=== PATIENT | male | born 1940 | race Caucasian/White ===

== ENCOUNTER → 2017-02-05 | Outpatient (CLI) | payer MEDICARE, BC ==
--- NOTE | 2017-02-05 08:29 | US ---
EXAMINATION TYPE: US duplex aorta DATE OF EXAM: 02/05/2017 7:54 AM COMPARISON: NONE CLINICAL HISTORY: Z13.9 Screening for unspecified condition. EXAM MEASUREMENTS: Abdominal Aorta: Proximal: 1.9cm not viewed in its entirety, portions visualized wnl Mid: 2.3cm Distal: 2.1 Bifurcation: not visualized due to overlying bowel/depth Patient of large body habitus with very large abdomen IMPRESSION: NO EVIDENCE OF AN AORTIC ANEURYSM AT THIS TIME.
== END ==
LOC: RADUSWWP 07:35
PROVIDERS: ATTEND Family Medicine
DX: Z13.9 Encounter for screening, unspecified (principal)
CPT/HCPCS: 93979

== ENCOUNTER 2017-02-13 18:34 | Observation (INO) | payer MEDICARE, BC ==
[2017-02-13] MEDS ORDERED: SODIUM CHLORIDE 0.9% 500 ML IV ONE (18:54)
[2017-02-13] MEDS ORDERED: ACETAMINOPHEN TAB 325 MG TAB PO STA (18:54)
--- NOTE | 2017-02-13 19:42 | ED ---
General Adult HPI - General Source: patient, RN notes reviewed Mode of arrival: EMS Limitations: no limitations <Jerrod Werner - Last Filed: 02/13/17 22:14> <Helio Anderson - Last Filed: 02/13/17 22:32> - General Chief complaint: Fever Stated complaint: flu like symptoms Time Seen by Provider: 02/13/17 18:41 - History of Present Illness Initial comments: 77-year-old male patient presents to emergency department today complaints of leg weakness and multiple episodes of diarrhea. Patient states that symptoms started this morning. Patient states he does generally have some leg weakness, uses a walker to ambulate, but states it's a little bit worse today. Patient states he has had more than 8-10 episodes of diarrhea today. He describes the stool as liquidy. Denies any dark, bloody, or black stools. Denies any nausea , vomiting, or abdominal pain. Patient denies any unilateral weakness, headache , dizziness, blurred, or double vision. Patient was febrile during triage, patient was unaware he had a fever. (Jerrod Werner) - Related Data Home Medications Medication Instructions Recorded Confirmed Pravastatin Sodium [Pravachol] 40 mg PO DAILY 04/08/15 02/13/17 Tamsulosin [Flomax] 0.4 mg PO BID 04/08/15 02/13/17 Cholecalciferol [Vitamin D3] 2,000 unit PO DAILY 04/21/15 02/13/17 Cyanocobalamin [Vitamin B-12] 500 mcg PO DAILY 04/21/15 02/13/17 Aspirin EC [Ecotrin] 325 mg PO DAILY 02/13/17 02/13/17 Finasteride [Proscar] 5 mg PO DAILY 02/13/17 02/13/17 Losartan/Hydrochlorothiazide 1 tab PO DAILY 02/13/17 02/13/17 [Losartan-Hctz 100-25 mg Tab] Oxybutynin Chloride [Oxybutynin 10 mg PO HS 02/13/17 02/13/17 Chloride ER] Zolpidem [Ambien] 10 mg PO HS PRN 02/13/17 02/13/17 Previous Rx's Medication Instructions Recorded Clopidogrel [Plavix] 75 mg PO DAILY #30 tab 04/27/15 Meclizine [Antivert] 25 mg PO TID #20 tab 07/28/16 Allergies Allergy/AdvReac Type Severity Reaction Status Date / Time Penicillins Allergy Rash/Hives Verified 02/13/17 19:07 Review of Systems ROS Other: All systems not noted in ROS Statement are negative. <SeanladiJerrod Hakan - Last Filed: 02/13/17 22:14> ROS Other: All systems not noted in ROS Statement are negative. <Helio Anderson - Last Filed: 02/13/17 22:32> ROS Statement: Those systems with pertinent positive or pertinent negative responses have been documented in the HPI. Past Medical History Past Medical History: Hyperlipidemia, Hypertension, Prostate Disorder, Sleep Apnea/CPAP/BIPAP Additional Past Medical History / Comment(s): PAD, History of Any Multi-Drug Resistant Organisms: None Reported Past Surgical History: Appendectomy, Back Surgery, Joint Replacement Additional Past Surgical History / Comment(s): JOSE KNEE REPLACEMENT, KIDNEY SX AT AGE 3 Past Anesthesia/Blood Transfusion Reactions: No Reported Reaction Past Psychological History: No Psychological Hx Reported Smoking Status: Current every day smoker Past Alcohol Use History: None Reported Past Drug Use History: None Reported - Past Family History Mother Family Medical History: No Reported History <DebbiJerrod Mcclendon - Last Filed: 02/13/17 22:14> General Exam Limitations: no limitations General appearance: alert, in no apparent distress Head exam: Present: atraumatic, normocephalic, normal inspection Eye exam: Present: normal appearance, PERRL, EOMI. Absent: scleral icterus, conjunctival injection, periorbital swelling ENT exam: Present: normal exam, normal oropharynx, mucous membranes moist Neck exam: Present: normal inspection. Absent: tenderness, meningismus, lymphadenopathy Respiratory exam: Present: normal lung sounds bilaterally, wheezes (Posterior right Lower lobe). Absent: respiratory distress, rales, rhonchi, stridor Cardiovascular Exam: Present: regular rate, normal rhythm, normal heart sounds. Absent: systolic murmur, diastolic murmur, rubs, gallop, clicks GI/Abdominal exam: Present: soft, normal bowel sounds. Absent: distended, tenderness, guarding, rebound, rigid Extremities exam: Present: normal inspection, full ROM, normal capillary refill. Absent: tenderness, pedal edema, joint swelling, calf tenderness Back exam: Present: normal inspection. Absent: CVA tenderness (R), CVA tenderness (L) Neurological exam: Present: alert, oriented X3, CN II-XII intact Psychiatric exam: Present: normal affect, normal mood Skin exam: Present: warm, dry, intact, normal color. Absent: rash <Jerrod Werner - Last Filed: 02/13/17 22:14> EKG Findings - EKG Comments: EKG Findings:: EKG obtained at 2004 reveals sinus rhythm with a first-degree AV block, left axis deviation, ventricular rate 85, ND interval 222, QRS duration 96, QT 372, QTC 442. No evidence of ST elevation or depression. <Jerrod Werner - Last Filed: 02/13/17 22:14> Medical Decision Making - Lab Data Result diagrams: 02/13/17 19:17 02/13/17 19:17 <Jerrod Werner - Last Filed: 02/13/17 22:14> - Lab Data Result diagrams: 02/13/17 19:17 02/13/17 19:17 <Helio Anderson - Last Filed: 02/13/17 22:32> - Medical Decision Making I saw this patient in conjunction with the physician payroll administrative assistant. I performed independent history and physical exam. Agree with case management. (Helio Anderson) - Lab Data Lab Results 02/13/17 02/13/17 02/13/17 Range/Units 19:17 19:17 19:17 WBC 8.8 (3.8-10.6) k/uL RBC 4.43 (4.30-5.90) m/uL Hgb 12.7 L (13.0-17.5) gm/dL Hct 37.8 L (39.0-53.0) % MCV 85.5 (80.0-100.0) fL MCH 28.6 (25.0-35.0) pg MCHC 33.4 (31.0-37.0) g/dL RDW 15.2 (11.5-15.5) % Plt Count 274 (150-450) k/uL Neutrophils % 89 % Lymphocytes % 5 % Monocytes % 3 % Eosinophils % 2 % Basophils % 1 % Neutrophils # 7.9 H (1.3-7.7) k/uL Lymphocytes # 0.4 L (1.0-4.8) k/uL Monocytes # 0.2 (0-1.0) k/uL Eosinophils # 0.2 (0-0.7) k/uL Basophils # 0.1 (0-0.2) k/uL Sodium 139 (137-145) mmol/L Potassium 3.5 (3.5-5.1) mmol/L Chloride 106 (98-107) mmol/L Carbon Dioxide 23 (22-30) mmol/L Anion Gap 10 mmol/L BUN 22 H (9-20) mg/dL Creatinine 1.18 (0.66-1.25) mg/dL Est GFR (MDRD) Af Amer >60 (>60 ml/min/1.73 sqM) Est GFR (MDRD) Non-Af 60 (>60 ml/min/1.73 sqM) Glucose 105 H (74-99) mg/dL Calcium 8.6 (8.4-10.2) mg/dL Total Bilirubin 0.7 (0.2-1.3) mg/dL AST 12 L (17-59) U/L ALT 22 (21-72) U/L Alkaline Phosphatase 87 (38-126) U/L Troponin I (0.000-0.034) ng/mL Total Protein 6.4 (6.3-8.2) g/dL Albumin 3.6 (3.5-5.0) g/dL Amylase 36 (30-110) U/L Lipase 28 (23-300) U/L Urine Color Urine Appearance (Clear) Urine pH (5.0-8.0) Ur Specific [place] (1.001-1.035) Urine Protein (Negative) Urine Glucose (UA) (Negative) Urine Ketones (Negative) Urine Blood (Negative) Urine Nitrite (Negative) Urine Bilirubin (Negative) Urine Urobilinogen (<2.0) mg/dL Ur Leukocyte Esterase (Negative) Influenza Type A RNA Not Detected (Not Detectd) Influenza Type B (PCR) Not Detected (Not Detectd) 02/13/17 02/13/17 Range/Units 19:17 19:45 WBC (3.8-10.6) k/uL RBC (4.30-5.90) m/uL Hgb (13.0-17.5) gm/dL Hct (39.0-53.0) % MCV (80.0-100.0) fL MCH (25.0-35.0) pg MCHC (31.0-37.0) g/dL RDW (11.5-15.5) % Plt Count (150-450) k/uL Neutrophils % % Lymphocytes % % Monocytes % % Eosinophils % % Basophils % % Neutrophils # (1.3-7.7) k/uL Lymphocytes # (1.0-4.8) k/uL Monocytes # (0-1.0) k/uL Eosinophils # (0-0.7) k/uL Basophils # (0-0.2) k/uL Sodium (137-145) mmol/L Potassium (3.5-5.1) mmol/L Chloride (98-107) mmol/L Carbon Dioxide (22-30) mmol/L Anion Gap mmol/L BUN (9-20) mg/dL Creatinine (0.66-1.25) mg/dL Est GFR (MDRD) Af Amer (>60 ml/min/1.73 sqM) Est GFR (MDRD) Non-Af (>60 ml/min/1.73 sqM) Glucose (74-99) mg/dL Calcium (8.4-10.2) mg/dL Total Bilirubin (0.2-1.3) mg/dL AST (17-59) U/L ALT (21-72) U/L Alkaline Phosphatase (38-126) U/L Troponin I <0.012 (0.000-0.034) ng/mL Total Protein (6.3-8.2) g/dL Albumin (3.5-5.0) g/dL Amylase (30-110) U/L Lipase (23-300) U/L Urine Color Yellow Urine Appearance Clear (Clear) Urine pH 6.0 (5.0-8.0) Ur Specific [place] 1.020 (1.001-1.035) Urine Protein Trace H (Negative) Urine Glucose (UA) Negative (Negative) Urine Ketones Negative (Negative) Urine Blood Negative (Negative) Urine Nitrite Negative (Negative) Urine Bilirubin Negative (Negative) Urine Urobilinogen 2.0 (<2.0) mg/dL Ur Leukocyte Esterase Negative (Negative) Influenza Type A RNA (Not Detectd) Influenza Type B (PCR) (Not Detectd) Disposition <Jerrod Werner - Last Filed: 02/13/17 22:14> <Helio Anderson - Last Filed: 02/13/17 22:32> Clinical Impression: Fever, Frequent falls, Weakness, Increased weakness when ambulating, Difficulty walking, Dehydration Disposition: ADMITTED IP TO THIS [facility] Condition: Good Referrals: Trevor Kennedy MD [Primary Care Provider] - 1-2 days
[2017-02-13 19:47] LABS: Basophils # (A) 0.1 k/uL (0-0.2); Basophils % (A) 1 %; CHCM 32.9; Eosinophils # (A) 0.2 k/uL (0-0.7); Eosinophils % (A) 2 %; HCT 37.8 % (39.0-53.0); HDW 3.09; HGB 12.7 gm/dL (13.0-17.5); Luc # (Auto) 0.08; Luc % (Auto) 1; Lymphocytes # (A) 0.4 k/uL (1.0-4.8); Lymphocytes % (A) 5 %; MCH 28.6 pg (25.0-35.0); MCHC 33.4 g/dL (31.0-37.0); MCV 85.5 fL (80.0-100.0); Mean Platelet Volume 6.8; Monocytes # (A) 0.2 k/uL (0-1.0); Monocytes % (A) 3 %; Neutrophils # (A) 7.9 k/uL (1.3-7.7); Neutrophils % (A) 89 %; RBC 4.43 m/uL (4.30-5.90); RDW 15.2 % (11.5-15.5); WBC 8.8 k/uL (3.8-10.6); WBC (Perox) 8.99
[2017-02-13] MEDS ORDERED: SODIUM CHLORIDE 0.9% 1,000 ML IV ONE (20:05)
--- NOTE | 2017-02-13 20:09 | XR ---
EXAMINATION TYPE: XR chest 2V DATE OF EXAM: 02/13/2017 8:01 PM COMPARISON: April 06, 2015 HISTORY: Weakness and pain TECHNIQUE: Frontal and lateral views of the chest are obtained. FINDINGS: There is no focal air space opacity, pleural effusion, or pneumothorax seen. The cardiac silhouette size is within normal limits. The osseous structures are intact. IMPRESSION: No acute cardiopulmonary process.
[2017-02-13 20:13] LABS: Appearance,Urine Clear (Clear); Bilirubin,Urine Negative (Negative); Glucose,Urine (UA) Negative (Negative); Ketones,Urine Negative (Negative); Leukocyte Esterase,Urine Negative (Negative); Nitrite,Urine Negative (Negative); Protein,Urine Trace (Negative); UA Billing (MACRO vs. MICRO) CHEM
[2017-02-13 20:44] LABS: ALT 22 U/L (21-72); AST 12 U/L (17-59); Alkaline Phosphatase 87 U/L (38-126); Amylase 36 U/L (30-110); Anion Gap 10 mmol/L; Blood Urea Nitrogen 22 mg/dL (9-20); Calcium 8.6 mg/dL (8.4-10.2); Carbon Dioxide 23 mmol/L (22-30); Chloride 106 mmol/L (98-107); Glucose 105 mg/dL (74-99); Non-African American GFR(MDRD) 60 (>60 ml/min/1.73 sqM); Potassium 3.5 mmol/L (3.5-5.1); Sodium 139 mmol/L (137-145); Total Bilirubin 0.7 mg/dL (0.2-1.3); Total Protein 6.4 g/dL (6.3-8.2)
[2017-02-13] MEDS ORDERED: IBUPROFEN 600 MG TAB PO STA (21:06)
[2017-02-13] MEDS ORDERED: KETOROLAC 30 MG/ML 1 ML VIAL IVP STA (21:13)
[2017-02-13] MEDS ORDERED: NALOXONE 0.4 MG/ML 1 ML VIAL IV PRN (22:16)
[2017-02-13] MEDS ORDERED: IBUPROFEN 400 MG TAB PO PRN (22:16)
[2017-02-13] MEDS ORDERED: ACETAMINOPHEN TAB 325 MG TAB PO PRN (22:16)
[2017-02-14 00:43] VITALS: BMI 35.6
[2017-02-14] MEDS ORDERED: ZOLPIDEM 5 MG TAB PO SCH ×2 (01:21→21:00)
[2017-02-14 07:34] VITALS: RESP 16; TEMP 98.7
[2017-02-14] MEDS ORDERED: ZOLPIDEM 10 MG TAB PO PRN (09:12)
--- NOTE | 2017-02-14 12:34 | P.HPIM ---
History of Present Illness 77-year-old male was brought to the emergency room by EMS. Patient had been having periods of diarrhea with little fluid intake. Patient had fallen was unable to stand. ER physician stated that family a questions about extended care facility placement. Today patient ambulating freely without distress. Family at bedside discussed taking her back home. Possible physical therapy for home. Awaiting recommendations of physical therapy Review of Systems Constitutional: Reports fatigue Gastrointestinal: Reports diarrhea, Reports nausea Past Medical History Past Medical History: Hyperlipidemia, Hypertension, Prostate Disorder, Sleep Apnea/CPAP/BIPAP Additional Past Medical History / Comment(s): PAD, History of Any Multi-Drug Resistant Organisms: None Reported Past Surgical History: Appendectomy, Back Surgery, Joint Replacement Additional Past Surgical History / Comment(s): JOSE KNEE REPLACEMENT, KIDNEY SX AT AGE 3 Past Anesthesia/Blood Transfusion Reactions: No Reported Reaction Past Psychological History: No Psychological Hx Reported Smoking Status: Current every day smoker Past Alcohol Use History: None Reported Past Drug Use History: None Reported - Past Family History Mother Family Medical History: No Reported History Medications and Allergies Home Medications Medication Instructions Recorded Confirmed Type RX: Pravastatin Sodium [Pravachol] 40 mg PO DAILY 04/08/15 02/13/17 History RX: Tamsulosin [Flomax] 0.4 mg PO BID 04/08/15 02/13/17 History RX: Cholecalciferol [Vitamin D3] 2,000 unit PO DAILY 04/21/15 02/13/17 History RX: Cyanocobalamin [Vitamin B-12] 500 mcg PO DAILY 04/21/15 02/13/17 History Aspirin EC [Ecotrin] 325 mg PO DAILY 02/13/17 02/13/17 History Finasteride [Proscar] 5 mg PO DAILY 02/13/17 02/13/17 History Losartan/Hydrochlorothiazide 1 tab PO DAILY 02/13/17 02/13/17 History [Losartan-Hctz 100-25 mg Tab] Oxybutynin Chloride [Oxybutynin 10 mg PO HS 02/13/17 02/13/17 History Chloride ER] Zolpidem [Ambien] 10 mg PO HS PRN 02/13/17 02/13/17 History Allergies Allergy/AdvReac Type Severity Reaction Status Date / Time Penicillins Allergy Rash/Hives Verified 02/13/17 19:07 Physical Exam Vitals: Vital Signs Temp Pulse Pulse Resp BP BP Pulse Ox 02/14/17 07:00 98.7 F 62 16 119/55 98 02/14/17 04:00 12 02/14/17 00:19 97.4 F L 12 95 02/13/17 23:49 70 16 122/58 96 Intake and Output 02/13/17 02/14/17 02/14/17 22:59 06:59 14:59 Intake Total 180 320 Balance 180 320 Intake: Oral 180 320 Other: Weight 126.099 kg - Constitutional General appearance: morbidly obese - EENT Eyes: PERRLA Ears: bilateral: normal - Neck Neck: normal ROM - Respiratory Respiratory: bilateral: CTA - Cardiovascular Rhythm: regular - Gastrointestinal General gastrointestinal: normal bowel sounds, soft - Integumentary Integumentary: normal - Neurologic Neurologic: CNII-XII intact - Musculoskeletal Musculoskeletal: gait normal - Psychiatric Psychiatric: A&O x's 3, appropriate affect, intact judgment & insight Results CBC & Chem 7: 02/13/17 19:17 02/13/17 19:17 Chest x-ray: report reviewed Thrombosis Risk Factor Assmnt - Choose All That Apply Each Factor Represents 1 point: Obesity (BMI >25) Each Risk Factor Represents 3 Points: Age 75 years or older Other congenital or acquired thrombophilia - If yes, enter type in comment: No Thrombosis Risk Factor Assessment Total Risk Factor Score: 4 Thrombosis Risk Factor Assessment Level: Moderate Risk Assessment and Plan Plan: Assessment Fever falls weakness Dehydration secondary to diarrhea possible viral History of hypertension Hyperlipidemia Prostate problems Chronic back pain Morbid obesity BMI 35.7 Sleep apnea Plan Physical therapy evaluation possible home physical therapy for weakness Family willing to take patient back home
[2017-02-14 14:52] VITALS: BP 125/61; PULSE 55
[2017-02-14] MEDS ORDERED: MECLIZINE 25 MG TAB PO SCH (16:00)
[2017-02-14] MEDS ORDERED: OXYBUTYNIN 10 MG TAB.ER.24 PO SCH (21:00)
[2017-02-14] MEDS ORDERED: TAMSULOSIN 0.4 MG CAP.ER.24H PO SCH (21:00)
[2017-02-15] MEDS ORDERED: CLOPIDOGREL 75 MG TAB PO SCH (09:00)
[2017-02-15] MEDS ORDERED: PRAVASTATIN SODIUM 40 MG TAB PO SCH (09:00)
[2017-02-15] MEDS ORDERED: ASPIRIN 325 MG TAB PO SCH (09:00)
[2017-02-15] MEDS ORDERED: LOSARTAN-HCTZ 50-12.5 MG 1 EACH TAB PO SCH (09:00)
[2017-02-15] MEDS ORDERED: FINASTERIDE 5 MG TAB PO SCH (09:00)
--- NOTE | 2017-02-15 11:09 | P.DS ---
Providers Date of admission: 02/13/17 23:18 Expected date of discharge: 02/14/17 Attending physician: Trevor Kennedy Primary care physician: Trevor Kennedy Hospital Course: 77-year-old male was admitted through the emergency room with complaints of weakness. Patient had a fall family was unable to assist him to his feet EMS was called. He was given fluids for rehydration. Patient has recovered greatly was able to ambulate the [place]ton without any difficulty. Family requesting discharge home Assessment Dehydration gastroenteritis Weakness History of hypertension History of chronic back pain Morbid obesity Hyperlipidemia Sleep apnea Plan Possible physical therapy in the home Follow-up with family physician Dr. Trevor Kennedy Patient Condition at Discharge: Good Plan - Discharge Summary Discharge Medication List Pravastatin Sodium [Pravachol] 40 mg PO DAILY 04/08/15 [History] Tamsulosin [Flomax] 0.4 mg PO BID 04/08/15 [History] Cholecalciferol [Vitamin D3] 2,000 unit PO DAILY 04/21/15 [History] Cyanocobalamin [Vitamin B-12] 500 mcg PO DAILY 04/21/15 [History] Clopidogrel [Plavix] 75 mg PO DAILY #30 tab 04/27/15 [Rx] Meclizine [Antivert] 25 mg PO TID #20 tab 07/28/16 [Rx] Aspirin EC [Ecotrin] 325 mg PO DAILY 02/13/17 [History] Finasteride [Proscar] 5 mg PO DAILY 02/13/17 [History] Losartan/Hydrochlorothiazide [Losartan-Hctz 100-25 mg Tab] 1 tab PO DAILY [History] Oxybutynin Chloride [Oxybutynin Chloride ER] 10 mg PO HS 02/13/17 [History] Zolpidem [Ambien] 10 mg PO HS PRN 02/13/17 [History] Follow up Appointment(s)/Referral(s): Trevor Kennedy MD [Primary Care Provider] - 02/20/17 12:00 pm Patient Instructions/Handouts: Dehydration (DC), Gastroenteritis (DC) Activity/Diet/Wound Care/Special Instructions: Continue on all previous home medications. Discharge Disposition: HOME SELF-CARE
[2017-02-15] MEDS ORDERED: CHOLECALCIFEROL 1,000 UNIT TAB PO SCH (12:00)
[2017-02-15] MEDS ORDERED: CYANOCOBALAMIN 500 MCG TAB PO SCH (12:00)
== END 2017-02-14 17:28 | disposition home or self-care (01) ==
LOC: EC 18:34 → 3SUR 23:18
PROVIDERS: ADMIT Family Medicine; ATTEND Family Medicine
DX: F50.9 Eating disorder, unspecified (principal)
CPT/HCPCS: 36415; 93005; 97162; 80053; 82150; 83690; 84484; 85025; 81003; 87040; 87502; 71020; 96374; 96361 ×3; 99285; G0378 ×2; J1885

== ENCOUNTER 2017-08-10 22:07 | Emergency (ER) | payer MEDICARE, BC ==
[2017-08-10 22:11] VITALS: TEMP 97.7
[2017-08-10 22:57] LABS: Appearance,Urine Clear (Clear); Bacteria,Urine Rare /hpf; Bilirubin,Urine Negative (Negative); Glucose,Urine (UA) Negative (Negative); Ketones,Urine Negative (Negative); Leukocyte Esterase,Urine Large (Negative); Mucus,Urine Rare /hpf; Nitrite,Urine Negative (Negative); PH, Urine 6.5 (5.0-8.0); Particle Count 8634; Protein,Urine 1+ (Negative); RBC,Urine 115 /hpf (0-5); Specific Gravity,Urine 1.008 (1.001-1.035); UA Billing (MACRO vs. MICRO) MICRO; Urobilinogen,Urine <2.0 mg/dL (<2.0); WBC,Urine 58 /hpf (0-5)
[2017-08-10] MEDS ORDERED: LEVOFLOXACIN 750 MG TAB PO STA (23:02)
--- NOTE | 2017-08-10 23:02 | ED ---
Male Urogenital HPI - General Chief complaint: Urogenital Stated complaint: cannot urinate Time Seen by Provider: 08/10/17 22:18 Source: patient, family Mode of arrival: wheelchair Limitations: no limitations - History of Present Illness Initial comments: This patient is a 77-year-old man who presents with complaint that it feels like he needs to urinate and he is having suprapubic pressure type pain. The patient relates that he had a Flores catheter in related to urinary retention and UTI, and that it was discontinued when he saw Dr. Atkins in the clinic yesterday. He states that he was able urinate this morning until just after noon when he stopped passing urine. Over the past few hours he has noticed the pain coming on and has not been able to urinate the patient denies fever or chills, dyspnea, palpitations or chest pain. No edema. No flank pain, nausea or vomiting. No change in bowel movements. MD Complaint: other (Urinary retention and abdominal pain) Onset/Timin -: hour(s) Location: abdomen Radiation: none Severity: severe Quality: other Consistency: constant (Pressure) Improves with: none Worsens with: palpation Reports: denies other symptoms - Related Data Home Medications Medication Instructions Recorded Confirmed Pravastatin Sodium [Pravachol] 40 mg PO DAILY 04/08/15 08/10/17 Tamsulosin [Flomax] 0.4 mg PO BID 04/08/15 08/10/17 Cholecalciferol [Vitamin D3] 2,000 unit PO DAILY 04/21/15 08/10/17 Cyanocobalamin [Vitamin B-12] 500 mcg PO DAILY 04/21/15 08/10/17 Finasteride [Proscar] 5 mg PO HS 02/13/17 08/10/17 Oxybutynin Chloride [Oxybutynin 10 mg PO DAILY 02/13/17 08/10/17 Chloride ER] Aspirin 325 mg PO DAILY 08/02/17 08/10/17 HYDROcodone/APAP 5-325MG [[place] 1 tab PO Q4HR PRN 08/02/17 08/10/17 5-325] Previous Rx's Medication Instructions Recorded Clopidogrel [Plavix] 75 mg PO DAILY #30 tab 04/27/15 Losartan [Cozaar] 25 mg PO DAILY #30 tab 08/04/17 Levofloxacin [Levaquin] 500 mg PO DAILY #7 tab 08/10/17 Allergies Allergy/AdvReac Type Severity Reaction Status Date / Time Penicillins Allergy Rash/Hives Verified 08/10/17 22:39 Review of Systems ROS Statement: Those systems with pertinent positive or pertinent negative responses have been documented in the HPI. ROS Other: All systems not noted in ROS Statement are negative. Constitutional: Denies: fever, chills Respiratory: Denies: dyspnea Cardiovascular: Denies: chest pain, palpitations, edema Gastrointestinal: Reports: as per HPI, abdominal pain. Denies: nausea, vomiting , constipation Genitourinary: Reports: as per HPI. Denies: dysuria, hematuria, testicular pain Musculoskeletal: Denies: back pain Skin: Denies: rash Past Medical History Past Medical History: Hyperlipidemia, Hypertension, Prostate Disorder, Sleep Apnea/CPAP/BIPAP Additional Past Medical History / Comment(s): PAD, Right rotator cuff tear History of Any Multi-Drug Resistant Organisms: None Reported Past Surgical History: Appendectomy, Back Surgery, Joint Replacement Additional Past Surgical History / Comment(s): JOSE KNEE REPLACEMENT, KIDNEY SX AT AGE 6 Past Anesthesia/Blood Transfusion Reactions: No Reported Reaction Past Psychological History: No Psychological Hx Reported Smoking Status: Current every day smoker Past Alcohol Use History: None Reported Past Drug Use History: None Reported - Past Family History Mother Family Medical History: No Reported History, Diabetes Mellitus General Exam Limitations: no limitations General appearance: alert, in distress Respiratory exam: Present: normal lung sounds bilaterally. Absent: respiratory distress, wheezes, rales, rhonchi, stridor Cardiovascular Exam: Present: regular rate, normal rhythm, normal heart sounds. Absent: systolic murmur, diastolic murmur, rubs, gallop GI/Abdominal exam: Present: soft, tenderness, guarding, other (The patient has some mild tenderness, fullness, and guarding in the suprapubic area consistent with bladder.). Absent: distended, rebound, rigid exam: Present: normal inspection Extremities exam: Present: normal inspection, normal capillary refill. Absent: pedal edema, calf tenderness Back exam: Absent: CVA tenderness (R), CVA tenderness (L) Skin exam: Present: warm, dry, intact, normal color. Absent: rash Course Vital Signs 08/10/17 22:10 Temperature 97.7 F Pulse Rate 69 Respiratory 16 Rate Blood Pressure 187/76 O2 Sat by Pulse 98 Oximetry Medical Decision Making - Lab Data Lab Results 08/10/17 Range/Units 22:45 Urine Color Yellow Urine Appearance Clear (Clear) Urine pH 6.5 (5.0-8.0) Ur Specific [place] 1.008 (1.001-1.035) Urine Protein 1+ H (Negative) Urine Glucose (UA) Negative (Negative) Urine Ketones Negative (Negative) Urine Blood Large H (Negative) Urine Nitrite Negative (Negative) Urine Bilirubin Negative (Negative) Urine Urobilinogen <2.0 (<2.0) mg/dL Ur Leukocyte Esterase Large H (Negative) Urine RBC 115 H (0-5) /hpf Urine WBC 58 H (0-5) /hpf Urine WBC Clumps Few H (None) /hpf Urine Bacteria Rare H (None) /hpf Urine Mucus Rare H (None) /hpf Disposition Clinical Impression: Urinary retention, Urinary tract infection Disposition: HOME SELF-CARE Condition: Fair Instructions: Urinary Retention in Men (ED), Urinary Tract Infection in Men (ED ) Prescriptions: Levofloxacin [Levaquin] 500 mg PO DAILY #7 tab Referrals: Trevor Kennedy MD [Primary Care Provider] - 1-2 days Alireza Atkins MD [STAFF PHYSICIAN] - 1-2 days
[2017-08-10 23:25] VITALS: BP 167/89; PULSE 84; RESP 18
== END 2017-08-10 23:24 | disposition home or self-care (01) ==
LOC: EC 22:07
DX: N39.0 Urinary tract infection, site not specified (principal); R33.9 Retention of urine, unspecified; E78.5 Hyperlipidemia, unspecified; I10 Essential (primary) hypertension; N42.9 Disorder of prostate, unspecified; F17.200 Nicotine dependence, unspecified, uncomplicated; Z79.82 Long term (current) use of aspirin; Z79.899 Other long term (current) drug therapy; Z88.0 Allergy status to penicillin; Z98.890 Other specified postprocedural states
CPT/HCPCS: 81001; 87086; 99283

== ENCOUNTER → 2017-11-22 | Outpatient (CLI) | payer MEDICARE, BC ==
--- NOTE | 2017-11-22 17:38 | CONS ---
CONSULTATION DATE OF SERVICE: 11/22/2017 77-year-old gentleman has [facility] for obstructive sleep apnea- hypopnea syndrome. HISTORY OF PRESENT ILLNESS SLEEP WAKE EVALUATION: The patient has a long history of obstructive sleep apnea-hypopnea syndrome. His last CPAP titration according to our notes was done in 2013. The patient continued to use his CPAP equipment every night for the whole night. I checked his CPAP unit. CPAP pressure is 13 cm of water. REM is 45 minutes starting pressure is 6 cm of water. The patient is using equipment 28/30 nights for more than 4 hours. Average usage is 8 hours. SLEEP SCHEDULE: His sleep schedule usually from around 8 to 9:30 p.m. to 5:30 a.m. FALLING ASLEEP: Sometimes he has problem with falling asleep, has TV set in bedroom. DURING SLEEP: He basically does not snore with the CPAP according to his . Sometimes he wakes up with dry mouth and nocturia about once a night. DURING THE DAY/SLEEP WAKE EVALUATION: No significant excessive daytime sleepiness. [place] Sleepiness Scale is. PAST MEDICAL HISTORY: Positive for hypertension, hyperlipidemia, mini-stroke about 5 years ago. Sick sinus syndrome, hypertension. Benign prostatic hypertrophy. MEDICATIONS: Aspirin, Cozaar, Dulcolax, oxybutynin, Plavix, pravastatin, Proscar, vitamin B12, zolpidem. PAST SURGICAL HISTORY: Status post prostate surgery was just recently in 2017 for BPH. SOCIAL HISTORY: Smoking for about 40 years starting from 2 packs a day, now is about one pack a day. Continues smoking. Alcohol none. REVIEW OF SYSTEMS: Sometimes awakenings from sleep. FAMILY HISTORY: Hypertension, hyperlipidemia, arthritis, lung problems, eczema, pneumoniae, diabetes. PHYSICAL EXAM: 77-year-old gentleman without distress. BP 199/86, HR 60, RR 16, height 5 feet 9 inches, weight 262, BMI 38.6, temperature 97.5, oxygen saturation on room air 98%. HEENT: PERRLA, EOMI. Evaluation of oropharynx showed tongue protrudes midline; extremely low position of soft palate, wide neck. Abdomen obese. Neck Supple, no JVD. Thyroid is not palpable. LUNGS Clear to percussion and to auscultation. Good air exchange. No wheezing or rhonchi. HEART S1, S2 regular. No murmurs, gallops, or rubs. ABDOMEN: Obese. Soft and nontender. Bowel sounds are present. No organomegaly appreciated. EXTREMITIES No clubbing or cyanosis. [employer] OPERATOR Awake, alert, and oriented X3. Cranial nerves 2 to 7 intact. There is no fasciculation or atrophy. noted. No focal deficits observed. IMPRESSION: 1. Obstructive sleep apnea-hypopnea syndrome. Patient continued to use his CPAP equipment every night for the whole night. No snoring or CPAP. No significant sleepiness during the day. 2. Obesity. 3. Hypertension. 4. Hyperlipidemia. 5. Smoker for about 50 pack years. 6. History of stroke about 5 years ago without residual deficit. 7. History of benign prostatic hypertrophy, status post surgery in 2017. 8. History of sick sinus syndrome. PLAN: 1. Prescription for all necessary CPAP supplies including mask, tube, filters. 2. The patient was fitted with a new CPAP mask air feet F 20 large size and he likes this mask. 3. Losing weight. 4. Sleep hygiene with regular time in bed for at least 8 hours. 5. No driving if feeling sleepiness. 6. This machine is 4 years old. Thank you very much for allowing me to participate in management of your patient. Sincerely, Ruddy Kimble MD, PhD, FAASM Diplomat of [place] [employer] [place] [employer] Forming Process Worker of [facility] [place] MMODL / GINA: [id number] /
== END | disposition home or self-care (01) ==
LOC: SLEEP 15:16
PROVIDERS: ATTEND Internal Medicine
DX: G47.33 Obstructive sleep apnea (adult) (pediatric) (principal); E66.9 Obesity, unspecified; I10 Essential (primary) hypertension; E78.5 Hyperlipidemia, unspecified; F17.200 Nicotine dependence, unspecified, uncomplicated; Z68.38 Body mass index [BMI] 38.0-38.9, adult; Z86.73 Personal history of transient ischemic attack (TIA), and cerebral infarction without residual deficits; Z87.438 Personal history of other diseases of male genital organs; Z86.79 Personal history of other diseases of the circulatory system; Z79.82 Long term (current) use of aspirin; Z79.02 Long term (current) use of antithrombotics/antiplatelets; Z79.899 Other long term (current) drug therapy; Z98.890 Other specified postprocedural states
CPT/HCPCS: 99211

== ENCOUNTER 2017-11-25 03:04 | Inpatient (IN) | payer MEDICARE, BC ==
--- NOTE | 2017-11-25 03:24 | ED ---
General Adult HPI - General Chief complaint: Weakness Stated complaint: Weakness Time Seen by Provider: 11/25/17 03:05 Source: patient, RN notes reviewed Mode of arrival: EMS Limitations: physical limitation - History of Present Illness Initial comments: This is a 77-year-old male who comes emergency Department complaining of generalized weakness. Patient states he slid out of the bed onto his buttocks was unable to get off the floor. Patient states normally he is able to get up off the floor and his own. Patient states a few days ago he had significant diarrhea for about half the day but he hasn't had any since. Patient states tonight he denies any headache he denies any lightheadedness or dizziness. Patient denies any numbness or weakness that is focal in nature. Patient denies any palpitations. Patient denies chest pain difficulty breathing or shortness of breath. Patient denies abdominal pain patient denies any nausea or vomiting. Patient denies any injury from sliding out of the bed. Patient denies any lower back pain - Related Data Home Medications Medication Instructions Recorded Confirmed Pravastatin Sodium [Pravachol] 40 mg PO DAILY 04/08/15 08/10/17 Tamsulosin [Flomax] 0.4 mg PO BID 04/08/15 08/10/17 Cholecalciferol [Vitamin D3] 2,000 unit PO DAILY 04/21/15 08/10/17 Cyanocobalamin [Vitamin B-12] 500 mcg PO DAILY 04/21/15 08/10/17 Finasteride [Proscar] 5 mg PO HS 02/13/17 08/10/17 Oxybutynin Chloride [Oxybutynin 10 mg PO DAILY 02/13/17 08/10/17 Chloride ER] Aspirin 325 mg PO DAILY 08/02/17 08/10/17 HYDROcodone/APAP 5-325MG [Landis 1 tab PO Q4HR PRN 08/02/17 08/10/17 5-325] Previous Rx's Medication Instructions Recorded Clopidogrel [Plavix] 75 mg PO DAILY #30 tab 04/27/15 Losartan [Cozaar] 25 mg PO DAILY #30 tab 08/04/17 Levofloxacin [Levaquin] 500 mg PO DAILY #7 tab 08/10/17 Allergies Allergy/AdvReac Type Severity Reaction Status Date / Time Penicillins Allergy Rash/Hives Verified 11/25/17 03:17 Review of Systems ROS Statement: Those systems with pertinent positive or pertinent negative responses have been documented in the HPI. ROS Other: All systems not noted in ROS Statement are negative. Past Medical History Past Medical History: Hyperlipidemia, Hypertension, Prostate Disorder, Sleep Apnea/CPAP/BIPAP Additional Past Medical History / Comment(s): PAD, Right rotator cuff tear History of Any Multi-Drug Resistant Organisms: None Reported Past Surgical History: Appendectomy, Back Surgery, Joint Replacement Additional Past Surgical History / Comment(s): JOSE KNEE REPLACEMENT, KIDNEY SX AT AGE 6 Past Anesthesia/Blood Transfusion Reactions: No Reported Reaction Past Psychological History: No Psychological Hx Reported Smoking Status: Current some day smoker Past Alcohol Use History: None Reported Past Drug Use History: None Reported - Past Family History Mother Family Medical History: No Reported History, Diabetes Mellitus General Exam - General Exam Comments Initial Comments: GENERAL: Patient is well-developed and well-nourished. Patient is nontoxic and well- hydrated and is in mild distress. ENT: Neck is soft and supple. No significant lymphadenopathy is noted. Oropharynx is clear. Moist mucous membranes. Neck has full range of motion without eliciting any pain. EYES: The sclera were anicteric and conjunctiva were pink and moist. Extraocular movements were intact and pupils were equal round and reactive to light. Eyelids were unremarkable. PULMONARY: Unlabored respirations. Good breath sounds bilaterally. No audible rales rhonchi or wheezing was noted. CARDIOVASCULAR: There is a regular rate and rhythm without any murmurs gallops or rubs. ABDOMEN: Soft and nontender with normal bowel sounds. SKIN: Skin is clear with no lesions or rashes and otherwise unremarkable. NEUROLOGIC: Patient is alert and oriented x3. Cranial nerves II through XII are grossly intact. Patient has bilateral lower leg weakness. Normal speech, volume and content. Symmetrical smile. MUSCULOSKELETAL: Patient has weakness in both of his lower extremities he is unable to lift his legs off the bed or bend at the knee.. No lower extremity swelling or edema. No calf tenderness. LYMPHATICS: No significant lymphadenopathy is noted PSYCHIATRIC: Normal psychiatric evaluation. Limitations: physical limitation Course Vital Signs 11/25/17 11/25/17 03:11 04:58 Temperature 99.2 F Pulse Rate 72 79 Respiratory 20 16 Rate Blood Pressure 184/82 156/71 O2 Sat by Pulse 96 96 Oximetry Medical Decision Making - Lab Data Result diagrams: 11/25/17 03:57 11/25/17 03:57 Lab Results 11/25/17 11/25/17 11/25/17 Range/Units 03:33 03:57 03:57 WBC 8.0 (3.8-10.6) k/uL RBC 4.72 (4.30-5.90) m/uL Hgb 12.4 L (13.0-17.5) gm/dL Hct 39.8 (39.0-53.0) % MCV 84.3 (80.0-100.0) fL MCH 26.3 (25.0-35.0) pg MCHC 31.3 (31.0-37.0) g/dL RDW 16.3 H (11.5-15.5) % Plt Count 246 (150-450) k/uL Neutrophils % 84 % Lymphocytes % 7 % Monocytes % 4 % Eosinophils % 4 % Basophils % 1 % Neutrophils # 6.7 (1.3-7.7) k/uL Lymphocytes # 0.6 L (1.0-4.8) k/uL Monocytes # 0.3 (0-1.0) k/uL Eosinophils # 0.3 (0-0.7) k/uL Basophils # 0.1 (0-0.2) k/uL Hypochromasia Moderate Anisocytosis Slight PT (9.0-12.0) sec INR (<1.2) APTT (22.0-30.0) sec Sodium (137-145) mmol/L Potassium (3.5-5.1) mmol/L Chloride (98-107) mmol/L Carbon Dioxide (22-30) mmol/L Anion Gap mmol/L BUN (9-20) mg/dL Creatinine (0.66-1.25) mg/dL Est GFR (MDRD) Af Amer (>60 ml/min/1.73 sqM) Est GFR (MDRD) Non-Af (>60 ml/min/1.73 sqM) Glucose (74-99) mg/dL Plasma Lactic Acid Abdiel (0.7-2.0) mmol/L Calcium (8.4-10.2) mg/dL Magnesium (1.6-2.3) mg/dL Total Bilirubin (0.2-1.3) mg/dL AST (17-59) U/L ALT (21-72) U/L Alkaline Phosphatase (38-126) U/L Total Creatine Kinase 68 (55-170) U/L CK-MB (CK-2) 0.4 (0.0-2.4) ng/mL CK-MB (CK-2) Rel Index 0.6 Troponin I <0.012 (0.000-0.034) ng/mL Total Protein (6.3-8.2) g/dL Albumin (3.5-5.0) g/dL Urine Color Yellow Urine Appearance Cloudy (Clear) Urine pH 6.0 (5.0-8.0) Ur Specific [place] 1.014 (1.001-1.035) Urine Protein Trace H (Negative) Urine Glucose (UA) Negative (Negative) Urine Ketones Negative (Negative) Urine Blood Negative (Negative) Urine Nitrite Negative (Negative) Urine Bilirubin Negative (Negative) Urine Urobilinogen <2.0 (<2.0) mg/dL Ur Leukocyte Esterase Large H (Negative) Urine RBC 6 H (0-5) /hpf Urine WBC 119 H (0-5) /hpf Ur Squamous Epith Cells 1 (0-4) /hpf Urine Bacteria Moderate H (None) /hpf Urine Mucus Rare H (None) /hpf 11/25/17 11/25/17 11/25/17 Range/Units 03:57 03:57 03:57 WBC (3.8-10.6) k/uL RBC (4.30-5.90) m/uL Hgb (13.0-17.5) gm/dL Hct (39.0-53.0) % MCV (80.0-100.0) fL MCH (25.0-35.0) pg MCHC (31.0-37.0) g/dL RDW (11.5-15.5) % Plt Count (150-450) k/uL Neutrophils % % Lymphocytes % % Monocytes % % Eosinophils % % Basophils % % Neutrophils # (1.3-7.7) k/uL Lymphocytes # (1.0-4.8) k/uL Monocytes # (0-1.0) k/uL Eosinophils # (0-0.7) k/uL Basophils # (0-0.2) k/uL Hypochromasia Anisocytosis PT 10.6 (9.0-12.0) sec INR 1.1 (<1.2) APTT 24.0 (22.0-30.0) sec Sodium 140 (137-145) mmol/L Potassium 3.9 (3.5-5.1) mmol/L Chloride 107 (98-107) mmol/L Carbon Dioxide 24 (22-30) mmol/L Anion Gap 9 mmol/L BUN 13 (9-20) mg/dL Creatinine 1.00 (0.66-1.25) mg/dL Est GFR (MDRD) Af Amer >60 (>60 ml/min/1.73 sqM) Est GFR (MDRD) Non-Af >60 (>60 ml/min/1.73 sqM) Glucose 91 (74-99) mg/dL Plasma Lactic Acid Abdiel 1.4 (0.7-2.0) mmol/L Calcium 9.1 (8.4-10.2) mg/dL Magnesium 1.7 (1.6-2.3) mg/dL Total Bilirubin 0.5 (0.2-1.3) mg/dL AST 17 (17-59) U/L ALT 27 (21-72) U/L Alkaline Phosphatase 101 (38-126) U/L Total Creatine Kinase (55-170) U/L CK-MB (CK-2) (0.0-2.4) ng/mL CK-MB (CK-2) Rel Index Troponin I (0.000-0.034) ng/mL Total Protein 6.4 (6.3-8.2) g/dL Albumin 3.4 L (3.5-5.0) g/dL Urine Color Urine Appearance (Clear) Urine pH (5.0-8.0) Ur Specific [place] (1.001-1.035) Urine Protein (Negative) Urine Glucose (UA) (Negative) Urine Ketones (Negative) Urine Blood (Negative) Urine Nitrite (Negative) Urine Bilirubin (Negative) Urine Urobilinogen (<2.0) mg/dL Ur Leukocyte Esterase (Negative) Urine RBC (0-5) /hpf Urine WBC (0-5) /hpf Ur Squamous Epith Cells (0-4) /hpf Urine Bacteria (None) /hpf Urine Mucus (None) /hpf Disposition Clinical Impression: Generalized weakness, Urinary tract infection Disposition: ADMITTED IP TO THIS HOSP Referrals: Trevor Kennedy MD [Primary Care Provider] - 1-2 days Time of Disposition: 05:28
[2017-11-25 04:02] LABS: Appearance,Urine Cloudy (Clear); Bacteria,Urine Moderate /hpf; Bilirubin,Urine Negative (Negative); Blood,Urine Negative (Negative); Color,Urine Yellow; Glucose,Urine (UA) Negative (Negative); Ketones,Urine Negative (Negative); Leukocyte Esterase,Urine Large (Negative); Mucus,Urine Rare /hpf; Nitrite,Urine Negative (Negative); Protein,Urine Trace (Negative); RBC,Urine 6 /hpf (0-5); Specific Gravity,Urine 1.014 (1.001-1.035); Squamous Epithelial Cell,Urine 1 /hpf (0-4); Urobilinogen,Urine <2.0 mg/dL (<2.0); WBC,Urine 119 /hpf (0-5)
[2017-11-25 04:12] LABS: Anisocytosis Slight; Basophils # (A) 0.1 k/uL (0-0.2); Basophils % (A) 1 %; Eosinophils # (A) 0.3 k/uL (0-0.7); Eosinophils % (A) 4 %; HCT 39.8 % (39.0-53.0); HGB 12.4 gm/dL (13.0-17.5); Hypochromasia Moderate; Lymphocytes # (A) 0.6 k/uL (1.0-4.8); Lymphocytes % (A) 7 %; MCH 26.3 pg (25.0-35.0); MCHC 31.3 g/dL (31.0-37.0); MCV 84.3 fL (80.0-100.0); Mean Platelet Volume 7.6; Monocytes # (A) 0.3 k/uL (0-1.0); Monocytes % (A) 4 %; Neutrophils # (A) 6.7 k/uL (1.3-7.7); Neutrophils % (A) 84 %; Platelet Count 246 k/uL (150-450); RBC 4.72 m/uL (4.30-5.90); RDW 16.3 % (11.5-15.5)
[2017-11-25 04:17] LABS: INR 1.1 (<1.2); Prothrombin Time 10.6 sec (9.0-12.0)
[2017-11-25 04:18] LABS: ALT 27 U/L (21-72); AST 17 U/L (17-59); Albumin 3.4 g/dL (3.5-5.0); Alkaline Phosphatase 101 U/L (38-126); Anion Gap 9 mmol/L; Blood Urea Nitrogen 13 mg/dL (9-20); Calcium 9.1 mg/dL (8.4-10.2); Carbon Dioxide 24 mmol/L (22-30); Chloride 107 mmol/L (98-107); Glucose 91 mg/dL (74-99); Magnesium 1.7 mg/dL (1.6-2.3); Potassium 3.9 mmol/L (3.5-5.1); Sodium 140 mmol/L (137-145); Total Bilirubin 0.5 mg/dL (0.2-1.3); Total Protein 6.4 g/dL (6.3-8.2)
[2017-11-25] MEDS ORDERED: cefTRIAXone IN SWFI 1,000 MG/10 ML SYRINGE IVP STA (04:27)
[2017-11-25 04:29] LABS: Creatine Kinase 68 U/L (55-170)
[2017-11-25 04:42] LABS: Creatine Kinase MB 0.4 ng/mL (0.0-2.4); Troponin I <0.012 ng/mL (0.000-0.034)
--- NOTE | 2017-11-25 04:50 | XR ---
EXAM: XR Chest, 2 Views CLINICAL HISTORY: Reason: Weakness TECHNIQUE: Frontal and lateral views of the chest. COMPARISON: 08/02/2017 FINDINGS: Lungs: Unremarkable. No consolidation. Pleural space: Unremarkable. No pneumothorax. Heart: Unremarkable. No cardiomegaly. Mediastinum: Unremarkable. Bones/joints: Stable degenerative changes of the thoracic spine and right shoulder. IMPRESSION: No acute cardiopulmonary process or segmental airspace disease noted.
[2017-11-25] MEDS ORDERED: SODIUM CHLORIDE 0.9% 1,000 ML IV ONE (05:29)
--- NOTE | 2017-11-25 06:12 | CT ---
EXAM: CT Head Without Intravenous Contrast CLINICAL HISTORY: Reason: Pain TECHNIQUE: Axial computed tomography images of the head/brain without intravenous contrast. CTDI is 57.40 mGy and DLP is 1133.30 mGy-cm. This CT exam was performed using one or more of the following dose reduction techniques: automated exposure control, adjustment of the mA and/or kV according to patient size, and/or use of iterative reconstruction technique. COMPARISON: 07/22/2016 FINDINGS: Brain: Stable area of encephalomalacia involving the left inferior occipital lobe. No hemorrhage. No significant white matter disease. Ventricles: Unremarkable. No ventriculomegaly. Bones/joints: Unremarkable. No acute fracture. Soft tissues: Unremarkable. Sinuses: Unremarkable as visualized. No acute sinusitis. Mastoid air cells: Unremarkable as visualized. No mastoid effusion. IMPRESSION: No acute intracranial process or significant alteration from July 22, 2016.
[2017-11-25 07:44] VITALS: RESP 16
[2017-11-25] MEDS ORDERED: ALPRAZolam 0.25 MG TAB PO STA (08:40)
[2017-11-25] MEDS ORDERED: cefTRIAXone IN SWFI 1,000 MG/10 ML SYRINGE IVP SCH (09:00)
[2017-11-25] MEDS: ACETAMINOPHEN TAB 500 MG TAB PO PRN ×3 (09:21→21:28)
[2017-11-25] MEDS ORDERED: ALPRAZolam 0.25 MG TAB PO PRN (14:01)
[2017-11-25] MEDS: ZOLPIDEM 10 MG TAB PO PRN (21:28)
[2017-11-25] MEDS: NICOTINE 14MG/24HR PATCH TRANSDERM SCH (21:28)
[2017-11-25] MEDS: FINASTERIDE 5 MG TAB PO SCH (21:28)
[2017-11-26] MEDS: SODIUM CHLORIDE 0.9% 1,000 ML IV SCH ×2 (02:40→20:01)
[2017-11-26] MEDS: CLOPIDOGREL 75 MG TAB PO SCH (08:31)
[2017-11-26] MEDS: CHOLECALCIFEROL 1,000 UNIT TAB PO SCH (08:31)
[2017-11-26] MEDS: CYANOCOBALAMIN 500 MCG TAB PO SCH (08:31)
[2017-11-26] MEDS: LOSARTAN 50 MG TAB PO SCH (08:31)
[2017-11-26] MEDS: ASPIRIN 325 MG TAB PO SCH (08:31)
[2017-11-26] MEDS: NICOTINE 14MG/24HR PATCH TRANSDERM SCH (08:31)
[2017-11-26] MEDS: cefTRIAXone IN SWFI 1,000 MG/10 ML SYRINGE IVP SCH (08:32)
[2017-11-26] MEDS ORDERED: NICOTINE 14MG/24HR PATCH TRANSDERM SCH (09:00)
[2017-11-26] MEDS ORDERED: PRAVASTATIN SODIUM 40 MG TAB PO SCH (09:00)
--- NOTE | 2017-11-26 15:48 | HP ---
HISTORY AND PHYSICAL DATE OF SERVICE: 11/25/2017 CHIEF COMPLAINT: Generalized weakness. HISTORY OF PRESENT ILLNESS: This 77-year-old gentleman with a past medical history of multiple medications, hypertension, hyperlipidemia, sleep apnea, being followed by Dr. Trevor Kennedy in the outpatient setting was admitted with generalized tiredness and weakness. The patient is evaluated in the ER and was admitted for further evaluation. UTI was suspected. There is no history of fever, rigors. Occasional cough is reported. PAST MEDICAL HISTORY: Hypertension, hyperlipidemia, possible obstructive sleep apnea, peripheral vascular disease. MEDICATIONS: Medications prior to admission include home medications are: 1. Ambien 10 mg q.h.s. p.r.n. 2. Benefiber 1 packet daily. 3. Proscar 40 mg daily. 4. Losartan 100 mg p.o. daily. 5. Proscar 5 mg q.h.s. 6. Vitamin B12 500 mcg p.o. daily. 7. Plavix 75 mg p.o. daily. 8. Vitamin D3 2000 daily. 9. Aspirin 325 mg daily. ALLERGIES: PENICILLIN. FAMILY HISTORY: History of diabetes in the family. SOCIAL HISTORY: History of smoking on a regular basis. No alcohol. REVIEW OF SYSTEMS: ENT: Diminished hearing and vision. CARDIOVASCULAR: As mentioned earlier. RESPIRATORY: As mentioned. GI: No nausea. : No dysuria. NERVOUS SYSTEM: As mentioned. ALLERGIES/IMMUNOLOGY: No asthma or hayfever. MUSCULOSKELETAL: As mentioned earlier. HEMATOLOGY/ONCOLOGY: No history of anemia. ENDOCRINE: As mentioned earlier. CONSTITUTIONAL: As mentioned earlier. DERMATOLOGY: Negative. RHEUMATOLOGY: Negative. PSYCHIATRY: As mentioned earlier. PHYSICAL EXAMINATION: Pulse 57, blood pressure 150/69, respiration 18, temperature 98.1, pulse ox 94% on room air. HEENT: Conjunctivae normal. Oral mucosa moist. NECK: No jugular venous distention. No carotid bruit. No lymph node enlargement. CARDIOVASCULAR: S1, S2 muffled. No S3, no S4. RESPIRATORY: Breath sounds diminished in the bases. No rhonchi. No crackles. ABDOMEN: Soft, nontender. LEGS: No edema no swelling. NERVOUS SYSTEM: Higher functions as mentioned earlier, otherwise diffuse weakness mostly in the lower limbs. The patient unable to stand up and ambulate. SKIN: No ulcers, rash, bleeding. LYMPHATICS: No lymphadenopathy in the neck, axillae, groin. LAB STUDIES: WBC 8, hemoglobin 12.4. UA noted. ASSESSMENT: 1. Generalized weakness and tiredness for evaluation. 2. Rule out acute stroke. 3. Possible acute urinary tract infection with sepsis. 4. Hypertension. 5. Hyperlipidemia. 6. Prostate disorder. 7. Sleep apnea. 8. Peripheral vascular disease. 9. History of right rotator cuff tear. RECOMMENDATIONS AND DISCUSSION: This 77-year-old gentleman admitted with multiple complex medical issues, monitor the patient closely. Continue the current management and symptomatic treatment. Broad- spectrum IV antibiotics. Obtain cultures. Otherwise continue to monitor. Guarded prognosis because of multiple complex medical issues. Further recommendations to follow. See orders for details. I would also recommend a CT scan of the brain and as well as a neurology consultation to rule out the possibility of any significant neurologic issues and will await cultures. Influenza screen also noted. Continue close follow up with Dr. Trevor Kennedy after discharge. MMODL / IJN: [id number] /
--- NOTE | 2017-11-26 16:02 | PN ---
PROGRESS NOTE DATE OF SERVICE: 11/26/17 This 77-year-old gentleman admitted with generalized tiredness and weakness also had features of UTI with sepsis also. Patient apparently also had urinary retention also. No chest pain. No palpitations. No fever. PHYSICAL EXAM: Alert and oriented times three. Pulse 57, blood pressure 150/60, respiration 18, temperature 98.7, pulse ox 94% on room air. HEENT: Conjunctivae normal. Oral mucosa moist. Neck is no jugular venous distention. No carotid bruit. No lymph nodes palpable. Cardiovascular S1, S2 muffled. Respirations: Breath sounds diminished in the bases. A few scattered rhonchi and crackles. ABDOMEN: Soft nontender. LEGS: No edema. No swelling. Central nervous system: Diffusely weak. Mostly in the lower limbs. LAB: Investigations at this time shows WBC 9, hemoglobin 12.4. Other labs are noted. CT scan noted. ASSESSMENT: 1. Generalized weakness for evaluation, rule out acute stroke or transient ischemic attack. 2. Possible urinary tract infection with sepsis. 3. Possible urinary outlet obstruction. 4. History of hypertension. 5. Hyperlipidemia. 6. History of gait dysfunction. 7. History of prostate disorder. 8. History of sleep apnea. 9. History of peripheral vascular disease. 10.Appendectomy. 11.Back surgery. RECOMMENDATIONS: In this 77-year-old gentleman who presented with multiple complex medical issues, we will monitor the patient closely, continue the current medication. I would recommend continue the empiric antibiotics which started yesterday. Otherwise I would also recommend DVT prophylaxis. Resume the current medications. I would also recommend neurology consultation. Neurovascular workup also. Prognosis guarded because of multiple complex medical issues. Further recommendations to follow. See orders for details. MMODL / IJN: [id number] /
[2017-11-26] MEDS: TAMSULOSIN 0.4 MG CAP.ER.24H PO SCH (16:43)
[2017-11-26] MEDS: FINASTERIDE 5 MG TAB PO SCH (20:01)
[2017-11-26] MEDS: ACETAMINOPHEN TAB 500 MG TAB PO PRN (20:01)
[2017-11-26] MEDS: ZOLPIDEM 10 MG TAB PO PRN (21:57)
[2017-11-27] MEDS: SODIUM CHLORIDE 0.9% 1,000 ML IV SCH ×3 (01:16→13:27)
--- NOTE | 2017-11-27 08:05 | P.GSCN ---
History of Present Illness Consult date: 11/27/17 Reason for Consult: UTI, Retention History of present illness: He is a 77 year old male with a history of BPH causing incomplete bladder emptying. He underwent a bipolar TURP using the plasma button electrode by Dr. Atkins on 07/30/2017. He went into retention on his first voiding attempt. He subsequently voided well but with significant urgency. He was placed on Vesicare 5 mg with good results, and subsequently generic oxybutinin chloride ER 10 mg was prescribed. He is now admitted with lower extremity weakness. A Flores catheter was placed for urinary retention. Review of Systems - Constitutional Reports weakness, Denies fever - Genitourinary Denies hematuria Past Medical History Past Medical History: Hyperlipidemia, Hypertension, Prostate Disorder, Sleep Apnea/CPAP/BIPAP Additional Past Medical History / Comment(s): PAD, Right rotator cuff tear, mini stroke. History of Any Multi-Drug Resistant Organisms: None Reported Past Surgical History: Appendectomy, Back Surgery, Joint Replacement Additional Past Surgical History / Comment(s): JOSE KNEE REPLACEMENT, KIDNEY SX AT AGE 6 Past Anesthesia/Blood Transfusion Reactions: No Reported Reaction Past Psychological History: No Psychological Hx Reported Smoking Status: Current some day smoker Past Alcohol Use History: None Reported Past Drug Use History: None Reported - Past Family History Mother Family Medical History: No Reported History, Diabetes Mellitus Medications and Allergies Home Medications Medication Instructions Recorded Confirmed Type Pravastatin Sodium [Pravachol] 40 mg PO DAILY 04/08/15 11/25/17 History Cholecalciferol [Vitamin D3] 2,000 unit PO DAILY 04/21/15 11/25/17 History Cyanocobalamin [Vitamin B-12] 500 mcg PO DAILY 04/21/15 11/25/17 History Clopidogrel [Plavix] 75 mg PO DAILY #30 tab 04/27/15 11/25/17 Rx Finasteride [Proscar] 5 mg PO HS 02/13/17 11/25/17 History Aspirin 325 mg PO DAILY 08/02/17 11/25/17 History Losartan Potassium 100 mg PO DAILY 11/25/17 11/25/17 History Wheat Dextrin [Benefiber] 1 pack PO DAILY 11/25/17 11/25/17 History Zolpidem [Ambien] 10 mg PO HS PRN 11/25/17 11/25/17 History Allergies Allergy/AdvReac Type Severity Reaction Status Date / Time Penicillins Allergy Rash/Hives Verified 11/25/17 07:44 Surgical - Exam Vital Signs Temp Pulse Resp BP Pulse Ox 99.2 F 72 20 184/82 96 11/25/17 03:11 11/25/17 03:11 11/25/17 03:11 11/25/17 03:11 11/25/17 03:11 - General well developed, well nourished, no distress - Respiratory normal respiratory effort - Genitourinary normal penis with no external lesions, testicles non-tender Results - Labs 11/25/17 03:57 11/25/17 03:57 Assessment and Plan (1) Retention of urine Current Visit: Yes Status: Acute Code(s): R33.9 - RETENTION OF URINE, UNSPECIFIED SNOMED Code(s): 184208725 Plan: The patient has developed urinary retention and currently has a Flores catheter in place. Urinalysis shows evidence of pyuria, but this is common following a TURP and it is thus unclear whether or not he has a UTI. Unfortunately, a urine culture was not done. He is feeling much better, and it would be my recommendation that he be discharged home with a Flores catheter. It would be reasonable to treat him with a course of oral antibiotics, and he will follow- up with Dr. Atkins as an outpatient. It would be my recommendation that all antimuscarinic agents be held. Time with Patient: Less than 30
--- NOTE | 2017-11-27 08:19 | US ---
EXAMINATION TYPE: US carotid duplex BILAT DATE OF EXAM: 11/27/2017 COMPARISON: NONE CLINICAL HISTORY: stroke. EXAM MEASUREMENTS: RIGHT: Peak Systolic Velocity (PSV) cm/sec ----- Right CCA: 37.4 ----- Right ICA: 84.9 ----- Right ECA: 157.1 ICA/CCA ratio: 2.3 RIGHT: End Diastole cm/sec ----- Right CCA: 42.4 ----- Right ICA: 71.6 ----- Right ECA: 76.1 LEFT: Peak Systolic Velocity (PSV) cm/sec ----- Left CCA: 9.0 ----- Left ICA: 16.4 ----- Left ECA: 0.0 ICA/CCA ratio: 1.7 LEFT: End Diastole cm/sec ----- Left CCA: 9.0 ----- Left ICA: 16.4 ----- Left ECA: 0.0 VERTEBRALS (direction of flow): Right Vertebral: Antegrade Left Vertebral: Antegrade Rhythm: Normal Moderate plaque, no significant stenosis seen. IMPRESSION: No evidence for hemodynamically significant stenosis. Criteria for Assigning % of Stenosis / Diameter reduction (Estimation based on the indirect measurements of the internal carotid artery velocities (ICA PSV). 1. Normal (no stenosis)=ICA PSV < 125 cm/s: ratio < 2.0: ICA EDV<40 cm/s. 2. Less than 50% stenosis=ICA PSV < 125 cm/s: ratio < 2.0: ICA EDV<40 cm/s. 3. 50 to 69% stenosis=ICA PSV of 125 to 230 cm/s: ration 2.0 ? 4.0: ICA EDV 40-100 cm/s. 4. Greater than 70% stenosis to near occlusion= ICA PSV > 230 cm/s: ratio > 4.0: ICA EDV > 100 cm/s. 5. Near occlusion= ICA PSV velocities may be low or undetectable: variable ratio and ICA EDV. 6. Total occlusion=unable to detect flow.
[2017-11-27] MEDS: cefTRIAXone IN SWFI 1,000 MG/10 ML SYRINGE IVP SCH (09:20)
[2017-11-27] MEDS: NICOTINE 14MG/24HR PATCH TRANSDERM SCH (09:20)
[2017-11-27] MEDS: CYANOCOBALAMIN 500 MCG TAB PO SCH (09:21)
[2017-11-27] MEDS: CHOLECALCIFEROL 1,000 UNIT TAB PO SCH (09:21)
[2017-11-27] MEDS: CLOPIDOGREL 75 MG TAB PO SCH (09:21)
[2017-11-27] MEDS: LOSARTAN 50 MG TAB PO SCH (09:21)
[2017-11-27] MEDS: ASPIRIN 325 MG TAB PO SCH (09:21)
--- NOTE | 2017-11-27 11:37 | CONS ---
CONSULTATION DATE OF CONSULTATION: 11/26/2017. CHIEF COMPLAINT: Weakness. HISTORY OF PRESENT ILLNESS: The patient is a pleasant 77-year-old male, who was being evaluated today on 11/26/2017 by the Neurology Service per the request of Dr. Suarez for weakness. The patient was brought into [facility] Room with complaints of generalized weakness. He was having difficulty ambulating without any assistance. He did suffer a fall out of his bed trying to get up. He has been having diarrhea and was complaining of lightheadedness and dizziness as well. A CT scan of the brain was done, which showed encephalomalacia involving the left occipital lobe consistent with an old stroke. This was felt to be unchanged when compared to his 07/22/2016 study. His CBC, comprehensive metabolic profile and INR were normal. His urinalysis showed 119 WBCs with large leukocyte esterase. He was diagnosed with an acute urinary tract infection and dehydration and admitted for further workup and management. He has been started on IV fluid hydration and antibiotic therapy. Regarding his weakness, he denies any changes since his admission. Physical therapy has been consulted. He does report numbness and tingling in his distal lower extremities which has been present for years. He denies any history of diabetes. PAST MEDICAL HISTORY: Stroke, dyslipidemia, hypertension, prostate disorder, obstructive sleep apnea, peripheral artery disease, history of shoulder surgery, appendectomy, and back surgery. He also has a history of bilateral knee replacement surgeries. SOCIAL HISTORY: The patient is a current every day smoker. He denies any alcohol or drug use. FAMILY HISTORY: Positive for diabetes. HOME MEDICATIONS: Reviewed in the chart. ALLERGIES: PENICILLIN. REVIEW OF SYSTEMS: CONSTITUTIONAL: Positive for fatigue. EYES: Negative. ENT: Positive for chronic hearing loss. CARDIOVASCULAR: Negative. ENT: Negative. RESPIRATORY: Negative. NEUROLOGICAL: As mentioned above. GASTROINTESTINAL: As mentioned above. GENITOURINARY: As mentioned above. PSYCHIATRIC: Negative. DERMATOLOGICAL: Negative. ENDOCRINE: Negative. PHYSICAL EXAM: Vital signs show a temperature of 98.7, pulse 57, respirations 16, blood pressure 150/67. GENERAL APPEARANCE: The patient is a mildly obese, elderly male who appears to be in no acute distress. HEENT: Normocephalic, atraumatic. No facial asymmetry is seen. NECK: Supple with no masses felt. CARDIOVASCULAR: Bradycardic rate with normal rhythm. ABDOMEN: Nontender nondistended. Extremities showed edema with no clubbing seen. Neurological exam: The patient is awake, alert, and oriented x3. Speech and language are normal. Strength is 4- out of 5 in bilateral proximal lower extremities and 5- out of 5 elsewhere. Sensory exam showed diminished light touch sensation in bilateral distal lower extremities. No facial asymmetry seen on cranial nerve testing. IMPRESSION: 1. Lower extremity proximal muscle weakness. 2. Myopathy. 3. Dyslipidemia. 4. Acute urinary tract infection. 5. Lower extremity sensory deficits. RECOMMENDATION: The patient's weakness appears to be more affecting the proximal muscles of the lower extremities. This weakness is more consistent with a myopathy. In reviewing his home medication, he is on statin therapy with Pravachol. I will discontinue this medication and we will monitor for any improvements. Continue physical therapy. He will likely need inpatient physical rehab once cleared for discharge. Continue antibiotic therapy and IV hydration. As for his history of ischemic stroke, the patient is already on Plavix 75 mg daily. The patient was found to have sensory deficit in bilateral lower extremities which will need further outpatient neurophysiological workup. Continue the rest of your current workup and management. I will continue to follow with you. Further recommendations to follow. Thank you for allowing me to participate in the care of your patient. If you have any questions, please feel free to contact me. CHANDLER / GINA: [phone] /
--- NOTE | 2017-11-27 12:07 | P.PN ---
Subjective Patient resting in bed no at bedside. States significant improvement from admission. Patient had consultation with Dr. Bedoya regarding urinary retention Objective - Vital Signs Vital signs: Vital Signs Temp 97.8 F 11/27/17 07:00 Pulse 66 11/27/17 07:00 Resp 16 11/27/17 07:00 BP 182/69 11/27/17 07:00 Pulse Ox 95 11/27/17 07:00 Intake & Output 11/26/17 11/27/17 11/27/17 18:59 06:59 18:59 Intake Total 600 825 Output Total 2300 Balance 600 -1475 Intake: IV 600 Sodium Chloride 0.9% 1, 600 000 ml @ 75 mls/hr IV . [id number] [facility] Rx#:[id number] Intake, IV Titration 825 Amount Sodium Chloride 0.9% 1, 825 000 ml @ 75 mls/hr IV . [id number] [facility] Rx#:[id number] Output: Urine 2300 Other: Voiding Method Indwelling Catheter Indwelling Catheter Indwelling Catheter - Constitutional General appearance: Present: obese - EENT Eyes: Present: PERRLA Ears: bilateral: normal - Neck Neck: Present: normal ROM - Respiratory Respiratory: bilateral: CTA - Cardiovascular Rhythm: regular - Integumentary Integumentary: Present: normal - Neurologic Neurologic: Present: CNII-XII intact - Musculoskeletal Musculoskeletal: Present: generalized weakness - Psychiatric Psychiatric: Present: A&O x's 3, appropriate affect, intact judgment & insight - Labs CBC & Chem 7: 11/25/17 03:57 11/25/17 03:57 - Imaging and Cardiology Chest x-ray: report reviewed CT Scan - head: report reviewed Assessment and Plan Assessment: Assessment generalized weakness Urinary tract infection with sepsis Urinary retention with Flores History of hypertension History of hyperlipidemia Gait dysfunction Prostate disorder History of sleep apnea History of peripheral vascular disease Plan Continue consultation with urology and neurology Plan is for rehab and [facility]
--- NOTE | 2017-11-27 13:12 | ECHOF ---
Referral Reason:Stroke MEASUREMENTS -------- HEIGHT: 182.9 cm WEIGHT: 117.0 kg BP: 169/73 RVIDd: 3.0 cm (< 3.3) IVSd: 1.1 cm (0.6 - 1.1) LVIDd: 5.9 cm (3.9 - 5.3) LVPWd: 1.5 cm (0.6 - 1.1) IVSs: 1.6 cm LVIDs: 3.9 cm LVPWs: 1.2 cm LA Diam: 3.7 cm (2.7 - 3.8) Ao Diam: 4.4 cm (2.0 - 3.7) AV Cusp: 1.6 cm (1.5 - 2.6) LA Diam: 3.7 cm (2.7 - 3.8) MV EXCURSION: 27.202 mm (> 18.000) MV EF SLOPE: 143 mm/s (70 - 150) EPSS: 2.1 cm MV E Eric: 0.41 m/s MV DecT: 277 ms MV A Eric: 0.75 m/s MV E/A Ratio: 0.55 RAP: 5.00 mmHg RVSP: 27.53 mmHg FINDINGS -------- Sinus rhythm. This was a technically adequate study. Morbid Obesity The left ventricular size is normal. There is mild concentric left ventricular hypertrophy. Overa ll left ventricular systolic function is low-normal with, an EF between 50 - 55 %. The right ventricle is normal in size. The right atrial size is normal. There is mild aortic valve sclerosis. There is no evidence of aortic regurgitation. Mild mitral annular calcification present. Mild mitral regurgitation is present. Mild tricuspid regurgitation present. There is no evidence of pulmonary hypertension. The right v entricular systolic pressure, as measured by Doppler, is 27.53mmHg. Trace/mild (physiologic) pulmonic regurgitation. The aortic root size is normal. Echo free space represents a pericardial fat pad. CONCLUSIONS -------- 1. Morbid Obesity 2. The left ventricular size is normal. 3. There is mild concentric left ventricular hypertrophy. 4. There is mild aortic valve sclerosis. 5. Mild mitral annular calcification present. 6. Mild mitral regurgitation is present. 7. Mild tricuspid regurgitation present. 8. There is no evidence of pulmonary hypertension. 9. The right ventricular systolic pressure, as measured by Doppler, is 27.53mmHg. 10. Trace/mild (physiologic) pulmonic regurgitation. 11. The aortic root size is normal. 12. Echo free space represents a pericardial fat pad. LOG OPERATIONS COORDINATOR: Lizz Cordova RDCS
[2017-11-27] MEDS: guaiFENesin SYRUP 100MG/5ML 200 MG/10 ML CUP PO PRN ×2 (13:27→19:43)
[2017-11-27] MEDS: TAMSULOSIN 0.4 MG CAP.ER.24H PO SCH (18:19)
[2017-11-27 19:43] VITALS: PULSE 60
[2017-11-27] MEDS: FINASTERIDE 5 MG TAB PO SCH (19:44)
[2017-11-27] MEDS: ZOLPIDEM 10 MG TAB PO PRN (21:27)
--- NOTE | 2017-11-28 06:36 | P.PN ---
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 Patient presented to emergency department with complaints of generalized weakness, difficulty ambulating, and a fall from bed. Patient further complained of diarrhea, lightheadedness, dizziness. CT of the brain showed encephalomalacia of the left occipital l consistent with old stroke. Laboratory blood work and urinalysis returned with elevated white blood cells and leuk esterase. Patient was given diagnosis of acute urinary tract infection and dehydration. Supervising physician consulted on the patient yesterday and noted patient was using Pravachol. Medication is known to produce symptoms consistent with presentation regardless of length of use, dose per previous success. Patient's medication was withdrawn, antibiotics started for the noted UTI and fluid replacement for dehydration. Patient is alert and oriented 4, family at the bedside. Patient was in no acute distress. Per nursing staff, patient has significantly improved in the last 24 hours and is up with a one-person assist. Objective - Vital Signs Vital signs: Vital Signs Temp 97.4 F L 11/28/17 01:20 Pulse 60 11/28/17 01:20 Resp 16 11/28/17 01:20 BP 150/78 11/28/17 01:20 Pulse Ox 95 11/28/17 01:20 Intake & Output 11/27/17 11/27/17 11/28/17 06:59 18:59 06:59 Intake Total 869 423 1698 Output Total 2300 500 Balance -1475 600 525 Intake: Intake, IV Titration 825 600 825 Amount Sodium Chloride 0.9% 1, 825 600 825 000 ml @ 75 mls/hr IV . [id number] [facility] Rx#:[id number] Oral 200 Output: Urine 2300 500 Other: Voiding Method Indwelling Catheter Indwelling Catheter Indwelling Catheter - Exam Constitutional: AOx4, cooperative HEENT: NC/AT, no facial asymmetry is seen. Throat: Supple, no masses Respiratory: No increased work of breathing Cardiac: Regular rate and Rhythm GI: non tender, non distended Musculoskeletal: Creative Assistant strengths are equal bilaterally 5/5, Lower extremity strengths are equal bilaterally at 4-/5. Neurological: CN II-XII in tact, patient was AOx4, speech and language are normal, weakness in lower extremities, no seizure activity note on physical exam. Sensation was normal. Integementary: no rash, no erythema Psychiatric: mood and affect appropriate - Labs CBC & Chem 7: 11/25/17 03:57 11/25/17 03:57 Assessment and Plan (1) Medication side effects Current Visit: Yes Status: Acute Code(s): T88.7XXA - UNSP ADVERSE EFFECT OF DRUG OR MEDICAMENT, INIT ENCNTR SNOMED Code(s): 33305889 (2) Urinary tract infection Current Visit: Yes Status: Acute Code(s): N39.0 - URINARY TRACT INFECTION, SITE NOT SPECIFIED SNOMED Code(s): 10868729 (3) Weakness Current Visit: Yes Status: Acute Code(s): R53.1 - WEAKNESS SNOMED Code(s) : 65196987 (4) Dehydration Current Visit: No Status: Acute Code(s): E86.0 - DEHYDRATION SNOMED Code(s ): 36011385 (5) Difficulty walking Current Visit: No Status: Acute Code(s): R26.2 - DIFFICULTY IN WALKING, NOT ELSEWHERE CLASSIFIED SNOMED Code(s): 418371168 Plan: 1. Urinary tract infection 2. Dehydration 3. Generalized lower extremity weakness 4. Medication side effect- myopathy Since being admitted, given antibiotics, rehydration and discontinuing of Prevachol, the patient has significantly improved. Based on the fast recovery, the underlying significant etiology appears to be the pravachol with secondary infectious process and dehydration. Patient will need selection of new pharmacological lipid regimen. Based on testing results, imaging and improvement , patient can be cleared from a neurological standpoint for discharge and placement at a rehabilitation facility. Continue plavix for hisotry of ischemic stroke. We will conduct the lower extremity sensory workup out patient. Advise the patient to contact our office for a follow up appointment post discharge in 10 days. If you have nay further questions, please feel free to contact our office [facility] Neurology For Dr Carly Narayanan I discussed the patient's pertinent medical information with Dr. Narayanan. He agrees with the plan of care as implemented.
[2017-11-28 08:13] VITALS: BP 172/71; TEMP 97.5
[2017-11-28] MEDS: CHOLECALCIFEROL 1,000 UNIT TAB PO SCH (09:14)
[2017-11-28] MEDS: NICOTINE 14MG/24HR PATCH TRANSDERM SCH (09:14)
[2017-11-28] MEDS: cefTRIAXone IN SWFI 1,000 MG/10 ML SYRINGE IVP SCH (09:14)
[2017-11-28] MEDS: CYANOCOBALAMIN 500 MCG TAB PO SCH (09:14)
[2017-11-28] MEDS: LOSARTAN 50 MG TAB PO SCH (09:15)
[2017-11-28] MEDS: CLOPIDOGREL 75 MG TAB PO SCH (09:15)
[2017-11-28] MEDS: ASPIRIN 325 MG TAB PO SCH (09:15)
--- NOTE | 2017-11-28 11:51 | P.PN ---
Subjective Principal diagnosis: Patient in chair at bedside with family at bedside. Patient awaiting bed at [facility] May consider home healthcare patient's strong enough to go home Objective - Vital Signs Vital signs: Vital Signs Temp 97.5 F L 11/28/17 07:00 Pulse 60 11/28/17 07:00 Resp 16 11/28/17 07:00 BP 172/71 11/28/17 07:00 Pulse Ox 96 11/28/17 07:00 Intake & Output 11/27/17 11/28/17 11/28/17 18:59 06:59 18:59 Intake Total 600 1025 Output Total 500 Balance 600 525 Intake: Intake, IV Titration 600 825 Amount Sodium Chloride 0.9% 1, 600 825 000 ml @ 75 mls/hr IV . [id number] [facility] Rx#:[id number] Oral 200 Output: Urine 500 Other: Voiding Method Indwelling Catheter Indwelling Catheter Indwelling Catheter - Constitutional General appearance: Present: obese - EENT Eyes: Present: PERRLA Ears: bilateral: normal - Neck Neck: Present: normal ROM - Respiratory Respiratory: bilateral: CTA - Cardiovascular Rhythm: regular - Gastrointestinal General gastrointestinal: Present: soft - Integumentary Integumentary: Present: normal - Musculoskeletal Musculoskeletal Comment(s): Left foot deformity Musculoskeletal: Present: generalized weakness - Psychiatric Psychiatric: Present: A&O x's 3, appropriate affect, intact judgment & insight - Labs CBC & Chem 7: 11/25/17 03:57 11/25/17 03:57 Assessment and Plan Plan: Assessment Generalized weakness Urinary tract infection with sepsis Urinary retention with Flores History of hypertension History of hyperlipidemia Gait dysfunction Prostate disorder History of sleep apnea History of peripheral vascular disease Plan We'll be discharged on oral antibiotics hopeful transferred to [facility] for rehab
[2017-11-28] MEDS: SODIUM CHLORIDE 0.9% 1,000 ML IV SCH (12:15)
--- NOTE | 2017-11-28 14:06 | P.DS ---
Providers Date of admission: 11/25/17 11:11 Expected date of discharge: 11/28/17 Attending physician: Trevor Kennedy Consults: 11/26/17 11:09 Consult Physician Routine Consulting Provider: Carly Narayanan Consult Reason/Comments: numbness to bilateral legs Do you want consulting provider notified?: Yes 11/26/17 12:13 Consult Physician Routine Consulting Provider: Alireza Atkins Consult Reason/Comments: urinary retention Do you want consulting provider notified?: Yes Primary care physician: Trevor Kennedy Pertinent Studies: 77-year-old male presented to the emergency room with complaints of weakness and fatigue found to be urinary tract infection. Patient was evaluated by Dr. Robles for urinary retention and urinary tract infection patient was also evaluated by neurology the cleared patient is greatly improved plan is for him rehabilitation for generalized weakness at [facility] Assessment Generalized weakness Urinary tract infection with sepsis Urinary retention with Flores Hypertension Hyperlipidemia Gait dysfunction Prostate disorder History of sleep apnea History of peripheral vascular disease Plan Follow-up with Dr. Atkins Follow-up with family physician Transferred to [facility] for rehabilitation regarding weakness Plan - Discharge Summary Discharge Rx Participant: No New Discharge Prescriptions: New Acetaminophen Tab [Tylenol] 500 mg PO Q6HR PRN tab PRN Reason: Fever and/ or mild Pain ALPRAZolam [Xanax] 0.25 mg PO TID PRN 30 Days #90 tab PRN Reason: Anxiety Cephalexin [Keflex] 500 mg PO QID cap Nicotine 14Mg/24Hr Patch [Habitrol] 1 patch TRANSDERM DAILY patch Tamsulosin [Flomax] 0.4 mg PO PC-SUPPER cap.er.24h Continue Cyanocobalamin [Vitamin B-12] 500 mcg PO DAILY Cholecalciferol [Vitamin D3] 2,000 unit PO DAILY Clopidogrel [Plavix] 75 mg PO DAILY #30 tab Aspirin 325 mg PO DAILY Wheat Dextrin [Benefiber] 1 pack PO DAILY Losartan Potassium 100 mg PO DAILY Zolpidem [Ambien] 10 mg PO HS PRN 30 Days #30 tab PRN Reason: Insomnia Discontinued Pravastatin Sodium [Pravachol] 40 mg PO DAILY Finasteride [Proscar] 5 mg PO HS Discharge Medication List Cholecalciferol [Vitamin D3] 2,000 unit PO DAILY 04/21/15 [History] Cyanocobalamin [Vitamin B-12] 500 mcg PO DAILY 04/21/15 [History] Clopidogrel [Plavix] 75 mg PO DAILY #30 tab 04/27/15 [Rx] Aspirin 325 mg PO DAILY 08/02/17 [History] Losartan Potassium 100 mg PO DAILY 11/25/17 [History] Wheat Dextrin [Benefiber] 1 pack PO DAILY 11/25/17 [History] ALPRAZolam [Xanax] 0.25 mg PO TID PRN 30 Days #90 tab 11/28/17 [Rx] Acetaminophen Tab [Tylenol] 500 mg PO Q6HR PRN tab 11/28/17 [Rx] Cephalexin [Keflex] 500 mg PO QID cap 11/28/17 [Rx] Nicotine 14Mg/24Hr Patch [Habitrol] 1 patch TRANSDERM DAILY patch 11/28/17 [Rx] Tamsulosin [Flomax] 0.4 mg PO PC-SUPPER cap.er.24h 11/28/17 [Rx] Zolpidem [Ambien] 10 mg PO HS PRN 30 Days #30 tab 11/28/17 [Rx] Follow up Appointment(s)/Referral(s): Trevor Kennedy MD [Primary Care Provider] - 1-2 days Kel Capone [NON-STAFF] - As Needed Carly Narayanan MD [STAFF PHYSICIAN] - 2 Weeks
[2017-11-28] MEDS ORDERED: CEPHALEXIN 500 MG CAP PO SCH (18:00)
== END 2017-11-28 15:03 | DRG 91 ==
LOC: EC 03:04 → 3SUR 05:29 → INTOOBSV 05:29 → 3SUR 07:08 → OBSVTOIN 11:11
PROVIDERS: ADMIT Family Medicine; ATTEND Family Medicine
DX: G72.0 Drug-induced myopathy (principal); A41.9 Sepsis, unspecified organism; G93.89 Other specified disorders of brain; E86.0 Dehydration; N39.0 Urinary tract infection, site not specified; E78.5 Hyperlipidemia, unspecified; F17.200 Nicotine dependence, unspecified, uncomplicated; G47.33 Obstructive sleep apnea (adult) (pediatric); I10 Essential (primary) hypertension; I73.9 Peripheral vascular disease, unspecified; N40.1 Benign prostatic hyperplasia with lower urinary tract symptoms; R33.8 Other retention of urine; W06.XXXA Fall from bed, initial encounter; Z96.653 Presence of artificial knee joint, bilateral; T46.6X5A Adverse effect of antihyperlipidemic and antiarteriosclerotic drugs, initial encounter; Y92.003 Bedroom of unspecified non-institutional (private) residence as the place of occurrence of the external cause; Z79.02 Long term (current) use of antithrombotics/antiplatelets; Z79.82 Long term (current) use of aspirin; Z79.899 Other long term (current) drug therapy; Z83.3 Family history of diabetes mellitus; Z86.73 Personal history of transient ischemic attack (TIA), and cerebral infarction without residual deficits; Z88.0 Allergy status to penicillin
CPT/HCPCS: 36415; 70450; 71046; 80053; 81001; 82550; 82553; 83605; 83735; 84484; 85025; 85610; 85730; 87502; 93306; 93880; 96361; 96374; 99211; 99285

== ENCOUNTER → 2018-12-19 | Outpatient (CLI) | payer MEDICARE, BC ==
--- NOTE | 2018-12-19 16:53 | PN ---
PROGRESS NOTE DATE OF SERVICE: 12/19/2018 78-year-old gentleman who has been [facility] for treatment of obstructive sleep apnea-hypopnea syndrome. The patient continued to use his CPAP equipment every night for the whole night but recently his CPAP unit developed some problems related to humidification and spitting water out of the machine. I checked his machine. He is using it every night for the whole night. Average usage is 9.9 hours. CPAP pressure is 13 cm to water. Ramp is about 45 minutes. No snoring with the machine according to his . [place] Sleepiness Scale is 5. MEDICATIONS: Losartan, Pravastatin, Clopidogrel, vitamin D, Zolpidem. PHYSICAL EXAM: Patient in no distress. BP 153/73, HR 71, RR 18, height 6 feet 2 inches, weight 278 pounds. Body mass index 35.5, temperature 97.8, O2 saturation at room air 97%. Oropharynx showed tongue protrudes midline. Extremely low position of soft palate. Neck Supple, no JVD. Thyroid is not palpable. LUNGS Clear to percussion and to auscultation. Good air exchange. No wheezing or rhonchi. HEART S1, S2 regular. No murmurs, gallops, or rubs. ABDOMEN: Obese. Soft and nontender. Bowel sounds are present. No organomegaly appreciated. EXTREMITIES No clubbing or cyanosis. JACK STRIP ASSEMBLER Awake, alert, and oriented X3. Cranial nerves 2 to 7 intact. There is no fasciculation or atrophy. noted. No focal deficits observed. IMPRESSION: 1. Obstructive sleep apnea-hypopnea syndrome. Patient continued to use his CPAP equipment every night for the whole night, benefitting from treatment. His CPAP unit has some problems. 2. Obesity. 3. Hypertension. 4. Hyperlipidemia. 5. Fifty pack years smoker. 6. History of stroke about 5 years ago without residual deficit. 7. History of benign prostatic hypertrophy, status post surgical treatment. 8. History of sick sinus syndrome. PLAN: 1. Prescription for new CPAP unit, CPAP pressure 13 cm of water. 2. Patient will continue to use CPAP equipment every night for the whole night. 3. Watching and losing weight. 4. Sleep hygiene with regular time in bed for at least 8 hours. 5. No driving if feeling sleepiness. Thank you very much for allowing me to participate in management of your patient. Sincerely, Ruddy Kimble MD, PhD, FAASM Diplomat of [place] [employer] [place] [employer] Nurse Assistant of [facility] [place] MMEMILEL / RUPALIN: [id number] /
== END ==
LOC: SLEEP 14:26
PROVIDERS: ATTEND Internal Medicine
DX: G47.33 Obstructive sleep apnea (adult) (pediatric) (principal); E66.9 Obesity, unspecified; I10 Essential (primary) hypertension; E78.5 Hyperlipidemia, unspecified; Z87.891 Personal history of nicotine dependence; Z86.73 Personal history of transient ischemic attack (TIA), and cerebral infarction without residual deficits; Z87.448 Personal history of other diseases of urinary system; Z87.09 Personal history of other diseases of the respiratory system; Z99.89 Dependence on other enabling machines and devices; Z79.899 Other long term (current) drug therapy

== ENCOUNTER 2018-12-30 18:34 | Inpatient (IN) | payer MEDICARE, BC ==
--- NOTE | 2018-12-30 18:57 | ED ---
General Adult HPI - General Stated complaint: Fall Time Seen by Provider: 12/30/18 18:38 Source: patient, EMS, RN notes reviewed, old records reviewed - History of Present Illness Initial comments: Chief complaint and history of present illness this is an 78-year-old male brought emergency room by ambulance. The patient reports that he was in his easy chair and tried to get up. As he was trying to get up he didn't have the strength a slip to the floor. EMS was called within 20 minutes she was off the floor. Complains discomfort to his left ankle distal left leg. Denies any injury to this area. He does present with chronically deformed ankle bones. Patient reports she started the day at 7 AM got up to use his walker to get to the bathroom several times. At 3 PM he was at the eye doctor but needed assistance in the wheelchair to get into the car. From the car he managed to get himself using his cane and he was home. After getting into his easy chair he states he had difficulty giving out at approximate 6 PM. Complains of discomfort to the right shoulder from chronic right shoulder problems but no new injuries. He slipped to the floor needing assistance from EMS and fire department. Brought in for a checkup. Patient has no other complaints Patient and reports the patient had a cystoscopy approximate 5 days ago. He also reports that on previous occasions after having a cystoscopy developed urinary tract infection. This will be checked - Related Data Home Medications Medication Instructions Recorded Confirmed Aspirin [Prentiss Aspirin EC] 81 mg PO DAILY 12/30/18 12/30/18 Losartan/Hydrochlorothiazide 1 tab PO DAILY 12/30/18 12/30/18 [Hyzaar 100-25 Tablet] Previous Rx's Medication Instructions Recorded Clopidogrel [Plavix] 75 mg PO DAILY #30 tab 04/27/15 Acetaminophen Tab [Tylenol] 500 mg PO Q6HR PRN tab 11/28/17 Tamsulosin [Flomax] 0.4 mg PO PC-SUPPER cap.er.24h 11/28/17 Zolpidem [Ambien] 10 mg PO HS PRN 30 Days #30 tab 11/28/17 Allergies Allergy/AdvReac Type Severity Reaction Status Date / Time Penicillins Allergy Rash/Hives Verified 12/30/18 19:33 Review of Systems ROS Statement: Those systems with pertinent positive or pertinent negative responses have been documented in the HPI. Review of systems. Patient denies any headache no chest pain shortness of breath GI/ problems. He just states that he had difficulty getting out of his chair today and slipped to the floor without injuring himself. Needed assistance. His wanted him checked out. His only complaint is discomfort to the left ankle which is chronically deformed. Denies any injury to the ankle. Past medical problems significant for hyperlipidemia, hypertension, prostate disorder sleep apnea, peripheral arterial disease and right rotator cuff pain. Surgeries appendectomy, back surgery, bilateral total knee knee replacements. Family history noncontributory. He has ALLERGIES to penicillin. Smokes occasionally strongly encouraged to stop denies alcohol use. ROS Other: All systems not noted in ROS Statement are negative. Past Medical History Past Medical History: Hyperlipidemia, Hypertension, Prostate Disorder, Sleep Apnea/CPAP/BIPAP Additional Past Medical History / Comment(s): PAD, Right rotator cuff tear, mini stroke. History of Any Multi-Drug Resistant Organisms: None Reported Past Surgical History: Appendectomy, Back Surgery, Joint Replacement Additional Past Surgical History / Comment(s): JOSE KNEE REPLACEMENT, KIDNEY SX AT AGE 6 Past Anesthesia/Blood Transfusion Reactions: No Reported Reaction Past Psychological History: No Psychological Hx Reported Smoking Status: Current some day smoker Past Alcohol Use History: None Reported Past Drug Use History: None Reported - Past Family History Mother Family Medical History: No Reported History, Diabetes Mellitus General Exam - General Exam Comments Initial Comments: General: The patient is awake and alert, in no distress, and does not appear acutely ill. Here because he had difficulty getting out of his chair slipped to the ground and complains discomfort to his left ankle distal left tib-fib again without injury. Eye: Pupils are equal, round and reactive to light, extra-ocular movements are intact ; there is normal conjunctiva bilaterally. No signs of icterus. Patient states he had some laser surgery on the right eye today. He was unable to verify why he needed. But does not complain of any discomfort to his eye. No change in visual acuity. States he just needs his glasses recalibrated. Ears, nose, mouth and throat: There are moist mucous membranes and no oral lesions. Neck: The neck is supple, there is no tenderness. Cardiovascular: There is a regular rate and rhythm. No murmur, rub or gallop is appreciated. Respiratory: Lungs are clear to auscultation, respirations are non-labored, breath sounds are equal. No wheezes, stridor, rales, or rhonchi. Denies shortness of breath. Gastrointestinal: Soft, non-distended, non-tender abdomen without masses or organomegaly noted. There is no rebound or guarding present. No CVA tenderness. Bowel sounds are unremarkable. Back: There is no tenderness to palpation in the midline. There is no obvious deformity. No rashes noted. Musculoskeletal: Patient has had bilateral total knee replacements. Also complains of chronic right rotator cuff discomfort. But no new injuries. Chronically deformed left ankle. Mild discomfort the neurovascular status of the foot is otherwise intact. Neurological: CN II-XII intact, There are no obvious motor or sensory deficits. Coordination appears grossly intact. Speech is normal. No focal or lateralizing findings Skin: Skin is warm and dry and no rashes or lesions are noted. Psychiatric: Cooperative, Course Vital Signs 12/30/18 12/30/18 18:45 20:12 Temperature 98.3 F Pulse Rate 76 80 Respiratory 18 18 Rate Blood Pressure 126/82 141/64 O2 Sat by Pulse 94 L 97 Oximetry Medical Decision Making - Medical Decision Making Medical decision making; this is an 78-year-old male brought emergency room because he slid out of his chair. Denies any injuries or does complain of discomfort to his left ankle. Denies hitting his head or any other problems. X-rays of the left tib-fib was reviewed by radiologist his impression is no acute abnormality of the tib fib. As read by Dr. Wolf. Radiologist reviewed x-rays of the left ankle, his impression is no fracture, mild pes planus. 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 As read by Dr. Wolf Urine test was done showing small amount of blood, positive nitrate, large leuk esterase. 21 RBCs, greater than 180 wbc's with WBCs in clumps. The patient was unable to stand on his own. The case was discussed with Dr. Kennedy, the patient's attending. Patient be admitted to the hospital for further evaluation , he's still unable to stand. Unable to stand at bedside to provide a urine sample. Urinalysis shows evidence for UTI. The patient will be admitted and started on IV Levaquin. - Lab Data Lab Results 12/30/18 Range/Units Unknown Urine Color Yellow Urine Appearance Turbid (Clear) Urine pH 5.5 (5.0-8.0) Ur Specific Bryant 1.017 (1.001-1.035) Urine Protein 1+ H (Negative) Urine Glucose (UA) Negative (Negative) Urine Ketones Negative (Negative) Urine Blood Small H (Negative) Urine Nitrite Positive (Negative) Urine Bilirubin Negative (Negative) Urine Urobilinogen <2.0 (<2.0) mg/dL Ur Leukocyte Esterase Large H (Negative) Urine RBC 21 H (0-5) /hpf Urine WBC >182 H (0-5) /hpf Urine WBC Clumps Many H (None) /hpf Urine Mucus Rare H (None) /hpf Disposition Clinical Impression: Urinary tract infection Disposition: ADMITTED IP TO THIS HOSP Condition: Fair Is patient prescribed a controlled substance at d/c from ED?: No Referrals: Trevor Kennedy MD [Primary Care Provider] - 1-2 days
--- NOTE | 2018-12-30 19:39 | XR ---
Left tibia and fibula 4 views. History pain. Fall. Comparison none. FINDINGS: There is a left knee prosthesis. Components appear in anatomic position. There is vascular calcificat ion. I see no fracture nor dislocation. There is previous planus of the foot. IMPRESSION: No acute abnormality of the left tibia and fibula.
--- NOTE | 2018-12-30 19:40 | XR ---
Left ankle 3 views. History pain. Comparison none. FINDINGS: There is mild pes planus. There is spurring at the talonavicular joint. Ankle mortise is anatomic. Th ere is some spurring at the ankle joint. IMPRESSION: No fracture seen. Mild pes planus. 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
[2018-12-30 20:21] LABS: Appearance,Urine Turbid (Clear); Bilirubin,Urine Negative (Negative); Blood,Urine Small (Negative); Color,Urine Yellow; Glucose,Urine (UA) Negative (Negative); Ketones,Urine Negative (Negative); Leukocyte Esterase,Urine Large (Negative); Mucus,Urine Rare /hpf; Nitrite,Urine Positive (Negative); PH, Urine 5.5 (5.0-8.0); Protein,Urine 1+ (Negative); RBC,Urine 21 /hpf (0-5); Specific Gravity,Urine 1.017 (1.001-1.035); Urobilinogen,Urine <2.0 mg/dL (<2.0); WBC,Urine >182 /hpf (0-5)
[2018-12-30] MEDS ORDERED: CIPROFLOXACIN HCL 500 MG TAB PO STA (22:05)
[2018-12-30] MEDS ORDERED: LEVOFLOXACIN 500MG-D5W PMX 500 MG in DEXTROSE/WATER 1 100ML.BAG IVPB STA (22:12)
[2018-12-30] MEDS ORDERED: NALOXONE 0.4 MG/ML 1 ML VIAL IV PRN (22:18)
[2018-12-30] MEDS ORDERED: ACETAMINOPHEN TAB 325 MG TAB PO PRN (22:18)
[2018-12-30 22:50] LABS: Basophils # (A) 0.1 k/uL (0-0.2); Basophils % (A) 1 %; Eosinophils # (A) 0.2 k/uL (0-0.7); Eosinophils % (A) 2 %; HCT 37.4 % (39.0-53.0); HGB 12.4 gm/dL (13.0-17.5); Lymphocytes % (A) 8 %; MCH 28.2 pg (25.0-35.0); MCHC 33.1 g/dL (31.0-37.0); MCV 85.3 fL (80.0-100.0); Mean Platelet Volume 6.8; Monocytes # (A) 0.6 k/uL (0-1.0); Monocytes % (A) 5 %; Neutrophils # (A) 10.9 k/uL (1.3-7.7); Neutrophils % (A) 84 %; Platelet Count 281 k/uL (150-450); RBC 4.38 m/uL (4.30-5.90); RDW 15.3 % (11.5-15.5); WBC 12.9 k/uL (3.8-10.6)
[2018-12-30 22:55] LABS: Albumin 3.6 g/dL (3.5-5.0); Calcium 9.5 mg/dL (8.4-10.2); Potassium 4.1 mmol/L (3.5-5.1); Total Bilirubin 0.8 mg/dL (0.2-1.3); Total Protein 6.4 g/dL (6.3-8.2)
[2018-12-30] MEDS: SODIUM CHLORIDE 0.9% 1,000 ML IV SCH (23:07)
[2018-12-31] MEDS: ZOLPIDEM 10 MG TAB PO PRN ×2 (00:07→20:51)
[2018-12-31] MEDS: LORazepam 1 MG TAB PO PRN ×3 (00:56→20:52)
[2018-12-31] MEDS: LOSARTAN-HCTZ 50-12.5 MG 1 EACH TAB PO SCH (08:47)
[2018-12-31] MEDS: ASPIRIN 81 MG PO SCH (08:48)
[2018-12-31] MEDS: FAMOTIDINE 20 MG TAB PO SCH ×2 (08:48→20:52)
[2018-12-31] MEDS: CLOPIDOGREL 75 MG TAB PO SCH (08:48)
--- NOTE | 2018-12-31 11:08 | P.HPIM ---
History of Present Illness 78-year-old male was brought to the emergency room after fall and confusion. Patient had a cystoscopy one week ago. Has history of UTI following the cystoscopy. Also had eye procedure done yesterday for cataract developed weakness after that procedure Review of Systems Constitutional: Reports weakness Past Medical History Past Medical History: Hyperlipidemia, Hypertension, Prostate Disorder, Sleep Apnea/CPAP/BIPAP Additional Past Medical History / Comment(s): PAD, Right rotator cuff tear, mini stroke. History of Any Multi-Drug Resistant Organisms: None Reported Past Surgical History: Appendectomy, Back Surgery, Joint Replacement Additional Past Surgical History / Comment(s): JOSE KNEE REPLACEMENT, KIDNEY SX AT AGE 6 Past Anesthesia/Blood Transfusion Reactions: No Reported Reaction Past Psychological History: No Psychological Hx Reported Smoking Status: Current some day smoker Past Alcohol Use History: None Reported Past Drug Use History: None Reported - Past Family History Mother Family Medical History: No Reported History, Diabetes Mellitus Medications and Allergies Home Medications Medication Instructions Recorded Confirmed Type Clopidogrel [Plavix] 75 mg PO DAILY #30 tab 04/27/15 12/30/18 Rx Acetaminophen Tab [Tylenol] 500 mg PO Q6HR PRN tab 11/28/17 12/30/18 Rx Tamsulosin [Flomax] 0.4 mg PO PC-SUPPER cap.er.24h 11/28/17 12/30/18 Rx Zolpidem [Ambien] 10 mg PO HS PRN 30 Days #30 tab 11/28/17 12/30/18 Rx Aspirin [Ver[place]ris Aspirin EC] 81 mg PO DAILY 12/30/18 12/30/18 History Losartan/Hydrochlorothiazide 1 tab PO DAILY 12/30/18 12/30/18 History [Hyzaar 100-25 Tablet] Allergies Allergy/AdvReac Type Severity Reaction Status Date / Time Penicillins Allergy Rash/Hives Verified 12/30/18 19:33 Physical Exam Vitals: Vital Signs Temp Pulse Pulse Resp BP BP Pulse Ox 12/31/18 08:15 18 12/31/18 06:52 99.7 F H 74 18 136/72 95 12/31/18 00:26 98.9 F 81 21 152/77 96 12/30/18 23:00 98.3 F 61 20 113/56 98 12/30/18 21:00 73 20 122/56 99 12/30/18 20:12 80 18 141/64 97 12/30/18 18:45 98.3 F 76 18 126/82 94 L Intake and Output 12/30/18 12/31/18 12/31/18 22:59 06:59 14:59 Output Total 594 Balance -594 Output: Urine 400 Uretheral (Flores) 400 Post Void Residual 194 Other: Voiding Method Diaper Diaper Incontinent Incontinent Weight 122.016 kg - Constitutional General appearance: obese - EENT Eyes: PERRLA Ears: bilateral: normal - Neck Neck: normal ROM - Respiratory Respiratory: bilateral: CTA - Cardiovascular Rhythm: regular - Gastrointestinal General gastrointestinal: soft - Integumentary Integumentary: normal - Neurologic Neurologic: CNII-XII intact - Musculoskeletal Musculoskeletal: generalized weakness - Psychiatric Psychiatric: A&O x's 3, appropriate affect, intact judgment & insight Results CBC & Chem 7: 12/30/18 22:35 12/30/18 22:35 Labs: Abnormal Lab Results - Last 24 Hours (Table) 12/30/18 12/30/18 12/30/18 Range/Units 22:35 22:35 Unknown WBC 12.9 H (3.8-10.6) k/uL Hgb 12.4 L (13.0-17.5) gm/dL Hct 37.4 L (39.0-53.0) % Neutrophils # 10.9 H (1.3-7.7) k/uL Glucose 107 H (74-99) mg/dL AST 15 L (17-59) U/L Urine Protein 1+ H (Negative) Urine Blood Small H (Negative) Ur Leukocyte Esterase Large H (Negative) Urine RBC 21 H (0-5) /hpf Urine WBC >182 H (0-5) /hpf Urine WBC Clumps Many H (None) /hpf Urine Mucus Rare H (None) /hpf Thrombosis Risk Factor Assmnt - Choose All That Apply Any of the Below Risk Factors Present?: Yes Each Factor Represents 1 point: Obesity (BMI >25) Other Risk Factors: Yes Each Risk Factor Represents 3 Points: Age 75 years or older Other congenital or acquired thrombophilia - If yes, enter type in comment: No Thrombosis Risk Factor Assessment Total Risk Factor Score: 4 Thrombosis Risk Factor Assessment Level: Moderate Risk Assessment and Plan Plan: Assessment Urinary tract infection post cystoscopy Generalized weakness with fall History of hyperlipidemia Hypertension Sleep apnea with CPAP use Plan Patient on Levaquin PT OT evaluation
[2018-12-31] MEDS: TAMSULOSIN 0.4 MG CAP.ER.24H PO SCH (17:39)
[2018-12-31] MEDS: SODIUM CHLORIDE 0.9% 1,000 ML IV SCH (17:41)
[2018-12-31] MEDS: LEVOFLOXACIN 500 MG TAB PO SCH (20:51)
[2018-12-31] MEDS ORDERED: LEVOFLOXACIN 500MG-D5W PMX 500 MG in DEXTROSE/WATER 1 100ML.BAG IVPB SCH (22:00)
[2018-12-31] MEDS ORDERED: LORazepam 1 MG TAB PO STA (23:40)
[2019-01-01] MEDS ORDERED: HALOPERIDOL LACTATE 5 MG/ML 1 ML VIAL IM STA (02:35)
[2019-01-01] MEDS: FAMOTIDINE 20 MG TAB PO SCH ×2 (09:23→22:27)
[2019-01-01] MEDS: ASPIRIN 81 MG PO SCH (09:23)
[2019-01-01] MEDS: CLOPIDOGREL 75 MG TAB PO SCH (09:23)
[2019-01-01] MEDS: LOSARTAN-HCTZ 50-12.5 MG 1 EACH TAB PO SCH (09:23)
--- NOTE | 2019-01-01 11:50 | P.PN ---
Subjective Episode of confusion and fall through the night. Patient had evaluation by physical therapy recommended extended care facility for rehab. Discussed at length with family. They're considering [facility] or [facility] patient continues on Levaquin. Patient awake and alert and orientated at this time Objective - Vital Signs Vital signs: Vital Signs Temp 98.3 F 01/01/19 06:44 Pulse 85 01/01/19 06:44 Resp 20 01/01/19 06:44 BP 160/76 01/01/19 06:44 Pulse Ox 95 01/01/19 06:44 Intake & Output 12/31/18 01/01/19 01/01/19 18:59 06:59 18:59 Intake Total 600 Output Total 1200 1300 Balance 600 -1200 -1300 Intake: Oral 600 Output: Urine 1200 1300 Uretheral (Flores) 600 Other: Voiding Method Diaper Diaper Incontinent Incontinent # Voids 2 - Constitutional General appearance: Present: mild distress, morbidly obese - EENT Eyes: Present: PERRLA Ears: bilateral: normal - Neck Neck: Present: normal ROM - Respiratory Respiratory: bilateral: CTA - Cardiovascular Rhythm: regular - Gastrointestinal General gastrointestinal: Present: soft - Genitourinary Genitourinary Comment(s): Flores catheter for urinary retention - Integumentary Integumentary: Present: normal - Musculoskeletal Musculoskeletal: Present: generalized weakness - Psychiatric Psychiatric: Present: A&O x's 3, appropriate affect, intact judgment & insight - Labs CBC & Chem 7: 12/30/18 22:35 12/30/18 22:35 Labs: Microbiology - Last 24 Hours (Table) 12/30/18 19:00 Urine Culture - Preliminary Urine,Catheterized 12/30/18 22:35 Blood Culture - Preliminary Blood No Growth after 24 hours Assessment and Plan Plan: Assessment Urinary tract infection post procedure of cystoscopy Urinary retention Weakness with gait dysfunction Hyperlipidemia Hypertension Weight apnea CPAP machine Plan Continue Levaquin Extended care facility for a weakness
[2019-01-01] MEDS: SODIUM CHLORIDE 0.9% 1,000 ML IV SCH (16:55)
[2019-01-01] MEDS: TAMSULOSIN 0.4 MG CAP.ER.24H PO SCH (17:18)
[2019-01-01] MEDS: LEVOFLOXACIN 500 MG TAB PO SCH (22:27)
[2019-01-02] MEDS: SODIUM CHLORIDE 0.9% 1,000 ML IV SCH (08:21)
[2019-01-02] MEDS: LOSARTAN-HCTZ 50-12.5 MG 1 EACH TAB PO SCH (08:21)
[2019-01-02] MEDS: FAMOTIDINE 20 MG TAB PO SCH ×2 (08:21→19:54)
[2019-01-02] MEDS: ASPIRIN 81 MG PO SCH (08:21)
[2019-01-02] MEDS: CLOPIDOGREL 75 MG TAB PO SCH (08:21)
[2019-01-02 10:05] LABS: Basophils # (A) 0.1 k/uL (0-0.2); Basophils % (A) 1 %; Eosinophils # (A) 0.3 k/uL (0-0.7); Eosinophils % (A) 5 %; HCT 33.4 % (39.0-53.0); HGB 10.8 gm/dL (13.0-17.5); Lymphocytes % (A) 15 %; MCH 27.5 pg (25.0-35.0); MCHC 32.2 g/dL (31.0-37.0); MCV 85.6 fL (80.0-100.0); Mean Platelet Volume 7.5; Monocytes # (A) 0.4 k/uL (0-1.0); Monocytes % (A) 7 %; Neutrophils # (A) 4.4 k/uL (1.3-7.7); Neutrophils % (A) 69 %; Platelet Count 216 k/uL (150-450); RBC 3.91 m/uL (4.30-5.90); RDW 15.2 % (11.5-15.5); WBC 6.4 k/uL (3.8-10.6)
--- NOTE | 2019-01-02 12:15 | P.PN ---
Subjective Patient sitting up in bed family at bedside. Continues with plan to be transferred to extended care facility for rehab [facility] Objective - Vital Signs Vital signs: Vital Signs Temp 98.3 F 01/02/19 06:54 Pulse 62 01/02/19 06:54 Resp 20 01/02/19 06:54 BP 160/72 01/02/19 06:54 Pulse Ox 99 01/02/19 06:54 Intake & Output 01/01/19 01/02/19 01/02/19 18:59 06:59 18:59 Intake Total 400 Output Total 1300 1300 Balance -1300 -900 Intake: Oral 400 Output: Urine 1300 1300 Other: Voiding Method Indwelling Catheter Indwelling Catheter Indwelling Catheter # Bowel Movements 0 - Constitutional General appearance: Present: obese - EENT Eyes: Present: PERRLA Ears: bilateral: normal - Neck Neck: Present: normal ROM - Respiratory Respiratory: bilateral: CTA - Cardiovascular Rhythm: regular - Gastrointestinal General gastrointestinal: Present: soft - Genitourinary Genitourinary Comment(s): Flores for urinary retention - Integumentary Integumentary: Present: normal - Neurologic Neurologic: Present: CNII-XII intact - Musculoskeletal Musculoskeletal: Present: generalized weakness - Psychiatric Psychiatric: Present: A&O x's 3, appropriate affect, intact judgment & insight - Labs CBC & Chem 7: 01/02/19 09:45 12/30/18 22:35 Labs: Abnormal Lab Results - Last 24 Hours (Table) 01/02/19 Range/Units 09:45 RBC 3.91 L (4.30-5.90) m/uL Hgb 10.8 L (13.0-17.5) gm/dL Hct 33.4 L (39.0-53.0) % Microbiology - Last 24 Hours (Table) 12/30/18 19:00 Urine Culture - Preliminary Urine,Catheterized Gram Neg Bacilli 12/30/18 22:35 Blood Culture - Preliminary Blood No Growth after 48 hours Assessment and Plan Plan: Assessment Urinary tract infection with urinary retention post cystoscopy Metabolic encephalopathy Weakness with gait dysfunction Hyperlipidemia Hypertension Sleep apnea was CPAP Plan Stable for transfer to extended care facility for rehab. Levaquin is to continue 500 mg daily 7 days
--- NOTE | 2019-01-02 12:17 | P.DS ---
Providers Date of admission: 12/31/18 15:54 Expected date of discharge: 01/03/19 Attending physician: Trevor Kennedy Primary care physician: Trevor Kennedy [facility] Course: 78-year-old male was brought to the emergency room with report of weakness and confusion. Patient had a cystoscopy the week before and's developed urinary tract infections in the past from the same patient is now awake and alert. Patient is weak and has fallen in the hospital is recommended that he follow-up with extended care facility for physical therapy Assessment Acute urinary tract infection secondary to cystoscopy with urinary retention Weakness with gait dysfunction Metabolic encephalopathy secondary to urinary tract infection history of hyperlipidemia Hypertension Sleep apnea with uses CPAP machine Plan Continue Levaquin for 7 days 500 mg Transfer 01/03/2019 2 extended care facility choice [facility] Patient Condition at Discharge: Fair Plan - Discharge Summary Discharge Rx Participant: No New Discharge Prescriptions: New Acetaminophen Tab [Tylenol] 650 mg PO Q6HR PRN tab PRN Reason: Mild Pain Or Fever > 100.5 Famotidine [Pepcid] 20 mg PO BID tab Levofloxacin [Levaquin] 500 mg PO DAILY@2200 tab Continue Clopidogrel [Plavix] 75 mg PO DAILY #30 tab Tamsulosin [Flomax] 0.4 mg PO PC-SUPPER cap.er.24h Aspirin [[place] Aspirin EC] 81 mg PO DAILY Losartan/Hydrochlorothiazide [Hyzaar 100-25 Tablet] 1 tab PO DAILY Discontinued Zolpidem [Ambien] 10 mg PO HS PRN 30 Days #30 tab PRN Reason: Insomnia No Action Acetaminophen Tab [Tylenol] 500 mg PO Q6HR PRN tab PRN Reason: Fever and/ or mild Pain Discharge Medication List Clopidogrel [Plavix] 75 mg PO DAILY #30 tab 04/27/15 [Rx] Acetaminophen Tab [Tylenol] 500 mg PO Q6HR PRN tab 11/28/17 [Rx] Tamsulosin [Flomax] 0.4 mg PO PC-SUPPER cap.er.24h 11/28/17 [Rx] Aspirin [[place] Aspirin EC] 81 mg PO DAILY 12/30/18 [History] Losartan/Hydrochlorothiazide [Hyzaar 100-25 Tablet] 1 tab PO DAILY 12/30/18 [ History] Acetaminophen Tab [Tylenol] 650 mg PO Q6HR PRN tab 01/02/19 [Rx] Famotidine [Pepcid] 20 mg PO BID tab 01/02/19 [Rx] Levofloxacin [Levaquin] 500 mg PO DAILY@2200 tab 01/02/19 [Rx] Follow up Appointment(s)/Referral(s): Trevor Kennedy MD [Primary Care Provider] - 1-2 days [facility],Nurse [NON-STAFF] -
[2019-01-02] MEDS ORDERED: BISACODYL 5 MG TABLET.DR PO STA (15:28)
[2019-01-02] MEDS: TAMSULOSIN 0.4 MG CAP.ER.24H PO SCH (16:19)
[2019-01-02] MEDS: LEVOFLOXACIN 500 MG TAB PO SCH (19:54)
[2019-01-03] MEDS: ONDANSETRON 4 MG/2 ML VIAL IVP PRN ×2 (01:36→06:40)
[2019-01-03 01:39] VITALS: TEMP 98.5
[2019-01-03] MEDS: SODIUM CHLORIDE 0.9% 1,000 ML IV SCH (05:27)
[2019-01-03 06:27] VITALS: BP 167/74; PULSE 69; RESP 18
[2019-01-03] MEDS: CLOPIDOGREL 75 MG TAB PO SCH (08:45)
[2019-01-03] MEDS: ASPIRIN 81 MG PO SCH (08:45)
[2019-01-03] MEDS: LOSARTAN-HCTZ 50-12.5 MG 1 EACH TAB PO SCH (08:45)
[2019-01-03] MEDS: FAMOTIDINE 20 MG TAB PO SCH (08:45)
== END 2019-01-03 13:30 | DRG 698 ==
LOC: EC 18:34 → 4MS4W 22:18 → OBSVTOIN 12-31 15:54
PROVIDERS: ADMIT Family Medicine; ATTEND Family Medicine
DX: N99.89 Other postprocedural complications and disorders of genitourinary system (principal); G93.41 Metabolic encephalopathy; N39.0 Urinary tract infection, site not specified; E66.01 Morbid (severe) obesity due to excess calories; N42.9 Disorder of prostate, unspecified; E78.5 Hyperlipidemia, unspecified; F17.200 Nicotine dependence, unspecified, uncomplicated; G47.30 Sleep apnea, unspecified; H26.9 Unspecified cataract; I10 Essential (primary) hypertension; M19.079 Primary osteoarthritis, unspecified ankle and foot; R26.9 Unspecified abnormalities of gait and mobility; R33.9 Retention of urine, unspecified; Z68.34 Body mass index [BMI] 34.0-34.9, adult; Z79.02 Long term (current) use of antithrombotics/antiplatelets; Z79.82 Long term (current) use of aspirin; Z79.899 Other long term (current) drug therapy; Z96.653 Presence of artificial knee joint, bilateral; Z87.440 Personal history of urinary (tract) infections; Z88.0 Allergy status to penicillin; Z90.49 Acquired absence of other specified parts of digestive tract; Z86.73 Personal history of transient ischemic attack (TIA), and cerebral infarction without residual deficits; Y83.8 Other surgical procedures as the cause of abnormal reaction of the patient, or of later complication, without mention of misadventure at the time of the procedure
CPT/HCPCS: 36415; 80053; 81001; 85025; 87040; 87077; 87086; 87186; 94660; 96365; 99285

== ENCOUNTER → 2019-02-14 | Outpatient (CLI) | payer MEDICARE, BC ==
[2019-02-14 18:30] LABS: Anion Gap 7.1 mmol/L (4.00-12.00); Calcium 9.5 mg/dL (8.7-10.3); Carbon Dioxide 28.9 mmol/L (21.6-31.8); Magnesium 1.9 mg/dL (1.5-2.4); Potassium 3.3 mmol/L (3.5-5.5)
== END | disposition home or self-care (01) ==
LOC: LABWHC1 12:13
PROVIDERS: ATTEND Nurse Practitioner
DX: I10 Essential (primary) hypertension (principal)
CPT/HCPCS: 36415; 80048; 83735

== ENCOUNTER → 2019-04-03 | Outpatient (CLI) | payer MEDICARE, BC ==
--- NOTE | 2019-04-03 11:48 | SFUN ---
SLEEP CENTER FOLLOW UP NOTE DATE OF SERVICE: 04/03/2019 An 79-year-old gentleman has been followed in the Sleep Center for treatment of obstructive sleep apnea-hypopnea syndrome. Recently patient received new CPAP equipment and this is his first visit with the new CPAP unit. Patient is able to use CPAP equipment every night for the whole night without significant problems, except he feels that the air is too hot. Tolstoy Sleepiness Scale today is 3, which is absolutely normal. I checked his CPAP unit. CPAP pressure is 13 cm of water. Usage is 30/30 nights for more than 4 hours. Average usage is 9.2 hours. Leak is 22 L/minute, which is borderline. Apnea-hypopnea index is only 2.8, which is absolutely normal. I checked level of heat. It is at 4. MEDICATIONS: Losartan, clopidogrel, pravastatin, vitamin D, zolpidem. PHYSICAL EXAM: Patient in no distress. BP 136/53, HR 78, RR 16, weight 274, temp 97.6. OROPHARYNX: Extremely low position of soft palate, Mallampati 4. ABDOMEN: Obese. Neck Supple, no JVD. Thyroid is not palpable. LUNGS Clear to percussion and to auscultation. Good air exchange. No wheezing or rhonchi. HEART S1, S2 regular. No murmurs, gallops, or rubs. EXTREMITIES No clubbing or cyanosis. AS400 CONSULTANT Awake, alert, and oriented X3. Cranial nerves 2 to 7 intact. There is no fasciculation or atrophy. noted. No focal deficits observed. IMPRESSION: 1. Obstructive sleep apnea-hypopnea syndrome. Patient demonstrated 100% compliance with treatment, benefitting from treatment. 2. Hypertension. 3. Obesity. 4. Hyperlipidemia. 5. Fifty pack year smoker. 6. History of stroke about 5 years ago without residual deficit. 7. History of sinus sick sinus syndrome. 8. History of benign prostatic hypertrophy, status post surgical treatment. PLAN: 1. Patient will continue to use CPAP equipment every night for the whole night. 2. I will maintain all necessary prescriptions for CPAP supplies. 3. Losing weight. 4. Sleep hygiene with regular time in bed for at least 8 hours. 5. Precautions related to driving. No driving if feeling any sleepiness. Thank you very much for allowing me to participate in the management of your patient. Sincerely, Ruddy Kimble MD, PhD, FAASM Diplomat of [place] [employer] [place] [employer] [facility] [place] [email or web address] / GINA: [id number] /
== END | disposition home or self-care (01) ==
LOC: SLEEP 10:37
PROVIDERS: ATTEND Internal Medicine
DX: G47.33 Obstructive sleep apnea (adult) (pediatric) (principal); I10 Essential (primary) hypertension; E66.9 Obesity, unspecified; E78.5 Hyperlipidemia, unspecified; F17.210 Nicotine dependence, cigarettes, uncomplicated; I49.5 Sick sinus syndrome; N40.0 Benign prostatic hyperplasia without lower urinary tract symptoms; Z98.890 Other specified postprocedural states; Z86.73 Personal history of transient ischemic attack (TIA), and cerebral infarction without residual deficits; Z99.89 Dependence on other enabling machines and devices; Z79.02 Long term (current) use of antithrombotics/antiplatelets; Z79.899 Other long term (current) drug therapy

== ENCOUNTER 2019-04-14 14:38 | Observation (INO) | payer MEDICARE, BC ==
[2019-04-14] MEDS ORDERED: SODIUM CHLORIDE 0.9% 1,000 ML IV STA (15:15)
--- NOTE | 2019-04-14 15:18 | ED ---
General Adult HPI - General Chief complaint: Recheck/Abnormal Lab/Rx Stated complaint: Leg weakness Time Seen by Provider: 04/14/19 15:05 Source: patient, family, EMS, RN notes reviewed Mode of arrival: EMS Limitations: no limitations - History of Present Illness Initial comments: Patient is a pleasant 79-year-old male presenting to the emergency Department with complaints of leg weakness. Patient may have had some minimal symptoms a past day or 2 however mostly today. Legs feel weak. Patient did have a fall, no injury. Patient was unable to get up on his own. No isolated area of weakness. No confusion. No fevers however states he felt a little bit warm earlier. Patient does have history of similar symptoms several times previously associated with urinary tract infection. 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 Patient was called after his fall today and notified that there was concern for urinary tract infection. - Related Data Home Medications Medication Instructions Recorded Confirmed Aspirin [[place] Aspirin EC] 81 mg PO DAILY 12/30/18 04/14/19 Losartan/Hydrochlorothiazide 1 tab PO DAILY 12/30/18 04/14/19 [Hyzaar 100-25 Tablet] Furosemide [Lasix] 20 mg PO DAILY 04/14/19 04/14/19 Oxybutynin Chloride [Oxybutynin 10 mg PO DAILY 04/14/19 04/14/19 Chloride ER] Pravastatin Sodium [Pravachol] 40 mg PO DAILY 04/14/19 04/14/19 Previous Rx's Medication Instructions Recorded Clopidogrel [Plavix] 75 mg PO DAILY #30 tab 04/27/15 Tamsulosin [Flomax] 0.4 mg PO PC-SUPPER cap.er.24h 11/28/17 Allergies Allergy/AdvReac Type Severity Reaction Status Date / Time Penicillins Allergy Rash/Hives Verified 04/14/19 15:32 Review of Systems ROS Statement: Those systems with pertinent positive or pertinent negative responses have been documented in the HPI. ROS Other: All systems not noted in ROS Statement are negative. Constitutional: Reports: as per HPI Eyes: Denies: eye pain ENT: Denies: ear pain Respiratory: Denies: cough Cardiovascular: Denies: chest pain Endocrine: Reports: fatigue Gastrointestinal: Denies: abdominal pain Genitourinary: Denies: dysuria Musculoskeletal: Denies: back pain Skin: Denies: rash Neurological: Reports: as per HPI. Denies: confusion Past Medical History Past Medical History: Hyperlipidemia, Hypertension, Prostate Disorder, Sleep Apnea/CPAP/BIPAP Additional Past Medical History / Comment(s): PAD, Right rotator cuff tear, mini stroke. History of Any Multi-Drug Resistant Organisms: None Reported Past Surgical History: Appendectomy, Back Surgery, Joint Replacement Additional Past Surgical History / Comment(s): JOSE KNEE REPLACEMENT, KIDNEY SX AT AGE 6 Past Anesthesia/Blood Transfusion Reactions: No Reported Reaction Past Psychological History: No Psychological Hx Reported Smoking Status: Current some day smoker Past Alcohol Use History: None Reported Past Drug Use History: None Reported - Past Family History Mother Family Medical History: No Reported History, Diabetes Mellitus General Exam Limitations: no limitations General appearance: alert, in no apparent distress Head exam: Present: atraumatic, normocephalic Eye exam: Present: normal appearance, PERRL Neck exam: Present: normal inspection. Absent: tenderness Respiratory exam: Present: normal lung sounds bilaterally Cardiovascular Exam: Present: regular rate, normal rhythm GI/Abdominal exam: Present: soft. Absent: tenderness Extremities exam: Present: normal inspection Neurological exam: Present: alert, CN II-XII intact Expanded Neurological exam: Present: protecting the airway Speech: Present: fluid speech Motor strength exam: RUE: 5, LUE: 5, RLE: 4, LLE: 4 Eye Response: (4) open spontaneously Motor Response: (6) obeys commands Verbal Response: (5) oriented Psychiatric exam: Present: normal affect, normal mood Skin exam: Present: normal color Course Vital Signs 04/14/19 14:55 Temperature 98.3 F Pulse Rate 56 L Respiratory 18 Rate Blood Pressure 131/68 O2 Sat by Pulse 96 Oximetry EKG Findings - EKG Comments: EKG Findings:: Sinus bradycardia 52. QRS 96. QT 450. QTC 418. Left axis. Normal QRS. No acute ST change. Medical Decision Making - Medical Decision Making Patient reevaluated. Patient and family updated. Case was discussed with Dr. soriano, covering for Dr. Kennedy, who will admit. - Lab Data Result diagrams: 04/14/19 15:30 04/14/19 15:30 Lab Results 04/14/19 04/14/19 04/14/19 Range/Units 15:30 15:30 15:30 WBC 8.4 (3.8-10.6) k/uL RBC 4.22 L (4.30-5.90) m/uL Hgb 11.6 L (13.0-17.5) gm/dL Hct 35.2 L (39.0-53.0) % MCV 83.6 (80.0-100.0) fL MCH 27.5 (25.0-35.0) pg MCHC 32.9 (31.0-37.0) g/dL RDW 16.1 H (11.5-15.5) % Plt Count 311 (150-450) k/uL Neutrophils % 64 % Lymphocytes % 21 % Monocytes % 6 % Eosinophils % 5 % Basophils % 2 % Neutrophils # 5.4 (1.3-7.7) k/uL Lymphocytes # 1.8 (1.0-4.8) k/uL Monocytes # 0.5 (0-1.0) k/uL Eosinophils # 0.4 (0-0.7) k/uL Basophils # 0.1 (0-0.2) k/uL Hypochromasia Slight Anisocytosis Slight PT (9.0-12.0) sec INR (<1.2) APTT (22.0-30.0) sec Sodium 141 (137-145) mmol/L Potassium 4.4 (3.5-5.1) mmol/L Chloride 108 H (98-107) mmol/L Carbon Dioxide 26 (22-30) mmol/L Anion Gap 7 mmol/L BUN 18 (9-20) mg/dL Creatinine 1.16 (0.66-1.25) mg/dL Est GFR (CKD-EPI)AfAm 68 (>60 ml/min/1.73 sqM) Est GFR (CKD-EPI)NonAf 59 (>60 ml/min/1.73 sqM) Glucose 98 (74-99) mg/dL Plasma Lactic Acid Abdiel 1.2 (0.7-2.0) mmol/L Calcium 9.1 (8.4-10.2) mg/dL Magnesium 2.0 (1.6-2.3) mg/dL Total Bilirubin 0.3 (0.2-1.3) mg/dL AST 12 L (17-59) U/L ALT 14 L (21-72) U/L Alkaline Phosphatase 88 (38-126) U/L Troponin I (0.000-0.034) ng/mL Total Protein 6.0 L (6.3-8.2) g/dL Albumin 3.3 L (3.5-5.0) g/dL 04/14/19 04/14/19 Range/Units 15:30 15:30 WBC (3.8-10.6) k/uL RBC (4.30-5.90) m/uL Hgb (13.0-17.5) gm/dL Hct (39.0-53.0) % MCV (80.0-100.0) fL MCH (25.0-35.0) pg MCHC (31.0-37.0) g/dL RDW (11.5-15.5) % Plt Count (150-450) k/uL Neutrophils % % Lymphocytes % % Monocytes % % Eosinophils % % Basophils % % Neutrophils # (1.3-7.7) k/uL Lymphocytes # (1.0-4.8) k/uL Monocytes # (0-1.0) k/uL Eosinophils # (0-0.7) k/uL Basophils # (0-0.2) k/uL Hypochromasia Anisocytosis PT 10.6 (9.0-12.0) sec INR 1.0 (<1.2) APTT 26.0 (22.0-30.0) sec Sodium (137-145) mmol/L Potassium (3.5-5.1) mmol/L Chloride (98-107) mmol/L Carbon Dioxide (22-30) mmol/L Anion Gap mmol/L BUN (9-20) mg/dL Creatinine (0.66-1.25) mg/dL Est GFR (CKD-EPI)AfAm (>60 ml/min/1.73 sqM) Est GFR (CKD-EPI)NonAf (>60 ml/min/1.73 sqM) Glucose (74-99) mg/dL Plasma Lactic Acid Abdiel (0.7-2.0) mmol/L Calcium (8.4-10.2) mg/dL Magnesium (1.6-2.3) mg/dL Total Bilirubin (0.2-1.3) mg/dL AST (17-59) U/L ALT (21-72) U/L Alkaline Phosphatase (38-126) U/L Troponin I <0.012 (0.000-0.034) ng/mL Total Protein (6.3-8.2) g/dL Albumin (3.5-5.0) g/dL - Radiology Data Radiology results: report reviewed (Computed tomography scan of the brain shows stable atrophy and chronic small vessel ischemic changes. Stable encephalomalacia left temporal parietal. No acute intercranial abnormality.), image reviewed (Chest x-ray does show some increase in opacity right. Had a region which could represent mild bronchopneumonia.) Disposition Clinical Impression: Weakness, Urinary tract infection, Bronchopneumonia Disposition: ADMITTED IP TO THIS HOSP Is patient prescribed a controlled substance at d/c from ED?: No Referrals: Trevor Kennedy MD [Primary Care Provider] - 1-2 days Decision Time: 16:57
[2019-04-14 15:58] LABS: Anisocytosis Slight; Basophils # (A) 0.1 k/uL (0-0.2); Basophils % (A) 2 %; Eosinophils # (A) 0.4 k/uL (0-0.7); Eosinophils % (A) 5 %; HCT 35.2 % (39.0-53.0); HGB 11.6 gm/dL (13.0-17.5); Hypochromasia Slight; Lymphocytes # (A) 1.8 k/uL (1.0-4.8); Lymphocytes % (A) 21 %; MCH 27.5 pg (25.0-35.0); MCHC 32.9 g/dL (31.0-37.0); MCV 83.6 fL (80.0-100.0); Mean Platelet Volume 7.1; Monocytes # (A) 0.5 k/uL (0-1.0); Monocytes % (A) 6 %; Neutrophils # (A) 5.4 k/uL (1.3-7.7); Neutrophils % (A) 64 %; Platelet Count 311 k/uL (150-450); RBC 4.22 m/uL (4.30-5.90); RDW 16.1 % (11.5-15.5); WBC 8.4 k/uL (3.8-10.6)
[2019-04-14 16:04] LABS: Albumin 3.3 g/dL (3.5-5.0); Calcium 9.1 mg/dL (8.4-10.2); Potassium 4.4 mmol/L (3.5-5.1); Total Bilirubin 0.3 mg/dL (0.2-1.3)
[2019-04-14 16:07] LABS: Prothrombin Time 10.6 sec (9.0-12.0)
--- NOTE | 2019-04-14 16:14 | CT ---
EXAMINATION TYPE: CT brain wo con DATE OF EXAM: 04/14/2019 COMPARISON: 11/25/2017 HISTORY: 79-year-old male leg weakness TECHNIQUE: Examination was done in axial plane without intravenous contrast. Coronal and sagittal r econstructions performed. CT DLP: 1099.4 mGycm Automated exposure control for dose reduction was used. FINDINGS: There is no evidence of acute intracranial hemorrhage, acute ischemic changes, mass, mass-effect, or extra-axial fluid collection. There is no effacement of cerebral sulci or basal subarachnoid cister ns. There is no hydrocephalus. There is no midline shift. Aden-white matter distinction is preserv ed. Mild generalized atrophy with stable encephalomalacia left temporoparietal junction. Mild patchy whit e matter hypodensities in both cerebral hemispheres Scattered trace mucosal thickening ethmoid air cells. Rightward nasal septal deviation. Mastoid air c ells are well pneumatized. Orbits and globes are intact. IMPRESSION: Stable mild generalized atrophy and changes of chronic small vessel ischemic disease. Stable encephal omalacia left temporoparietal junction suggesting site of prior infarct. No acute intracranial abnorm ality seen.
--- NOTE | 2019-04-14 16:45 | XR ---
EXAMINATION: XR chest 2V DATE AND TIME: 04/14/2019 4:38 PM CLINICAL INDICATION: PHH; Weakness TECHNIQUE: Departmental protocol COMPARISON: 11/25/2017 FINDINGS: There is an ill-defined right mid lung zone added opacity measuring approximately 3 cm in greatest di mension. This is a subtle finding but could correlate with a clinical diagnosis of developing early b ronchopneumonia. Six-week follow-up PA and lateral chest radiographs advised, to prove resolution of the findings. The lungs are otherwise clear and well-expanded bilaterally. The pleural spaces are negative. The cardiac silhouette is not enlarged. The remainder of the mediastinal silhouette is unremarkable. The skeletal structures and soft tissues are negative for acute findings. IMPRESSION: Suspect developing right mid lung bronchopneumonia.
[2019-04-14] MEDS ORDERED: PNEUMONIA PROTOCOL UTILIZED 1 EACH MISC PO PRN (16:58)
[2019-04-14] MEDS ORDERED: AZITHROMYCIN 500 MG in SODIUM CHLORIDE 0.9% 250 ML IVPB STA (16:58)
[2019-04-14] MEDS: SODIUM CHLORIDE 0.9% 1,000 ML IV SCH (17:21)
[2019-04-14 17:27] LABS: Appearance,Urine Clear (Clear); Bilirubin,Urine Negative (Negative); Blood,Urine Negative (Negative); Color,Urine Yellow; Glucose,Urine (UA) Negative (Negative); Ketones,Urine Negative (Negative); Leukocyte Esterase,Urine Small (Negative); Mucus,Urine Rare /hpf; Nitrite,Urine Negative (Negative); Protein,Urine Negative (Negative); RBC,Urine <1 /hpf (0-5); Specific Gravity,Urine 1.014 (1.001-1.035); Squamous Epithelial Cell,Urine 1 /hpf (0-4); Urobilinogen,Urine <2.0 mg/dL (<2.0); WBC,Urine 4 /hpf (0-5)
--- NOTE | 2019-04-14 19:35 | P.HPIM ---
History of Present Illness this is a pleasant 79 yo M with past medical history of UTI, uretheral stricture , he follows up with the urologist and he was planed to have urethral dilatation next week , prostate disorder, hyperlipidemia , obesity and sleep apnea on CPAP/BiPAP. at baseline pt uses a walker , over the past few days he was feeling generally weak similar to last time he got UTI, this affected his ability of walking . pt has hesitancy but denies dysurea, no fever or chills , pt denies back pain , no chest pain , no dysuria, no dyspnea on admission , his vitals are stable, urinalysis is not indicative of infection , wbc 8.4k, Hb 11.6 and platelet 311, creatinine WNL, liver enz not elevated Past Medical History Past Medical History: Hyperlipidemia, Hypertension, Prostate Disorder, Sleep Apnea/CPAP/BIPAP Additional Past Medical History / Comment(s): PAD, Right rotator cuff tear, mini stroke. History of Any Multi-Drug Resistant Organisms: None Reported Past Surgical History: Appendectomy, Back Surgery, Joint Replacement Additional Past Surgical History / Comment(s): JOSE KNEE REPLACEMENT, KIDNEY SX AT AGE 6 Past Anesthesia/Blood Transfusion Reactions: No Reported Reaction Past Psychological History: No Psychological Hx Reported Smoking Status: Current some day smoker Past Alcohol Use History: None Reported Past Drug Use History: None Reported - Past Family History Mother Family Medical History: No Reported History, Diabetes Mellitus Medications and Allergies Home Medications Medication Instructions Recorded Confirmed Type Clopidogrel [Plavix] 75 mg PO DAILY #30 tab 04/27/15 04/14/19 Rx Tamsulosin [Flomax] 0.4 mg PO PC-SUPPER cap.er.24h 11/28/17 04/14/19 Rx Aspirin [[place] Aspirin EC] 81 mg PO DAILY 12/30/18 04/14/19 History Losartan/Hydrochlorothiazide 1 tab PO DAILY 12/30/18 04/14/19 History [Hyzaar 100-25 Tablet] Furosemide [Lasix] 20 mg PO DAILY 04/14/19 04/14/19 History Oxybutynin Chloride [Oxybutynin 10 mg PO DAILY 04/14/19 04/14/19 History Chloride ER] Pravastatin Sodium [Pravachol] 40 mg PO DAILY 04/14/19 04/14/19 History Allergies Allergy/AdvReac Type Severity Reaction Status Date / Time Penicillins Allergy Rash/Hives Verified 04/14/19 15:32 Physical Exam Vitals: Vital Signs Temp Pulse Resp BP Pulse Ox 04/14/19 16:58 60 15 145/56 99 04/14/19 14:55 98.3 F 56 L 18 131/68 96 Intake and Output 04/14/19 04/14/19 04/14/19 06:59 14:59 22:59 Other: Voiding Method Toilet Weight 124.284 kg GENERAL: The patient is alert and oriented x3, not in any acute distress. Well developed, well nourished. HEENT: Pupils are round and equally reacting to light. EOMI. No scleral icterus. No conjunctival pallor. Normocephalic, atraumatic. No pharyngeal erythema. No thyromegaly. CARDIOVASCULAR: S1 and S2 present. No murmurs, rubs, or gallops. PULMONARY: Chest is clear to auscultation, no wheezing or crackles. ABDOMEN: Soft, nontender, nondistended, normoactive bowel sounds. No palpable organomegaly. MUSCULOSKELETAL: No joint swelling or deformity. EXTREMITIES: No cyanosis, clubbing, or pedal edema. -NEUROLOGICAL: Gross neurological examination did not reveal any focal deficits. strength is 5/5 on both limbs including both lower ext. sensation is intact, no meningeal signs SKIN: No rashes. -gait: pt could walk by himself using a walker for few steps ( states better than when he came in) Results CBC & Chem 7: 04/14/19 15:30 04/14/19 15:30 Labs: Abnormal Lab Results - Last 24 Hours (Table) 04/14/19 04/14/19 04/14/19 Range/Units 15:30 15:30 17:00 RBC 4.22 L (4.30-5.90) m/uL Hgb 11.6 L (13.0-17.5) gm/dL Hct 35.2 L (39.0-53.0) % RDW 16.1 H (11.5-15.5) % Chloride 108 H (98-107) mmol/L AST 12 L (17-59) U/L ALT 14 L (21-72) U/L Total Protein 6.0 L (6.3-8.2) g/dL Albumin 3.3 L (3.5-5.0) g/dL Ur Leukocyte Esterase Small H (Negative) Urine Mucus Rare H (None) /hpf Assessment and Plan Assessment: urinary hesitancy history of urinary tract infection history of uretheral stricture , he follows up with the urologist and he was planed to have urethral dilatation next week generalized weakness history of prostate disorder hyperlipidemia obesity and sleep apnea on CPAP/BiPAP Plan: this is a pleasant 79 yo M who presents with urinary difficulty and hesitancy, UA is not very indicative for infection , we will order bladder scan and urology evaluation. Continue with the same treatment , continue with symptomatic treatment , resume home medication , monitor lytes and vitals, . GI and DVT prophylaxis , further recommendation based upon pt clinical course and progress DVT prophylaxis heparin GI prophylaxis Pepcid Prognosis is guarded
[2019-04-14] MEDS: FAMOTIDINE 20 MG/2 ML VIAL IV SCH (21:22)
[2019-04-14] MEDS: HEPARIN SODIUM,PORCINE 5,000 UNIT/ML 1 ML VIAL SQ SCH (21:22)
[2019-04-15] MEDS: SODIUM CHLORIDE 0.9% 1,000 ML IV SCH ×2 (01:52→15:06)
[2019-04-15] MEDS: MELATONIN 5 MG TABLET PO SCH ×2 (01:52→20:03)
--- NOTE | 2019-04-15 07:15 | P.GSCN ---
History of Present Illness Consult date: 04/15/19 History of present illness: 79 yo male well known to me for bladder issues. He has chronic incomplete emptying as well as urethral stricture disease. He recently was in the office and diagnosed with a uti I called in antibiotic yesterday for him but he wanted to go to the er and be treated at the hospital He is feeling better He is urinating more since he has had the IVF His VSS and he is afebrile Review of Systems All systems: negative - Constitutional Denies fever, Denies weight loss - EENT Eyes: denies blurred vision Ears, nose, mouth and throat: Denies dysphagia - Cardiovascular Denies chest pain, Denies shortness of breath - Respiratory Denies cough, Denies 7 - Gastrointestinal Reports as per HPI - Genitourinary Denies dysuria, Denies hematuria - Integumentary Denies rash, Denies unusual bruising - Neurological Denies headaches, Denies syncope - Hematologic/Lymphatic Denies easy bleeding, Denies easy bruising Past Medical History Past Medical History: Hyperlipidemia, Hypertension, Prostate Disorder, Sleep Apnea/CPAP/BIPAP Additional Past Medical History / Comment(s): PAD, Right rotator cuff tear, mini stroke, urinary retention History of Any Multi-Drug Resistant Organisms: None Reported Past Surgical History: Appendectomy, Back Surgery, Joint Replacement Additional Past Surgical History / Comment(s): JOSE KNEE REPLACEMENT, KIDNEY SX AT AGE 6 Past Anesthesia/Blood Transfusion Reactions: No Reported Reaction Past Psychological History: No Psychological Hx Reported Smoking Status: Current some day smoker Past Alcohol Use History: None Reported Past Drug Use History: None Reported - Past Family History Mother Family Medical History: No Reported History, Diabetes Mellitus Medications and Allergies Home Medications Medication Instructions Recorded Confirmed Type Clopidogrel [Plavix] 75 mg PO DAILY #30 tab 04/27/15 04/14/19 Rx Tamsulosin [Flomax] 0.4 mg PO PC-SUPPER cap.er.24h 11/28/17 04/14/19 Rx Aspirin [[place] Aspirin EC] 81 mg PO DAILY 12/30/18 04/14/19 History Losartan/Hydrochlorothiazide 1 tab PO DAILY 12/30/18 04/14/19 History [Hyzaar 100-25 Tablet] Furosemide [Lasix] 20 mg PO DAILY 04/14/19 04/14/19 History Oxybutynin Chloride [Oxybutynin 10 mg PO DAILY 04/14/19 04/14/19 History Chloride ER] Pravastatin Sodium [Pravachol] 40 mg PO DAILY 04/14/19 04/14/19 History Allergies Allergy/AdvReac Type Severity Reaction Status Date / Time Penicillins Allergy Rash/Hives Verified 04/14/19 15:32 Surgical - Exam Vital Signs Temp Pulse Resp BP Pulse Ox 98.3 F 56 L 18 131/68 96 04/14/19 14:55 04/14/19 14:55 04/14/19 14:55 04/14/19 14:55 04/14/19 14:55 - General well developed, well nourished, no distress - ENT no hearing loss - Neck trachea midline - Respiratory normal expansion, normal respiratory effort - Cardiovascular Rhythm: regular - Abdomen Abdomen: soft, non tender - Genitourinary normal penis with no external lesions, testicles present - Neurologic normal coordination, normal sensation - Musculoskeletal normal posture - Psychiatric oriented to time, oriented to person, oriented to place, speech is normal, memory intact Results - Labs 04/14/19 15:30 04/14/19 15:30 Abnormal Lab Results - Last 24 Hours (Table) 04/14/19 04/14/19 04/14/19 Range/Units 15:30 15:30 17:00 RBC 4.22 L (4.30-5.90) m/uL Hgb 11.6 L (13.0-17.5) gm/dL Hct 35.2 L (39.0-53.0) % RDW 16.1 H (11.5-15.5) % Chloride 108 H (98-107) mmol/L AST 12 L (17-59) U/L ALT 14 L (21-72) U/L Total Protein 6.0 L (6.3-8.2) g/dL Albumin 3.3 L (3.5-5.0) g/dL Ur Leukocyte Esterase Small H (Negative) Urine Mucus Rare H (None) /hpf Microbiology - Last 24 Hours (Table) 04/14/19 17:00 Urine Culture - Preliminary Urine,Voided Diabetes panel 04/14/19 Range/Units 15:30 Sodium 141 (137-145) mmol/L Potassium 4.4 (3.5-5.1) mmol/L Chloride 108 H (98-107) mmol/L Carbon Dioxide 26 (22-30) mmol/L BUN 18 (9-20) mg/dL Creatinine 1.16 (0.66-1.25) mg/dL Glucose 98 (74-99) mg/dL Calcium 9.1 (8.4-10.2) mg/dL AST 12 L (17-59) U/L ALT 14 L (21-72) U/L Alkaline Phosphatase 88 (38-126) U/L Total Protein 6.0 L (6.3-8.2) g/dL Albumin 3.3 L (3.5-5.0) g/dL Calcium panel 04/14/19 Range/Units 15:30 Calcium 9.1 (8.4-10.2) mg/dL Albumin 3.3 L (3.5-5.0) g/dL Pituitary panel 04/14/19 Range/Units 15:30 Sodium 141 (137-145) mmol/L Potassium 4.4 (3.5-5.1) mmol/L Chloride 108 H (98-107) mmol/L Carbon Dioxide 26 (22-30) mmol/L BUN 18 (9-20) mg/dL Creatinine 1.16 (0.66-1.25) mg/dL Glucose 98 (74-99) mg/dL Calcium 9.1 (8.4-10.2) mg/dL Adrenal panel 04/14/19 Range/Units 15:30 Sodium 141 (137-145) mmol/L Potassium 4.4 (3.5-5.1) mmol/L Chloride 108 H (98-107) mmol/L Carbon Dioxide 26 (22-30) mmol/L BUN 18 (9-20) mg/dL Creatinine 1.16 (0.66-1.25) mg/dL Glucose 98 (74-99) mg/dL Calcium 9.1 (8.4-10.2) mg/dL Total Bilirubin 0.3 (0.2-1.3) mg/dL AST 12 L (17-59) U/L ALT 14 L (21-72) U/L Alkaline Phosphatase 88 (38-126) U/L Total Protein 6.0 L (6.3-8.2) g/dL Albumin 3.3 L (3.5-5.0) g/dL Assessment and Plan Assessment: Impression: Uti. URthethral stricture disease Incomplete bladder emptying Recommend THe patient should continue with antibiotics until his urethrotomy schedule for next sunday Nothing further urologic needs to be done at present
[2019-04-15] MEDS: HEPARIN SODIUM,PORCINE 5,000 UNIT/ML 1 ML VIAL SQ SCH ×2 (07:49→20:04)
[2019-04-15] MEDS: FAMOTIDINE 20 MG/2 ML VIAL IV SCH (07:49)
--- NOTE | 2019-04-15 08:08 | XR ---
EXAMINATION TYPE: XR chest 2V DATE OF EXAM: 04/15/2019 COMPARISON: Chest x-ray from yesterday and older studies. HISTORY: Pneumonia, prior abnormal x-ray. TECHNIQUE: Frontal and lateral views of the chest are obtained. FINDINGS: There is persistent right hilar masslike consolidation on background chronic emphysematous change. There is suspected tiny left pleural effusion with blunting of posterior costophrenic angle on lateral view. The cardiac silhouette size is upper limits of normal with atherosclerotic aorta. D egenerative change right shoulder is redemonstrated. Metallic anchor left humeral head is again seen. IMPRESSION: Chronic emphysematous change with persistent right hilar nodular opacity. Follow-up to r esolution advised as underlying nodule is not excluded.
[2019-04-15] MEDS: FUROSEMIDE 20 MG TAB PO SCH (08:51)
[2019-04-15] MEDS: LOSARTAN-HCTZ 50-12.5 MG 1 EACH TAB PO SCH (08:51)
[2019-04-15] MEDS: PRAVASTATIN SODIUM 40 MG TAB PO SCH (08:51)
[2019-04-15] MEDS: OXYBUTYNIN 10 MG TAB.ER.24 PO SCH (08:54)
[2019-04-15 11:30] LABS: Basophils # (A) 0.1 k/uL (0-0.2); Basophils % (A) 1 %; Eosinophils # (A) 0.4 k/uL (0-0.7); Eosinophils % (A) 6 %; HCT 33.7 % (39.0-53.0); HGB 10.7 gm/dL (13.0-17.5); Hypochromasia Moderate; Lymphocytes # (A) 1.2 k/uL (1.0-4.8); Lymphocytes % (A) 17 %; MCH 26.9 pg (25.0-35.0); MCHC 31.6 g/dL (31.0-37.0); MCV 85.2 fL (80.0-100.0); Mean Platelet Volume 7.4; Monocytes # (A) 0.3 k/uL (0-1.0); Monocytes % (A) 4 %; Neutrophils # (A) 5.1 k/uL (1.3-7.7); Neutrophils % (A) 72 %; Platelet Count 267 k/uL (150-450); RBC 3.96 m/uL (4.30-5.90); RDW 15.7 % (11.5-15.5)
--- NOTE | 2019-04-15 11:31 | P.PN ---
Subjective this is a pleasant 79 yo M with past medical history of UTI, uretheral stricture , he follows up with the urologist and he was planed to have urethral dilatation next week , prostate disorder, hyperlipidemia , obesity and sleep apnea on CPAP/BiPAP. at baseline pt uses a walker , over the past few days he was feeling generally weak similar to last time he got UTI, this affected his ability of walking . pt has hesitancy but denies dysurea, no fever or chills , pt denies back pain , no chest pain , no dysuria, no dyspnea on admission , his vitals are stable, urinalysis is not indicative of infection , wbc 8.4k, Hb 11.6 and platelet 311, creatinine WNL, liver enz not elevated 04/15/2019 Patient is awake and oriented today. He feels his strength is back to his baseline and he is excited about it. Patient couldn't move easily with the walker and this morning similar to his baseline. His chest x-ray was showing pneumonia and he improved on antibiotics. However patient denies respiratory symptoms. No chest pain or dyspnea. No coughing. His urine hesitancy is improved and his dehydration status is been replaced with her enteral fluids. Urology input is appreciated and they recommended to continue with antibiotics till his urethrectomy is scheduled for next Sunday. Objective - Vital Signs Vital signs: Vital Signs Temp 97.7 F 04/15/19 04:55 Pulse 55 L 04/15/19 04:55 Resp 20 04/15/19 04:55 BP 162/78 04/15/19 04:55 Pulse Ox 95 04/15/19 04:55 Intake & Output 04/14/19 04/15/19 04/15/19 18:59 06:59 18:59 Output Total 350 240 Balance -350 -240 Weight 124.284 kg Output: Urine 350 240 Other: Voiding Method Toilet - Exam GENERAL: The patient is alert and oriented x3, not in any acute distress. Well developed, well nourished. HEENT: Pupils are round and equally reacting to light. EOMI. No scleral icterus. No conjunctival pallor. Normocephalic, atraumatic. No pharyngeal erythema. No thyromegaly. CARDIOVASCULAR: S1 and S2 present. No murmurs, rubs, or gallops. PULMONARY: Chest is clear to auscultation, no wheezing or crackles. ABDOMEN: Soft, nontender, nondistended, normoactive bowel sounds. No palpable organomegaly. MUSCULOSKELETAL: No joint swelling or deformity. EXTREMITIES: No cyanosis, clubbing, or pedal edema. NEUROLOGICAL: Gross neurological examination did not reveal any focal deficits. SKIN: No rashes. - Labs CBC & Chem 7: 04/14/19 15:30 04/14/19 15:30 Labs: Abnormal Lab Results - Last 24 Hours (Table) 04/14/19 04/14/19 04/14/19 Range/Units 15:30 15:30 17:00 RBC 4.22 L (4.30-5.90) m/uL Hgb 11.6 L (13.0-17.5) gm/dL Hct 35.2 L (39.0-53.0) % RDW 16.1 H (11.5-15.5) % Chloride 108 H (98-107) mmol/L AST 12 L (17-59) U/L ALT 14 L (21-72) U/L Total Protein 6.0 L (6.3-8.2) g/dL Albumin 3.3 L (3.5-5.0) g/dL Ur Leukocyte Esterase Small H (Negative) Urine Mucus Rare H (None) /hpf Microbiology - Last 24 Hours (Table) 04/14/19 17:00 Urine Culture - Preliminary Urine,Voided Assessment and Plan Assessment: urinary hesitancy , mostly secondary to his urethral stricture. Patient is going for urethrectomy on next Sunday Coming T acquired pneumonia, improving history of urinary tract infection history of uretheral stricture , he follows up with the urologist and he was planed to have urethral dilatation next week generalized weakness, improving history of prostate disorder hyperlipidemia obesity and sleep apnea on CPAP/BiPAP Plan: this is a pleasant 79 yo M who presents with urinary difficulty and hesitancy, and pneumonia. UA is not very indicative for infection , urology evaluation is appreciated and we'll follow their recommendation. Continue with antibiotics. Continue with the same treatment , continue with symptomatic treatment , resume home medication , monitor lytes and vitals, . GI and DVT prophylaxis , further recommendation based upon pt clinical course and progress DVT prophylaxis heparin GI prophylaxis Pepcid Prognosis is guarded
[2019-04-15 11:52] LABS: Calcium 8.7 mg/dL (8.4-10.2); Potassium 3.9 mmol/L (3.5-5.1)
[2019-04-15] MEDS ORDERED: AZITHROMYCIN 500 MG TAB PO SCH (16:00)
[2019-04-15] MEDS ORDERED: TAMSULOSIN 0.4 MG CAP.ER.24H PO SCH (18:30)
[2019-04-15] MEDS: FAMOTIDINE 20 MG TAB PO SCH (20:03)
[2019-04-16] MEDS: LOSARTAN-HCTZ 50-12.5 MG 1 EACH TAB PO SCH (07:37)
[2019-04-16] MEDS: FAMOTIDINE 20 MG TAB PO SCH (07:37)
[2019-04-16] MEDS: FUROSEMIDE 20 MG TAB PO SCH (07:37)
[2019-04-16] MEDS: PRAVASTATIN SODIUM 40 MG TAB PO SCH (07:37)
[2019-04-16] MEDS: OXYBUTYNIN 10 MG TAB.ER.24 PO SCH (07:38)
[2019-04-16] MEDS: HEPARIN SODIUM,PORCINE 5,000 UNIT/ML 1 ML VIAL SQ SCH (07:38)
[2019-04-16] MEDS: SODIUM CHLORIDE 0.9% 1,000 ML IV SCH (07:43)
[2019-04-16 14:26] VITALS: BP 152/74; PULSE 64; RESP 18; TEMP 97.4
--- NOTE | 2019-04-16 21:44 | P.DS ---
Providers Date of admission: 04/14/19 16:58 Attending physician: Trevor Kennedy Consults: 04/14/19 19:35 Consult Physician Urgent Consulting Provider: Alireza Atkins Consult Reason/Comments: urinray symptoms and hesitency Do you want consulting provider notified?: Yes Primary care physician: Trevor Kennedy [facility] Course: Diagnoses: urinary hesitancy , mostly secondary to his urethral stricture. Patient is going for urethrectomy on next Sunday Community acquired pneumonia, improving Possible right lung nodule/mass history of urinary tract infection history of uretheral stricture , he follows up with the urologist and he was planed to have urethral dilatation next week generalized weakness, improving history of prostate disorder hyperlipidemia obesity and sleep apnea on CPAP/BiPAP Hospital course: this is a pleasant 79 yo M with past medical history of UTI, uretheral stricture , he follows up with the urologist and he was planed to have urethral dilatation next week , prostate disorder, hyperlipidemia , obesity and sleep apnea on CPAP/BiPAP. at baseline pt uses a walker , over the past few days he was feeling generally weak similar to last time he got UTI, this affected his ability of walking . pt has hesitancy but denies dysurea, no fever or chills , pt denies back pain , no chest pain , no dysuria, no dyspnea . on admission , his chest x-ray was suspicious for right mid lung pneumonia. 04/15/2019 Patient is awake and oriented today. He feels his strength is back to his baseline and he is excited about it. Patient couldn't move easily with the walker and this morning similar to his baseline. His chest x-ray was showing pneumonia and he improved on antibiotics. However patient denies respiratory symptoms. No chest pain or dyspnea. No coughing. His urine hesitancy is improved and his dehydration status is been replaced with her enteral fluids. Urology input is appreciated and they recommended to continue with antibiotics till his urethrectomy is scheduled for next Sunday. Patient was treated with antibiotics ceftriaxone and patient showed interval improvement, his gated came back to normal state as he was told me yesterday and today. Patient denies respiratory symptoms and his urination is at baseline. Patient feels ready to be discharged home. Patient is supposed to get a urethrectomy this coming Sunday with his urologist, patient was instructed to postpone the procedure as it's not emergent and a elective for his ongoing chronic urethral stricture until he is been evaluated by Dr. Ruano from pulmonary team. Patient and family including 2 daughters at bedside upon his request were present and both verbalized understanding and acceptance Problems and management plan were discussed with the patient and he verbalized understanding and acceptance Patient was found stable and can be discharged home however he needs follow-up as an outpatient. pt agrees with appointments and timing made for him with pulmonary and PCP offices and said he will follow up Gen: patient is a AAOx3, no distress CVS: S1-S2, RRR, no murmur Lungs: B/L CTA, no wheezing Abdomen: soft, no distention, no tenderness, positive bowel sounds Extremity: no leg edema or induration Time spent more than 35 minutes Patient Condition at Discharge: Good Plan - Discharge Summary Discharge Rx Participant: No New Discharge Prescriptions: New Cefuroxime Axetil [Ceftin] 500 mg PO BID 7 Days #14 tab Famotidine [Pepcid] 20 mg PO Q12HR #14 tab Continue Clopidogrel [Plavix] 75 mg PO DAILY #30 tab Tamsulosin [Flomax] 0.4 mg PO PC-SUPPER cap.er.24h Aspirin [Jerauld Aspirin EC] 81 mg PO DAILY Losartan/Hydrochlorothiazide [Hyzaar 100-25 Tablet] 1 tab PO DAILY Pravastatin Sodium [Pravachol] 40 mg PO DAILY Furosemide [Lasix] 20 mg PO DAILY Oxybutynin Chloride [Oxybutynin Chloride ER] 10 mg PO DAILY Discharge Medication List Clopidogrel [Plavix] 75 mg PO DAILY #30 tab 04/27/15 [Rx] Tamsulosin [Flomax] 0.4 mg PO PC-SUPPER cap.er.24h 11/28/17 [Rx] Aspirin [Jerauld Aspirin EC] 81 mg PO DAILY 12/30/18 [History] Losartan/Hydrochlorothiazide [Hyzaar 100-25 Tablet] 1 tab PO DAILY 12/30/18 [History] Furosemide [Lasix] 20 mg PO DAILY 04/14/19 [History] Oxybutynin Chloride [Oxybutynin Chloride ER] 10 mg PO DAILY 04/14/19 [History] Pravastatin Sodium [Pravachol] 40 mg PO DAILY 04/14/19 [History] Cefuroxime Axetil [Ceftin] 500 mg PO BID 7 Days #14 tab 04/16/19 [Rx] Famotidine [Pepcid] 20 mg PO Q12HR #14 tab 04/16/19 [Rx] Follow up Appointment(s)/Referral(s): Trevor Kennedy MD [Primary Care Provider] - 04/22/19 11:00 am Marcel Ruano DO [Doctor of Osteopathic Medicine] - 04/22/19 1:00 pm Alireza Atkins MD [STAFF PHYSICIAN] - 04/21/19 (Urethral dilation, hold off on procedure till you see Dr Ruano. ) Patient Instructions/Handouts: Community Acquired Pneumonia (DC) Activity/Diet/Wound Care/Special Instructions: Cardiac diet. Activity as tolerated, fall precautions, up with walker. Discharge Disposition: HOME WITH HOME HEALTH SERVICES
== END 2019-04-16 14:44 | disposition home health service (06) ==
LOC: EC 14:38 → 3NMEDONC 16:58 → 4MS4W 17:43
PROVIDERS: ADMIT Family Medicine; ATTEND Family Medicine
DX: J18.9 Pneumonia, unspecified organism (principal); N39.0 Urinary tract infection, site not specified; N35.919 Unspecified urethral stricture, male, unspecified site; E86.0 Dehydration; R53.1 Weakness; E66.9 Obesity, unspecified; Z87.440 Personal history of urinary (tract) infections; E78.5 Hyperlipidemia, unspecified; I73.9 Peripheral vascular disease, unspecified; F17.200 Nicotine dependence, unspecified, uncomplicated; G47.30 Sleep apnea, unspecified; I10 Essential (primary) hypertension; Z79.82 Long term (current) use of aspirin; Z79.899 Other long term (current) drug therapy; Z79.02 Long term (current) use of antithrombotics/antiplatelets; Z88.0 Allergy status to penicillin; Z68.35 Body mass index [BMI] 35.0-35.9, adult; Z96.653 Presence of artificial knee joint, bilateral; Z86.73 Personal history of transient ischemic attack (TIA), and cerebral infarction without residual deficits
CPT/HCPCS: 96366 ×2; 96372 ×3; 96361; 96365; 96367; 99285; 36415; 93005; 97162; 97535; 97166; 80053; 80048; 83605; 83735; 84484; 85025 ×2; 85610; 85730; 81001; 87040; 87070; 87086; 87205; 71046 ×2; 70450; G0378 ×3; J1644 ×3; J0456; J0696 ×3

== ENCOUNTER → 2019-05-15 | Outpatient (CLI) | payer MEDICARE, BC ==
--- NOTE | 2019-05-15 19:11 | CT ---
EXAMINATION TYPE: CT chest w con DATE OF EXAM: 05/15/2019 COMPARISON: Chest x-ray 05/03/2019 HISTORY: Abnormal exam CT DLP: 758.8 mGycm, Automated exposure control for dose reduction was used. CONTRAST: Performed injected with 80 mL of Isovue 370. TECHNIQUE: Axial images were obtained at 5 mm thick sections. Reconstructed images are reviewed on [employer] computer in the coronal plane. FINDINGS: Portion of the thyroid visualized is normal. Very subtle density may be in the anterior right upper lung field measuring 0.4 cm. Series 4 image 17 . A tiny peripheral nodule measuring 0.3 cm may be in the periphery of the left midlung. Series 4 anamaria ge 24. There is fullness in the right infrahilar region estimated to measure 2.5 x 1.9 cm x 2.0 suspi cious for a solid mass. Additional workup for neoplasm is recommended. Some punctate nodularities or just inferior to this mass measuring approximately 3 mm each. Pneumatoceles within the right middle lobe. No enlarged mediastinal or hilar adenopathy is evident. The ascending aorta diameter at the level o f the main pulmonary artery is 3.7 cm. The main pulmonary artery diameter at the bifurcation is 2.7 cm. Coronary artery calcification is noted. Limited CT sections are obtained through the upper abdomen. There is a prominent right adrenal gland measuring 3.0 cm. This measures 31 Hounsfield units. Adenoma and metastatic lesion should be consider ed. IMPRESSIONS: 1. Right perihilar mass measuring approximately 2 cm suspicious for neoplasm. Recommend PET CT for ad ditional evaluation.
== END | disposition home or self-care (01) ==
LOC: RADCTMAIN 10:04
PROVIDERS: ATTEND Internal Medicine Critical Care Medicine
DX: R91.8 Other nonspecific abnormal finding of lung field (principal); Z88.0 Allergy status to penicillin
CPT/HCPCS: 82565; 84520; 71260; 36415; Q9967

== ENCOUNTER → 2019-05-31 | Outpatient (CLI) | payer MEDICARE, BC ==
--- NOTE | 2019-06-04 10:42 | PE ---
Nuclear medicine PET/CT HISTORY: Lung mass, initial Patient received 8.6 mCi F-18 FDG intravenously in delayed scanning was performed in the skull base t o the mid thighs. Localization and attenuation correction CT scan was. Correlation to CT chest 05/15/2019 Neck and chest: There is no evident cervical or supraclavicular adenopathy. Left lobe of the thyroid is enlarged and shows some nodularity. No suspicious hypermetabolic uptake. There are dense coronary artery calcifications. Small hiatal hernia present. Small pericardial effusion noted. No pleural effu safia. The perihilar nodule seen on prior CT measures approximately 2.7 cm. There is associated hyperm etabolic uptake present. SUV is 19.9. ABDOMEN: Right adrenal mass is low attenuation and shows no associated hypermetabolic uptake. Left ad renal gland unremarkable. There is a focus within the inferior aspect of the right lobe of the liver of low attenuation which is ill-defined, there is associated hypermetabolic uptake, SUV is 6.4. Quest ionable focus at the periphery of the right lobe of the liver towards the dome, there is elevated SUV , 4.6. The inferior posterior margin of the liver focal hypermetabolic uptake measures 6.8. There is no retroperitoneal adenopathy. Aorta shows dense atherosclerotic calcifications. No pelvic a denopathy. Prostate is enlarged and shows associated calcifications. Urinary bladder within normal li mits. Osseous structures unremarkable, muscular uptake in the upper extremities left greater than right fel t likely to be physiologic about the shoulders. IMPRESSION: Findings suspicious for bronchogenic carcinoma, there may be liver metastasis.
== END | disposition home or self-care (01) ==
LOC: RADPETMAIN 09:23
PROVIDERS: ATTEND Internal Medicine Critical Care Medicine
DX: R91.1 Solitary pulmonary nodule (principal); N40.0 Benign prostatic hyperplasia without lower urinary tract symptoms; E27.9 Disorder of adrenal gland, unspecified; K44.9 Diaphragmatic hernia without obstruction or gangrene; I31.3 Pericardial effusion (noninflammatory); I25.10 Atherosclerotic heart disease of native coronary artery without angina pectoris; E04.9 Nontoxic goiter, unspecified
CPT/HCPCS: 78815; A9552

== ENCOUNTER 2019-07-04 01:05 | Observation (INO) | payer MEDICARE, BC ==
--- NOTE | 2019-07-04 01:54 | XR ---
EXAM: XR Left Knee, 1 or 2 views XR Right Knee, 1 or 2 views CLINICAL HISTORY: ITS.REASON XR Reason: fall, pain TECHNIQUE: Frontal and/or lateral views of the bilateral knees. COMPARISON: No relevant prior studies available. FINDINGS: Bones/joints: A right hemiarthroplasty is identified involving the medial compartment. The distal medial femoral condylar and proximal medial tibial prosthetic components appear well-seated. A left total knee arthroplasty is identified. The distal femoral, proximal tibial and patellar components appear to be well-seated. No acute fracture. No dislocation. Soft tissues: No significant soft tissue swelling is suggested radiographically. Incidental regional arterial calcification noted. IMPRESSION: No acute osseous traumatic injury or abnormal alignment. Left total knee arthroplasty and right knee hemiarthroplasty incidentally noted without acute hardware abnormality identified.
--- NOTE | 2019-07-04 02:31 | ED ---
Fall HPI - General Chief Complaint: Fall Stated Complaint: fall Time Seen by Provider: 07/04/19 01:12 Source: patient, EMS Mode of arrival: EMS - History of Present Illness Initial Comments: Rogers is a pleasant 79-year-old woman and presents the emergency department today via EMS for evaluation of generalized weakness and fall. Patient reports that he got up to use the restroom and his legs just gave out from underneath him, she reports he fell forward onto his bilateral knees and was too weak to get up so EMS was contacted. Patient reports mild pain in his bilateral knees and ankles, pain in the ankles is chronic secondary to fall and arches and is not changed today. The patient and report that he has had episodes of weakness similar to this in the past when he has had a urinary tract infection. She denies any associated fevers, chills, chest pain, shortness breath, nausea, vomiting or change in bowel habits. Patient does report difficulty in urination but this is not new and is unchanged. - Related Data Home Medications Medication Instructions Recorded Confirmed Aspirin [[place] Aspirin EC] 81 mg PO DAILY 12/30/18 04/14/19 Losartan/Hydrochlorothiazide 1 tab PO DAILY 12/30/18 04/14/19 [Hyzaar 100-25 Tablet] Furosemide [Lasix] 20 mg PO DAILY 04/14/19 04/14/19 Oxybutynin Chloride [Oxybutynin 10 mg PO DAILY 04/14/19 04/14/19 Chloride ER] Pravastatin Sodium [Pravachol] 40 mg PO DAILY 04/14/19 04/14/19 Previous Rx's Medication Instructions Recorded Clopidogrel [Plavix] 75 mg PO DAILY #30 tab 04/27/15 Tamsulosin [Flomax] 0.4 mg PO PC-SUPPER cap.er.24h 11/28/17 Cefuroxime Axetil [Ceftin] 500 mg PO BID 7 Days #14 tab 04/16/19 Famotidine [Pepcid] 20 mg PO Q12HR #14 tab 04/16/19 Allergies Allergy/AdvReac Type Severity Reaction Status Date / Time Penicillins Allergy Rash/Hives Verified 04/14/19 15:32 Review of Systems ROS Statement: Those systems with pertinent positive or pertinent negative responses have been documented in the HPI. ROS Other: All systems not noted in ROS Statement are negative. Past Medical History Past Medical History: Hyperlipidemia, Hypertension, Prostate Disorder, Sleep Apnea/CPAP/BIPAP Additional Past Medical History / Comment(s): PAD, Right rotator cuff tear, mini stroke, urinary retention History of Any Multi-Drug Resistant Organisms: None Reported Past Surgical History: Appendectomy, Back Surgery, Joint Replacement Additional Past Surgical History / Comment(s): JOSE KNEE REPLACEMENT, KIDNEY SX AT AGE 6 Past Anesthesia/Blood Transfusion Reactions: No Reported Reaction Past Psychological History: No Psychological Hx Reported Smoking Status: Current some day smoker Past Alcohol Use History: None Reported Past Drug Use History: None Reported - Past Family History Mother Family Medical History: No Reported History, Diabetes Mellitus General Exam - General Exam Comments Initial Comments: Physical Exam GENERAL: Patient is well-developed and well-nourished. Patient is nontoxic and well- hydrated and is in no distress. HENT: Normocephalic, Atraumatic. EYES: PERRL, EOMI PULMONARY: Unlabored respirations. No audible rales rhonchi or wheezing was noted. CARDIOVASCULAR: There is a regular rate and rhythm without any murmurs gallops or rubs. ABDOMEN: Soft and nontender with normal bowel sounds. Obese SKIN: Abrasions on bilateral knees : Deferred NEUROLOGIC: Patient is alert and oriented x3. Moving all extremities spontaneously MUSCULOSKELETAL: Normal extremities with adequate strength and full range of motion. No lower extremity swelling or edema. No calf tenderness. Well healed surgical scars on bilateral knees PSYCHIATRIC: Normal psychiatric evaluation. Limitations: no limitations Course Vital Signs 07/04/19 07/04/19 01:10 04:16 Temperature 97.9 F Pulse Rate 62 58 L Respiratory 18 18 Rate Blood Pressure 132/65 130/66 O2 Sat by Pulse 94 L 96 Oximetry Medical Decision Making - Medical Decision Making The patient was seen and evaluated history is deemed patient at bedside X-rays with no signs of acute injury Labs were ordered CBC CMP unremarkable however patient does have a urinary tract infection and Rocephin was ordered We attempted to help the patient stand provide urinary sample however patient is very weak. Given the patient's advanced age and generalized weakness I do not feel it is safe for him to be discharged home. Patient's primary care physician Dr. Trevor Sanchez admits to the [facility] hospitalist group on weekends. Admission orders were placed. - Lab Data Result diagrams: 07/04/19 02:40 07/04/19 02:40 Lab Results 07/04/19 07/04/19 07/04/19 Range/Units 02:28 02:40 02:40 WBC 8.4 (3.8-10.6) k/uL RBC 4.18 L (4.30-5.90) m/uL Hgb 11.5 L (13.0-17.5) gm/dL Hct 35.2 L (39.0-53.0) % MCV 84.0 (80.0-100.0) fL MCH 27.4 (25.0-35.0) pg MCHC 32.6 (31.0-37.0) g/dL RDW 15.8 H (11.5-15.5) % Plt Count 290 (150-450) k/uL Neutrophils % 65 % Lymphocytes % 22 % Monocytes % 6 % Eosinophils % 5 % Basophils % 1 % Neutrophils # 5.5 (1.3-7.7) k/uL Lymphocytes # 1.8 (1.0-4.8) k/uL Monocytes # 0.5 (0-1.0) k/uL Eosinophils # 0.4 (0-0.7) k/uL Basophils # 0.1 (0-0.2) k/uL PT (9.0-12.0) sec INR (<1.2) APTT (22.0-30.0) sec Sodium 138 (137-145) mmol/L Potassium 3.6 (3.5-5.1) mmol/L Chloride 105 (98-107) mmol/L Carbon Dioxide 25 (22-30) mmol/L Anion Gap 8 mmol/L BUN 17 (9-20) mg/dL Creatinine 1.27 H (0.66-1.25) mg/dL Est GFR (CKD-EPI)AfAm 61 (>60 ml/min/1.73 sqM) Est GFR (CKD-EPI)NonAf 53 (>60 ml/min/1.73 sqM) Glucose 99 (74-99) mg/dL Plasma Lactic Acid Abdiel (0.7-2.0) mmol/L Calcium 9.1 (8.4-10.2) mg/dL Total Bilirubin 0.4 (0.2-1.3) mg/dL AST 17 (17-59) U/L ALT 21 (21-72) U/L Alkaline Phosphatase 85 (38-126) U/L Troponin I (0.000-0.034) ng/mL Total Protein 6.0 L (6.3-8.2) g/dL Albumin 3.3 L (3.5-5.0) g/dL Urine Color Light Yellow Urine Appearance Clear (Clear) Urine pH 6.0 (5.0-8.0) Ur Specific Wayne 1.009 (1.001-1.035) Urine Protein Negative (Negative) Urine Glucose (UA) Negative (Negative) Urine Ketones Negative (Negative) Urine Blood Negative (Negative) Urine Nitrite Negative (Negative) Urine Bilirubin Negative (Negative) Urine Urobilinogen <2.0 (<2.0) mg/dL Ur Leukocyte Esterase Moderate H (Negative) Urine RBC 2 (0-5) /hpf Urine WBC 52 H (0-5) /hpf Ur Squamous Epith Cells <1 (0-4) /hpf Urine Bacteria Rare H (None) /hpf Urine Mucus Rare H (None) /hpf 07/04/19 07/04/19 07/04/19 Range/Units 02:40 02:40 02:40 WBC (3.8-10.6) k/uL RBC (4.30-5.90) m/uL Hgb (13.0-17.5) gm/dL Hct (39.0-53.0) % MCV (80.0-100.0) fL MCH (25.0-35.0) pg MCHC (31.0-37.0) g/dL RDW (11.5-15.5) % Plt Count (150-450) k/uL Neutrophils % % Lymphocytes % % Monocytes % % Eosinophils % % Basophils % % Neutrophils # (1.3-7.7) k/uL Lymphocytes # (1.0-4.8) k/uL Monocytes # (0-1.0) k/uL Eosinophils # (0-0.7) k/uL Basophils # (0-0.2) k/uL PT 11.2 (9.0-12.0) sec INR 1.1 (<1.2) APTT 27.5 (22.0-30.0) sec Sodium (137-145) mmol/L Potassium (3.5-5.1) mmol/L Chloride (98-107) mmol/L Carbon Dioxide (22-30) mmol/L Anion Gap mmol/L BUN (9-20) mg/dL Creatinine (0.66-1.25) mg/dL Est GFR (CKD-EPI)AfAm (>60 ml/min/1.73 sqM) Est GFR (CKD-EPI)NonAf (>60 ml/min/1.73 sqM) Glucose (74-99) mg/dL Plasma Lactic Acid Abdiel 0.8 (0.7-2.0) mmol/L Calcium (8.4-10.2) mg/dL Total Bilirubin (0.2-1.3) mg/dL AST (17-59) U/L ALT (21-72) U/L Alkaline Phosphatase (38-126) U/L Troponin I <0.012 (0.000-0.034) ng/mL Total Protein (6.3-8.2) g/dL Albumin (3.5-5.0) g/dL Urine Color Urine Appearance (Clear) Urine pH (5.0-8.0) Ur Specific Wayne (1.001-1.035) Urine Protein (Negative) Urine Glucose (UA) (Negative) Urine Ketones (Negative) Urine Blood (Negative) Urine Nitrite (Negative) Urine Bilirubin (Negative) Urine Urobilinogen (<2.0) mg/dL Ur Leukocyte Esterase (Negative) Urine RBC (0-5) /hpf Urine WBC (0-5) /hpf Ur Squamous Epith Cells (0-4) /hpf Urine Bacteria (None) /hpf Urine Mucus (None) /hpf Disposition Clinical Impression: Fall, Difficulty walking, Frequent falls, Urinary tract infection Disposition: ADMITTED IP TO THIS [facility] Condition: Stable Referrals: Trevor Kennedy MD [Primary Care Provider] - 1-2 days
[2019-07-04 02:39] LABS: Appearance,Urine Clear (Clear); Bacteria,Urine Rare /hpf; Bilirubin,Urine Negative (Negative); Blood,Urine Negative (Negative); Color,Urine Light Yellow; Glucose,Urine (UA) Negative (Negative); Ketones,Urine Negative (Negative); Leukocyte Esterase,Urine Moderate (Negative); Mucus,Urine Rare /hpf; Nitrite,Urine Negative (Negative); Protein,Urine Negative (Negative); RBC,Urine 2 /hpf (0-5); Specific Gravity,Urine 1.009 (1.001-1.035); Squamous Epithelial Cell,Urine <1 /hpf (0-4); Urobilinogen,Urine <2.0 mg/dL (<2.0); WBC,Urine 52 /hpf (0-5)
[2019-07-04 02:46] LABS: Basophils # (A) 0.1 k/uL (0-0.2); Basophils % (A) 1 %; Eosinophils # (A) 0.4 k/uL (0-0.7); Eosinophils % (A) 5 %; HCT 35.2 % (39.0-53.0); HGB 11.5 gm/dL (13.0-17.5); Lymphocytes # (A) 1.8 k/uL (1.0-4.8); Lymphocytes % (A) 22 %; MCH 27.4 pg (25.0-35.0); MCHC 32.6 g/dL (31.0-37.0); Mean Platelet Volume 6.8; Monocytes # (A) 0.5 k/uL (0-1.0); Monocytes % (A) 6 %; Neutrophils # (A) 5.5 k/uL (1.3-7.7); Neutrophils % (A) 65 %; Platelet Count 290 k/uL (150-450); RBC 4.18 m/uL (4.30-5.90); RDW 15.8 % (11.5-15.5); WBC 8.4 k/uL (3.8-10.6)
[2019-07-04 02:59] LABS: Albumin 3.3 g/dL (3.5-5.0); Calcium 9.1 mg/dL (8.4-10.2); INR 1.1 (<1.2); Partial Thromboplastin Time 27.5 sec (22.0-30.0); Potassium 3.6 mmol/L (3.5-5.1); Prothrombin Time 11.2 sec (9.0-12.0); Total Bilirubin 0.4 mg/dL (0.2-1.3)
--- NOTE | 2019-07-04 03:07 | XR ---
EXAM: XR Chest, 2 Views CLINICAL HISTORY: Weakness TECHNIQUE: Frontal and lateral views of the chest. COMPARISON: 04/24/2019 FINDINGS: Lungs: The previously noted nodular density in the right midlung zone lateral to the hilum is again suggested but not as clearly defined on this portable exam. No lobar consolidation. Pleural space: No pleural effusion. No pneumothorax. Heart: The cardiac silhouette is within normal limits and presumed accentuated by AP technique. Mediastinum: The mediastinal contours are otherwise stable from the previous exam. The trachea is midline. Mild left is chronic calcification of the aortic arch. Bones/joints: Unremarkable. IMPRESSION: The previously described nodular density in the right midlung zone lateral to the hilum is again suggested without significant alteration in appearance, accounting for portable technique. No lobar consolidation. No pleural effusion or pneumothorax.
[2019-07-04] MEDS ORDERED: NALOXONE 0.4 MG/ML 1 ML VIAL IV PRN (04:50)
--- NOTE | 2019-07-04 07:26 | P.GSCN ---
History of Present Illness Consult date: 07/04/19 History of present illness: The patient is an 79-year-old gentleman known to me for prostate and bladder problems. He has had previous prostate and urethral surgery. He has a history of incomplete bladder emptying and recurrent urine infections. He had a urinalysis last week that appeared to be clear but apparently he was developing infection as he presented to the emergency room last night with weakness and a urine consistent with a urinary tract infection. His urinary stream is been slow which is chronic. There were no other urologic issues. Review of Systems All systems: negative - Constitutional Denies fever, Denies weight loss - EENT Eyes: denies blurred vision Ears, nose, mouth and throat: Denies dysphagia - Cardiovascular Denies chest pain, Denies shortness of breath - Respiratory Denies cough, Denies 7 - Gastrointestinal Reports as per HPI - Genitourinary Denies dysuria, Denies hematuria - Integumentary Denies rash, Denies unusual bruising - Neurological Denies headaches, Denies syncope - Hematologic/Lymphatic Denies easy bleeding, Denies easy bruising Past Medical History Past Medical History: Hyperlipidemia, Hypertension, Prostate Disorder, Sleep Apnea/CPAP/BIPAP Additional Past Medical History / Comment(s): PAD, Right rotator cuff tear, mini stroke, urinary retention History of Any Multi-Drug Resistant Organisms: None Reported Past Surgical History: Appendectomy, Back Surgery, Joint Replacement Additional Past Surgical History / Comment(s): JOSE KNEE REPLACEMENT, KIDNEY SX AT AGE 6 Past Anesthesia/Blood Transfusion Reactions: No Reported Reaction Past Psychological History: No Psychological Hx Reported Smoking Status: Current some day smoker Past Alcohol Use History: None Reported Past Drug Use History: None Reported - Past Family History Mother Family Medical History: No Reported History, Diabetes Mellitus Medications and Allergies Home Medications Medication Instructions Recorded Confirmed Type Clopidogrel [Plavix] 75 mg PO DAILY #30 tab 04/27/15 04/14/19 Rx Tamsulosin [Flomax] 0.4 mg PO PC-SUPPER cap.er.24h 11/28/17 04/14/19 Rx Aspirin [[place] Aspirin EC] 81 mg PO DAILY 12/30/18 04/14/19 History Losartan/Hydrochlorothiazide 1 tab PO DAILY 12/30/18 04/14/19 History [Hyzaar 100-25 Tablet] Furosemide [Lasix] 20 mg PO DAILY 04/14/19 04/14/19 History Oxybutynin Chloride [Oxybutynin 10 mg PO DAILY 04/14/19 04/14/19 History Chloride ER] Pravastatin Sodium [Pravachol] 40 mg PO DAILY 04/14/19 04/14/19 History Cefuroxime Axetil [Ceftin] 500 mg PO BID 7 Days #14 tab 04/16/19 Rx Famotidine [Pepcid] 20 mg PO Q12HR #14 tab 04/16/19 Rx Allergies Allergy/AdvReac Type Severity Reaction Status Date / Time Penicillins Allergy Rash/Hives Verified 04/14/19 15:32 Surgical - Exam Vital Signs Temp Pulse Resp BP Pulse Ox 97.9 F 62 18 132/65 94 L 07/04/19 01:10 07/04/19 01:10 07/04/19 01:10 07/04/19 01:10 07/04/19 01:10 - General well developed, well nourished, no distress - Eyes PERRL - ENT no hearing loss - Respiratory normal expansion, normal respiratory effort - Cardiovascular Rhythm: regular - Abdomen Abdomen: soft, non tender - Genitourinary normal penis with no external lesions, testicles present - Neurologic normal coordination, normal sensation - Musculoskeletal normal posture - Psychiatric oriented to time, oriented to person, oriented to place, speech is normal, memory intact Results - Labs 07/04/19 02:40 07/04/19 02:40 Abnormal Lab Results - Last 24 Hours (Table) 07/04/19 07/04/19 07/04/19 Range/Units 02:28 02:40 02:40 RBC 4.18 L (4.30-5.90) m/uL Hgb 11.5 L (13.0-17.5) gm/dL Hct 35.2 L (39.0-53.0) % RDW 15.8 H (11.5-15.5) % Creatinine 1.27 H (0.66-1.25) mg/dL Total Protein 6.0 L (6.3-8.2) g/dL Albumin 3.3 L (3.5-5.0) g/dL Ur Leukocyte Esterase Moderate H (Negative) Urine WBC 52 H (0-5) /hpf Urine Bacteria Rare H (None) /hpf Urine Mucus Rare H (None) /hpf Diabetes panel 07/04/19 Range/Units 02:40 Sodium 138 (137-145) mmol/L Potassium 3.6 (3.5-5.1) mmol/L Chloride 105 (98-107) mmol/L Carbon Dioxide 25 (22-30) mmol/L BUN 17 (9-20) mg/dL Creatinine 1.27 H (0.66-1.25) mg/dL Glucose 99 (74-99) mg/dL Calcium 9.1 (8.4-10.2) mg/dL AST 17 (17-59) U/L ALT 21 (21-72) U/L Alkaline Phosphatase 85 (38-126) U/L Total Protein 6.0 L (6.3-8.2) g/dL Albumin 3.3 L (3.5-5.0) g/dL Calcium panel 07/04/19 Range/Units 02:40 Calcium 9.1 (8.4-10.2) mg/dL Albumin 3.3 L (3.5-5.0) g/dL Pituitary panel 07/04/19 Range/Units 02:40 Sodium 138 (137-145) mmol/L Potassium 3.6 (3.5-5.1) mmol/L Chloride 105 (98-107) mmol/L Carbon Dioxide 25 (22-30) mmol/L BUN 17 (9-20) mg/dL Creatinine 1.27 H (0.66-1.25) mg/dL Glucose 99 (74-99) mg/dL Calcium 9.1 (8.4-10.2) mg/dL Adrenal panel 07/04/19 Range/Units 02:40 Sodium 138 (137-145) mmol/L Potassium 3.6 (3.5-5.1) mmol/L Chloride 105 (98-107) mmol/L Carbon Dioxide 25 (22-30) mmol/L BUN 17 (9-20) mg/dL Creatinine 1.27 H (0.66-1.25) mg/dL Glucose 99 (74-99) mg/dL Calcium 9.1 (8.4-10.2) mg/dL Total Bilirubin 0.4 (0.2-1.3) mg/dL AST 17 (17-59) U/L ALT 21 (21-72) U/L Alkaline Phosphatase 85 (38-126) U/L Total Protein 6.0 L (6.3-8.2) g/dL Albumin 3.3 L (3.5-5.0) g/dL Assessment and Plan Assessment: Impression: Urinary tract infection sepsis. Weakness secondary urinary tract infection. Recommendations: The patient should receive IV antibiotics until urine cultures are back. Appropriate oral antibiotics would be indicated. I would be glad to see the patient in follow-up in the office.
[2019-07-04 07:48] VITALS: RESP 16; TEMP 97.7
--- NOTE | 2019-07-04 13:59 | P.HPIM ---
History of Present Illness 79-year-old pleasant gentleman with a known history of prostate from problems and urethral surgery for uterine stricture in the past came in with compensative generalized weakness which apparently did improve compared to yesterday, patient did have a fall. Patient was believed to have urinary tract infection was subsequently admitted here urine analysis showed mildly elevated leukocyte esterase and the minimal white blood cell count. Patient denied any fever, patient doesn't have any white blood cell count denied any dysuria any increased urinary frequency, suprapubic pain. There is no clinical evidence of UTI. Patient abnormal urine can be asymptomatic bacteriuria. Patient will benefit from antibiotics and medics will be completely discontinued and I do not believe patient has urinary tract infection at this time. We'll also get the infectious disease opinion regarding this. Patient was evaluated by physical therapy and occupational therapy the recommending home with home care. Patient did not qualify for subacute rehabilitation. Patient has serum creatinine of 1.27 baseline is around 1 patient is on Lasix there is no evidence of congestive heart failure patient was never admitted for heart failure Lasix will be discontinued and patient was asked to check the blood pressure at home if it continues to go up patient will benefit from calcium channel sandoval. Patient is also on hydrochlorothiazide with the elevated creatinine of 1.2 hydrochlorothiazide is not effective and is not effective and patient is on Lasix because of that reason hydrochlorothiazide will be discontinue as well. Patient was asked to check the blood pressure daily twice or thrice at home and take it to PCPs office. Patient will be discharged today after evaluation by infectious disease. Generalized weakness is secondary to his age generalized deconditioning and loss of muscle mass. Patient will benefit from vitamin D supplementation and calcium supplementation Review of Systems REVIEW OF SYSTEMS: CONSTITUTIONAL: No fever, no malaise, no fatigue. HEENT: No recent visual problems or hearing problems. Denied any sore throat. CARDIOVASCULAR: No chest pain, orthopnea, PND, no palpitations, no syncope. PULMONARY: No shortness of breath, no cough, no hemoptysis. GASTROINTESTINAL: No diarrhea, no nausea, no vomiting, no abdominal pain. NEUROLOGICAL: No headaches, no weakness, no numbness. HEMATOLOGICAL: Denies any bleeding or petechiae. GENITOURINARY: Denies any burning micturition, frequency, or urgency. MUSCULOSKELETAL/RHEUMATOLOGICAL: Denies any joint pain, swelling, or any muscle pain. ENDOCRINE: Denies any polyuria or polydipsia. The rest of the 14-point review of systems is negative. Past Medical History Past Medical History: Hyperlipidemia, Hypertension, Prostate Disorder, Sleep Apnea/CPAP/BIPAP Additional Past Medical History / Comment(s): PAD, Right rotator cuff tear, mini stroke, urinary retention History of Any Multi-Drug Resistant Organisms: None Reported Past Surgical History: Appendectomy, Back Surgery, Joint Replacement Additional Past Surgical History / Comment(s): JOSE KNEE REPLACEMENT, KIDNEY SX AT AGE 6 Past Anesthesia/Blood Transfusion Reactions: No Reported Reaction Past Psychological History: No Psychological Hx Reported Smoking Status: Current some day smoker Past Alcohol Use History: None Reported Past Drug Use History: None Reported - Past Family History Mother Family Medical History: No Reported History, Diabetes Mellitus Medications and Allergies Home Medications Medication Instructions Recorded Confirmed Type Clopidogrel [Plavix] 75 mg PO DAILY #30 tab 04/27/15 07/04/19 Rx Tamsulosin [Flomax] 0.4 mg PO PC-SUPPER cap.er.24h 11/28/17 07/04/19 Rx Aspirin [[place] Aspirin EC] 81 mg PO DAILY 12/30/18 07/04/19 History Oxybutynin Chloride [Oxybutynin 10 mg PO DAILY 04/14/19 07/04/19 History Chloride ER] Pravastatin Sodium [Pravachol] 40 mg PO DAILY 04/14/19 07/04/19 History Famotidine [Pepcid] 20 mg PO Q12HR #14 tab 04/16/19 07/04/19 Rx Losartan Potassium [Cozaar] 100 mg PO DAILY 07/04/19 07/04/19 History Allergies Allergy/AdvReac Type Severity Reaction Status Date / Time Penicillins Allergy Rash/Hives Verified 07/04/19 08:55 Physical Exam Vitals: Vital Signs Temp Pulse Pulse Resp BP BP BP 07/04/19 07:19 97.7 F 54 L 16 157/65 07/04/19 05:30 97.5 F L 57 L 14 146/77 07/04/19 04:16 58 L 18 130/66 07/04/19 01:10 97.9 F 62 18 132/65 Pulse Ox 07/04/19 07:19 98 07/04/19 05:30 96 07/04/19 04:16 96 07/04/19 01:10 94 L Intake and Output 07/03/19 07/04/19 07/04/19 22:59 06:59 14:59 Intake Total 450 Balance 450 Intake: Oral 450 Other: Voiding Method Bedside Commode Bedside Commode # Voids 0 Weight 121.563 kg PHYSICAL EXAMINATION: GENERAL: The patient is alert and oriented x3, not in any acute distress. Well developed, well nourished. HEENT: Pupils are round and equally reacting to light. EOMI. No scleral icterus. No conjunctival pallor. Normocephalic, atraumatic. No pharyngeal erythema. No thyromegaly. CARDIOVASCULAR: S1 and S2 present. No murmurs, rubs, or gallops. PULMONARY: Chest is clear to auscultation, no wheezing or crackles. ABDOMEN: Soft, nontender, nondistended, normoactive bowel sounds. No palpable organomegaly. MUSCULOSKELETAL: No joint swelling or deformity. EXTREMITIES: No cyanosis, clubbing, or pedal edema. NEUROLOGICAL: Gross neurological examination did not reveal any focal deficits. SKIN: No rashes. Results CBC & Chem 7: 07/04/19 02:40 07/04/19 02:40 Labs: Abnormal Lab Results - Last 24 Hours (Table) 07/04/19 07/04/19 07/04/19 Range/Units 02:28 02:40 02:40 RBC 4.18 L (4.30-5.90) m/uL Hgb 11.5 L (13.0-17.5) gm/dL Hct 35.2 L (39.0-53.0) % RDW 15.8 H (11.5-15.5) % Creatinine 1.27 H (0.66-1.25) mg/dL Total Protein 6.0 L (6.3-8.2) g/dL Albumin 3.3 L (3.5-5.0) g/dL Ur Leukocyte Esterase Moderate H (Negative) Urine WBC 52 H (0-5) /hpf Urine Bacteria Rare H (None) /hpf Urine Mucus Rare H (None) /hpf Assessment and Plan Plan: generalized weakness and fall: Secondary to deconditioning age and muscle atrophy, patient will be discharged home with home care patient will be discharged on vitamin D supplementation Plan-acute renal failure secondary to diuretic therapy management of diuretic therapy as mentioned above -asymptomatic bacteriuria there is no evidence of urinary tract infection infectious disease evaluation in my opinion patient will not require any antibiotics upon discharge -hyperlipidemia -Hypertension next and heparin benign prostatic hepatorrhaphy -Sleep apnea. -Nicotine abuse: Counseling was provided
--- NOTE | 2019-07-04 14:00 | P.DS ---
Providers Date of admission: 07/04/19 04:50 Attending physician: Penelope Gaming Consults: 07/04/19 11:26 Consult Physician Routine Consulting Provider: Anthony Cummings Consult Reason/Comments: UTI Do you want consulting provider notified?: Yes Primary care physician: Trevor Kennedy Hospital Course: please refer to my HPI Patient Condition at Discharge: Stable Plan - Discharge Summary Discharge Rx Participant: Yes New Discharge Prescriptions: New Cholecalciferol [Vitamin D3] 400 unit PO DAILY@1200 #60 tablet Continue Clopidogrel [Plavix] 75 mg PO DAILY #30 tab Tamsulosin [Flomax] 0.4 mg PO PC-SUPPER cap.er.24h Aspirin [[place] Aspirin EC] 81 mg PO DAILY Pravastatin Sodium [Pravachol] 40 mg PO DAILY Oxybutynin Chloride [Oxybutynin Chloride ER] 10 mg PO DAILY Famotidine [Pepcid] 20 mg PO Q12HR #14 tab Losartan Potassium [Cozaar] 100 mg PO DAILY Discontinued Furosemide [Lasix] 20 mg PO DAILY Hydrochlorothiazide 25 mg PO DAILY Potassium Chloride [Klor-Con 20] 20 meq PO DAILY Discharge Medication List Clopidogrel [Plavix] 75 mg PO DAILY #30 tab 04/27/15 [Rx] Tamsulosin [Flomax] 0.4 mg PO PC-SUPPER cap.er.24h 11/28/17 [Rx] Aspirin [[place] Aspirin EC] 81 mg PO DAILY 12/30/18 [History] Oxybutynin Chloride [Oxybutynin Chloride ER] 10 mg PO DAILY 04/14/19 [History] Pravastatin Sodium [Pravachol] 40 mg PO DAILY 04/14/19 [History] Famotidine [Pepcid] 20 mg PO Q12HR #14 tab 04/16/19 [Rx] Cholecalciferol [Vitamin D3] 400 unit PO DAILY@1200 #60 tablet 07/04/19 [Rx] Losartan Potassium [Cozaar] 100 mg PO DAILY 07/04/19 [History] Follow up Appointment(s)/Referral(s): Trevor Kennedy MD [Primary Care Provider] - 3 Days Discharge Disposition: HOME WITH HOME HEALTH SERVICES
[2019-07-04 14:55] VITALS: BP 137/72; PULSE 58
[2019-07-04] MEDS ORDERED: TAMSULOSIN 0.4 MG CAP.ER.24H PO SCH (18:30)
[2019-07-04] MEDS ORDERED: FAMOTIDINE 20 MG TAB PO SCH (21:00)
[2019-07-05] MEDS ORDERED: PRAVASTATIN SODIUM 40 MG TAB PO SCH (09:00)
[2019-07-05] MEDS ORDERED: OXYBUTYNIN 10 MG TAB.ER.24 PO SCH (09:00)
[2019-07-05] MEDS ORDERED: LOSARTAN 50 MG TAB PO SCH (09:00)
[2019-07-05] MEDS ORDERED: ASPIRIN 81 MG PO SCH (09:00)
[2019-07-05] MEDS ORDERED: FUROSEMIDE 20 MG TAB PO SCH (09:00)
[2019-07-05] MEDS ORDERED: CLOPIDOGREL 75 MG TAB PO SCH (09:00)
--- NOTE | 2019-07-06 16:40 | P.CONS ---
History of Present Illness - Reason for Consult Consult date: 07/04/19 Urinary tract infection Requesting physician: Adelaida Ro - Chief Complaint Generalized weakness and falls 1 day - History of Present Illness Patient is 79 year male who was brought into the ER at [facility] by the EMS after apparently the patient did have a fall when he was using the restroom the patient said he legs give out and he fell backwards is unable to get him up and EMS was called and the patient was brought into the ER patient be complaining of weakness in the legs and generalized weakness for the last day or 2,The patient did have similar symptoms last time he did have a UTI this patient denies having any fever or any chills some urination and difficulty urination but no burning suprapubic or flank pain no nausea no vomiting no bowel pain or any diarrhea, the patient presented to hospital was afebrile his white count was normal urine was mildly positive with watery loose I distress future WBC and rare bacteria he was started on Rocephin and admitted to the hospital he finished his was consulted for need for antibiotic therapy patient already been discharged by the admitting team Review of Systems Positive point has been mentioned in the HPI rest of the systems are negative Past Medical History Past Medical History: Hyperlipidemia, Hypertension, Prostate Disorder, Sleep Apnea/CPAP/BIPAP Additional Past Medical History / Comment(s): PAD, Right rotator cuff tear, mini stroke, urinary retention History of Any Multi-Drug Resistant Organisms: None Reported Past Surgical History: Appendectomy, Back Surgery, Joint Replacement Additional Past Surgical History / Comment(s): JOSE KNEE REPLACEMENT, KIDNEY SX AT AGE 6 Past Anesthesia/Blood Transfusion Reactions: No Reported Reaction Past Psychological History: No Psychological Hx Reported Smoking Status: Current some day smoker Past Alcohol Use History: None Reported Past Drug Use History: None Reported - Past Family History Mother Family Medical History: No Reported History, Diabetes Mellitus Medications and Allergies Home Medications Medication Instructions Recorded Confirmed Type Clopidogrel [Plavix] 75 mg PO DAILY #30 tab 04/27/15 07/04/19 Rx Tamsulosin [Flomax] 0.4 mg PO PC-SUPPER cap.er.24h 11/28/17 07/04/19 Rx Aspirin [[place] Aspirin EC] 81 mg PO DAILY 12/30/18 07/04/19 History Oxybutynin Chloride [Oxybutynin 10 mg PO DAILY 04/14/19 07/04/19 History Chloride ER] Pravastatin Sodium [Pravachol] 40 mg PO DAILY 04/14/19 07/04/19 History Famotidine [Pepcid] 20 mg PO Q12HR #14 tab 04/16/19 07/04/19 Rx Cefuroxime [Ceftin] 250 mg PO BID #14 tablet 07/04/19 Rx Cholecalciferol [Vitamin D3] 400 unit PO DAILY@1200 #60 tablet 07/04/19 Rx Losartan Potassium [Cozaar] 100 mg PO DAILY 07/04/19 07/04/19 History Allergies Allergy/AdvReac Type Severity Reaction Status Date / Time Penicillins Allergy Rash/Hives Verified 07/04/19 08:55 Physical Exam Vitals: Vital Signs Temp Pulse Pulse Resp BP BP BP 07/04/19 14:54 97.7 F 58 L 16 137/72 07/04/19 07:19 97.7 F 54 L 16 157/65 07/04/19 05:30 97.5 F L 57 L 14 146/77 07/04/19 04:16 58 L 18 130/66 07/04/19 01:10 97.9 F 62 18 132/65 Pulse Ox 07/04/19 14:54 98 07/04/19 07:19 98 07/04/19 05:30 96 07/04/19 04:16 96 07/04/19 01:10 94 L Intake and Output 07/04/19 07/04/19 07/04/19 06:59 14:59 22:59 Intake Total 450 Balance 450 Intake: Oral 450 Other: Voiding Method Bedside Commode Bedside Commode # Voids 0 2 Weight 121.563 kg GENERAL DESCRIPTION: Elderly male lying in bed, no distress. No tachypnea or accessory muscle of respiration use. HEENT: Shows Pallor , no scleral icterus. Oral mucous membrane is dry. No pharyngeal erythema or thrush NECK: Trachea central, no thyromegaly. LUNGS: Unlabored breathing. Clear to auscultation anteriorly. No wheeze or crackle. HEART: S1, S2, regular rate and rhythm. No loud murmur ABDOMEN: Soft, no tenderness , guarding or rigidity, no organomegaly EXTREMITIES: No edema of feet. SKIN: No rash, no masses palpable. NEUROLOGICAL: The patient is awake, alert, oriented x3, mood and affect normal. Results CBC & Chem 7: 07/04/19 02:40 07/04/19 02:40 Labs: Abnormal Lab Results - Last 24 Hours (Table) 07/04/19 07/04/19 07/04/19 Range/Units 02:28 02:40 02:40 RBC 4.18 L (4.30-5.90) m/uL Hgb 11.5 L (13.0-17.5) gm/dL Hct 35.2 L (39.0-53.0) % RDW 15.8 H (11.5-15.5) % Creatinine 1.27 H (0.66-1.25) mg/dL Total Protein 6.0 L (6.3-8.2) g/dL Albumin 3.3 L (3.5-5.0) g/dL Ur Leukocyte Esterase Moderate H (Negative) Urine WBC 52 H (0-5) /hpf Urine Bacteria Rare H (None) /hpf Urine Mucus Rare H (None) /hpf Assessment and Plan Assessment: 1-patient being admitted hospital with generalized weakness which is likely multifactorial the patient did have some difficulty urination with a positive UA underlying UTI not entirely excluded as the patient reports similar symptoms with previous episodes of UTI and sometimes symptom could be generalized is patient of his age group 2-Patient with penicillin ALLERGIES that would limit the number of antibiotic safe to use Plan: 1-patient will be switched over to Ceftin 250 mg twice a day for 7 days prescription sent to the pharmacy 2-patient advised if any worsening symptoms or oral Ceftin to let us know care was discussed in detail with the medical physician
== END 2019-07-04 16:05 | disposition home health service (06) ==
LOC: EC 01:05 → 4SSUR 04:50
PROVIDERS: ADMIT Hospitalist; ATTEND Hospitalist
DX: M62.50 Muscle wasting and atrophy, not elsewhere classified, unspecified site (principal); M62.81 Muscle weakness (generalized); N17.9 Acute kidney failure, unspecified; T50.2X5A Adverse effect of carbonic-anhydrase inhibitors, benzothiadiazides and other diuretics, initial encounter; R82.71 Bacteriuria; I10 Essential (primary) hypertension; G47.30 Sleep apnea, unspecified; E78.5 Hyperlipidemia, unspecified; M75.101 Unspecified rotator cuff tear or rupture of right shoulder, not specified as traumatic; I73.9 Peripheral vascular disease, unspecified; N42.9 Disorder of prostate, unspecified; R33.9 Retention of urine, unspecified; F17.200 Nicotine dependence, unspecified, uncomplicated; M25.562 Pain in left knee; M25.561 Pain in right knee; R26.2 Difficulty in walking, not elsewhere classified; W19.XXXA Unspecified fall, initial encounter; Z79.02 Long term (current) use of antithrombotics/antiplatelets; Z79.82 Long term (current) use of aspirin; Z79.899 Other long term (current) drug therapy; Z88.0 Allergy status to penicillin; Z90.49 Acquired absence of other specified parts of digestive tract; Z99.89 Dependence on other enabling machines and devices; Z86.73 Personal history of transient ischemic attack (TIA), and cerebral infarction without residual deficits; Z83.3 Family history of diabetes mellitus
CPT/HCPCS: 96365; 99285; 36415; 93005; 97162; 97165; 80053; 83605; 84484; 85025; 85610; 85730; 81001; 73560; 71046; G0378; J0696

== ENCOUNTER 2019-09-26 10:21 | Observation (INO) | payer MEDICARE, BC ==
[2019-09-26 10:51] LABS: Appearance,Urine Clear (Clear); Bilirubin,Urine Negative (Negative); Blood,Urine Negative (Negative); Color,Urine Light Yellow; Glucose,Urine (UA) Negative (Negative); Ketones,Urine Negative (Negative); Leukocyte Esterase,Urine Negative (Negative); Nitrite,Urine Negative (Negative); PH, Urine 5.5 (5.0-8.0); Protein,Urine Negative (Negative); Specific Gravity,Urine 1.006 (1.001-1.035); Urobilinogen,Urine <2.0 mg/dL (<2.0)
[2019-09-26 12:00] LABS: Basophils # (A) 0.1 k/uL (0-0.2); Basophils % (A) 1 %; Eosinophils # (A) 0.4 k/uL (0-0.7); Eosinophils % (A) 5 %; HCT 37.4 % (39.0-53.0); HGB 12.2 gm/dL (13.0-17.5); Lymphocytes # (A) 1.4 k/uL (1.0-4.8); Lymphocytes % (A) 16 %; MCHC 32.7 g/dL (31.0-37.0); MCV 85.5 fL (80.0-100.0); Mean Platelet Volume 6.4; Monocytes # (A) 0.5 k/uL (0-1.0); Monocytes % (A) 5 %; Neutrophils # (A) 6.2 k/uL (1.3-7.7); Neutrophils % (A) 71 %; Platelet Count 264 k/uL (150-450); RBC 4.38 m/uL (4.30-5.90); RDW 15.1 % (11.5-15.5); WBC 8.8 k/uL (3.8-10.6)
[2019-09-26 12:13] LABS: Albumin 3.9 g/dL (3.5-5.0); Calcium 9.7 mg/dL (8.4-10.2); Potassium 4.6 mmol/L (3.5-5.1); Total Bilirubin 0.5 mg/dL (0.2-1.3)
[2019-09-26 12:18] LABS: Partial Thromboplastin Time 25.9 sec (22.0-30.0); Prothrombin Time 10.4 sec (9.0-12.0)
--- NOTE | 2019-09-26 12:44 | CT ---
EXAMINATION TYPE: CT brain wo con DATE OF EXAM: 09/26/2019 COMPARISON: 05/31/2019 HISTORY: Leg weakness CT DLP: [address] of the brain was performed. The ventricles, basal cisterns and sulci overlying the cerebral convexities demonstrate mild enlargem ent. There is no evidence for intracranial hemorrhage or sulcal effacement. There is decreased attenuation about the periventricular white matter and deep white matter of both c erebral hemispheres, compatible with chronic small vessel ischemia. Differential diagnosis does inclu de demyelination. No mass effects are seen.No midline shift. Osseous calvarium is intact. If symptoms persist consider MRI. IMPRESSION: 1. Age related atrophic and chronic small vessel ischemic change without acute intracranial process s een at this time.
--- NOTE | 2019-09-26 12:50 | XR ---
EXAMINATION TYPE: XR chest 2V DATE OF EXAM: 09/26/2019 COMPARISON: Prior chest x-ray 07/04/2019, CT 05/15/2019, CT 05/31/2019 HISTORY: Weakness, lightheaded and dizzy TECHNIQUE: Frontal and lateral views of the chest are obtained. FINDINGS: There is nodular density in the right midlung measuring 2.8 cm.. The cardiac silhouette s ize is within normal limits. The osseous structures are intact. Prominent lung lines again noted. T he aorta is dense and aneurysmal. There is thoracic spondylosis. Postop change noted to the left shou lder, marked arthropathy noted in the right shoulder. IMPRESSION: Right upper lobe mass. Aortic aneurysm. Postop changes.
[2019-09-26] MEDS ORDERED: SODIUM CHLORIDE 0.9% 1,000 ML IV ONE (13:23)
--- NOTE | 2019-09-26 13:27 | ED ---
Weakness HPI - General Source: patient, EMS Mode of arrival: EMS Limitations: no limitations <Bernie Zafar - Last Filed: 09/26/19 15:35> <Melina Ojeda - Last Filed: 10/04/19 13:48> - General Chief complaint: Weakness Stated complaint: Weakness Time Seen by Provider: 09/26/19 10:44 - History of Present Illness Initial comments: 79-year-old male with history of chronic bilateral leg weakness currently undergoing physical therapy, peripheral vascular disease presents emergency department today for chief complaint of generalized weakness, fall possible UTI. Patient states that he has felt weaker than usual for the past few days. He states at times he is lightheaded. Feels presyncopal denies dizziness. Patient states that he felt this way when a UTI in the past. Patient denies abdominal pain back pain fevers cough congestion upper respiratory symptoms. Patient denies any chest pain and denies shortness of breath. Denies back pain. Patient states when he went to get off the toilet today just prior to arrival he felt weak his legs gave out and she started to fall and states he cut himself on a handrail with his arms bilaterally. Denies any new arm pain he denies hitting his head injury to neck or back. Patient denies any other complaints. Upon arrival patient states he just wants to be checked for a UTI and go home. (Bernie Zafar) - Related Data Home Medications Medication Instructions Recorded Confirmed Aspirin [[place] Aspirin EC] 81 mg PO DAILY 12/30/18 09/26/19 Oxybutynin Chloride [Oxybutynin 10 mg PO DAILY 04/14/19 09/26/19 Chloride ER] Pravastatin Sodium [Pravachol] 40 mg PO DAILY 04/14/19 09/26/19 Tamsulosin [Flomax] 0.4 mg PO BID 09/26/19 09/26/19 Valsartan 320 mg PO DAILY 09/26/19 09/26/19 traZODone HCL 50 mg PO HS 09/26/19 09/26/19 Previous Rx's Medication Instructions Recorded Clopidogrel [Plavix] 75 mg PO DAILY #30 tab 04/27/15 Acetaminophen Tab [Tylenol] 650 mg PO Q6HR PRN tab 09/28/19 Folic Acid 1 mg PO DAILY@1200 #30 tab 09/28/19 Multivitamins, Thera [Multivitamin 1 each PO DAILY@1200 #30 tab 09/28/19 (formulary)] Thiamine [Vitamin B-1] 100 mg PO DAILY@1200 #30 tab 09/28/19 Allergies Allergy/AdvReac Type Severity Reaction Status Date / Time Penicillins Allergy Rash/Hives Verified 09/26/19 11:52 Review of Systems ROS Other: All systems not noted in ROS Statement are negative. <Bernie Zafar - Last Filed: 09/26/19 15:35> ROS Other: All systems not noted in ROS Statement are negative. <Melina Ojeda - Last Filed: 10/04/19 13:48> ROS Statement: Those systems with pertinent positive or pertinent negative responses have been documented in the HPI. Past Medical History Past Medical History: Hyperlipidemia, Hypertension, Prostate Disorder, Sleep Apnea/CPAP/BIPAP Additional Past Medical History / Comment(s): PAD, Right rotator cuff tear, mini stroke, urinary retention History of Any Multi-Drug Resistant Organisms: None Reported Past Surgical History: Appendectomy, Back Surgery, Joint Replacement Additional Past Surgical History / Comment(s): JOSE KNEE REPLACEMENT, KIDNEY SX AT AGE 6 Past Anesthesia/Blood Transfusion Reactions: No Reported Reaction Past Psychological History: No Psychological Hx Reported Smoking Status: Current some day smoker Past Alcohol Use History: None Reported Past Drug Use History: None Reported - Past Family History Mother Family Medical History: No Reported History, Diabetes Mellitus <Bernie Zafar - Last Filed: 09/26/19 15:35> General Exam Limitations: no limitations <Bernie Zafar - Last Filed: 09/26/19 15:35> - General Exam Comments Initial Comments: General: The patient is awake and alert, in no distress, and does not appear acutely ill. Eye: +3 mm pupils are equal, round and reactive to light, extra-ocular movements are intact. No nystagmus. There is normal conjunctiva bilaterally. No signs of icterus. Ears, nose, mouth and throat: There are dry mucous membranes and no oral lesions. >3 sec skin turgor. Neck: The neck is supple, there is no tenderness or JVD. Cardiovascular: There is a regular rate and rhythm. Murmur. No rub or gallop is appreciated. Respiratory: Lungs are clear to auscultation, respirations are non-labored, breath sounds are equal. No wheezes, stridor, rales, or rhonchi. Gastrointestinal: Soft, non-distended, non-tender abdomen abdominal hernia, reducible soft, no organomegaly noted. There is no rebound or guarding present. Bowel sounds are unremarkable. Musculoskeletal: Normal ROM, no tenderness. Strength 5/5. Sensation intact. DP pulses equal bilaterally 2+. Neurological: A&O x 3. CN II-XII intact, There are no obvious motor or sensory deficits. Coordination appears grossly intact. Speech is normal. Skin: Skin is warm and dry and no rashes or lesions are noted. No LE edema or calf pain. Psychiatric: Cooperative, appropriate mood & affect, normal judgment. (Bernie Zafar) Course Vital Signs 09/26/19 09/26/19 10:38 15:14 Temperature 97.8 F Pulse Rate 73 67 Respiratory 16 16 Rate Blood Pressure 136/86 146/84 O2 Sat by Pulse 97 98 Oximetry EKG Findings - EKG Comments: EKG Findings:: Ventricular rate 69 bpm, WV interval 260 ms, QRS duration 100 ms, QT/QTC 416/445 ms. This is sinus rhythm with a first-degree AV block noted left axis with no ST elevation or depression appreciated. EKg was personallt interpretted and reviewed them attending provider <Bernie Zafar - Last Filed: 09/26/19 15:35> Medical Decision Making - Lab Data Result diagrams: 09/26/19 11:37 09/26/19 11:37 <Bernie Zafar - Last Filed: 09/26/19 15:35> - Lab Data Result diagrams: 09/28/19 05:33 09/28/19 05:33 <Melina Ojeda - Last Filed: 10/04/19 13:48> - Medical Decision Making 79-year-old male presenting for generalized weakness. Fall. No head injury. No loss of consciousness. Denies syncope. CT of the brain negative for acute process. Patient currently in physical therapy for rehabilitation of leg weakness bilaterally. Patient appears dehydrated on physical examination as well as laboratory studies. In addition patient describes a lightheaded sensation and initial troponin negative. Denies chest pain at this time we'll admit patient for cardiac evaluation given the lightheaded sensation and patient's comorbidities. As well as IV hydration. She is agreeable with this care plan admission at this time. No evidence of urinary tract infection. Discussed case with attending provider who reviewed EKG agreeable with care plan. (Bernie Zafar) I was available for consultation in the emergency department. The history and physical exam were done by the midlevel provider. I was consulted for this patients care. I reviewed the case with the midlevel provider and based on their presentation of the patient, I agree with the assessment, medical decision making and plan of care as documented. I evaluated the patient myself, agree with hospital admission. I discussed the case with the admitting physician. Chart was dictated using [employer] dictation software. Attempts were made to correct any dictation errors however some typographical errors may persist. (Melina Ojeda) - Lab Data Lab Results 09/26/19 09/26/19 09/26/19 Range/Units 10:30 11:37 11:37 WBC 8.8 (3.8-10.6) k/uL RBC 4.38 (4.30-5.90) m/uL Hgb 12.2 L (13.0-17.5) gm/dL Hct 37.4 L (39.0-53.0) % MCV 85.5 (80.0-100.0) fL MCH 28.0 (25.0-35.0) pg MCHC 32.7 (31.0-37.0) g/dL RDW 15.1 (11.5-15.5) % Plt Count 264 (150-450) k/uL Neutrophils % 71 % Lymphocytes % 16 % Monocytes % 5 % Eosinophils % 5 % Basophils % 1 % Neutrophils # 6.2 (1.3-7.7) k/uL Lymphocytes # 1.4 (1.0-4.8) k/uL Monocytes # 0.5 (0-1.0) k/uL Eosinophils # 0.4 (0-0.7) k/uL Basophils # 0.1 (0-0.2) k/uL PT (9.0-12.0) sec INR (<1.2) APTT (22.0-30.0) sec Sodium 140 (137-145) mmol/L Potassium 4.6 (3.5-5.1) mmol/L Chloride 105 (98-107) mmol/L Carbon Dioxide 26 (22-30) mmol/L Anion Gap 9 mmol/L BUN 31 H (9-20) mg/dL Creatinine 1.82 H (0.66-1.25) mg/dL Est GFR (CKD-EPI)AfAm 39 (>60 ml/min/1.73 sqM) Est GFR (CKD-EPI)NonAf 34 (>60 ml/min/1.73 sqM) Glucose 108 H (74-99) mg/dL Plasma Lactic Acid Abdiel (0.7-2.0) mmol/L Calcium 9.7 (8.4-10.2) mg/dL Total Bilirubin 0.5 (0.2-1.3) mg/dL AST 16 L (17-59) U/L ALT 15 L (21-72) U/L Alkaline Phosphatase 98 (38-126) U/L Troponin I (0.000-0.034) ng/mL Total Protein 7.0 (6.3-8.2) g/dL Albumin 3.9 (3.5-5.0) g/dL Urine Color Light Yellow Urine Appearance Clear (Clear) Urine pH 5.5 (5.0-8.0) Ur Specific Dawson 1.006 (1.001-1.035) Urine Protein Negative (Negative) Urine Glucose (UA) Negative (Negative) Urine Ketones Negative (Negative) Urine Blood Negative (Negative) Urine Nitrite Negative (Negative) Urine Bilirubin Negative (Negative) Urine Urobilinogen <2.0 (<2.0) mg/dL Ur Leukocyte Esterase Negative (Negative) 09/26/19 09/26/19 09/26/19 Range/Units 11:37 11:37 11:37 WBC (3.8-10.6) k/uL RBC (4.30-5.90) m/uL Hgb (13.0-17.5) gm/dL Hct (39.0-53.0) % MCV (80.0-100.0) fL MCH (25.0-35.0) pg MCHC (31.0-37.0) g/dL RDW (11.5-15.5) % Plt Count (150-450) k/uL Neutrophils % % Lymphocytes % % Monocytes % % Eosinophils % % Basophils % % Neutrophils # (1.3-7.7) k/uL Lymphocytes # (1.0-4.8) k/uL Monocytes # (0-1.0) k/uL Eosinophils # (0-0.7) k/uL Basophils # (0-0.2) k/uL PT 10.4 (9.0-12.0) sec INR 1.0 (<1.2) APTT 25.9 (22.0-30.0) sec Sodium (137-145) mmol/L Potassium (3.5-5.1) mmol/L Chloride (98-107) mmol/L Carbon Dioxide (22-30) mmol/L Anion Gap mmol/L BUN (9-20) mg/dL Creatinine (0.66-1.25) mg/dL Est GFR (CKD-EPI)AfAm (>60 ml/min/1.73 sqM) Est GFR (CKD-EPI)NonAf (>60 ml/min/1.73 sqM) Glucose (74-99) mg/dL Plasma Lactic Acid Abdiel 1.6 (0.7-2.0) mmol/L Calcium (8.4-10.2) mg/dL Total Bilirubin (0.2-1.3) mg/dL AST (17-59) U/L ALT (21-72) U/L Alkaline Phosphatase (38-126) U/L Troponin I <0.012 (0.000-0.034) ng/mL Total Protein (6.3-8.2) g/dL Albumin (3.5-5.0) g/dL Urine Color Urine Appearance (Clear) Urine pH (5.0-8.0) Ur Specific Dawson (1.001-1.035) Urine Protein (Negative) Urine Glucose (UA) (Negative) Urine Ketones (Negative) Urine Blood (Negative) Urine Nitrite (Negative) Urine Bilirubin (Negative) Urine Urobilinogen (<2.0) mg/dL Ur Leukocyte Esterase (Negative) Disposition Is patient prescribed a controlled substance at d/c from ED?: No Time of Disposition: 13:28 Decision to Admit Reason: Admit from EC Decision Date: 09/26/19 Decision Time: 13:28 <Bernie Zafar - Last Filed: 09/26/19 15:35> <Melina Ojeda - Last Filed: 10/04/19 13:48> Clinical Impression: Generalized weakness, Light headed, Fall, Aortic aneurysm without rupture, Dehydration Disposition: ADMITTED IP TO THIS HOSP Condition: Stable
--- NOTE | 2019-09-26 15:33 | P.CRDCN ---
History of Present Illness Consult date: 09/26/19 Chief complaint: Generalized weakness History of present illness: This is a very pleasant 79-year-old gentleman who sees Dr. Jeronimo in the office on regular basis with a past medical history significant for hypertension, dyslipidemia, peripheral arterial disease and prior angioplasty of the right leg, was brought by his to the hospital because he was not feeling well. The patient has been weak for the last several days. Earlier today he was sitting on the toilet when he tried to stand up and he felt dizzy and lightheaded but he did not lose his consciousness. He does not report any symptoms of chest pain or chest discomfort, shortness of breath with exertion, or feeling of heart racing or fluttering, or loss of consciousness or syncope. No history of coronary artery disease or congestive heart failure or cardiac arrhythmia. He just not feeling well for the last several several days and he was feeling tired and fatigued and has no energy. When the patient presented to the hospital, his vitals are within normal limits. The EKG showed sinus rhythm with first-degree AV block. The first set of cardiac enzymes came in to be unremarkable. The chest x-ray did not show any acute abnormalities. The creatinine is a slightly abnormal and previous creatinine was within normal limits. Past Medical History Past Medical History: Hyperlipidemia, Hypertension, Prostate Disorder, Sleep A pnea/CPAP/BIPAP Additional Past Medical History / Comment(s): PAD, Right rotator cuff tear, mini stroke, urinary retention History of Any Multi-Drug Resistant Organisms: None Reported Past Surgical History: Appendectomy, Back Surgery, Joint Replacement Additional Past Surgical History / Comment(s): JOSE KNEE REPLACEMENT, KIDNEY SX AT AGE 6 Past Anesthesia/Blood Transfusion Reactions: No Reported Reaction Past Psychological History: No Psychological Hx Reported Smoking Status: Current some day smoker Past Alcohol Use History: None Reported Past Drug Use History: None Reported - Past Family History Mother Family Medical History: No Reported History, Diabetes Mellitus Medications and Allergies Home Medications Medication Instructions Recorded Confirmed Type Clopidogrel [Plavix] 75 mg PO DAILY #30 tab 04/27/15 09/26/19 Rx Aspirin [[place] Aspirin EC] 81 mg PO DAILY 12/30/18 09/26/19 History Oxybutynin Chloride [Oxybutynin 10 mg PO DAILY 04/14/19 09/26/19 History Chloride ER] Pravastatin Sodium [Pravachol] 40 mg PO DAILY 04/14/19 09/26/19 History Furosemide [Lasix] 40 mg PO DAILY 09/26/19 09/26/19 History Hydrochlorothiazide [Hydrodiuril] 25 mg PO DAILY 09/26/19 09/26/19 History Potassium Chloride [Klor-Con 20] 20 meq PO BID 09/26/19 09/26/19 History Tamsulosin [Flomax] 0.4 mg PO BID 09/26/19 09/26/19 History Valsartan 320 mg PO DAILY 09/26/19 09/26/19 History traZODone HCL 50 mg PO HS 09/26/19 09/26/19 History Allergies Allergy/AdvReac Type Severity Reaction Status Date / Time Penicillins Allergy Rash/Hives Verified 09/26/19 11:52 Physical Exam Vitals: Vital Signs Temp Pulse Resp BP Pulse Ox 09/26/19 15:14 67 16 146/84 98 09/26/19 10:38 97.8 F 73 16 136/86 97 Intake and Output 09/26/19 09/26/19 09/26/19 06:59 14:59 22:59 Other: Weight 119.748 kg - Constitutional General appearance: no acute distress - Respiratory Respiratory: bilateral: CTA - Cardiovascular Rhythm: regular Heart sounds: normal: S1, S2 Results 09/26/19 11:37 09/26/19 11:37 Cardiac Enzymes 09/26/19 09/26/19 Range/Units 11:37 11:37 AST 16 L (17-59) U/L Troponin I <0.012 (0.000-0.034) ng/mL Coagulation 09/26/19 Range/Units 11:37 PT 10.4 (9.0-12.0) sec APTT 25.9 (22.0-30.0) sec CBC 09/26/19 Range/Units 11:37 WBC 8.8 (3.8-10.6) k/uL RBC 4.38 (4.30-5.90) m/uL Hgb 12.2 L (13.0-17.5) gm/dL Hct 37.4 L (39.0-53.0) % Plt Count 264 (150-450) k/uL Comprehensive Metabolic Panel 09/26/19 Range/Units 11:37 Sodium 140 (137-145) mmol/L Potassium 4.6 (3.5-5.1) mmol/L Chloride 105 (98-107) mmol/L Carbon Dioxide 26 (22-30) mmol/L BUN 31 H (9-20) mg/dL Creatinine 1.82 H (0.66-1.25) mg/dL Glucose 108 H (74-99) mg/dL Calcium 9.7 (8.4-10.2) mg/dL AST 16 L (17-59) U/L ALT 15 L (21-72) U/L Alkaline Phosphatase 98 (38-126) U/L Total Protein 7.0 (6.3-8.2) g/dL Albumin 3.9 (3.5-5.0) g/dL Current Medications Generic Name Dose Route Start Last Admin Trade Name Freq PRN Reason Stop Dose Admin Aspirin 325 mg 09/27/19 09:00 Aspirin PO DAILY PRASHANTH Sodium Chloride 1,000 mls @ 100 mls/hr 09/26/19 13:30 Saline 0.9% IV .Q10H PRASHANTH Intake and Output 09/26/19 09/26/19 09/26/19 06:59 14:59 22:59 Other: Weight 119.748 kg Patient Weight 09/27/19 06:59 Weight 119.748 kg 09/26/19 11:37 09/26/19 11:37 Assessment and Plan Assessment: Assessment #1 dizziness and lightheadedness #2 generalized weakness and fatigue #3 hypertension #4 dyslipidemia #5 peripheral arterial disease Plan #1 the symptoms are likely related to vasovagal or orthostatic hypertension #2 we will rule out bradycardia #3 rule out acute coronary syndrome #4 obtain 2 more sets of serial cardiac enzymes #5 obtain an echocardiogram was Doppler #6 follow-up with the patient Thank you for allowing us participate in his care
[2019-09-26 16:04] VITALS: BMI 35.1
[2019-09-26] MEDS: SODIUM CHLORIDE 0.9% 1,000 ML IV SCH (17:10)
[2019-09-26] MEDS: TAMSULOSIN 0.4 MG CAP.ER.24H PO SCH (21:05)
[2019-09-26] MEDS: ACETAMINOPHEN TAB 325 MG TAB PO PRN (21:05)
[2019-09-26] MEDS: traZODone HCL 50 MG TAB PO SCH (21:05)
[2019-09-27] MEDS: SODIUM CHLORIDE 0.9% 1,000 ML IV SCH ×3 (01:30→16:59)
[2019-09-27] MEDS ORDERED: ASPIRIN 325 MG TAB PO SCH (09:00)
[2019-09-27] MEDS ORDERED: HYDROCHLOROTHIAZIDE 25 MG TAB PO SCH (09:00)
[2019-09-27] MEDS ORDERED: VALSARTAN 160 MG TAB PO SCH (09:00)
[2019-09-27] MEDS ORDERED: NON FORMULARY DRUG (Aspirin [St. Joseph Aspirin Ec] 81 MG) PO SCH (09:00)
--- NOTE | 2019-09-27 09:53 | HP ---
HISTORY AND PHYSICAL I am covering for Dr. Kennedy. DATE OF SERVICE: 09/26/2019 CHIEF COMPLAINTS: Weakness, generalized weakness. HISTORY OF PRESENT ILLNESS: This 79-year-old gentleman with a past medical history of multiple medical problems, hypertension, hyperlipidemia, history of prostate disorder, sleep apnea, history of peripheral vascular disease, history of appendectomy, history of back surgery, history of DJD, being followed by Dr. Trevor Kennedy in the outpatient setting, complaining of significant weakness. The patient apparently had multiple episodes of falls also. The patient felt some lightheadedness and dizziness also. The patient also was found to have a creatinine of 1.82. The baseline creatinine was rather normal. Troponins are negative and the patient has also been evaluated by Cardiology at this time, who recommended evaluation for vasovagal orthostatic hypotension and rule out bradycardia. Patient being monitored on telemetry. There is no history of fever, rigors or chills. No history of headache, loss of consciousness or seizures. PAST MEDICAL HISTORY: Hypertension, hyperlipidemia, history of prostate disorder, history of peripheral vascular disease, history of DJD. MEDICATIONS: 1. Trazodone 50 mg p.o. q.h.s. 2. Pravachol 40 mg p.o. daily. 3. HydroDIURIL 25 mg p.o. daily. 4. Lasix 40 mg p.o. daily. 5. Plavix 75 mg p.o. daily. 6. Ecotrin 81 mg p.o. daily. 7. Valsartan 320 mg p.o. daily. 8. Klor-Con 20 mEq p.o. b.i.d. 9. Oxybutynin 10 mg p.o. daily. 10.Fosamax 0.4 mg p.o. b.i.d. ALLERGIES: PENICILLIN. FAMILY HISTORY: History of diabetes in the family. SOCIAL HISTORY: History of continued ongoing nicotine dependence and history of alcohol intake. REVIEW OF SYSTEMS: ENT: No diminished vision. No diminished hearing. CARDIOVASCULAR: No angina or palpitations. RESPIRATIONS: No cough or hemoptysis. GI no nausea or vomiting. no dysuria or hematuria. NERVOUS SYSTEM: As mentioned earlier. ALLERGY/IMMUNOLOGY: No asthma or hayfever. MUSCULOSKELETAL as mentioned earlier. HEMATOLOGY/ONCOLOGY: No history of anemia. ENDOCRINE: No history of diabetes or hypothyroidism. CONSTITUTIONAL: As mentioned earlier. DERMATOLOGY: Negative. RHEUMATOLOGY negative. PSYCHIATRY as mentioned earlier. PHYSICAL EXAMINATION: Alert and oriented times three. Pulse 86, blood pressure 130/62, respirations 16, temperature 98 degrees, pulse ox 98% on room air. HEENT: Conjunctivae normal. Oral mucosa moist. NECK is no jugular venous distention. No carotid bruit. No lymph node enlargement. CARDIOVASCULAR SYSTEM: S1, S2 muffled. No S3, no S4. RESPIRATORY: Breath sounds diminished in the bases. No rhonchi. No crackles. ABDOMEN: Soft, obese, nontender. LEGS: Minimal edema. NERVOUS SYSTEM: Higher functions as mentioned earlier. Moves all 4 limbs. No focal motor or sensory deficit. LYMPHATICS: No lymph nodes palpable in the neck, axillae or groin. SKIN: No ulcers, rashes or bleeding. JOINTS: No active deforming arthropathy. LABORATORY DATA: Lab studies: EKG shows non-progression R-waves. Otherwise, left axis deviation. Other labs are WBC 8.2, hemoglobin is 12.2, creatinine 1.8. ASSESSMENT: 1. Generalized weakness and fall for further evaluation, rule out orthostatic hypotension or vasovagal episodes and bradycardia. 2. Elevated creatinine with acute renal failure possible acute tubular necrosis secondary to dehydration prerenal acute tubular necrosis. 3. Anemia, normocytic anemia of chronic disease. 4. Hypertension. 5. Hyperlipidemia. 6. History of sleep apnea. 7. History of peripheral vascular disease. 8. History of urinary retention. 9. History of degenerative joint disease. 10.History of appendectomy. 11.Continued ongoing nicotine dependence. RECOMMENDATIONS AND DISCUSSION: In this 79-year-old gentleman who presented with multiple medical issues, we will monitor the patient closely, continue the current medications, management and symptomatic treatment. Otherwise, at this time, I recommend resume the home medications and otherwise I would also recommend hold diuretics. Orthostatic vitals. We will continue to monitor along with Cardiology. Guarded prognosis. A copy of this dictation being forwarded to Dr. Kennedy who is the primary physician. MMODL / IJN: [id number] /
[2019-09-27] MEDS: OXYBUTYNIN 10 MG TAB.ER.24 PO SCH (10:09)
[2019-09-27] MEDS: PRAVASTATIN SODIUM 40 MG TAB PO SCH (10:09)
[2019-09-27] MEDS: CLOPIDOGREL 75 MG TAB PO SCH (10:09)
[2019-09-27] MEDS: TAMSULOSIN 0.4 MG CAP.ER.24H PO SCH ×2 (10:09→21:13)
[2019-09-27 11:45] LABS: Calcium 9.1 mg/dL (8.4-10.2); Potassium 3.9 mmol/L (3.5-5.1)
[2019-09-27] MEDS: THIAMINE 100 MG TAB PO SCH (12:22)
[2019-09-27] MEDS: FOLIC ACID 1 MG TAB PO SCH (12:22)
[2019-09-27] MEDS: MULTIVITAMINS, THERA 1 EACH TAB PO SCH (12:22)
--- NOTE | 2019-09-27 13:50 | PN ---
PROGRESS NOTE Mr. Santillan is an 79-year-old male who presented with an episode of dizziness but no clear syncope. It occurred when he was getting off the commode. He is feeling well this morning. His breathing is stable. He denies any chest pain. He denies any dizziness, palpitation. On the monitor, he is in sinus mechanism. He continues to be on aspirin once a day, Plavix 75 mg daily, pravastatin 40 mg daily, Flomax 0.4 mg daily, and Diovan 320 mg daily. PHYSICAL EXAMINATION: Blood pressure running in the 118 to 120s with a heart rate in the 80s. LUNGS: Clear. HEART: Regular rate and rhythm. S1, S2. No S3. No rub. ABDOMEN: Soft, nontender. EXTREMITIES: No edema. LAB DATA: Revealed BUN and creatinine 31 and 1.82. Troponin less than 0.012, potassium 4.6, hemoglobin of 12.2. IMPRESSION: 1. Symptoms of dizziness with no clear syncope could be related to orthostatic hypotension and dehydration. His renal functions are worse than his baseline. 2. History of hypertension. 3. Hyperlipidemia. 4. History of peripheral vascular disease and percutaneous revascularization of the right lower extremity. RECOMMENDATION: From the cardiac standpoint, I will continue IV fluid. I will follow his renal function. Depending on the trend of his blood pressure, I will decrease the dose of his Diovan. Will review the results of his echo and depending on his progress, further recommendation will be made. MMODL / IJN: [id number] /
--- NOTE | 2019-09-27 13:58 | US ---
EXAMINATION TYPE: US kidneys/renal and bladder DATE OF EXAM: 09/27/2019 COMPARISON: NONE CLINICAL HISTORY: Low urine output, LANEY. EXAM MEASUREMENTS: Right Kidney: 11.3 x 5.0 x 5.2 cm Left Kidney: 11.2 x 5.1 x 4.3 cm Right Kidney: No hydronephrosis or masses seen Left Kidney: Limited parenchymal evaluation. No hydronephrosis seen. Bladder: Anechoic Bilateral Jets seen: No, nonspecific. There is no evidence for hydronephrosis at this point in time. No nephrolithiasis is seen. No right renal mass, limited evaluation of the left renal parenchyma. The urinary bladder is anechoic. IMPRESSION: No hydronephrosis.
--- NOTE | 2019-09-27 13:59 | ECHOF ---
Referral Reason:Dizziness MEASUREMENTS -------- HEIGHT: 182.9 cm WEIGHT: 120.2 kg BP: 146/84 RVIDd: 3.3 cm (< 3.3) IVSd: 1.4 cm (0.6 - 1.1) LVIDd: 5.1 cm (3.9 - 5.3) LVPWd: 1.8 cm (0.6 - 1.1) IVSs: 1.5 cm LVIDs: 3.8 cm LVPWs: 1.8 cm LA Diam: 4.1 cm (2.7 - 3.8) Ao Diam: 4.2 cm (2.0 - 3.7) AV Cusp: 1.7 cm (1.5 - 2.6) MV E Eric: 0.52 m/s MV DecT: 263 ms MV A Eric: 0.80 m/s MV E/A Ratio: 0.65 RAP: 5.00 mmHg RVSP: 11.95 mmHg FINDINGS -------- Sinus rhythm. Morbid Obesity This was a techncally difficult study with suboptimal views, , Lumason utilized for enhancement of images. The left ventricular size is normal. There is moderate concentric left ventricular hypertrophy. O verall left ventricular systolic function is normal with, an EF between 55 - 60 %. The right ventricle is normal in size. The left atrium is mildly dilated. The right atrial size is normal. 5.0mg OF Lumason UTLIZED: 2 OR MORE WALL SEGMENTS NOT VISUALIZED. There is mild aortic valve sclerosis. Mild mitral annular calcification present. Mild mitral regurgitation is present. Mild tricuspid regurgitation present. Right ventricular systolic pressure is normal at < 35 mmHg. There is no evidence of pulmonary hypertension. The pulmonic valve was not well visualized. There is no pulmonic regurgitation present. 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 There is no pericardial effusion. CONCLUSIONS -------- 1. Sinus rhythm. 2. Morbid Obesity 3. This was a techncally difficult study with suboptimal views, , Lumason utilized for enhancement of images. 4. The left ventricular size is normal. 5. There is moderate concentric left ventricular hypertrophy. 6. Overall left ventricular systolic function is normal with, an EF between 55 - 60 %. 7. The left atrium is mildly dilated. 8. 5.0mg OF Lumason UTLIZED: 2 OR MORE WALL SEGMENTS NOT VISUALIZED. 9. There is mild aortic valve sclerosis. 10. Mild mitral annular calcification present. 11. Mild mitral regurgitation is present. 12. Mild tricuspid regurgitation present. 13. Right ventricular systolic pressure is normal at < 35 mmHg. 14. The pulmonic valve was not well visualized. 15. 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 16. There is no pericardial effusion. DRAMA DIRECTOR: Lizz Cordova RDCS
--- NOTE | 2019-09-27 20:32 | PN ---
PROGRESS NOTE DATE OF SERVICE: 09/27/2019. This 79-year-old gentleman admitted with generalized weakness and tiredness and elevated creatinine. The patient also has urinary problems. A bladder scan showed more than 500 mL yesterday, but currently the bladder scan is only showing 14 mL. Patient given IV fluids. An ultrasound of the abdomen was ordered by me showed no hydronephrosis. The patient also history of multiple falls also. Multiple consultants including Cardiology following the patient closely. PAST MEDICAL HISTORY: Reviewed. REVIEW OF SYSTEMS: Cardiovascular system: As mentioned earlier. Respiratory: As mentioned earlier. GI no nausea or vomiting. no dysuria. CENTRAL NERVOUS SYSTEM: No numbness or weakness. CURRENT MEDICATIONS: 1. Tylenol p.r.n. 2. Aspirin 81 mg daily. 3. Plavix 75 mg. 4. Folic acid. 5. Ditropan XL. 6. Pravachol. 7. Flomax. 8. Vitamin B1. 9. Desyrel. 10.Diovan. 11.Doses reviewed. PHYSICAL EXAM: Patient is alert, oriented x2. Pulse 82, blood pressure 118/60. Respirations 20. Temperature 98 degrees, pulse ox 94% on room air. HEENT: Conjunctivae normal. Oral mucosa moist. NECK is no jugular venous distention. No carotid bruit. No lymph node enlargement. CARDIOVASCULAR: S1, S2 muffled. RESPIRATION: Breath sounds diminished in the bases. A few scattered rhonchi and crackles. ABDOMEN: Soft, nontender., LEGS: No edema. No swelling. NERVOUS SYSTEM: No focal deficits. Mild diffuse weakness. LABS: WBC 8.2, hemoglobin 12.8 and creatinine is 1.47. ASSESSMENT: 1. Generalized weakness and tiredness possibly secondary to acute renal failure. 2. Acute renal failure with acute tubular necrosis plus secondary prerenal factors with dehydration. 3. No evidence of orthostatic 4. Anemia, normocytic anemia of chronic disease. 5. Hypertension. 6. Hyperlipidemia. 7. History of sleep apnea. 8. History of peripheral vascular disease. 9. History urinary retention. 10.History of degenerative joint disease. 11.History of appendectomy. 12.Continued ongoing nicotine dependence. RECOMMENDATIONS AND DISCUSSION: Continue current medications, monitoring and symptomatic treatment. Otherwise, at this time, I recommend continue with IV fluids. Repeat labs. PT, OT evaluation. Nephrology evaluation. Guarded prognosis because of multiple complex medical issues. Further recommendations to follow. MMODL / IJN: [id number] / [place]
[2019-09-27] MEDS: traZODone HCL 50 MG TAB PO SCH (21:13)
[2019-09-27] MEDS: ACETAMINOPHEN TAB 325 MG TAB PO PRN (21:15)
[2019-09-28 06:39] LABS: Basophils # (A) 0.1 k/uL (0-0.2); Basophils % (A) 1 %; Eosinophils # (A) 0.4 k/uL (0-0.7); Eosinophils % (A) 6 %; HCT 32.8 % (39.0-53.0); HGB 10.8 gm/dL (13.0-17.5); Lymphocytes # (A) 1.6 k/uL (1.0-4.8); Lymphocytes % (A) 26 %; MCH 28.7 pg (25.0-35.0); MCHC 32.9 g/dL (31.0-37.0); MCV 87.1 fL (80.0-100.0); Monocytes # (A) 0.3 k/uL (0-1.0); Monocytes % (A) 6 %; Neutrophils # (A) 3.6 k/uL (1.3-7.7); Neutrophils % (A) 59 %; Platelet Count 239 k/uL (150-450); RBC 3.76 m/uL (4.30-5.90)
[2019-09-28 06:55] LABS: Calcium 8.9 mg/dL (8.4-10.2); Potassium 3.9 mmol/L (3.5-5.1)
[2019-09-28] MEDS: SODIUM CHLORIDE 0.9% 1,000 ML IV SCH (06:56)
[2019-09-28 08:10] VITALS: TEMP 97.5
[2019-09-28] MEDS: OXYBUTYNIN 10 MG TAB.ER.24 PO SCH (08:25)
[2019-09-28] MEDS: PRAVASTATIN SODIUM 40 MG TAB PO SCH (08:26)
[2019-09-28] MEDS: TAMSULOSIN 0.4 MG CAP.ER.24H PO SCH (08:26)
[2019-09-28] MEDS: FOLIC ACID 1 MG TAB PO SCH (08:26)
[2019-09-28] MEDS: MULTIVITAMINS, THERA 1 EACH TAB PO SCH (08:26)
[2019-09-28] MEDS: CLOPIDOGREL 75 MG TAB PO SCH (08:26)
[2019-09-28] MEDS: THIAMINE 100 MG TAB PO SCH (08:26)
[2019-09-28] MEDS ORDERED: ASPIRIN 81 MG PO SCH (09:00)
[2019-09-28] MEDS ORDERED: VALSARTAN 160 MG TAB PO SCH (09:00)
--- NOTE | 2019-09-28 09:51 | P.NPCON ---
History of Present Illness - Reason for Consult acute renal failure - History of Present Illness Reason for consultation: Acute kidney injury History of present illness: Patient is a 79-year-old male seen in renal consultation for acute kidney injury. Patient states he was in the bathroom urinating and suddenly his left leg gave out and he fell. He denies losing consciousness. Urine output has been good. No hematuria or dysuria. Denies use of nonsteroidals. Denies any personal history of kidney disease. Denies family history of renal disease. Creatinine was 1.8-1 admission and is down to 1.29 today. He is currently maintained on normal saline at 100 mL an hour. Hemodynamically he stable. No significant hypotension noted. Oral intake is good. No fever or chills. No cough. No abdominal pain. No edema. No history of diabetes. He was taking diuretics as well as valsartan at home which are both currently held. Vital signs are stable. General: The patient appeared well nourished and normally developed. HEENT: Head exam is unremarkable. Neck is without jugular venous distension. LUNGS: Lungs are clear to auscultation and percussion. Breath sounds decreased. HEART: Rate and Rhythm are regular. First and second heart sounds normal. No murmurs, rubs or gallops. ABDOMEN: Abdominal exam reveals normal bowel sounds. Non-tender and non- distended. No evidence of peritonitis. EXTREMITITES: No clubbing, cyanosis, or edema. Past Medical History Past Medical History: Hyperlipidemia, Hypertension, Prostate Disorder, Sleep Apnea/CPAP/BIPAP Additional Past Medical History / Comment(s): PAD, Right rotator cuff tear, mini stroke, urinary retention History of Any Multi-Drug Resistant Organisms: None Reported Past Surgical History: Appendectomy, Back Surgery, Joint Replacement Additional Past Surgical History / Comment(s): JOSE KNEE REPLACEMENT, KIDNEY SX AT AGE 6 Past Anesthesia/Blood Transfusion Reactions: No Reported Reaction Past Psychological History: No Psychological Hx Reported Smoking Status: Current some day smoker Past Alcohol Use History: None Reported Past Drug Use History: None Reported - Past Family History Mother Family Medical History: No Reported History, Diabetes Mellitus Medications and Allergies Home Medications Medication Instructions Recorded Confirmed Type Clopidogrel [Plavix] 75 mg PO DAILY #30 tab 04/27/15 09/26/19 Rx Aspirin [Marana Aspirin EC] 81 mg PO DAILY 12/30/18 09/26/19 History Oxybutynin Chloride [Oxybutynin 10 mg PO DAILY 04/14/19 09/26/19 History Chloride ER] Pravastatin Sodium [Pravachol] 40 mg PO DAILY 04/14/19 09/26/19 History Furosemide [Lasix] 40 mg PO DAILY 09/26/19 09/26/19 History Hydrochlorothiazide [Hydrodiuril] 25 mg PO DAILY 09/26/19 09/26/19 History Potassium Chloride [Klor-Con 20] 20 meq PO BID 09/26/19 09/26/19 History Tamsulosin [Flomax] 0.4 mg PO BID 09/26/19 09/26/19 History Valsartan 320 mg PO DAILY 09/26/19 09/26/19 History traZODone HCL 50 mg PO HS 09/26/19 09/26/19 History Allergies Allergy/AdvReac Type Severity Reaction Status Date / Time Penicillins Allergy Rash/Hives Verified 09/26/19 11:52 Physical Exam Vitals: Vital Signs Temp Pulse Resp BP BP BP Pulse Ox 09/28/19 08:00 97.5 F L 64 20 134/65 134/65 97 09/28/19 04:00 98.2 F 52 L 20 126/60 100 09/28/19 00:00 98.2 F 65 20 143/64 98 09/27/19 20:00 98.4 F 60 20 160/75 100 09/27/19 16:00 98.0 F 55 L 20 163/80 98 09/27/19 12:00 60 20 157/68 98 Intake and Output 09/27/19 09/28/19 09/28/19 22:59 06:59 14:59 Intake Total 240 240 Balance 240 240 Intake: Oral 240 240 Other: Voiding Method Toilet Toilet Toilet # Voids 2 3 Weight 123.3 kg Results - Lab Results Most recent lab results Calcium 8.9 mg/dL (8.4-10.2) 09/28/19 05:33 09/28/19 05:33 09/28/19 05:33 Assessment and Plan Plan: Assessment: 1. Acute kidney injury mostly prerenal secondary to overdiuresis. Creatinine 1.81 admission and is down to 1.29 today. No hydronephrosis noted on a kidney ultrasound. Urinalysis benign. 2. Presyncope from intravascular volume depletion. Better. Echocardiogram revealed preserved ejection fraction. No acute changes noted on brain CT. 3. Benign hypertension. Controlled. Plan: I will decrease rate of normal saline to 50 mL an hour. Can continue Diovan for now as blood pressure is controlled. Continue to hold diuretics. Avoid nephrotoxins. Continue to monitor renal function and urine output. Thank you for the consultation. I will continue to follow the patient with you during his hospital stay.
--- NOTE | 2019-09-28 11:16 | PN ---
PROGRESS NOTE Mr. Santillan is an 79-year-old male who presented with an episode of dizziness. No clear syncope occurring off the commode. He has a history of hypertension, hyperlipidemia. He is feeling better today. His breathing is stable. He denies any symptoms of chest pain. His energy is better. He denies any dizziness or palpitation. He continues to be on aspirin once a day, Plavix 75 mg daily, Diovan 160 mg daily. PHYSICAL EXAMINATION: Blood pressure 134/60 with a heart rate in the 60s. LUNGS: Clear. HEART: Regular rate and rhythm, S1, S2. No S3. No rub appreciated. ABDOMEN: Soft, nontender, obese. EXTREMITIES with no significant edema. LAB DATA: Lab data revealed BUN and creatinine 21 and 0.29, potassium 3.9. Hemoglobin of 10.8. IMPRESSION: 1. Episode of dizziness and hypotension with dehydration. 2. Worsening renal function, improving with acute kidney injury. 3. History of peripheral vascular disease. RECOMMENDATIONS: From the cardiac standpoint, we will continue present therapy. He is stable to be discharged home to be followed as an outpatient. MMODL / IJN: [id number] /
[2019-09-28 11:49] VITALS: BP 164/77; PULSE 60; RESP 55
--- NOTE | 2019-09-28 20:31 | DS ---
DISCHARGE SUMMARY DATE OF SERVICE: 09/28/2019. FINAL DIAGNOSES: 1. Generalized weakness and tiredness possibly secondary to acute renal failure. 2. Acute renal failure with acute tubular necrosis secondary to prerenal factors with dehydration. 3. No evidence of orthostatic hypotension. 4. Anemia, normocytic anemia of chronic disease. 5. Gait dysfunction. 6. Hypertension. 7. Hyperlipidemia. 8. History of sleep apnea. 9. History of peripheral vascular disease. 10.History of urinary retention. 11.History of degenerative joint disease. 12.History of appendectomy. 13.Continued ongoing nicotine dependence. DISCHARGE ADVICE AND MEDICATIONS: The patient will be discharged in stable condition with guarded prognosis. HISTORY OF PRESENT ILLNESS: This 79-year-old gentleman with a past medical history of multiple medical problems admitted with generalized weakness and tiredness, possibly secondary to acute renal failure. The patient was hydrated. Creatinine improved to 1.2. Dr. Alvarez'solitario saw the patient and recommended outpatient followup. Diuretics are being held at this time. The patient also has some weakness, but able to ambulate with some help. Outpatient PT/OT has also been suggested. The patient being followed by Dr. Kennedy in the outpatient setting. On exam, vitals are stable. Cardiovascular system: S1, S2 muffled. Nervous system: No focal deficits. DISCHARGE ADVICE AND MEDICATIONS: 1. Diet is cardiac diet. 2. Activity limited until followup. 3. Stop diuretics and potassium for now. 4. Follow up in the outpatient setting. DISCHARGE MEDICATIONS: As follows: 1. Flomax 0.4 b.i.d. 2. Oxybutynin 10 mg daily. 3. Pravastatin 40 mg p.o. daily. 4. Aspirin 81 mg daily. 5. Trazodone 50 mg q.h.s. 6. Valsartan 320 mg p.o. daily. 7. Folic acid 1 mg daily. 8. Multivitamins 1 p.o. daily. 9. Plavix 75 mg p.o. daily. 10.Tylenol 650 p.r.n. 11.Thiamine 100 mg p.o. daily. MMODL / IJN: [id number] /
== END 2019-09-28 14:25 | disposition home or self-care (01) ==
LOC: EC 10:21 → 3SCARD 13:53
PROVIDERS: ADMIT Internal Medicine; ATTEND Internal Medicine
DX: R53.1 Weakness (principal); R42 Dizziness and giddiness; N17.0 Acute kidney failure with tubular necrosis; E86.0 Dehydration; I95.9 Hypotension, unspecified; D50.0 Iron deficiency anemia secondary to blood loss (chronic); I73.9 Peripheral vascular disease, unspecified; E78.5 Hyperlipidemia, unspecified; I10 Essential (primary) hypertension; N42.9 Disorder of prostate, unspecified; G47.30 Sleep apnea, unspecified; Z99.89 Dependence on other enabling machines and devices; Z91.81 History of falling; Z86.73 Personal history of transient ischemic attack (TIA), and cerebral infarction without residual deficits; R33.9 Retention of urine, unspecified; M19.90 Unspecified osteoarthritis, unspecified site; F17.200 Nicotine dependence, unspecified, uncomplicated; Z87.440 Personal history of urinary (tract) infections; I71.9 Aortic aneurysm of unspecified site, without rupture; I44.0 Atrioventricular block, first degree; Z90.49 Acquired absence of other specified parts of digestive tract; Z96.653 Presence of artificial knee joint, bilateral; Z79.02 Long term (current) use of antithrombotics/antiplatelets; Z79.82 Long term (current) use of aspirin; Z79.899 Other long term (current) drug therapy; Z88.0 Allergy status to penicillin
CPT/HCPCS: 96360 ×2; 96361 ×3; 93005 ×2; 99285; 36415; 97116; 97161; 80053; 80048 ×2; 84443; 83605; 84484; 85025 ×2; 85610; 85730; 81003; 87040; 71046; 76770; 70450; G0378 ×3; C8929; Q9950; 93306

== ENCOUNTER 2019-11-06 12:25 | Emergency (ER) | payer MEDICARE, BC ==
[2019-11-06 12:37] VITALS: RESP 18; TEMP 97.1
[2019-11-06] MEDS ORDERED: METOCLOPRAMIDE 5 MG/ML 2 ML VIAL IVP STA (13:04)
[2019-11-06] MEDS ORDERED: diphenhydrAMINE 50 MG/ML 1 ML VIAL IVP STA (13:04)
[2019-11-06] MEDS ORDERED: KETOROLAC 30 MG/ML 1 ML VIAL IVP STA (13:04)
[2019-11-06] MEDS ORDERED: SODIUM CHLORIDE 0.9% 1,000 ML IV ONE (13:04)
[2019-11-06] MEDS ORDERED: MECLIZINE 12.5 MG TAB PO STA (13:05)
[2019-11-06 13:53] LABS: Basophils # (A) 0.1 k/uL (0-0.2); Basophils % (A) 1 %; Eosinophils # (A) 0.4 k/uL (0-0.7); Eosinophils % (A) 7 %; HCT 32.8 % (39.0-53.0); HGB 10.7 gm/dL (13.0-17.5); Hypochromasia Slight; Lymphocytes # (A) 1.6 k/uL (1.0-4.8); Lymphocytes % (A) 24 %; MCH 28.8 pg (25.0-35.0); MCHC 32.6 g/dL (31.0-37.0); MCV 88.3 fL (80.0-100.0); Mean Platelet Volume 7.3; Monocytes # (A) 0.4 k/uL (0-1.0); Monocytes % (A) 6 %; Neutrophils # (A) 3.9 k/uL (1.3-7.7); Neutrophils % (A) 60 %; Platelet Count 263 k/uL (150-450); RBC 3.71 m/uL (4.30-5.90); RDW 15.2 % (11.5-15.5); WBC 6.5 k/uL (3.8-10.6)
[2019-11-06 14:01] LABS: Calcium 7.6 mg/dL (8.4-10.2); Potassium 3.6 mmol/L (3.5-5.1)
--- NOTE | 2019-11-06 15:12 | ED ---
Dizziness HPI <Marcel Vera - Last Filed: 11/06/19 15:46> - General Source: patient, RN notes reviewed, old records reviewed Mode of arrival: ambulatory Limitations: no limitations <SheilafrankiCharleeHannah - Last Filed: 11/07/19 07:42> - General Chief Complaint: Dizziness Stated Complaint: vertigo Time Seen by Provider: 11/06/19 12:46 - History of Present Illness Initial Comments: Patient's an 79-year-old male presents emergency times a day with vertigo like dizziness 3 days after his ear is cleaned by his PCP. Patient states that he's had some unsteady gait, and reports his been intermittent. He also states he and a minor headache today. Patient states that he try Dramamine home with no relief. He is here with his and son. He did arrive via EMS. He does report that he typically uses a walker with ambulation. He denies any chest pain, shortness of breath. (Hannah Parnell) - Related Data Home Medications Medication Instructions Recorded Confirmed Aspirin [Fisher Aspirin EC] 81 mg PO DAILY 12/30/18 09/26/19 Oxybutynin Chloride [Oxybutynin 10 mg PO DAILY 04/14/19 09/26/19 Chloride ER] Pravastatin Sodium [Pravachol] 40 mg PO DAILY 04/14/19 09/26/19 Tamsulosin [Flomax] 0.4 mg PO BID 09/26/19 09/26/19 Valsartan 320 mg PO DAILY 09/26/19 09/26/19 traZODone HCL 50 mg PO HS 09/26/19 09/26/19 Previous Rx's Medication Instructions Recorded Clopidogrel [Plavix] 75 mg PO DAILY #30 tab 04/27/15 Acetaminophen Tab [Tylenol] 650 mg PO Q6HR PRN tab 09/28/19 Folic Acid 1 mg PO DAILY@1200 #30 tab 09/28/19 Multivitamins, Thera [Multivitamin 1 each PO DAILY@1200 #30 tab 09/28/19 (formulary)] Thiamine [Vitamin B-1] 100 mg PO DAILY@1200 #30 tab 09/28/19 Meclizine [Antivert] 25 mg PO TID #20 tab 11/06/19 Allergies Allergy/AdvReac Type Severity Reaction Status Date / Time Penicillins Allergy Rash/Hives Verified 11/06/19 12:37 Review of Systems ROS Other: All systems not noted in ROS Statement are negative. <Marcel Vera - Last Filed: 11/06/19 15:46> ROS Other: All systems not noted in ROS Statement are negative. <Hannah Parnell - Last Filed: 11/07/19 07:42> ROS Statement: Those systems with pertinent positive or pertinent negative responses have been documented in the HPI. Past Medical History Past Medical History: Coronary Artery Disease (CAD), Heart Failure, CVA/TIA, Hyperlipidemia, Hypertension, Prostate Disorder, Sleep Apnea/CPAP/BIPAP Additional Past Medical History / Comment(s): PAD, Right rotator cuff tear, mini stroke, urinary retention History of Any Multi-Drug Resistant Organisms: None Reported Past Surgical History: Appendectomy, Back Surgery, Joint Replacement Additional Past Surgical History / Comment(s): JOSE KNEE REPLACEMENT, KIDNEY SX AT AGE 6 Past Anesthesia/Blood Transfusion Reactions: No Reported Reaction Past Psychological History: No Psychological Hx Reported Smoking Status: Current some day smoker Past Alcohol Use History: None Reported Past Drug Use History: None Reported - Past Family History Mother Family Medical History: No Reported History, Diabetes Mellitus <Hannah Parnell - Last Filed: 11/07/19 07:42> General Exam Limitations: no limitations General appearance: alert, in no apparent distress Head exam: Present: atraumatic, normocephalic, normal inspection Eye exam: Present: normal appearance, PERRL, EOMI. Absent: scleral icterus, conjunctival injection, periorbital swelling ENT exam: Present: normal exam, mucous membranes moist, other (nystagmus R lateral gaze. Effsion in R TM. ) Neck exam: Present: normal inspection. Absent: tenderness, meningismus, lymphadenopathy Respiratory exam: Present: normal lung sounds bilaterally. Absent: respiratory distress, wheezes, rales, rhonchi, stridor Cardiovascular Exam: Present: regular rate, normal rhythm, normal heart sounds. Absent: systolic murmur, diastolic murmur, rubs, gallop, clicks GI/Abdominal exam: Present: soft, normal bowel sounds. Absent: distended, tenderness, guarding, rebound, rigid Extremities exam: Present: normal inspection Back exam: Present: normal inspection Neurological exam: Present: alert, oriented X3, CN II-XII intact Psychiatric exam: Present: normal affect, normal mood Skin exam: Present: warm, dry, intact, normal color. Absent: rash <Hannah Parnell - Last Filed: 11/07/19 07:42> Course <Marcel Vera - Last Filed: 11/06/19 15:46> Vital Signs 11/06/19 11/06/19 11/06/19 12:34 15:37 15:49 Temperature 97.1 F L 97.1 F L 97.1 F L Pulse Rate 63 68 68 Respiratory 18 18 18 Rate Blood Pressure 136/53 120/57 120/57 O2 Sat by Pulse 95 99 99 Oximetry - Reevaluation(s) Reevaluation #1: 11/06/19 15:46 PA supervision: I proceeded [id number] evaluation the patient he has had vertiginous type symptoms as have his ear cleaned out about 3 days ago. He denies any fevers chills nausea vomiting sweats workup thus far is negative he is feeling improved after Antivert was administered. We did discuss this with the patient family he will be discharged. (Marcel Vera) Medical Decision Making - Lab Data Result diagrams: 11/06/19 13:30 11/06/19 13:30 <Marcel Vera - Last Filed: 11/06/19 15:46> - Lab Data Result diagrams: 11/06/19 13:30 11/06/19 13:30 - Radiology Data Radiology results: report reviewed <Hannah Parnell - Last Filed: 11/07/19 07:42> - Medical Decision Making 79-year-old absence today for vertigo like dizziness. He does have some nystagmus on right lateral gaze. Patient at this time has effusion with right TM. Likely related to symptoms being after he had a serious cleaned by his PCP and fluid placed in the ear. Patient at this time was given a little Benadryl and Antivert. She initially had a hard time ambulating afterward and CT of the brain was ordered. After he came back from his CAT scan he try to ambulate and states he is feeling well and wanted be discharged home. He had no further dizziness. I discussed this with Dr. Vera who also examined the Patient. Will DC with antivert. Discussed PCP follow up. (Hannah Parnell) - Lab Data Lab Results 11/06/19 11/06/19 Range/Units 13:30 13:30 WBC 6.5 (3.8-10.6) k/uL RBC 3.71 L (4.30-5.90) m/uL Hgb 10.7 L (13.0-17.5) gm/dL Hct 32.8 L (39.0-53.0) % MCV 88.3 (80.0-100.0) fL MCH 28.8 (25.0-35.0) pg MCHC 32.6 (31.0-37.0) g/dL RDW 15.2 (11.5-15.5) % Plt Count 263 (150-450) k/uL Neutrophils % 60 % Lymphocytes % 24 % Monocytes % 6 % Eosinophils % 7 % Basophils % 1 % Neutrophils # 3.9 (1.3-7.7) k/uL Lymphocytes # 1.6 (1.0-4.8) k/uL Monocytes # 0.4 (0-1.0) k/uL Eosinophils # 0.4 (0-0.7) k/uL Basophils # 0.1 (0-0.2) k/uL Hypochromasia Slight Sodium 141 (137-145) mmol/L Potassium 3.6 (3.5-5.1) mmol/L Chloride 115 H (98-107) mmol/L Carbon Dioxide 20 L (22-30) mmol/L Anion Gap 6 mmol/L BUN 18 (9-20) mg/dL Creatinine 1.15 (0.66-1.25) mg/dL Est GFR (CKD-EPI)AfAm 69 (>60 ml/min/1.73 sqM) Est GFR (CKD-EPI)NonAf 60 (>60 ml/min/1.73 sqM) Glucose 84 (74-99) mg/dL Calcium 7.6 L (8.4-10.2) mg/dL 11/06/19 15:16 EKG shows sinus rhythm with first degree block. Left axis deviation. Ventricular rate of 58 bpm. His tooth 6 no seconds. Respiration is 96 no seconds. QT QTc is 432/424 ms. (Hannah Parnell) - Radiology Data Stable mild generalized atrophy especially in the central cervical atrophy causing mild ventricular prominence. Old deep white matter infarct on a sherron atment left ventricle, background of moderate patchy chronic changes of small vessel ischemic disease. No acute intracranial abnormality seen. (Hannah Parnell) Disposition <Marcel Vera - Last Filed: 11/06/19 15:46> Is patient prescribed a controlled substance at d/c from ED?: No Time of Disposition: 15:38 <SheilafrankiHannah - Last Filed: 11/07/19 07:42> Clinical Impression: Vertigo Disposition: HOME SELF-CARE Condition: Good Instructions (If sedation given, give patient instructions): Dizziness (ED) Additional Instructions: Patient should rest, remain hydrated. Use the Antivert as prescribed. Prescriptions: Meclizine [Antivert] 25 mg PO TID #20 tab Referrals: Trevor Kennedy MD [Primary Care Provider] - 1-2 days
--- NOTE | 2019-11-06 15:25 | CT ---
EXAMINATION TYPE: CT brain wo con DATE OF EXAM: 11/06/2019 COMPARISON: 09/26/2019 HISTORY: 79-year-old male ataxia, vertigo TECHNIQUE: Examination was done in axial plane without intravenous contrast. Coronal and sagittal r econstructions performed. CT DLP: 1054.4 mGycm Automated exposure control for dose reduction was used. FINDINGS: There is no evidence of acute intracranial hemorrhage, acute ischemic changes, mass, mass-effect, or extra-axial fluid collection. There is no effacement of cerebral sulci or basal subarachnoid cister ns. There is no hydrocephalus. There is no midline shift. Aden-white matter distinction is preserv ed. Mild generalized supratentorial volume loss. Stable mild ventricular prominence likely secondary to c entral cerebral atrophy. Stable moderate patchy white matter hypodensities in both cerebral hemispher es and old deep white matter infarct along the atrium of the left lateral ventricle. Scattered moderate mucosal thickening ethmoid air cells. Visualized orbits and globes appear intact a nd mastoid air cells are well pneumatized. IMPRESSION: 1. Stable mild generalized atrophy especially central cerebral atrophy causing mild ventricular promi nence. 2. 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 Background of modera te patchy changes of chronic small vessel ischemic disease. 3. No acute intracranial abnormality seen.
[2019-11-06 15:49] VITALS: BP 120/57; PULSE 68
== END 2019-11-06 15:50 | disposition home or self-care (01) ==
LOC: EC 12:25
DX: H55.09 Other forms of nystagmus (principal); H73.891 Other specified disorders of tympanic membrane, right ear; R51 Headache; I25.10 Atherosclerotic heart disease of native coronary artery without angina pectoris; I11.0 Hypertensive heart disease with heart failure; I50.9 Heart failure, unspecified; E78.5 Hyperlipidemia, unspecified; N42.9 Disorder of prostate, unspecified; G47.30 Sleep apnea, unspecified; F17.200 Nicotine dependence, unspecified, uncomplicated; Z88.0 Allergy status to penicillin; Z79.82 Long term (current) use of aspirin; Z79.899 Other long term (current) drug therapy; Z86.73 Personal history of transient ischemic attack (TIA), and cerebral infarction without residual deficits; Z99.89 Dependence on other enabling machines and devices
CPT/HCPCS: 99285; 96374; 96375 ×2; 96361; 36415; 93005; 80048; 85025; 70450; J1200; J2765; J1885

== ENCOUNTER 2020-03-05 06:17 | Day surgery (SDC) | payer MEDICARE, BC ==
[2020-03-04 09:20] VITALS: BMI 33.9
[~2020-03-05 06:17] MED LIST: SODIUM CHLORIDE 0.9% 1,000 ML in EMPTY BAG 1 BAG IV ONE
[2020-03-05] MEDS ORDERED: SODIUM CHLORIDE 0.9% 1,000 ML IV ONE (07:19)
[2020-03-05 07:22] VITALS: RESP 16; TEMP 97.7
[2020-03-05 07:24] LABS: Basophils # (A) 0.1 k/uL (0-0.2); Basophils % (A) 1 %; Eosinophils # (A) 0.4 k/uL (0-0.7); Eosinophils % (A) 6 %; HCT 36.5 % (39.0-53.0); HGB 11.8 gm/dL (13.0-17.5); Hypochromasia Slight; Lymphocytes # (A) 1.5 k/uL (1.0-4.8); Lymphocytes % (A) 22 %; MCH 28.5 pg (25.0-35.0); MCHC 32.4 g/dL (31.0-37.0); Mean Platelet Volume 7.7; Monocytes # (A) 0.5 k/uL (0-1.0); Monocytes % (A) 7 %; Neutrophils # (A) 4.3 k/uL (1.3-7.7); Neutrophils % (A) 62 %; Platelet Count 313 k/uL (150-450); RBC 4.15 m/uL (4.30-5.90); RDW 14.6 % (11.5-15.5); WBC 6.9 k/uL (3.8-10.6)
[2020-03-05] MEDS ORDERED: LIDOCAINE 1% INJ 10MG/ML (20 ML MDV) SQ ONE (07:56)
[2020-03-05] MEDS ORDERED: fentaNYL (PF) 50 MCG/ML 2 ML AMP IV ONE (07:58)
[2020-03-05] MEDS ORDERED: MIDAZOLAM 2 MG/2 ML VIAL IV ONE (07:58)
[2020-03-05] MEDS ORDERED: IOPAMIDOL-370 100ML BTL INJ ONE (08:09)
--- NOTE | 2020-03-05 08:27 | P.PCN ---
Date of Procedure: 03/05/20 Operative Findings: AN ABDOMINAL AORTOGRAM AND BILATERAL LOWER EXTREMITIES RUNOFF PERFORMING PHYSICIAN: Prieto Abdi MD PROCEDURE PERFORMED: 1. An abdominal aortogram 2. Bilateral lower extremities runoff INDICATION: This is a very pleasant 80-year-old gentleman who sees Dr. Jeronimo in the office on regular basis with peripheral arterial disease and prior angioplasty of the right SFA was experiencing recently bilateral lower extremities intermittent claudication interfering with his daily activities. He underwent an arterial duplex study and that came in to be of normal and because of that he was scheduled to undergo an aortogram with runoff COMPLICATION: None LEVEL OF SEDATION: Moderate was sedation length of moderate with sedation length of 16 minutes APPROACH: Right common femoral artery PROCEDURE DESCRIPTION: After obtaining informed consent and explaining the procedure benefits, risks, and complications, the patient was brought to the cardiac lab aid. The right groin was prepped and draped in sterile fashion. The right common femoral artery was cannulated using micropuncture technique, under ultrasound guidance. A micropuncture wire was advanced, and the micropuncture sheath was advanced over the wire, then the micropuncture sheath was exchanged over an 0.35 wire into a 5-Kinyarwanda sheath dilator assembly then the wire and dilator were removed and sheath was flushed. We did an abdominal aortogram and bilateral lower extremities runoff using 5- Kinyarwanda pigtail catheter using a power injection. The catheter was initially placed at the level of the renal arteries, and it was pulled into above the bifurcation of the aorta into right and left common iliac arteries. The procedure was completed and there was no complications. SELECTIVE PERIPHERAL ANGIOGRAM: The abdominal aorta: Appears to be calcified was mild disease only. The common iliac arteries: Calcified was mild disease only. The external iliac arteries: Are angiographically normal The internal iliac arteries: Heart patent The common femoral arteries: Both appears to have mild disease only. Superficial femoral arteries: The right SFA has mild disease only. The left SFA has multiple lesions up to about 80%. Popliteal arteries: The right popliteal has a tight lesion in the range of 70%. The left popliteal. To have [id number] disease only. Below the knees: There are three vessels run off below the knee bilaterally CONCLUSION: 1. Mild aortoiliac disease 2. Severe disease involving the right popliteal and severe disease involving the left SFA 3. Three vessels run off below the knee bilaterally POSTPROCEDURE MANAGEMENT: 1. HAMMER MILL OPERATOR of the left SFA on the right popliteal 2. Follow-up with the patient
[2020-03-05] MEDS ORDERED: SODIUM CHLORIDE 0.9% 1,000 ML IV SCH (08:30)
--- NOTE | 2020-03-05 09:38 | IR ---
EXAMINATION TYPE: IR angio abdominal w runoff DATE OF EXAM: 03/05/2020 COMPARISON: NONE HISTORY: Fluoroscopy time. Fluoroscopy was provided to the referring clinician.
[2020-03-05 16:34] VITALS: BP 151/76; PULSE 63
== END 2020-03-05 14:30 | disposition home or self-care (01) ==
LOC: CATHCVL 06:17
PROVIDERS: ATTEND Internal Medicine Interventional Cardiology
DX: I70.213 Atherosclerosis of native arteries of extremities with intermittent claudication, bilateral legs (principal); Z87.891 Personal history of nicotine dependence; I70.0 Atherosclerosis of aorta; E78.5 Hyperlipidemia, unspecified; I10 Essential (primary) hypertension; E78.00 Pure hypercholesterolemia, unspecified; E66.01 Morbid (severe) obesity due to excess calories; Z68.30 Body mass index [BMI] 30.0-30.9, adult; G47.33 Obstructive sleep apnea (adult) (pediatric); Z99.89 Dependence on other enabling machines and devices; Z79.02 Long term (current) use of antithrombotics/antiplatelets; Z79.82 Long term (current) use of aspirin; Z79.899 Other long term (current) drug therapy; Z88.0 Allergy status to penicillin
CPT/HCPCS: 36200; 75625; 75716; 80048; 85025; 87635; C1769 ×5; C1894; J2250; J2001; J3010; Q9967

== ENCOUNTER → 2020-03-22 | Outpatient (CLI) | payer MEDICARE, BC | END | disposition home or self-care (01) | LOC: LABWHC1 09:00 | PROVIDERS: ATTEND Internal Medicine Interventional Cardiology | DX: U07.1 COVID-19 (principal) | CPT/HCPCS: 87635 ==

== ENCOUNTER 2020-03-24 06:25 | Day surgery (SDC) | payer MEDICARE, BC ==
[2020-03-22 14:29] VITALS: BMI 34.2
[~2020-03-24 06:25] MED LIST changes: +ALPRAZolam 0.25 MG TAB PO PRN; +ASPIRIN 325 MG TAB PO STA; +ZOLPIDEM 5 MG TAB PO PRN
[2020-03-24] MEDS ORDERED: SODIUM CHLORIDE 0.9% 1,000 ML IV SCH (06:30)
[2020-03-24 07:19] VITALS: RESP 18; TEMP 98
[2020-03-24] MEDS ORDERED: HYDROmorphone 1 MG/ML 1 ML SYRINGE IVP ONE (08:18)
[2020-03-24] MEDS ORDERED: SODIUM CHLORIDE 0.9% 500 ML 500 ML with niCARdipine 6.25 MG, NITROGLYCERIN-D5W PMX 0.05... IV ONE ×4 (08:30)
[2020-03-24] MEDS ORDERED: MIDAZOLAM 2 MG/2 ML VIAL IVP ONE ×2 (08:33→09:13)
[2020-03-24] MEDS ORDERED: LIDOCAINE 1% INJ 10MG/ML (20 ML MDV) SQ ONE (08:38)
[2020-03-24] MEDS ORDERED: HEPARIN SODIUM 1,000 UN/ML (10ML VL) IV ONE ×2 (08:54→09:15)
[2020-03-24] MEDS ORDERED: CLOPIDOGREL 75 MG TAB PO ONE (10:00)
[2020-03-24] MEDS ORDERED: IOPAMIDOL-250 100ML BTL INTRAARTER ONE (10:00)
[2020-03-24] MEDS ORDERED: MECLIZINE 25 MG TAB PO PRN (10:58)
[2020-03-24] MEDS ORDERED: ACETAMINOPHEN TAB 325 MG TAB PO PRN (10:58)
[2020-03-24] MEDS ORDERED: SODIUM CHLORIDE 0.9% 1,000 ML in EMPTY BAG 1 BAG IV SCH (11:00)
--- NOTE | 2020-03-24 11:00 | IR ---
EXAMINATION TYPE: IR stent intravas non coronary DATE OF EXAM: 03/24/2020 CLINICAL HISTORY: Peripheral arterial disease. TECHNIQUE: Fluoroscopy. COMPARISON: None. FINDINGS: Fluoroscopic guidance was provided during angiogram with intravascular treatment procedure performed by Dr. Abdi. A total of 16 minutes of fluoroscopic time was utilized during the procedure and multiple cine runs are acquired. Please refer to procedure note for further details as I was not present nor performed procedure. IMPRESSION: As Above.
--- NOTE | 2020-03-24 11:18 | P.PCN ---
Date of Procedure: 03/24/20 Operative Findings: PERCUTANEOUS ARTERIAL PERIPHERAL INTERVENTION Performing physician Prieto Abdi MD Procedure performed 1. Successful stenting of the proximal and distal left superficial femoral artery (SFA) using 8.0 x 40 and 7.0 x 140 mm Zilver PTX drug-coated stent with an excellent angiographic results 2. Successful atherectomy of the proximal left SFA using the flores back atherectomy device 3. Intravascular ultrasound (IVUS) of the left SFA and left popliteal 4. Selective left SFA angiogram 5. Selective left posterior tibial angiogram Indication This is a pleasant 81-year-old gentleman who sees Dr. Jeronimo in the office on regular basis was peripheral arterial disease as well as hypertension and dyslipidemia who was experiencing bilateral lower extremities intermittent claudication. He underwent an angiogram recently and that revealed severe fem- pop disease bilaterally. He was brought today to undergo a INFORMATION OPERATOR of the left SFA. Approach Left posterior tibial artery Complication None Level of sedation Moderate with sedation length of 86 minutes Procedure description After obtaining an informed consent the patient was brought to the cardiac labeling specialist. The left posterior tibial artery was cannulated using micropuncture technique under ultrasound guidance, the micropuncture wire passed easily then I place a slender sheath 5/6-Bengali at the left posterior tibial artery. Subsequently I did start cocktail infusion including heparin, verapamil, and nitroglycerin continuously throughout the procedure. Also the patient was given a total of 9000 use of heparin IV. He was given 6000 is at the beginning of the procedure I additional 3000 is rule out the procedure. Please note that continuous ACT monitoring was achieved as well throughout the procedure. I did after that wire the left SFA and I advanced the wire all the way to the left iliac artery. After that I did advanced an 035C excite catheter to the level of the left SFA where I did perform an angiogram of the left SFA which revealed severe lesion at the proximal portion and intermediate to severe lesion at the distal portion. Further clarification of the severity of the lesion in the distal portion was performed using intravascular ultrasound which showed the lesion to be around 70%. At that point I did also achieve measuring the diameter of the left SFA which came in to be proximally around 7 mm and distally around 6 mm. After that I did exchange my 014 hydro-ST wire into an 014 Viber preparing for rotational atherectomy which was achieved using the flores back area I did atherectomy under local, medial, and high-speed at both the proximal and distal left SFA. After that I did balloon angioplasty using 6 mm x 18 mm balloon. The balloon was inflated slowly under its nominal pressure for 1 minute at each site. The following angiogram showed flow limiting dissection involving the proximal as well as distal left SFA which I decided to cover with a stent. In the proximal left SFA I place 8.0 x 40 mm Zilver PTX drug-coated stent and at the distal left SFA placed 7.0 x 140 mm another Zilver PTX drug- coated stent. Both stents were deployed under fluoroscopy guidance and both were postdilated using 7 mm balloon proximally and 6 mm balloon distally. The final angiogram showed excellent angiographic results. The procedure was completed without any complications Postprocedure management 1. Dual antiplatelet therapy 2. Risk factors modification 3. Follow-up with the patient
[2020-03-24 12:55] VITALS: BP 152/76; PULSE 75
[2020-03-24] MEDS ORDERED: TAMSULOSIN 0.4 MG CAP.ER.24H PO SCH (21:00)
[2020-03-24] MEDS ORDERED: traZODone HCL 50 MG TAB PO SCH (21:00)
[2020-03-25] MEDS ORDERED: PRAVASTATIN SODIUM 40 MG TAB PO SCH (09:00)
[2020-03-25] MEDS ORDERED: FUROSEMIDE 40 MG TAB PO SCH (09:00)
[2020-03-25] MEDS ORDERED: ASPIRIN 81 MG PO SCH (09:00)
[2020-03-25] MEDS ORDERED: OXYBUTYNIN 10 MG TAB.ER.24 PO SCH (09:00)
[2020-03-25] MEDS ORDERED: CLOPIDOGREL 75 MG TAB PO SCH ×2 (09:00)
[2020-03-25] MEDS ORDERED: POTASSIUM CHLORIDE ER 20 MEQ TAB.ER PO SCH (09:00)
[2020-03-25] MEDS ORDERED: VALSARTAN 160 MG TAB PO SCH (09:00)
== END 2020-03-24 14:27 | disposition home or self-care (01) ==
LOC: CATHCVL 06:25
PROVIDERS: ATTEND Internal Medicine Interventional Cardiology
DX: I70.213 Atherosclerosis of native arteries of extremities with intermittent claudication, bilateral legs (principal); I10 Essential (primary) hypertension; E78.5 Hyperlipidemia, unspecified; G47.33 Obstructive sleep apnea (adult) (pediatric); E66.01 Morbid (severe) obesity due to excess calories; E78.00 Pure hypercholesterolemia, unspecified; F17.210 Nicotine dependence, cigarettes, uncomplicated; Z79.02 Long term (current) use of antithrombotics/antiplatelets; Z79.82 Long term (current) use of aspirin; Z79.899 Other long term (current) drug therapy; Z88.0 Allergy status to penicillin; Z68.34 Body mass index [BMI] 34.0-34.9, adult
CPT/HCPCS: 37227; 37252; C1894; C1714; C1769 ×6; C1725 ×2; C1753; C1874 ×2; J2250; J1644 ×2; J2001; J1170; Q9966

== ENCOUNTER 2020-03-29 12:23 | Inpatient (IN) | payer MEDICARE, BC ==
[2020-03-29] MEDS ORDERED: MORPHINE SULFATE 4 MG/ML SYRINGE IVP STA (13:04)
--- NOTE | 2020-03-29 13:45 | US ---
EXAMINATION TYPE: US venous doppler duplex LE LT DATE OF EXAM: 03/29/2020 1:00 PM COMPARISON: NONE CLINICAL HISTORY: calf pain. SIDE PERFORMED: Left TECHNIQUE: The lower extremity deep venous system is examined utilizing real time linear array sonog sugey with graded compression, doppler sonography and color-flow sonography. VESSELS IMAGED: External Iliac Vein (EIV) Common Femoral Vein Deep Femoral Vein Greater Saphenous Vein * Femoral Vein Popliteal Vein Small Saphenous Vein * Proximal Calf Veins (* superficial vessels) Grayscale, color doppler, spectral doppler imaging performed of the deep veins of the left lower extr emity. There is normal flow, compressibility, vascular waveforms. Left Leg: Negative for DVT IMPRESSION: No sonographic evidence of deep venous thrombosis in the left lower extremity.
[2020-03-29 14:04] LABS: Basophils # (A) 0.1 k/uL (0-0.2); Basophils % (A) 1 %; Eosinophils # (A) 0.3 k/uL (0-0.7); Eosinophils % (A) 5 %; Hypochromasia Slight; Lymphocytes # (A) 1.1 k/uL (1.0-4.8); Lymphocytes % (A) 20 %; MCH 27.7 pg (25.0-35.0); MCHC 31.3 g/dL (31.0-37.0); MCV 88.5 fL (80.0-100.0); Mean Platelet Volume 7.5; Monocytes # (A) 0.3 k/uL (0-1.0); Monocytes % (A) 6 %; Neutrophils # (A) 3.8 k/uL (1.3-7.7); Neutrophils % (A) 66 %; Platelet Count 275 k/uL (150-450); RDW 15.2 % (11.5-15.5); WBC 5.7 k/uL (3.8-10.6)
[2020-03-29 14:14] LABS: Prothrombin Time 10.4 sec (9.0-12.0)
[2020-03-29 14:15] LABS: Albumin 3.3 g/dL (3.5-5.0); HGB 9.7 gm/dL (13.0-17.5); Partial Thromboplastin Time 25.5 sec (22.0-30.0); Potassium 4.8 mmol/L (3.5-5.1); Total Bilirubin 0.4 mg/dL (0.2-1.3); Total Protein 6.1 g/dL (6.3-8.2)
[2020-03-29] MEDS ORDERED: NALOXONE 0.4 MG/ML 1 ML VIAL IV PRN (14:51)
[2020-03-29] MEDS ORDERED: MORPHINE SULFATE 4 MG/ML SYRINGE IV PRN (14:51)
--- NOTE | 2020-03-29 14:54 | ED ---
Extremity Problem HPI - General Chief complaint: Extremity Problem,Nontraumatic Stated complaint: Leg Pain Time Seen by Provider: 03/29/20 12:47 Source: EMS Mode of arrival: EMS Limitations: no limitations - History of Present Illness Initial comments: 80-year-old male with history of PAD with recent SFA stent by Dr. Avilez presenting today for cc of left calf pain. She states that he hada pain after surgery and has been doing well he denies any groin pain or bruising he does abdominal pain. Patient has a course of pallor of his lower extremities however he states that the past 2 days he has noticed left calf pain he states is very difficult to walk secondary to pain he states he has felt more weak since his discharge from the surgery is concerned he may need rehabilitation have to go to a subacute rehab. Patient denies any chest pain shortness of breath he denies any leg redness patient denies any fevers. Patient is no additional complaints upon arrival he appears well signs of acute distress. - Related Data Home Medications Medication Instructions Recorded Confirmed Aspirin [Severy Aspirin EC] 81 mg PO DAILY 12/30/18 03/29/20 Oxybutynin Chloride [Oxybutynin 10 mg PO DAILY 04/14/19 03/29/20 Chloride ER] Pravastatin Sodium [Pravachol] 40 mg PO DAILY 04/14/19 03/29/20 Tamsulosin [Flomax] 0.4 mg PO BID 09/26/19 03/29/20 Valsartan 320 mg PO DAILY 09/26/19 03/29/20 traZODone HCL 50 mg PO HS 09/26/19 03/29/20 Furosemide [Lasix] 40 mg PO DAILY 03/04/20 03/29/20 Potassium Chloride [Klor-Con 20] 40 meq PO DAILY 03/04/20 03/29/20 Previous Rx's Medication Instructions Recorded Clopidogrel [Plavix] 75 mg PO DAILY #30 tab 04/27/15 Acetaminophen Tab [Tylenol] 650 mg PO Q6HR PRN tab 09/28/19 Allergies Allergy/AdvReac Type Severity Reaction Status Date / Time Penicillins Allergy Rash/Hives Verified 03/29/20 16:37 Review of Systems ROS Statement: Those systems with pertinent positive or pertinent negative responses have been documented in the HPI. ROS Other: All systems not noted in ROS Statement are negative. Past Medical History Past Medical History: Coronary Artery Disease (CAD), Heart Failure, CVA/TIA, Hyperlipidemia, Hypertension, Musculoskeletal Disorder, Prostate Disorder, Sleep Apnea/CPAP/BIPAP, Vascular Disorder Additional Past Medical History / Comment(s): Hx PAD, hx Rt rotator cuff tear, Mini stroke 2014, urinary retention. Painful to walk, N/T BLE, hx falls; fallen arch lt foot. N/T lt hand. Uses CPAP History of Any Multi-Drug Resistant Organisms: None Reported Past Surgical History: Appendectomy, Back Surgery, Joint Replacement Additional Past Surgical History / Comment(s): Laminectomy. JOSE KNEE REPLACEMENT. KIDNEY SX AT AGE 6. Lt leg PTBA 2015. Lt CTR. Past Anesthesia/Blood Transfusion Reactions: No Reported Reaction Past Psychological History: No Psychological Hx Reported Smoking Status: Current some day smoker - Past Family History Mother Family Medical History: No Reported History, Diabetes Mellitus General Exam - General Exam Comments Initial Comments: General: The patient is awake and alert, in no distress Eye: +3 mm pupils are equal, round and reactive to light, extra-ocular movements are intact. No nystagmus. There is normal conjunctiva bilaterally. No signs of icterus. Ears, nose, mouth and throat: There are moist mucous membranes and no oral lesions. Neck: The neck is supple, there is no tenderness or JVD. Cardiovascular: There is a regular rate and rhythm. No murmur, rub or gallop is appreciated. Respiratory: Lungs are clear to auscultation, respirations are non-labored, breath sounds are equal. No wheezes, stridor, rales, or rhonchi. Gastrointestinal: Soft, non-distended, non-tender abdomen without masses or organomegaly noted. There is no rebound or guarding present. Musculoskeletal: Normal ROM, no tenderness. Strength 5/5. Sensation intact. PT, DP, femoral and popliteal pulses strong on doppler. No obvious biphasic pattern. No bruising or pain to palpation of groin. Mid calf pain, b/l mild LE swelling. NO redness. Neurological: A&O x 3. CN II-XII intact grossly, There are no obvious motor or sensory deficits. Coordination appears grossly intact. Speech is normal. Skin: Skin is warm and dry and no rashes or lesions are noted. Psychiatric: Cooperative, appropriate mood & affect, normal judgment. Limitations: no limitations Course Vital Signs 05/25/20 05/25/20 12:48 15:51 Temperature 98.2 F 98.2 F Pulse Rate 76 93 Respiratory 16 20 Rate Blood Pressure 130/51 164/64 O2 Sat by Pulse 98 90 L Oximetry Medical Decision Making - Medical Decision Making 80-year-old male presents today for chief complaint of left calf pain. Pain with calf. NEGATIVE FOR DVT. PATIENT HAS STRONG PULSES WARM WELL PERFUSED APPEARING EXTREMITIES. NO GROIN PAIN OR BRUISING. No abdominal pain. Pt appears de-conditioned concern with patient poor ability to ambulate. Patient will be admitted for social work consultation. Patient case discussed wtih DR. Rivas who did an assessment of patient and feels this is calf strain at this time. He is agreeable to this admission. Dr. Gaming accepted. - Lab Data Result diagrams: 03/29/20 Unknown 03/29/20 Unknown Disposition Clinical Impression: Left leg pain, Unable to ambulate Disposition: ADMITTED IP TO THIS [facility] Condition: Stable Is patient prescribed a controlled substance at d/c from ED?: No Time of Disposition: 14:53 Decision to Admit Reason: Admit from EC Decision Date: 03/29/20 Decision Time: 14:53
[2020-03-29] MEDS ORDERED: VALSARTAN 160 MG TAB PO SCH (20:00)
--- NOTE | 2020-03-29 21:16 | XR ---
EXAMINATION TYPE: XR ankle complete LT DATE OF EXAM: 03/29/2020 COMPARISON: 12/30/2018 HISTORY: Pain TECHNIQUE: 3 views FINDINGS: There is soft tissue swelling around the ankle joint. I see no fracture nor dislocation. Th ere is eversion deformity of the hindfoot. The ankle mortise is anatomic. IMPRESSION: Hindfoot eversion deformity unchanged compared to old exam. No fracture seen.
--- NOTE | 2020-03-29 21:18 | XR ---
EXAMINATION TYPE: XR foot complete LT DATE OF EXAM: 03/29/2020 COMPARISON: NONE HISTORY: Pain and swelling TECHNIQUE: 3 views FINDINGS: There is a mild pes planus. There is soft tissue swelling of the forefoot. There is a later al dislocation of the navicular in relation to the talus. Metatarsals are intact. There are no erosio ns. IMPRESSION: There is a lateral talonavicular joint dislocation or subluxation deformity. Soft tissue swelling of the forefoot. eversion deformity of the hindfoot. No fracture seen.
--- NOTE | 2020-03-29 21:20 | XR ---
EXAMINATION TYPE: XR tibia fibula LT DATE OF EXAM: 03/29/2020 COMPARISON: NONE HISTORY: Pain and swelling TECHNIQUE: 4 views FINDINGS: There is right knee prosthesis. I see no fracture nor dislocation. There is vascular calcif ication. Ankle joint is anatomic. There is soft tissue swelling over the lateral malleolus. IMPRESSION: No fracture seen. Soft tissue swelling.
[2020-03-29] MEDS: COLCHICINE 0.6 MG EACH PO SCH (21:26)
[2020-03-29] MEDS: methylPREDNISolone SOD SUCCI 125 MG/2 ML VIAL IV SCH (21:26)
[2020-03-29] MEDS: traZODone HCL 50 MG TAB PO SCH (21:26)
[2020-03-29] MEDS: TAMSULOSIN 0.4 MG CAP.ER.24H PO SCH (21:27)
[2020-03-29] MEDS: HEPARIN SODIUM,PORCINE 5,000 UNIT/ML 1 ML VIAL SQ SCH (21:28)
[2020-03-29 21:30] LABS: Glucose,Whole Blood 80 mg/dL (75-99)
[2020-03-29 21:35] LABS: C Reactive Protein 22.6 mg/L (<10.0); Uric Acid 9.2 mg/dL (3.5-8.5)
--- NOTE | 2020-03-29 21:39 | HP ---
HISTORY AND PHYSICAL DATE OF SERVICE: 03/29/2020 CHIEF COMPLAINT: Left leg pain and difficulty walking. HISTORY OF PRESENT ILLNESS: This 80-year-old gentleman with a past medical history of multiple medical problems including history of CAD, history of CHF, CVA, hypertension, hyperlipidemia, history of prostate disorder, history of peripheral vascular disease, being followed by Dr. Trevor Kennedy in the outpatient setting, recently underwent procedure for a peripheral vascular disease, angioplasty of the SFA by Dr. Abdi. The patient is doing fine, but subsequently patient had calf pain and patient has also had swelling of the foot on the left side and the patient came to [facility] and was admitted for further evaluation. Patient had two ultrasounds which are negative at this time. There is no history of fever, rigors. No history of headache, loss of consciousness, seizures. PAST MEDICAL HISTORY: History of recent SFA angioplasty, history of CAD, CHF, CVA, TIA, hypertension, hyperlipidemia, history of CPAP, sleep apnea, history of appendectomy, back surgery, DJD, history of nicotine dependence. MEDICATIONS: Home medications are: 1. Valsartan 320 mg p.o. daily. 2. Trazodone 50 mg q.h.s. 3. Flomax 0.4 b.i.d. 4. Pravachol 40 mg p.o. daily. 5. Klor-Con 40 mEq p.o. daily. 6. Oxybutynin 10 mg p.o. 7. Lasix 40 mg p.o. daily. 8. Plavix 75 mg p.o. daily. 9. Aspirin 81 mg p.o. daily. 10.Tylenol 650 q.6h p.r.n. ALLERGIES: PENICILLIN. FAMILY HISTORY: History of diabetes in the family. SOCIAL HISTORY: History of smoking, continued ongoing. REVIEW OF SYSTEMS: ENT: Diminished hearing. Diminished vision. CARDIOVASCULAR: No angina. Respirations: No cough or hemoptysis. GI no nausea or vomiting. no dysuria. Nervous system: No numbness or weakness. Allergy/Immunology: No asthma or hayfever. Musculoskeletal as mentioned earlier. Hematology/Oncology: No history of anemia. Endocrine: No history of diabetes or hypothyroidism. Constitutional: As mentioned earlier. DERMATOLOGY: Negative. RHEUMATOLOGY negative. PSYCHIATRY as mentioned earlier. PHYSICAL EXAMINATION: Alert and oriented x2. Pulse is 93, blood pressure 160/64, respiration 20, temperature 98.2, pulse ox 98% on room air. HEENT: Conjunctivae normal. Oral mucosa moist. Neck is no jugular venous distention. No carotid bruit. No lymph node enlargement. Cardiovascular: S1, S2 muffled. RESPIRATIONS: Breath sounds diminished in the bases. No rhonchi. No crackles. ABDOMEN: Soft. Obese, nontender. LEGS: Bilateral knee arthroplasty and bruise also present. Swelling of the left calf and movements of the left foot and left ankle joints are painful, left ankle joint swelling also present. NERVOUS SYSTEM: Higher functions as mentioned earlier. Moves all 4 limbs. No focal motor or sensory deficits. LYMPHATICS: No lymph nodes palpable in the neck, axillae or groin. SKIN: No ulcer. JOINTS no active deforming arthropathy. LABS: WBC 5.6, hemoglobin 9.7, otherwise creatinine is 1.37. ASSESSMENT: 1. Pain and swelling of the left ankle with severe gait dysfunction, rule out sprain. 2. Possible acute gout. 3. History of recent angioplasty to the SFA on the left leg with peripheral vascular disease. 4. Increased creatinine with chronic kidney disease stage III. 5. Anemia, normocytic anemia of chronic disease. 6. History of coronary artery disease. 7. History of congestive heart failure ejection fraction unknown. 8. History of cerebrovascular accident, transient ischemic attack. 9. Hypertension. 10.Hyperlipidemia. 11.History of degenerative joint disease. 12.History of sleep apnea. 13.History of peripheral vascular disease. 14.History of transient ischemic attacks. 15.History urinary retention. 16.History of back surgery/degenerative joint disease. 17.History of continued ongoing nicotine dependence. 18.FULL CODE. 19.Obesity with body mass index of 34. RECOMMENDATIONS AND DISCUSSION: This 80-year-old gentleman who presented with multiple complex medical issues, we will monitor the patient closely. Continue the current medications, and treatment. Otherwise at this time I recommend to continue the current medications. Symptomatic treatment for pain. PT/OT evaluation. I would recommend [place] and as well as p.r.n. Dilaudid and basic investigations. Treat empirically for gout. Orthopedic evaluation. The patient has significant gait dysfunction with multiple complex medical issues including history of CVI. I would strongly recommend the patient to be a full admit which requires more than 2 midnights stay in the hospital and as well as PT/ OT evaluation, possible ECF rehab also. Once again the patient has significant difficulties with pain and swelling, which is at this moment is undiagnosed and he will require more evaluations. We will await orthopedic evaluation before we order scans. I will start with a plain x-rays of the ankle and leg and continue to monitor. A copy of this dictation being forwarded to Dr. Trevor Kennedy who is the primary physician. MMODL / IJN: [id number] /
[2020-03-29] MEDS: INSULIN ASPART (NovoLOG) 100 UNIT/ML VIAL SQ SCH (21:43)
[2020-03-30] MEDS: methylPREDNISolone SOD SUCCI 125 MG/2 ML VIAL IV SCH ×5 (01:15→23:43)
[2020-03-30] MEDS: SODIUM CHLORIDE 0.9% 1,000 ML IV SCH ×2 (05:59→12:41)
[2020-03-30 06:59] LABS: Glucose,Whole Blood 131 mg/dL (75-99)
[2020-03-30 07:41] LABS: Basophils % (A) 1 %; Eosinophils # (A) 0.1 k/uL (0-0.7); Eosinophils % (A) 1 %; HCT 31.5 % (39.0-53.0); HGB 9.9 gm/dL (13.0-17.5); Hypochromasia Moderate; Lymphocytes # (A) 0.4 k/uL (1.0-4.8); Lymphocytes % (A) 8 %; MCH 28.2 pg (25.0-35.0); MCHC 31.6 g/dL (31.0-37.0); MCV 89.3 fL (80.0-100.0); Mean Platelet Volume 7.2; Monocytes # (A) 0.1 k/uL (0-1.0); Monocytes % (A) 2 %; Neutrophils # (A) 4.8 k/uL (1.3-7.7); Neutrophils % (A) 89 %; Platelet Count 271 k/uL (150-450); RBC 3.53 m/uL (4.30-5.90); RDW 14.7 % (11.5-15.5); WBC 5.4 k/uL (3.8-10.6)
[2020-03-30 07:51] LABS: Calcium 8.9 mg/dL (8.4-10.2); Potassium 4.8 mmol/L (3.5-5.1)
[2020-03-30] MEDS: INSULIN ASPART (NovoLOG) 100 UNIT/ML VIAL SQ SCH ×4 (08:03→20:56)
[2020-03-30] MEDS: FUROSEMIDE 40 MG TAB PO SCH (08:04)
[2020-03-30] MEDS: CLOPIDOGREL 75 MG TAB PO SCH (08:04)
[2020-03-30] MEDS: POTASSIUM CHLORIDE ER 20 MEQ TAB.ER PO SCH (08:04)
[2020-03-30] MEDS: ASPIRIN 81 MG PO SCH (08:04)
[2020-03-30] MEDS: HEPARIN SODIUM,PORCINE 5,000 UNIT/ML 1 ML VIAL SQ SCH ×2 (08:04→20:56)
[2020-03-30] MEDS: OXYBUTYNIN 10 MG TAB.ER.24 PO SCH (08:05)
[2020-03-30] MEDS: PRAVASTATIN SODIUM 40 MG TAB PO SCH (08:05)
[2020-03-30] MEDS: TAMSULOSIN 0.4 MG CAP.ER.24H PO SCH ×2 (08:05→20:56)
[2020-03-30] MEDS: COLCHICINE 0.6 MG EACH PO SCH ×2 (08:05→20:56)
[2020-03-30] MEDS: VALSARTAN 160 MG TAB PO SCH (08:05)
--- NOTE | 2020-03-30 09:17 | P.CNOR ---
History of Present Illness - [facility] Consult date: 03/30/20 History of present illness: The patient is a very pleasant 80-year-old male with multiple medical problems who was admitted with left leg pain and swelling and an inability to ambulate. Orthopedics was consulted due to calf, ankle, and foot pain. The patient recently had a vascular procedure done by Dr. Avilez. The patient has had int ermittent left ankle and foot pain over the years, but nothing too severe recently. His calf pain started after his vascular procedure. At the time of my evaluation this morning he is complaining of mild calf pain. It is mostly with activity and is minimal at rest. Past Medical History Past Medical History: Coronary Artery Disease (CAD), Heart Failure, CVA/TIA, Hyperlipidemia, Hypertension, Musculoskeletal Disorder, Prostate Disorder, Sleep Apnea/CPAP/BIPAP, Vascular Disorder Additional Past Medical History / Comment(s): Hx PAD, hx Rt rotator cuff tear, Mini stroke 2014, urinary retention. Painful to walk, N/T BLE, hx falls; fallen arch lt foot. N/T lt hand. Uses CPAP History of Any Multi-Drug Resistant Organisms: None Reported Past Surgical History: Appendectomy, Back Surgery, Joint Replacement Additional Past Surgical History / Comment(s): Laminectomy. JOSE KNEE REPLACEMENT. KIDNEY SX AT AGE 6. Lt leg PTBA 2014. Lt CTR. Past Anesthesia/Blood Transfusion Reactions: No Reported Reaction Past Psychological History: No Psychological Hx Reported Smoking Status: Current some day smoker - Past Family History Mother Family Medical History: No Reported History, Diabetes Mellitus Medications and Allergies Home Medications Medication Instructions Recorded Confirmed Type Clopidogrel [Plavix] 75 mg PO DAILY #30 tab 04/27/15 03/29/20 Rx Aspirin [[place] Aspirin EC] 81 mg PO DAILY 12/30/18 03/29/20 History Oxybutynin Chloride [Oxybutynin 10 mg PO DAILY 04/14/19 03/29/20 History Chloride ER] Pravastatin Sodium [Pravachol] 40 mg PO DAILY 04/14/19 03/29/20 History Tamsulosin [Flomax] 0.4 mg PO BID 09/26/19 03/29/20 History Valsartan 320 mg PO DAILY 09/26/19 03/29/20 History traZODone HCL 50 mg PO HS 09/26/19 03/29/20 History Acetaminophen Tab [Tylenol] 650 mg PO Q6HR PRN tab 09/28/19 03/29/20 Rx Furosemide [Lasix] 40 mg PO DAILY 03/04/20 03/29/20 History Potassium Chloride [Klor-Con 20] 40 meq PO DAILY 03/04/20 03/29/20 History Allergies Allergy/AdvReac Type Severity Reaction Status Date / Time Penicillins Allergy Rash/Hives Verified 03/29/20 16:37 Physical Examination The patient is sitting comfortably in a chair next to his bed. He is alert and able to answer questions. He demonstrate nonlabored breathing with symmetric chest expansion. His abdomen is obese. A focused examination of the left leg was conducted. On inspection there is an anterior incision over the knee from prior total knee arthroplasty. There is no erythema, warmth, or fusion. The knee is minimally tender. The patient has moderate tenderness with compression of the posterior calf. The Is soft and compressible. Distally the patient has a positive planovalgus foot deformity with a superficial abrasion over the medial aspect of the midfoot. There are no open wounds. There is no tenderness throughout the ankle or foot. Results X-rays of the tibia, ankle, and foot were reviewed. X-rays of the ankle and foot were nonweightbearing. X-rays of the left tibia show a total knee arthroplasty in place without evidence of fracture or loosening. There are no fractures noted in the tibia. X-rays of the ankle and foot show a marked pes planovalgus foot deformity with significant uncoverage of the talar head. - Labs Labs: Abnormal Lab Results - Last 24 Hours (Table) 03/29/20 03/29/20 03/29/20 Range/Units 13:59 13:59 Unknown RBC 3.50 L (4.30-5.90) m/uL Hgb 9.7 L D (13.0-17.5) gm/dL Hct 31.0 L (39.0-53.0) % Lymphocytes # (1.0-4.8) k/uL ESR 54 H (0-15) mm/hr Chloride (98-107) mmol/L Carbon Dioxide (22-30) mmol/L BUN (9-20) mg/dL Creatinine (0.66-1.25) mg/dL Glucose (74-99) mg/dL POC Glucose (mg/dL) (75-99) mg/dL Uric Acid 9.2 H (3.5-8.5) mg/dL C-Reactive Protein 22.6 H (<10.0) mg/L Total Protein (6.3-8.2) g/dL Albumin (3.5-5.0) g/dL 03/29/20 03/30/20 03/30/20 Range/Units Unknown 06:59 07:12 RBC 3.53 L (4.30-5.90) m/uL Hgb 9.9 L (13.0-17.5) gm/dL Hct 31.5 L (39.0-53.0) % Lymphocytes # 0.4 L (1.0-4.8) k/uL ESR (0-15) mm/hr Chloride 110 H (98-107) mmol/L Carbon Dioxide (22-30) mmol/L BUN 21 H (9-20) mg/dL Creatinine 1.37 H (0.66-1.25) mg/dL Glucose 102 H (74-99) mg/dL POC Glucose (mg/dL) 131 H (75-99) mg/dL Uric Acid (3.5-8.5) mg/dL C-Reactive Protein (<10.0) mg/L Total Protein 6.1 L (6.3-8.2) g/dL Albumin 3.3 L (3.5-5.0) g/dL 03/30/20 Range/Units 07:12 RBC (4.30-5.90) m/uL Hgb (13.0-17.5) gm/dL Hct (39.0-53.0) % Lymphocytes # (1.0-4.8) k/uL ESR (0-15) mm/hr Chloride 109 H (98-107) mmol/L Carbon Dioxide 21 L (22-30) mmol/L BUN (9-20) mg/dL Creatinine (0.66-1.25) mg/dL Glucose 123 H (74-99) mg/dL POC Glucose (mg/dL) (75-99) mg/dL Uric Acid (3.5-8.5) mg/dL C-Reactive Protein (<10.0) mg/L Total Protein (6.3-8.2) g/dL Albumin (3.5-5.0) g/dL H & H 03/29/20 03/30/20 Range/Units Unknown 07:12 Hgb 9.7 L D 9.9 L (13.0-17.5) gm/dL Hct 31.0 L 31.5 L (39.0-53.0) % Coagulation 03/29/20 Range/Units Unknown INR 1.0 (<1.2) Result Diagrams: 03/30/20 07:12 03/30/20 07:12 Assessment and Plan (1) Left leg pain Current Visit: Yes Status: Acute Code(s): M79.605 - PAIN IN LEFT LEG SNOMED Code(s): 328921939 (2) Unable to ambulate Current Visit: Yes Status: Acute Code(s): R26.2 - DIFFICULTY IN WALKING, NOT ELSEWHERE CLASSIFIED SNOMED Code(s): 531294542 (3) Difficulty walking Current Visit: No Status: Acute Code(s): R26.2 - DIFFICULTY IN WALKING, NOT ELSEWHERE CLASSIFIED SNOMED Code(s): 798239024 Plan: The majority of the patient's leg pain is in his calf. I do not see any acute fractures or other structural pathology on his x-rays that would necessitate weightbearing restriction and certainly nothing that would require acute surgery . I recommend mobilization with physical therapy and local modalities to his leg. I would also recommend evaluation by Dr. Abdi to see if the calf pain is sequelae from his vascular procedure. We discussed getting a tall boot, but both agree that this would pose a fall risk. If he continues to have significant pain that prevents ambulation we can order a boot. If his leg pain worsens we could get advanced imaging. Orthopedics will otherwise sign off and follow peripherally. Time with Patient: Greater than 30
[2020-03-30 11:25] LABS: Glucose,Whole Blood 195 mg/dL (75-99)
--- NOTE | 2020-03-30 16:47 | XR ---
EXAMINATION TYPE: XR chest 1V portable DATE OF EXAM: 03/30/2020 COMPARISON: 09/26/2019 HISTORY: Congestive heart failure and shortness of breath. TECHNIQUE: Single frontal view of the chest is obtained. FINDINGS: No pulmonary vascular congestion seen. Increasing size of the right upper lobe known pulmo nary mass. There is no focal air space opacity, pleural effusion, or pneumothorax seen. The cardiac silhouette size is within normal limits. Tortuosity of the descending thoracic aorta. Advanced degene rative change of the right shoulder and postsurgical change of the left shoulder. The osseous struct ures are intact. IMPRESSION: Increasing size of the known right upper lobe mass. No radiographic sequela of decompens ated congestive heart failure.
[2020-03-30 17:09] LABS: Glucose,Whole Blood 170 mg/dL (75-99)
[2020-03-30 18:09] LABS: Appearance,Urine Clear (Clear); Bilirubin,Urine Negative (Negative); Blood,Urine Negative (Negative); Color,Urine Yellow; Glucose,Urine (UA) Negative (Negative); Ketones,Urine Negative (Negative); Leukocyte Esterase,Urine Negative (Negative); Nitrite,Urine Negative (Negative); PH, Urine 5.5 (5.0-8.0); Protein,Urine Negative (Negative); Specific Gravity,Urine 1.019 (1.001-1.035); Urobilinogen,Urine <2.0 mg/dL (<2.0)
--- NOTE | 2020-03-30 20:52 | PN ---
PROGRESS NOTE DATE OF SERVICE: 03/30/2020 This 80-year-old gentleman who was admitted with pain and swelling of the left ankle also had significant gait dysfunction. The patient was suspected to have acute gout, being treated for acute gout. X-ray series was done for ankle and foot which showed some hindfoot eversion deformity which is unchanged. Lateral talonavicular dislocation subluxation was noted. Tibial-fibular x-ray showed no fracture. Dr. Wright is following the patient closely and recommended mobilization and physical therapy also. He also recommended evaluation by Dr. Abdi. The patient is being closely monitored. Past medical history reviewed. REVIEW OF SYSTEMS: CARDIOVASCULAR SYSTEM: No angina, palpitations. RESPIRATORY SYSTEM: As mentioned earlier. GI: As mentioned earlier. : No dysuria or retention. NERVOUS SYSTEM: No numbness, weakness. CURRENT MEDICATIONS: 1. [place] 5 mg q.6 p.r.n. 2. Aspirin 81 mg. 3. Plavix 75 mg p.o. daily. 4. Colcrys 0.6 b.i.d. 5. Lasix 40 mg daily. 6. Heparin. 7. NovoLog. 8. Solu-Medrol 60 IV q.6. 9. Morphine. 10.Narcan. 11.Ditropan XL. 12.K-Dur. 13.Pravachol. 14.Flomax. 15.Restoril. 16.Diovan. PHYSICAL EXAMINATION: Patient is alert oriented x3. Pulse 65, blood pressure 165/74, respirations 17, temperature 98.4, pulse ox 96% on room air. HEENT: Conjunctivae normal. NECK: No jugular venous distention. CARDIOVASCULAR SYSTEM: S1, S2 muffled. RESPIRATORY SYSTEM: Breath sounds diminished at the bases. No rhonchi. No crackles. ABDOMEN: Soft, non-tender. LEGS: Left leg swelling and erythema present. NERVOUS SYSTEM: No focal deficit. LABS: WBC 5.6, hemoglobin 9.9 and glucose 123. ASSESSMENT: 1. Pain and swelling of the left ankle with severe gait dysfunction, possibly acute gout. 2. Possible lateral talonavicular joint dislocation or subluxation deformity. 3. History of recent angioplasty of the superficial femoral artery of the left leg with peripheral vascular disease. 4. Possible acute renal failure. 5. Increased creatinine with chronic kidney disease, stage III. 6. Anemia, normocytic anemia of chronic disease. 7. History of coronary artery disease. 8. History of congestive heart failure, ejection fraction unknown. 9. History of cerebrovascular accident, transient ischemic attack. 10.Hypertension. 11.Hyperlipidemia. 12.Degenerative joint disease. 13.History of sleep apnea. 14.History of peripheral vascular disease. 15.History of transient ischemic attack. 16.History of urinary retention. 17.History of back surgery, degenerative joint disease. 18.History of continued ongoing nicotine dependence. 19.Obesity with body mass index of 34. 20.FULL CODE. RECOMMENDATIONS AND DISCUSSION: I recommend to continue current medications, continue with the monitoring, symptomatic treatment. I recommend a CT scan of the ankle. Repeat labs. Creatinine has improved. Coronavirus is negative. Guarded prognosis. Further recommendations to follow. See orders for further details. I would also recommend a chest x-ray to complete the workup as well. The ESR is 54. Uric acid 9.2. Will continue to monitor. MMODL / IJN: [id number] /
[2020-03-30 20:54] LABS: Glucose,Whole Blood 166 mg/dL (75-99)
[2020-03-30] MEDS: HYDROcodone/APAP 5-325MG 1 EACH TAB PO PRN (20:57)
[2020-03-30] MEDS: traZODone HCL 50 MG TAB PO SCH (20:57)
--- NOTE | 2020-03-30 21:32 | CT ---
CT scan of the left foot and ankle. History fracture. Pain. Comparison none. FINDINGS: Multiple axial sections were obtained from the distal tibia to the bottom of the foot without contras t. FINDINGS: Ankle mortise is anatomic. There is some minimal calcification at the medial malleolus consistent wit h old ligamentous injury. There are small degenerative cysts in the talus. There are small degenerati ve cysts in the subtalar joint. There is 13 mm cystic area in the navicular. There is lateral subluxa tion or dislocation of the navicular in relation to the talus. There is severe narrowing of the dyan avicular joint space with spurring. Calcaneal cuboidal joint is fairly normal. There is small plantar calcaneal spur. There is soft tissue swelling and subcutaneous edema of the forefoot mainly on the d orsum of the foot. The metatarsals appear intact. The IP joint spaces are fairly normal. MP joint spa dilip are fairly normal. IMPRESSION: Osteoarthritic changes in the mid foot. 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 There is eversion deformity of the hindfoot On the coronal images.. No bone destruction seen to suggest osteomyelitis. No fracture seen.
[2020-03-31] MEDS: methylPREDNISolone SOD SUCCI 125 MG/2 ML VIAL IV SCH ×3 (05:47→19:36)
[2020-03-31 07:09] LABS: Glucose,Whole Blood 146 mg/dL (75-99)
[2020-03-31] MEDS: HEPARIN SODIUM,PORCINE 5,000 UNIT/ML 1 ML VIAL SQ SCH ×2 (08:14→21:15)
[2020-03-31] MEDS: INSULIN ASPART (NovoLOG) 100 UNIT/ML VIAL SQ SCH ×4 (08:14→21:15)
[2020-03-31] MEDS: OXYBUTYNIN 10 MG TAB.ER.24 PO SCH (08:15)
[2020-03-31] MEDS: VALSARTAN 160 MG TAB PO SCH (08:15)
[2020-03-31] MEDS: ASPIRIN 81 MG PO SCH (08:15)
[2020-03-31] MEDS: POTASSIUM CHLORIDE ER 20 MEQ TAB.ER PO SCH (08:15)
[2020-03-31] MEDS: COLCHICINE 0.6 MG EACH PO SCH ×2 (08:15→21:15)
[2020-03-31] MEDS: CLOPIDOGREL 75 MG TAB PO SCH (08:15)
[2020-03-31] MEDS: FUROSEMIDE 40 MG TAB PO SCH (08:15)
[2020-03-31] MEDS: TAMSULOSIN 0.4 MG CAP.ER.24H PO SCH ×2 (08:16→21:15)
[2020-03-31] MEDS: PRAVASTATIN SODIUM 40 MG TAB PO SCH (08:16)
[2020-03-31 08:47] LABS: Basophils % (A) 0 %; Eosinophils % (A) 0 %; HCT 32.1 % (39.0-53.0); HGB 10.2 gm/dL (13.0-17.5); Hypochromasia Moderate; Lymphocytes # (A) 0.6 k/uL (1.0-4.8); Lymphocytes % (A) 6 %; MCH 28.7 pg (25.0-35.0); MCHC 31.9 g/dL (31.0-37.0); Mean Platelet Volume 7.3; Monocytes # (A) 0.4 k/uL (0-1.0); Monocytes % (A) 3 %; Neutrophils # (A) 10.1 k/uL (1.3-7.7); Neutrophils % (A) 90 %; Platelet Count 294 k/uL (150-450); RBC 3.56 m/uL (4.30-5.90); RDW 14.9 % (11.5-15.5); WBC 11.2 k/uL (3.8-10.6)
--- NOTE | 2020-03-31 08:59 | P.CRDCN ---
History of Present Illness History of present illness: HISTORY OF PRESENTING ILLNESS This is a pleasant 80-year-old male past medical history significant for peripheral vascular disease status post recent SFA stent placement and atherectomy, hypertension, dyslipidemia, obstructive sleep apnea and obesity. He follows in the office with Dr. Jeronimo. We have been asked to see in consultation for evaluation of recent femoral stent placement. He presented to the hospital with symptoms of bilateral leg pain and increased weakness. Acc ording to the patient he is unable to maintain at home and thinks he may need inpatient rehabilitation. He complains of pain to the foot and ankle that has been intermittent and ongoing for a couple years. He denies pain in the groins bilaterally. He has no chest pain, dizziness, palpitations or shortness of breath. On March 24 and he underwent successful stenting of the proximal and distal left superficial femoral artery with a drug eluding stent, atherectomy of the proximal left SFA, intravascular ultrasound of the left SFA and left popliteal, selective left SFA angiogram and selective left posterior tibial angiogram. DIAGNOSTICS No EKG obtained on admission. Chest xray increasing size of right upper lobe mass, no evidence of congestive heart failure. Venous duplex of the left lower extremity is negative for DVT. Laboratory reviewed, WBC 11.2, hemoglobin 10.2, platelets 294, sodium 137, potassium 4.8, creatinine 1.12 and albumin 3.3. Current cardiac medications include aspirin 81 mg daily, Plavix 75 mg daily, Lasix 40 mg daily, add a statin 40 mg daily and valsartan 320 mg daily. Most recent echocardiogram obtained September 2019 reveals preserved LV systolic function with ejection fraction 55-60%, mild MR mild TR noted. REVIEW OF SYSTEMS At the time of my exam: CONSTITUTIONAL: Complains of increased weakness. Denies fever or chills. CARDIOVASCULAR: Denies chest pain, shortness of breath, orthopnea, PND or palpitations. RESPIRATORY: Denies cough. GASTROINTESTINAL: Denies abdominal pain, diarrhea, constipation, nausea or vomiting. MUSCULOSKELETAL: Complains of left lower extremity pain. NEUROLOGIC: Denies numbness, tingling or weakness. ENDOCRINE: Denies fatigue, weight change, polydipsia or polyurina. GENITOURINARY: Denies burning, hematuria or urgency with micturation. HEMATOLOGIC: Denies history of anemia or bleeding. PHYSICAL EXAMINATION Blood pressure 168/55 heart rate 50 afebrile and maintaining oxygen saturation on room air. CONSTITUTIONAL: No apparent distress. HEENT: Head is normocephalic. Pupils are equal, round. Sclerae anicteric. Mucous membranes of the mouth are moist. No JVD. No carotid bruit. CHEST EXAMINATION: Lungs are clear to auscultation. No chest wall tenderness is noted on palpation or with deep breathing. Diminished bilaterally. HEART EXAMINATION: Regular rate and rhythm. S1, S2 heard. No murmurs, gallops or rub. ABDOMEN: Soft, nontender. Positive bowel sounds. EXTREMITIES: 1+ lower extremity peripheral pulses, left lower extremity nonpitting edema noted, left ankle deformity noted and no calf tenderness. NEUROLOGIC EXAMINATION: Patient is awake, alert and oriented x3. ASSESSMENT Increase weakness Peripheral vascular disease status post recent SFA angioplasty maintained on dual antiplatelet therapy Anemia, normocytic normochromic Hypertension Dyslipidemia Obstructive sleep apnea PLAN Bilateral groins are soft and non-tender with no evidence of hematoma. Doppler study negative for DVT. Stable from a cardiovascular perspective. Continue dual anti-platelet therapy. Recommend evaluation by physical therapy. Thank you kindly for this consultation. Nurse Practitioner note has been reviewed, I agree with a documented findings and plan of care. Patient was seen and examined. Past Medical History Past Medical History: Coronary Artery Disease (CAD), Heart Failure, CVA/TIA, Hyperlipidemia, Hypertension, Musculoskeletal Disorder, Prostate Disorder, Sleep Apnea/CPAP/BIPAP, Vascular Disorder Additional Past Medical History / Comment(s): Hx PAD, hx Rt rotator cuff tear, Mini stroke 2015, urinary retention. Painful to walk, N/T BLE, hx falls; fallen arch lt foot. N/T lt hand. Uses CPAP History of Any Multi-Drug Resistant Organisms: None Reported Past Surgical History: Appendectomy, Back Surgery, Joint Replacement Additional Past Surgical History / Comment(s): Laminectomy. JOSE KNEE REPLACEMENT. KIDNEY SX AT AGE 6. Lt leg PTBA 2014. Lt CTR. Past Anesthesia/Blood Transfusion Reactions: No Reported Reaction Past Psychological History: No Psychological Hx Reported Smoking Status: Current some day smoker - Past Family History Mother Family Medical History: No Reported History, Diabetes Mellitus Medications and Allergies Home Medications Medication Instructions Recorded Confirmed Type Clopidogrel [Plavix] 75 mg PO DAILY #30 tab 04/27/15 03/29/20 Rx Aspirin [[place] Aspirin EC] 81 mg PO DAILY 12/30/18 03/29/20 History Oxybutynin Chloride [Oxybutynin 10 mg PO DAILY 04/14/19 03/29/20 History Chloride ER] Pravastatin Sodium [Pravachol] 40 mg PO DAILY 04/14/19 03/29/20 History Tamsulosin [Flomax] 0.4 mg PO BID 09/26/19 03/29/20 History Valsartan 320 mg PO DAILY 09/26/19 03/29/20 History traZODone HCL 50 mg PO HS 09/26/19 03/29/20 History Acetaminophen Tab [Tylenol] 650 mg PO Q6HR PRN tab 09/28/19 03/29/20 Rx Furosemide [Lasix] 40 mg PO DAILY 03/04/20 03/29/20 History Potassium Chloride [Klor-Con 20] 40 meq PO DAILY 03/04/20 03/29/20 History Allergies Allergy/AdvReac Type Severity Reaction Status Date / Time Penicillins Allergy Rash/Hives Verified 03/29/20 16:37 Physical Exam Vitals: Vital Signs Temp Pulse Resp BP Pulse Ox 03/31/20 04:10 97.9 F 50 L 16 168/55 95 03/30/20 20:50 98.3 F 56 L 16 108/49 94 L 03/30/20 12:26 98.5 F 65 17 161/75 96 Intake and Output 03/30/20 03/31/20 03/31/20 22:59 06:59 14:59 Intake Total 150 590 Output Total 453 600 Balance -303 -10 Intake: Oral 150 590 Output: Urine 600 Post Void Residual 453 Other: Voiding Method Indwelling Catheter Indwelling Catheter Results 03/30/20 07:12 03/30/20 07:12 Current Medications Generic Name Dose Route Start Last Admin Trade Name Freq PRN Reason Stop Dose Admin Hydrocodone Bitart/Acetaminophen 1 each 03/29/20 20:07 03/30/20 20:57 [place] 5-325 PO 1 each Q6HR PRN Administration Pain Aspirin 81 mg 03/30/20 09:00 03/30/20 08:04 Aspirin PO 81 mg DAILY PRASHANTH Administration Clopidogrel Bisulfate 75 mg 03/30/20 09:00 03/30/20 08:04 Plavix PO 75 mg DAILY PRASHANTH Administration Colchicine 0.6 mg 03/29/20 19:58 03/30/20 20:56 Colcrys PO 0.6 mg BID PRASHANTH Administration Furosemide 40 mg 03/30/20 09:00 03/30/20 08:04 Lasix PO 40 mg DAILY PRASHANTH Administration Heparin Sodium (Porcine) 5,000 unit 03/29/20 21:00 03/30/20 20:56 Heparin SQ 5,000 unit Q12HR PRASHANTH Administration Sodium Chloride 1,000 mls @ 20 mls/hr 03/29/20 15:00 03/30/20 12:41 Saline 0.9% IV Not Given .Q24H PRASHANTH Insulin Aspart 0 unit 03/29/20 21:00 03/30/20 20:56 Novolog SQ 2 unit ACHS PRASHANTH Administration Protocol Methylprednisolone Sodium Succinate 60 mg 03/29/20 20:00 03/31/20 05:47 Solu-Medrol IV 60 mg Q6HR PRASHANTH Administration Morphine Sulfate 4 mg 03/29/20 14:51 03/29/20 19:42 Morphine Sulfate (Inj) IV 4 mg Q4HR PRN Administration Severe Pain Naloxone HCl 0.2 mg 03/29/20 14:51 Narcan IV Q2M PRN Opioid Reversal Oxybutynin Chloride 10 mg 03/30/20 09:00 03/30/20 08:05 Ditropan Xl PO 10 mg DAILY PRASHANTH Administration Potassium Chloride 40 meq 03/30/20 09:00 03/30/20 08:04 K-Dur 20 PO 40 meq DAILY PRASHANTH Administration Pravastatin Sodium 40 mg 03/30/20 09:00 03/30/20 08:05 Pravachol PO 40 mg DAILY PRASHANTH Administration Tamsulosin HCl 0.4 mg 03/29/20 21:00 03/30/20 20:56 Flomax PO 0.4 mg BID PRASHANTH Administration Trazodone HCl 50 mg 03/29/20 21:00 03/30/20 20:57 Desyrel PO 50 mg HS PRASHANTH Administration Valsartan 320 mg 03/30/20 09:00 03/30/20 08:05 Diovan PO 320 mg DAILY PRASHANTH Administration Intake and Output 03/30/20 03/31/20 03/31/20 22:59 06:59 14:59 Intake Total 150 590 Output Total 453 600 Balance -303 -10 Intake: Oral 150 590 Output: Urine 600 Post Void Residual 453 Other: Voiding Method Indwelling Catheter Indwelling Catheter 03/30/20 07:12 03/30/20 07:12
[2020-03-31 09:06] LABS: Calcium 9.3 mg/dL (8.4-10.2); Potassium 4.6 mmol/L (3.5-5.1)
[2020-03-31] MEDS ORDERED: BISACODYL 10 MG SUPP RECTAL STA (09:59)
[2020-03-31 11:28] LABS: Glucose,Whole Blood 188 mg/dL (75-99)
[2020-03-31 17:00] LABS: Glucose,Whole Blood 172 mg/dL (75-99)
[2020-03-31] MEDS ORDERED: INSULIN ASPART (NovoLOG) 100 UNIT/ML VIAL SQ ONE (18:00)
[2020-03-31] MEDS ORDERED: methylPREDNISolone SOD SUCCI 125 MG/2 ML VIAL ONE (18:00)
[2020-03-31] MEDS: SODIUM CHLORIDE 0.9% 1,000 ML IV SCH (19:36)
[2020-03-31 20:36] LABS: Glucose,Whole Blood 238 mg/dL (75-99)
[2020-03-31] MEDS: traZODone HCL 50 MG TAB PO SCH (21:15)
--- NOTE | 2020-03-31 23:00 | PN ---
PROGRESS NOTE DATE OF SERVICE: 03/31/2020 This 80-year-old gentleman who was admitted with pain and swelling of the left ankle is being closely monitored. Patient is presumably treated for gout at this time. The patient underwent multiple evaluation, and Orthopedic Surgery is recommending conservative line of management. 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 No bone destruction was noted; just osteomyelitis. Patient is being closely monitored at this time. Cardiology has seen the patient and recommended continuing the current medications, physical therapy. PT/OT evaluation, possible ECF rehab. The patient has significant issues with weightbearing on the left side also. The left ankle is also swollen. Past medical history reviewed. REVIEW OF SYSTEMS: CARDIOVASCULAR SYSTEM: No angina, palpitations. RESPIRATORY SYSTEM: As mentioned earlier. GI: As mentioned earlier. : No dysuria or retention. NERVOUS SYSTEM: No numbness, weakness. MUSCULOSKELETAL: As mentioned earlier. CURRENT MEDICATIONS: Reviewed. They include: 1. [place] 5 mg q.6. 2. Aspirin 81 mg. 3. Plavix 75 mg. 4. Colcrys 0.6 b.i.d. 5. Lasix 40 mg daily. 6. Heparin. 7. Solu-Medrol 60 IV q.6. 8. Narcan. 9. Ditropan. 10.K-Dur. 11.Pravachol. 12.Flomax. 13.Desyrel. 14.Diovan. PHYSICAL EXAMINATION: Patient is alert, oriented x3. Pulse 57, blood pressure 150/70, respiration 20, temperature 97.4, pulse ox 97% on room air. HEENT: Conjunctivae normal. NECK: No jugular venous distention. CARDIOVASCULAR SYSTEM: S1, S2 muffled. RESPIRATORY SYSTEM: Breath sounds diminished at the bases. No rhonchi. No crackles. ABDOMEN: Soft, obese, non-tender. LEGS: Significant pain and swelling of the left leg and left calf, left foot. NERVOUS SYSTEM: No focal deficit. LABS: WBC 11.2, hemoglobin 10.2. Accu-Cheks noted. ASSESSMENT: 1. Severe pain and swelling of the left ankle with left lower foot with severe gait dysfunction; possibly acute gout. 2. Possible lateral talonavicular osteoarthritis or dislocation, subluxation deformity, severe degenerative joint disease of the left foot and left ankle. 3. History of recent angioplasty of the superficial femoral artery of the left leg with peripheral vascular disease. 4. Possible acute renal failure, present on admission, prerenal factors acute tubular necrosis. 5. Increased creatinine with chronic kidney disease, stage III baseline. 6. Anemia, normocytic anemia of chronic disease. 7. History of coronary artery disease. 8. History of congestive heart failure; ejection fraction unknown. 9. History of cerebrovascular accident, transient ischemic attack. 10.Hypertension. 11.Hyperlipidemia. 12.History of degenerative joint disease. 13.History of sleep apnea. 14.History of peripheral vascular disease. 15.History of transient ischemic attack. 16.History of urinary retention. 17.History of back surgery, degenerative joint disease. 18.History of continued ongoing nicotine dependence. 19.Obesity with a body mass index of 34. 20.FULL CODE. RECOMMENDATIONS AND DISCUSSION: I recommend to continue current medications, continue with symptomatic treatment. Pain medications. Discussed with the patient at length. PT/OT evaluation. Discussed with PT/OT also. Offloading shoes were recommended if possible. Otherwise, we will continue to follow with Orthopedic Surgery and Cardiology. The prognosis is guarded because of multiple complex medical issues. Resume the rest of the medications. Repeat labs will be ordered and further recommendations to follow. MMODL / IJN: [id number] /
[2020-04-01] MEDS: methylPREDNISolone SOD SUCCI 125 MG/2 ML VIAL IV SCH ×3 (00:34→13:35)
[2020-04-01 07:34] LABS: Glucose,Whole Blood 146 mg/dL (75-99)
[2020-04-01 08:03] LABS: Basophils % (A) 0 %; Eosinophils % (A) 0 %; HCT 32.1 % (39.0-53.0); Hypochromasia Slight; Lymphocytes # (A) 0.7 k/uL (1.0-4.8); Lymphocytes % (A) 6 %; MCH 27.7 pg (25.0-35.0); MCHC 31.1 g/dL (31.0-37.0); MCV 89.1 fL (80.0-100.0); Mean Platelet Volume 7.6; Monocytes # (A) 0.5 k/uL (0-1.0); Monocytes % (A) 4 %; Neutrophils # (A) 11.1 k/uL (1.3-7.7); Neutrophils % (A) 90 %; Platelet Count 320 k/uL (150-450); RDW 15.1 % (11.5-15.5); WBC 12.4 k/uL (3.8-10.6)
[2020-04-01 08:14] LABS: Potassium 4.6 mmol/L (3.5-5.1)
[2020-04-01] MEDS: POTASSIUM CHLORIDE ER 20 MEQ TAB.ER PO SCH (08:24)
[2020-04-01] MEDS: CLOPIDOGREL 75 MG TAB PO SCH (08:24)
[2020-04-01] MEDS: TAMSULOSIN 0.4 MG CAP.ER.24H PO SCH ×2 (08:25→20:43)
[2020-04-01] MEDS: INSULIN ASPART (NovoLOG) 100 UNIT/ML VIAL SQ SCH ×4 (08:25→20:42)
[2020-04-01] MEDS: ASPIRIN 81 MG PO SCH (08:25)
[2020-04-01] MEDS: HEPARIN SODIUM,PORCINE 5,000 UNIT/ML 1 ML VIAL SQ SCH ×2 (08:25→20:41)
[2020-04-01] MEDS: FUROSEMIDE 40 MG TAB PO SCH (08:25)
[2020-04-01] MEDS: COLCHICINE 0.6 MG EACH PO SCH ×2 (09:13→20:41)
[2020-04-01] MEDS: PRAVASTATIN SODIUM 40 MG TAB PO SCH (09:14)
[2020-04-01] MEDS: VALSARTAN 160 MG TAB PO SCH (09:14)
[2020-04-01] MEDS: OXYBUTYNIN 10 MG TAB.ER.24 PO SCH (09:14)
[2020-04-01 11:11] LABS: Glucose,Whole Blood 162 mg/dL (75-99)
--- NOTE | 2020-04-01 15:58 | PN ---
PROGRESS NOTE DATE OF SERVICE: 04/01/2020 This is an 80-year-old gentleman who was admitted with severe pain and swelling of the left ankle and assess for possible severe gouty arthritis. The patient also had significant osteoporosis, also. The patient is closely monitored. PT/OT is evaluating the patient for possible ECF rehab. PHYSICAL EXAM: Patient is alert, oriented x3. The pulse is 57, blood pressure 150/60, respiration 20, temperature 97.9, pulse ox 97% on room air: HEENT: Conjunctivae normal. NECK: No jugular venous distension. HEART: S1, S2, muffled. RESPIRATION: Breath sounds diminished at the bases, no rhonchi, no crackles. ABDOMEN: Soft, nontender. LEGS: No edema. No swelling. LABS: WBC 12.2, hemoglobin is 10m sodium 136. ASSESSMENT: 1. Severe pain and swelling of the left ankle with left lower foot with severe gait dysfunction with possibly acute gout. 2. Possible left lateral talonavicular joint with osteoarthritis and deformity, severe degenerative joint disease of the left foot and ankle. 3. History of recent angioplasty at superficial femoral artery of the left leg with peripheral vascular disease. 4. Possible acute renal failure present on admission, prerenal factors and acute tubular necrosis. 5. Increased creatinine with chronic kidney stage III baseline. 6. Anemia, normocytic anemia of chronic disease. 7. History of coronary artery disease. 8. History of congestive heart failure, ejection fraction unknown. 9. History of cerebrovascular accident, transient ischemic attack. 10.Hypertension. 11.Hyperlipidemia. 12.History of degenerative joint disease. 13.Sleep apnea. 14.History of peripheral vascular disease. 15.History of transient ischemic attack. 16.History of urinary retention. 17.History of back pain, degenerative joint disease. 18.History of continued ongoing nicotine dependence. 19.Obesity with body mass index of 34. 20.FULL CODE. RECOMMENDATION: Recommend to continue current medications, symptomatic treatment. At this time, I recommend continue with the PT/OT evaluation. Taper the steroids. Further recommendations to follow. Will closely follow with multiple consultants. CHANDLER / GINA: [id number] /
[2020-04-01] MEDS: SODIUM CHLORIDE 0.9% 1,000 ML IV SCH (17:22)
[2020-04-01] MEDS: methylPREDNISolone SOD SUCCI 40 MG/ML 1 ML VIAL IV SCH ×2 (17:25→23:40)
[2020-04-01 17:29] LABS: Glucose,Whole Blood 166 mg/dL (75-99)
[2020-04-01 20:07] LABS: Glucose,Whole Blood 239 mg/dL (75-99)
[2020-04-01] MEDS: traZODone HCL 50 MG TAB PO SCH (20:43)
[2020-04-01] MEDS: HYDROcodone/APAP 5-325MG 1 EACH TAB PO PRN (23:49)
[2020-04-02 07:10] LABS: Glucose,Whole Blood 121 mg/dL (75-99)
[2020-04-02] MEDS: OXYBUTYNIN 10 MG TAB.ER.24 PO SCH (09:31)
[2020-04-02] MEDS: methylPREDNISolone SOD SUCCI 40 MG/ML 1 ML VIAL IV SCH (09:31)
[2020-04-02] MEDS: COLCHICINE 0.6 MG EACH PO SCH (09:31)
[2020-04-02] MEDS: HEPARIN SODIUM,PORCINE 5,000 UNIT/ML 1 ML VIAL SQ SCH (09:31)
[2020-04-02] MEDS: TAMSULOSIN 0.4 MG CAP.ER.24H PO SCH (09:31)
[2020-04-02] MEDS: VALSARTAN 160 MG TAB PO SCH (09:31)
[2020-04-02] MEDS: POTASSIUM CHLORIDE ER 20 MEQ TAB.ER PO SCH (09:31)
[2020-04-02] MEDS: ASPIRIN 81 MG PO SCH (09:31)
[2020-04-02] MEDS: PRAVASTATIN SODIUM 40 MG TAB PO SCH (09:31)
[2020-04-02] MEDS: FUROSEMIDE 40 MG TAB PO SCH (09:31)
[2020-04-02] MEDS: INSULIN ASPART (NovoLOG) 100 UNIT/ML VIAL SQ SCH ×2 (09:32→12:56)
[2020-04-02] MEDS: CLOPIDOGREL 75 MG TAB PO SCH (09:32)
[2020-04-02] MEDS: HYDROcodone/APAP 5-325MG 1 EACH TAB PO PRN (09:41)
[2020-04-02 11:31] LABS: Glucose,Whole Blood 157 mg/dL (75-99)
[2020-04-02 11:54] VITALS: BP 155/67; PULSE 56; RESP 15; TEMP 97.1
--- NOTE | 2020-04-02 12:50 | P.DS ---
Providers Date of admission: 03/30/20 13:31 Expected date of discharge: 04/02/20 Attending physician: Penelope Gaming Consults: 03/29/20 19:57 Consult Physician Routine Consulting Provider: Kimo Wright Consult Reason/Comments: rt foot pain Do you want consulting provider notified?: Yes 03/30/20 16:27 Consult Physician Routine Consulting Provider: Prieto Abdi Consult Reason/Comments: recent angioplasty Do you want consulting provider notified?: Yes Primary care physician: Trevor Kennedy Hospital Course: Final diagnosis Severe pain and swelling of the left ankle with left lower foot with severe gait dysfunction with possible acute gout Possible left lateral talonavicular joint with osteoarthritis and deformity, severe degenerative joint disease of the left foot and ankle History of recent angioplasty at superficial femoral artery of the left leg peripheral vascular disease Possible acute renal failure, present on admission, prerenal factors and acute tubular necrosis Increased creatinine with chronic kidney disease stage III baseline Anemia, normocytic anemia of chronic disease History of coronary artery disease History of congestive heart failure, ejection fraction unknown History of CVA/TIA Hypertension Hyperlipidemia History of degenerative joint disease Sleep apnea History of peripheral vascular disease History of urinary retention history of back pain, DJD History of continued ongoing nicotine dependence Obesity with a body mass index of 34 Full code Discharge disposition Patient is being discharged in a stable condition with guarded prognosis to [facility] for continued PT/OT therapy. Patient will follow-up with Dr. Kennedy in the outpatient setting upon discharge. Patient is to continue with a prednisone taper along with Colchicine 0.6 mg twice daily for the next 2 days and then decrease the dose to 0.6 mg daily. Total time taken is greater than 35 minutes. History of present illness next This is a 80-year-old male who was recently admitted for severe pain and swelling of the left ankle with possible severe gouty arthritis and was being closely monitored. Patient also has significant osteoporosis and was evaluated by PT/OT and will be going to [facility] for continued PT/OT therapy for strength and mobility. Patient will follow-up with cardiology in the outpatient setting status post recent angioplasty. Recommend to continue monitoring blood sugars before meals at bedtime and treat accordingly with sliding scale. Patient will also continue on prednisone taper along with colchicine 0.6 mg twice daily for the next 2 days and then decrease the dose to 0.6 mg daily. Patient is also instructed to continue elevating and icing the left lower extremity while at rest. Currently no reports of chest pain, shortness of breath, or palpitations. Patient is afebrile. No reports of nausea or vomiting and patient is tolerating diet. Patient will be going to [facility] today. On exam vital signs are stable. Temp is 97.1F, pulse is 56, respirations are 15, blood pressure is 155/67, oxygen saturation is 97% on room air. Cardio S1, S2 are muffled. Respiratory system shows diminished breath sounds at the bases with no wheezing or rhonchi noted. Abdomen is soft and nontender. Nervous system shows diffuse weakness. Please refer to medication reconciliation sheet for a list of medications. Patient Condition at Discharge: Stable Plan - Discharge Summary New Discharge Prescriptions: New Colchicine [Colcrys] 0.6 mg PO BID #20 each traZODone HCL [Desyrel] 50 mg PO HS #3 tab HYDROcodone/APAP 5-325MG [Howe 5-325] 1 each PO Q6HR PRN #12 tab PRN Reason: Pain INSULIN ASPART (NovoLOG) [NovoLOG (formulary)] 0 unit SQ ACHS vial predniSONE 10 mg PO DIRECTED #30 tab Continue Clopidogrel [Plavix] 75 mg PO DAILY #30 tab Aspirin [Meigs Aspirin EC] 81 mg PO DAILY Pravastatin Sodium [Pravachol] 40 mg PO DAILY Oxybutynin Chloride [Oxybutynin Chloride ER] 10 mg PO DAILY Valsartan 320 mg PO DAILY Tamsulosin [Flomax] 0.4 mg PO BID Acetaminophen Tab [Tylenol] 650 mg PO Q6HR PRN tab PRN Reason: Fever and/ or mild Pain Furosemide [Lasix] 40 mg PO DAILY Potassium Chloride [Klor-Con 20] 40 meq PO DAILY Discontinued traZODone HCL 50 mg PO HS Discharge Medication List Clopidogrel [Plavix] 75 mg PO DAILY #30 tab 04/27/15 [Rx] Aspirin [Meigs Aspirin EC] 81 mg PO DAILY 12/30/18 [History] Oxybutynin Chloride [Oxybutynin Chloride ER] 10 mg PO DAILY 04/14/19 [History] Pravastatin Sodium [Pravachol] 40 mg PO DAILY 04/14/19 [History] Tamsulosin [Flomax] 0.4 mg PO BID 09/26/19 [History] Valsartan 320 mg PO DAILY 09/26/19 [History] Acetaminophen Tab [Tylenol] 650 mg PO Q6HR PRN tab 09/28/19 [Rx] Furosemide [Lasix] 40 mg PO DAILY 03/04/20 [History] Potassium Chloride [Klor-Con 20] 40 meq PO DAILY 03/04/20 [History] Colchicine [Colcrys] 0.6 mg PO BID #20 each 04/02/20 [Rx] HYDROcodone/APAP 5-325MG [Howe 5-325] 1 each PO Q6HR PRN #12 tab 04/02/20 [Rx] INSULIN ASPART (NovoLOG) [NovoLOG (formulary)] 0 unit SQ ACHS vial 04/02/20 [Rx] predniSONE 10 mg PO DIRECTED #30 tab 04/02/20 [Rx] traZODone HCL [Desyrel] 50 mg PO HS #3 tab 04/02/20 [Rx] Follow up Appointment(s)/Referral(s): Trevor Kennedy MD [Primary Care Provider] - 04/06/20 10:00 am Activity/Diet/Wound Care/Special Instructions: Patient is going to [employer] Activity as tolerated Continue with Colchicine 0.6 mg twice daily for the next 2 days and then continue with 0.6 mg daily Continue to ice and elevate the lower extremity while at rest Continue monitoring blood sugars before meals at bedtime and treat accordingly with sliding scale Follow up with primary care provider upon discharge Discharge Disposition: TRANSFER TO SNF/ECF
--- NOTE | 2020-04-07 08:10 | CDI ---
Documentation Clarification Form Date: 04/07/20 From: Melba Galindo Phone: If you have a question about this query, please contact Geni Brown, [employer] Worker at [phone] between 8am and 5pm. Admit Date: 03/30/20 Discharge Date: 04/02/20 Patient Name: NITZA CAN Visit Number: [id number] ATTENTION: The Clinical Documentation Specialists (CDI) and [facility] Coding Staff appreciate your assistance in clarifying documentation. Please respond to the clarification below the line at the bottom and electronically sign. The CDI & [facility] Coding staff will review the response and follow-up if needed. Please note: Queries are made part of the Legal Health Record. If you have any questions, please contact the author of this message via ITS. Dear Dr. Penelope Gaming, CHF/heart failure are documented in the ED note, H&P, consults, PNs & DS. History/Risk Factors: CDD/CABG, hx CVA, HTN, hyperlipidemia, hx PAD w stent Clinical Indicators: Left leg pain and difficulty walking. No SOB. VS/Pulse OX: T-98.2, P-76, R-16, BP-130/51, O2-98/90 BNP: none Echocardiogram Results: Most recent echocardiogram obtained September 2019 reveals preserved LV systolic function with ejection fraction 55-60%, mild MR mild TR noted. Chest X Ray: No radiographic sequela of decompensated congestive heart failure. Treatment: Home meds of Lasix 40 mg po daily continued in the hospital In your professional opinion, can you please clarify the type of chronic CHF if known? Systolic Heart Failure Diastolic Heart Failure Systolic & Diastolic Heart Failure Unable to Determine Other, please specify Diastolic Heart Failure MTDD
== END 2020-04-02 13:50 | DRG 553 ==
LOC: EC 12:23 → 5NMEDONC 15:24 → OBSVTOIN 03-30 13:31
PROVIDERS: ADMIT Hospitalist; ATTEND Hospitalist
PROC: 5A09457 Assistance with Respiratory Ventilation, 24-96 Consecutive Hours, Continuous Positive Airway Pressure (ICD-10-PCS; principal; 2020-03-29)
DX: M10.9 Gout, unspecified (principal); N17.0 Acute kidney failure with tubular necrosis; I13.0 Hypertensive heart and chronic kidney disease with heart failure and stage 1 through stage 4 chronic kidney disease, or unspecified chronic kidney disease; I50.32 Chronic diastolic (congestive) heart failure; D63.1 Anemia in chronic kidney disease; N18.3 Chronic kidney disease, stage 3 (moderate); I73.9 Peripheral vascular disease, unspecified; Z11.59 Encounter for screening for other viral diseases; M19.072 Primary osteoarthritis, left ankle and foot; M81.0 Age-related osteoporosis without current pathological fracture; E78.5 Hyperlipidemia, unspecified; G47.33 Obstructive sleep apnea (adult) (pediatric); I25.10 Atherosclerotic heart disease of native coronary artery without angina pectoris; N42.9 Disorder of prostate, unspecified; F17.210 Nicotine dependence, cigarettes, uncomplicated; E66.9 Obesity, unspecified; Z68.28 Body mass index [BMI] 28.0-28.9, adult; R26.2 Difficulty in walking, not elsewhere classified; R53.1 Weakness; Z79.82 Long term (current) use of aspirin; Z79.02 Long term (current) use of antithrombotics/antiplatelets; Z79.899 Other long term (current) drug therapy; Z86.73 Personal history of transient ischemic attack (TIA), and cerebral infarction without residual deficits; Z91.81 History of falling; Z90.49 Acquired absence of other specified parts of digestive tract; Z95.820 Peripheral vascular angioplasty status with implants and grafts; Z96.653 Presence of artificial knee joint, bilateral; Z98.890 Other specified postprocedural states; Z99.89 Dependence on other enabling machines and devices; Z88.0 Allergy status to penicillin; Z83.3 Family history of diabetes mellitus
CPT/HCPCS: 36415; 71045; 80048; 80053; 81003; 84550; 85025; 85610; 85652; 85730; 86140; 87635; 99285

== ENCOUNTER 2020-06-27 07:19 | Emergency (ER) | payer MEDICARE, BC ==
[2020-06-27 07:26] VITALS: RESP 18; TEMP 97.6
--- NOTE | 2020-06-27 07:26 | ED ---
General Adult HPI - General Stated complaint: abd pain Time Seen by Provider: 06/27/20 07:19 Source: patient, EMS, RN notes reviewed, Caregiver Mode of arrival: EMS Limitations: no limitations - History of Present Illness Initial comments: This an 80-year-old male presents emergency department for [place] chief complaint of an episode of right-sided rib abdominal discomfort. This happened last night and he is given Maalox around 6 PM last night. Patient's symptoms resolved after 30 minutes. Patient states it hurt to move denies any trauma. He states his been constipated. He denies any dysuria as he has a Floers in denies any fevers or chills. Patient denies shortness of breath. Patient states all symptoms resolve her to 30 minutes and he's had no recurrent of sym ptoms. Patient denies any any complaints at this time. - Related Data Home Medications Medication Instructions Recorded Confirmed Aspirin [Vigo Aspirin EC] 81 mg PO DAILY 12/30/18 03/29/20 Oxybutynin Chloride [Oxybutynin 10 mg PO DAILY 04/14/19 03/29/20 Chloride ER] Pravastatin Sodium [Pravachol] 40 mg PO DAILY 04/14/19 03/29/20 Tamsulosin [Flomax] 0.4 mg PO BID 09/26/19 03/29/20 Valsartan 320 mg PO DAILY 09/26/19 03/29/20 Furosemide [Lasix] 40 mg PO DAILY 03/04/20 03/29/20 Potassium Chloride [Klor-Con 20] 40 meq PO DAILY 03/04/20 03/29/20 Previous Rx's Medication Instructions Recorded Clopidogrel [Plavix] 75 mg PO DAILY #30 tab 04/27/15 Acetaminophen Tab [Tylenol] 650 mg PO Q6HR PRN tab 09/28/19 Colchicine [Colcrys] 0.6 mg PO BID #20 each 04/02/20 HYDROcodone/APAP 5-325MG [[place] 1 each PO Q6HR PRN #12 tab 04/02/20 5-325] INSULIN ASPART (NovoLOG) [NovoLOG 0 unit SQ ACHS vial 04/02/20 (formulary)] predniSONE 10 mg PO DIRECTED #30 tab 04/02/20 traZODone HCL [Desyrel] 50 mg PO HS #3 tab 04/02/20 Allergies Allergy/AdvReac Type Severity Reaction Status Date / Time Penicillins Allergy Rash/Hives Verified 06/27/20 07:26 Review of Systems ROS Statement: Those systems with pertinent positive or pertinent negative responses have been documented in the HPI. ROS Other: All systems not noted in ROS Statement are negative. Past Medical History Past Medical History: Coronary Artery Disease (CAD), Heart Failure, CVA/TIA, Hyperlipidemia, Hypertension, Musculoskeletal Disorder, Prostate Disorder, Sleep Apnea/CPAP/BIPAP, Vascular Disorder Additional Past Medical History / Comment(s): Hx PAD, hx Rt rotator cuff tear, Mini stroke 2014, urinary retention. Painful to walk, N/T BLE, hx falls; fallen arch lt foot. N/T lt hand. Uses CPAP History of Any Multi-Drug Resistant Organisms: None Reported Past Surgical History: Appendectomy, Back Surgery, Joint Replacement Additional Past Surgical History / Comment(s): Laminectomy. JOSE KNEE REPLACEMENT. KIDNEY SX AT AGE 6. Lt leg PTBA 2014. Lt CTR. Past Anesthesia/Blood Transfusion Reactions: No Reported Reaction Past Psychological History: No Psychological Hx Reported - Past Family History Mother Family Medical History: No Reported History, Diabetes Mellitus General Exam General appearance: alert, in no apparent distress Head exam: Present: atraumatic, normocephalic, normal inspection Eye exam: Present: normal appearance, PERRL, EOMI. Absent: scleral icterus, conjunctival injection, periorbital swelling ENT exam: Present: normal exam, normal oropharynx, mucous membranes moist Neck exam: Present: normal inspection, full ROM. Absent: tenderness, meningismus, lymphadenopathy Respiratory exam: Present: normal lung sounds bilaterally. Absent: respiratory distress, wheezes, rales, rhonchi, stridor Cardiovascular Exam: Present: regular rate, normal rhythm, normal heart sounds. Absent: systolic murmur, diastolic murmur, rubs, gallop, clicks GI/Abdominal exam: Present: soft, normal bowel sounds. Absent: distended, tenderness, guarding, rebound, rigid Back exam: Absent: CVA tenderness (R), CVA tenderness (L) Neurological exam: Present: alert, oriented X3 Skin exam: Present: warm, dry, intact, normal color. Absent: rash Course Vital Signs 06/27/20 07:22 Temperature 97.6 F Pulse Rate 71 Respiratory 18 Rate Blood Pressure 95/65 O2 Sat by Pulse 94 L Oximetry Medical Decision Making - Medical Decision Making Patient is symptom-free upon arrival. Patient has not had symptoms in over 2 hours. Patient did have x-ray which redemonstrated known mass. Patient KUB does not reveal any evidence of obstruction pattern. Patient will be discharged in stable condition return parameters were discussed. Disposition Clinical Impression: Rib pain on right side Disposition: HOME SELF-CARE Condition: Stable Instructions (If sedation given, give patient instructions): Chest Pain (ED) Additional Instructions: Please return to the Emergency Department if symptoms worsen or any other concerns. Is patient prescribed a controlled substance at d/c from ED?: No Referrals: Damon Callahan DO [Primary Care Provider] - 1-2 days Time of Disposition: 08:03
--- NOTE | 2020-06-27 07:52 | XR ---
EXAMINATION TYPE: XR chest 2V DATE OF EXAM: 06/27/2020 COMPARISON: Chest CT May 15, 2019. Prior chest x-ray January 29, 2020 HISTORY: Right-sided chest and abdominal pain. TECHNIQUE: Frontal and lateral views of the chest are obtained. FINDINGS: There is background chronic emphysematous change with persistent right midlung mass. No ne w suspicious focal airspace opacity, pleural effusion, or pneumothorax seen. The cardiac silhouette s ize remains within normal limits. Advanced degenerative change right glenohumeral joint redemonstrate d. IMPRESSION: Chronic emphysematous change with right mid lung mass or neoplasm redemonstrated. No new acute pulmonary process.
--- NOTE | 2020-06-27 07:54 | XR ---
EXAMINATION TYPE: XR KUB DATE OF EXAM: 06/27/2020 7:45 AM CLINICAL HISTORY: Right-sided abdominal pain. TECHNIQUE: Two supine KUB images of the abdomen are obtained. COMPARISON: Same-day chest x-ray.. FINDINGS: Scattered gas is seen in non-distended stomach and small bowel loops. Gas is seen in non-di stended colon along the periphery. There is no shift calcification or visceromegaly. Upper abdomen no t included. Multilevel spurring and disc space narrowing in the spine. Overlying vascular calcificati on noted. IMPRESSION: Overall nonobstructive bowel gas pattern.
[2020-06-27 08:23] VITALS: BP 111/77; PULSE 68
== END 2020-06-27 08:40 | disposition home or self-care (01) ==
LOC: EC 07:19
DX: R07.81 Pleurodynia (principal); I11.0 Hypertensive heart disease with heart failure; G47.33 Obstructive sleep apnea (adult) (pediatric); I50.9 Heart failure, unspecified; I25.10 Atherosclerotic heart disease of native coronary artery without angina pectoris; E78.5 Hyperlipidemia, unspecified; N42.9 Disorder of prostate, unspecified; Z79.82 Long term (current) use of aspirin; Z79.899 Other long term (current) drug therapy; Z88.0 Allergy status to penicillin; Z86.73 Personal history of transient ischemic attack (TIA), and cerebral infarction without residual deficits; Z87.891 Personal history of nicotine dependence; Z96.653 Presence of artificial knee joint, bilateral; Z99.89 Dependence on other enabling machines and devices
CPT/HCPCS: 71046; 74018; 99284

== ENCOUNTER 2020-07-05 16:10 | Inpatient (IN) | payer MEDICARE, BC ==
--- NOTE | 2020-07-05 16:43 | ED ---
General Adult HPI - General Chief complaint: Recheck/Abnormal Lab/Rx Stated complaint: Poss Sepsis Time Seen by Provider: 07/05/20 16:15 Source: patient, EMS, RN notes reviewed, old records reviewed Mode of arrival: EMS Limitations: physical limitation - History of Present Illness Initial comments: This is an 80-year-old male who presents emergency Department for altered mental status. Patient resides at a custodial and they sent him in because he was altered from his baseline and his blood pressure was systolically in the 80s at one time. does agree that he is altered mentally normally she states she is alert and oriented 3. Currently the patient does not know the date. Doesn't know the year. Patient has no complaints himself. Patient denies any headache patient denies numbness weakness per patient denies any chest pain or difficulty breathing. Patient denies any abdominal pain patient denies nausea vomiting diarrhea. Patient does have an indwelling Flores catheter and according to the he has been treated for urinary tract infection. According to the the patient has been eating quite a bit less lately. - Related Data Home Medications Medication Instructions Recorded Confirmed Aspirin [[place] Aspirin EC] 81 mg PO DAILY 12/30/18 03/29/20 Oxybutynin Chloride [Oxybutynin 10 mg PO DAILY 04/14/19 03/29/20 Chloride ER] Pravastatin Sodium [Pravachol] 40 mg PO DAILY 04/14/19 03/29/20 Tamsulosin [Flomax] 0.4 mg PO BID 09/26/19 03/29/20 Valsartan 320 mg PO DAILY 09/26/19 03/29/20 Furosemide [Lasix] 40 mg PO DAILY 03/04/20 03/29/20 Potassium Chloride [Klor-Con 20] 40 meq PO DAILY 03/04/20 03/29/20 Previous Rx's Medication Instructions Recorded Clopidogrel [Plavix] 75 mg PO DAILY #30 tab 04/27/15 Acetaminophen Tab [Tylenol] 650 mg PO Q6HR PRN tab 09/28/19 Colchicine [Colcrys] 0.6 mg PO BID #20 each 04/02/20 HYDROcodone/APAP 5-325MG [[place] 1 each PO Q6HR PRN #12 tab 04/02/20 5-325] INSULIN ASPART (NovoLOG) [NovoLOG 0 unit SQ ACHS vial 04/02/20 (formulary)] predniSONE 10 mg PO DIRECTED #30 tab 04/02/20 traZODone HCL [Desyrel] 50 mg PO HS #3 tab 04/02/20 Allergies Allergy/AdvReac Type Severity Reaction Status Date / Time Penicillins Allergy Rash/Hives Verified 06/27/20 07:26 Review of Systems ROS Statement: Those systems with pertinent positive or pertinent negative responses have been documented in the HPI. ROS Other: All systems not noted in ROS Statement are negative. Past Medical History Past Medical History: Coronary Artery Disease (CAD), Heart Failure, CVA/TIA, Hyperlipidemia, Hypertension, Musculoskeletal Disorder, Prostate Disorder, Sleep Apnea/CPAP/BIPAP, Vascular Disorder Additional Past Medical History / Comment(s): Hx PAD, hx Rt rotator cuff tear, Mini stroke 2014, urinary retention. Painful to walk, N/T BLE, hx falls; fallen arch lt foot. N/T lt hand. Uses CPAP History of Any Multi-Drug Resistant Organisms: None Reported Past Surgical History: Appendectomy, Back Surgery, Joint Replacement Additional Past Surgical History / Comment(s): Laminectomy. JOSE KNEE REPLACEMENT. KIDNEY SX AT AGE 6. Lt leg PTBA 2014. Lt CTR. Past Anesthesia/Blood Transfusion Reactions: No Reported Reaction Past Psychological History: No Psychological Hx Reported Smoking Status: Former smoker Past Alcohol Use History: None Reported Past Drug Use History: None Reported - Past Family History Mother Family Medical History: No Reported History, Diabetes Mellitus General Exam - General Exam Comments Initial Comments: GENERAL: Patient is well-developed and well-nourished. Patient is nontoxic and well- hydrated and is in no acute distress. ENT: Neck is soft and supple. No significant lymphadenopathy is noted. Oropharynx is clear. Moist mucous membranes. Neck has full range of motion without eliciting any pain. EYES: The sclera were anicteric and conjunctiva were pink and moist. Extraocular movements were intact and pupils were equal round and reactive to light. Eyelid s were unremarkable. PULMONARY: Unlabored respirations. Good breath sounds bilaterally. No audible rales rhonchi or wheezing was noted. CARDIOVASCULAR: There is a regular rate and rhythm without any murmurs gallops or rubs. ABDOMEN: Soft and nontender with normal bowel sounds. No palpable organomegaly was noted. There is no palpable pulsatile mass. SKIN: Skin is clear with no lesions or rashes and otherwise unremarkable. NEUROLOGIC: Patient is alert and oriented 2. Cranial nerves II through XII are grossly intact. Motor and sensory are also intact. Normal speech, volume and content. Symmetrical smile. MUSCULOSKELETAL: Normal extremities with adequate strength and full range of motion. No lower extremity swelling or edema. No calf tenderness. LYMPHATICS: No significant lymphadenopathy is noted PSYCHIATRIC: Normal psychiatric evaluation. Limitations: physical limitation Course Vital Signs 07/05/20 07/05/20 07/05/20 16:13 16:25 17:52 Temperature 97.7 F Pulse Rate 80 67 62 Respiratory 18 18 Rate Blood Pressure 81/53 112/76 110/66 O2 Sat by Pulse 96 95 Oximetry Medical Decision Making - Medical Decision Making Patient's CT of body weight is 86.2 Patient received 1 L of fluids in the ambulance just prior to arrival EKG shows sinus rhythm at 64 bpm FL interval is 222 QRS is 94 QT interval 414 QTC is 427. Patient's EKG shows no ST segment elevation or depression. Urinary tract infection was found at 6:00. Patient was given a gram of Rocephin at that time. - Lab Data Result diagrams: 07/05/20 16:59 07/05/20 16:59 Lab Results 07/05/20 07/05/20 07/05/20 Range/Units 16:59 16:59 16:59 WBC 9.3 (3.8-10.6) k/uL RBC 4.46 (4.30-5.90) m/uL Hgb 11.9 L (13.0-17.5) gm/dL Hct 38.2 L (39.0-53.0) % MCV 85.6 (80.0-100.0) fL MCH 26.6 (25.0-35.0) pg MCHC 31.1 (31.0-37.0) g/dL RDW 16.2 H (11.5-15.5) % Plt Count 358 (150-450) k/uL Neutrophils % 70 % Lymphocytes % 19 % Monocytes % 5 % Eosinophils % 4 % Basophils % 1 % Neutrophils # 6.5 (1.3-7.7) k/uL Lymphocytes # 1.7 (1.0-4.8) k/uL Monocytes # 0.4 (0-1.0) k/uL Eosinophils # 0.3 (0-0.7) k/uL Basophils # 0.1 (0-0.2) k/uL Hypochromasia Moderate Anisocytosis Slight PT 10.9 (9.0-12.0) sec INR 1.1 (<1.2) APTT 22.8 (22.0-30.0) sec Sodium (137-145) mmol/L Potassium (3.5-5.1) mmol/L Chloride (98-107) mmol/L Carbon Dioxide (22-30) mmol/L Anion Gap mmol/L BUN (9-20) mg/dL Creatinine (0.66-1.25) mg/dL Est GFR (CKD-EPI)AfAm (>60 ml/min/1.73 sqM) Est GFR (CKD-EPI)NonAf (>60 ml/min/1.73 sqM) Glucose (74-99) mg/dL Plasma Lactic Acid Abdiel (0.7-2.0) mmol/L Calcium (8.4-10.2) mg/dL Total Bilirubin (0.2-1.3) mg/dL AST (17-59) U/L ALT (4-49) U/L Alkaline Phosphatase (38-126) U/L Total Protein (6.3-8.2) g/dL Albumin (3.5-5.0) g/dL Urine Color Yellow Urine Appearance Cloudy (Clear) Urine pH 5.5 (5.0-8.0) Ur Specific [place] 1.020 (1.001-1.035) Urine Protein 1+ H (Negative) Urine Glucose (UA) Negative (Negative) Urine Ketones Trace H (Negative) Urine Blood Small H (Negative) Urine Nitrite Negative (Negative) Urine Bilirubin Negative (Negative) Urine Urobilinogen <2.0 (<2.0) mg/dL Ur Leukocyte Esterase Large H (Negative) Urine RBC 19 H (0-5) /hpf Urine WBC >182 H (0-5) /hpf Urine WBC Clumps Rare H (None) /hpf Ur Squamous Epith Cells 2 (0-4) /hpf Calcium Oxalate Crystal Few H (None) /hpf Amorphous Sediment Rare H (None) /hpf Urine Bacteria Occasional H (None) /hpf Hyaline Casts 17 H (0-2) /lpf Urine Mucus Many H (None) /hpf 07/05/20 07/05/20 Range/Units 16:59 16:59 WBC (3.8-10.6) k/uL RBC (4.30-5.90) m/uL Hgb (13.0-17.5) gm/dL Hct (39.0-53.0) % MCV (80.0-100.0) fL MCH (25.0-35.0) pg MCHC (31.0-37.0) g/dL RDW (11.5-15.5) % Plt Count (150-450) k/uL Neutrophils % % Lymphocytes % % Monocytes % % Eosinophils % % Basophils % % Neutrophils # (1.3-7.7) k/uL Lymphocytes # (1.0-4.8) k/uL Monocytes # (0-1.0) k/uL Eosinophils # (0-0.7) k/uL Basophils # (0-0.2) k/uL Hypochromasia Anisocytosis PT (9.0-12.0) sec INR (<1.2) APTT (22.0-30.0) sec Sodium 135 L (137-145) mmol/L Potassium 5.0 (3.5-5.1) mmol/L Chloride 105 (98-107) mmol/L Carbon Dioxide 23 (22-30) mmol/L Anion Gap 7 mmol/L BUN 38 H (9-20) mg/dL Creatinine 1.31 H (0.66-1.25) mg/dL Est GFR (CKD-EPI)AfAm 58 (>60 ml/min/1.73 sqM) Est GFR (CKD-EPI)NonAf 51 (>60 ml/min/1.73 sqM) Glucose 107 H (74-99) mg/dL Plasma Lactic Acid Abdiel 1.9 (0.7-2.0) mmol/L Calcium 12.2 H (8.4-10.2) mg/dL Total Bilirubin 0.6 (0.2-1.3) mg/dL AST 42 (17-59) U/L ALT 21 (4-49) U/L Alkaline Phosphatase 218 H (38-126) U/L Total Protein 6.8 (6.3-8.2) g/dL Albumin 3.8 (3.5-5.0) g/dL Urine Color Urine Appearance (Clear) Urine pH (5.0-8.0) Ur Specific [place] (1.001-1.035) Urine Protein (Negative) Urine Glucose (UA) (Negative) Urine Ketones (Negative) Urine Blood (Negative) Urine Nitrite (Negative) Urine Bilirubin (Negative) Urine Urobilinogen (<2.0) mg/dL Ur Leukocyte Esterase (Negative) Urine RBC (0-5) /hpf Urine WBC (0-5) /hpf Urine WBC Clumps (None) /hpf Ur Squamous Epith Cells (0-4) /hpf Calcium Oxalate Crystal (None) /hpf Amorphous Sediment (None) /hpf Urine Bacteria (None) /hpf Hyaline Casts (0-2) /lpf Urine Mucus (None) /hpf Disposition Clinical Impression: Altered mental status, Urinary tract infection Disposition: ADMITTED IP TO THIS HOSP Referrals: Damon Callahan DO [Primary Care Provider] - 1-2 days Time of Disposition: 18:07
[2020-07-05 17:21] LABS: Anisocytosis Slight; Basophils # (A) 0.1 k/uL (0-0.2); Basophils % (A) 1 %; Eosinophils # (A) 0.3 k/uL (0-0.7); Eosinophils % (A) 4 %; HCT 38.2 % (39.0-53.0); HGB 11.9 gm/dL (13.0-17.5); Hypochromasia Moderate; Lymphocytes # (A) 1.7 k/uL (1.0-4.8); Lymphocytes % (A) 19 %; MCH 26.6 pg (25.0-35.0); MCHC 31.1 g/dL (31.0-37.0); MCV 85.6 fL (80.0-100.0); Mean Platelet Volume 7.9; Monocytes # (A) 0.4 k/uL (0-1.0); Monocytes % (A) 5 %; Neutrophils # (A) 6.5 k/uL (1.3-7.7); Neutrophils % (A) 70 %; Platelet Count 358 k/uL (150-450); RBC 4.46 m/uL (4.30-5.90); RDW 16.2 % (11.5-15.5); WBC 9.3 k/uL (3.8-10.6)
[2020-07-05 17:28] LABS: Amorphous Sediment,Urine Rare /hpf; Appearance,Urine Cloudy (Clear); Bacteria,Urine Occasional /hpf; Bilirubin,Urine Negative (Negative); Blood,Urine Small (Negative); Calcium Oxalate Crystals,Urine Few /hpf; Color,Urine Yellow; Glucose,Urine (UA) Negative (Negative); Hyaline Casts,Urine 17 /lpf (0-2); Ketones,Urine Trace (Negative); Leukocyte Esterase,Urine Large (Negative); Mucus,Urine Many /hpf; Nitrite,Urine Negative (Negative); PH, Urine 5.5 (5.0-8.0); Protein,Urine 1+ (Negative); RBC,Urine 19 /hpf (0-5); Squamous Epithelial Cell,Urine 2 /hpf (0-4); Urobilinogen,Urine <2.0 mg/dL (<2.0); WBC,Urine >182 /hpf (0-5)
[2020-07-05 17:29] LABS: Albumin 3.8 g/dL (3.5-5.0); Calcium 12.2 mg/dL (8.4-10.2); Total Bilirubin 0.6 mg/dL (0.2-1.3); Total Protein 6.8 g/dL (6.3-8.2)
[2020-07-05 17:30] LABS: INR 1.1 (<1.2); Partial Thromboplastin Time 22.8 sec (22.0-30.0); Prothrombin Time 10.9 sec (9.0-12.0)
--- NOTE | 2020-07-05 17:46 | XR ---
EXAMINATION TYPE: XR chest 2V DATE OF EXAM: 07/05/2020 COMPARISON: 06/27/2020 HISTORY: Fever TECHNIQUE: 2 views. FINDINGS: There is 5 cm masslike infiltrate in the right upper lobe lateral to the right pulmonary hilum. This appears increased slightly compared to recent exam. Heart is normal. Thoracic aorta is atheromatous. There is no pleural effusion. There is no heart failure. There is significant arthritic disease in the right shoulder joint. IMPRESSION: Increasing infiltrate in the right upper lobe right midlung field compared to recent exam . Follow-up recommended.
[2020-07-05] MEDS: SODIUM CHLORIDE 0.9% 500 ML 500 ML IV SCH (18:05)
[2020-07-05] MEDS ORDERED: cefTRIAXone IN SWFI 1,000 MG/10 ML SYRINGE IVP STA (18:06)
[2020-07-05] MEDS ORDERED: SODIUM CHLORIDE 0.9% 1,000 ML IV ONE (18:11)
[2020-07-06] MEDS ORDERED: NON FORMULARY DRUG (Menthol [Biofreeze] 1 APPLIC) TOPICAL PRN (10:22)
[2020-07-06] MEDS ORDERED: HYDROcodone/APAP 5-325MG 1 EACH TAB PO PRN (10:22)
[2020-07-06] MEDS ORDERED: LOPERAMIDE 2 MG CAP PO PRN (10:22)
[2020-07-06] MEDS ORDERED: MAG HYDROX/AL HYDROX/SIMETH 30 ML CUP PO PRN (10:22)
[2020-07-06] MEDS ORDERED: MAGNESIUM HYDROXIDE 2,400 MG/10 ML CUP PO PRN (10:22)
[2020-07-06] MEDS ORDERED: ACETAMINOPHEN TAB 325 MG TAB PO PRN (10:22)
[2020-07-06] MEDS ORDERED: NON FORMULARY DRUG (Lactose-Reduced Food [Ensure Plus] 1 CAN) PO SCH (10:30)
[2020-07-06] MEDS ORDERED: FERROUS SULFATE 325 MG TAB PO SCH (10:30)
[2020-07-06] MEDS: allopurinoL 100 MG TAB PO SCH (11:26)
[2020-07-06] MEDS: CLOPIDOGREL 75 MG TAB PO SCH (11:26)
[2020-07-06] MEDS: ENOXAPARIN 40 MG/0.4 ML SYRINGE SQ SCH (11:26)
[2020-07-06] MEDS: polyethylene glycoL 3350 17 GM POWD.PACK PO SCH (11:26)
[2020-07-06] MEDS: ASPIRIN 81 MG PO SCH (11:26)
[2020-07-06] MEDS: TAMSULOSIN 0.4 MG CAP.ER.24H PO SCH ×2 (11:26→21:32)
[2020-07-06] MEDS: SODIUM CHLORIDE 0.9% 1,000 ML IV SCH ×2 (11:30→21:32)
[2020-07-06] MEDS: SIMETHICONE 80 MG CHEWABLE PO SCH ×3 (14:06→21:32)
[2020-07-06] MEDS: OXYBUTYNIN 10 MG TAB.ER.24 PO SCH (14:06)
[2020-07-06] MEDS: VALSARTAN 160 MG TAB PO SCH (14:06)
[2020-07-06] MEDS: COLCHICINE 0.6 MG EACH PO SCH (14:07)
--- NOTE | 2020-07-06 20:08 | P.HPIM ---
History of Present Illness H&P Date: 07/06/20 Chief Complaint: altered mental status History of presenting complaint: This is a 80-year-old patient currently at resident of [facility], Being followed by Dr. Callahan. Patient did not want was receiving Ceftin for UTI. He was noted to be lethargic at the [facility] and reported blood pressure of 66/42. His recent course screening was negative. In the ER the told the staff there that patient normally AO 3. Patient has an indwelling Flores catheter. Off recent. Patient oral intake and rundown. Patient is not able to give me much of a history except that he is a bit tired but hungry and a bit thirsty. Denies any fever and chills no pain. Review of systems: GEN.: Tired EYES: None HEENT: None NECK: None RESPIRATORY: None CARDIOVASCULAR: None GASTROINTESTINAL: None GENITOURINARY: Flores catheter MUSCULOSKELETAL: None LYMPHATICS: None HEMATOLOGICAL: None PSYCHIATRY: Forgetful NEUROLOGICAL: None Past medical history to include: Coronary artery disease, CHF, hypertension, hyperlipidemia, prostate disorder, obstructive sleep apnea, peripheral arterial disease, urinary retention, uses CPAP Social history: . Currently at [facility]. Smoking for over 50 years up to a pack a day down to couple of cigarettes every other day. No alcohol history. Physical examination: VITAL SIGNS: 97.7, 80, 18, 81/53, 96% room air upon presentation GENERAL: 32.1, laying in bed, awake tired. EYES: Pupils equal. Conjunctiva normal. HEENT: External appearance of nose and ears normal, oral cavity dry mucous membranes. NECK: JVD not raised; masses not palpable. HEART: First and second heart sounds are normal; no edema. LUNGS: Respiratory rate normal; decreased breath sounds. ABDOMEN: Soft, nontender, liver spleen not palpable, no masses palpable. PSYCH: Patient doesn't name, not sure about he is. Not sure about a yearl. NEUROLOGICAL: [Cranial nerves grossly intact; no facial asymmetry, moving all 4 limbs. LYMPHATICS: No lymph nodes palpable in the axilla and neck INVESTIGATIONS, reviewed in the clinical context: White count 9.3 hemoglobin 11.9 platelets 258 potassium 5 bun 38 creatinine 1.31 UA positive for leukoesterase, WBC EKG tracing personally reviewed by me-sinus rhythm with poor R-wave progression Chest x-ray film personally reviewed by [id number] more than one lobe infiltrate Previous testing: Patient's creatinine was 1.73 back on April 2020 Assessment: -Right-sided multilobe pneumonia suspected gram-negative organism -Acute delirium from pneumonia -Acute UTI secondary to Flores catheter, having failed outpatient treatment -Acute delirium from above -Chronic kidney disease stage III possibly nephrosclerosis -Coronary artery disease -Chronic congestive heart failure EF not known -Essential hypertension -Hyperlipidemia -Primary osteoarthritis -Start his sleep apnea uses CPAP -Peripheral arterial disease Plan: Patient started IV ceftriaxone. IV fluids. Home medications resumed. Currently no family at the bedside. Lovenox for DVT prophylaxis. Follow lites. Past Medical History Past Medical History: Coronary Artery Disease (CAD), Heart Failure, CVA/TIA, Hyperlipidemia, Hypertension, Musculoskeletal Disorder, Prostate Disorder, Sleep Apnea/CPAP/BIPAP, Vascular Disorder Additional Past Medical History / Comment(s): Hx PAD, hx Rt rotator cuff tear, Mini stroke 2014, urinary retention. Painful to walk, N/T BLE, hx falls; fallen arch lt foot. N/T lt hand. Uses CPAP History of Any Multi-Drug Resistant Organisms: None Reported Past Surgical History: Appendectomy, Back Surgery, Joint Replacement Additional Past Surgical History / Comment(s): Laminectomy. JOSE KNEE REPLACEMENT. KIDNEY SX AT AGE 6. Lt leg PTBA 2014. Lt CTR. Past Anesthesia/Blood Transfusion Reactions: No Reported Reaction Past Psychological History: No Psychological Hx Reported Smoking Status: Former smoker Past Alcohol Use History: None Reported Past Drug Use History: None Reported - Past Family History Mother Family Medical History: No Reported History, Diabetes Mellitus Medications and Allergies Home Medications Medication Instructions Recorded Confirmed Type Clopidogrel [Plavix] 75 mg PO DAILY #30 tab 04/27/15 07/05/20 Rx Aspirin [[place] Aspirin EC] 81 mg PO DAILY 12/30/18 07/05/20 History Oxybutynin Chloride [Oxybutynin 10 mg PO DAILY 04/14/19 07/05/20 History Chloride ER] Pravastatin Sodium [Pravachol] 40 mg PO HS 04/14/19 07/05/20 History Tamsulosin [Flomax] 0.4 mg PO BID 09/26/19 07/05/20 History Valsartan 320 mg PO DAILY 09/26/19 07/05/20 History Acetaminophen Tab [Tylenol] 650 mg PO Q6HR PRN tab 09/28/19 07/05/20 Rx Potassium Chloride [Klor-Con 20] 40 meq PO DAILY@1700 03/04/20 07/05/20 History traZODone HCL [Desyrel] 50 mg PO HS #3 tab 04/02/20 07/05/20 Rx Allopurinol [Zyloprim] 100 mg PO DAILY 07/05/20 07/05/20 History Cefuroxime [Ceftin] 250 mg PO BID 07/05/20 07/05/20 History Colchicine [Colcrys] 0.6 mg PO DAILY 07/05/20 07/05/20 History Docusate [Colace] 100 mg PO DAILY 07/05/20 07/05/20 History Ferrous Sulfate [Iron] 325 mg PO DAILY 07/05/20 07/05/20 History Furosemide [Lasix] 20 mg PO DAILY 07/05/20 07/05/20 History HYDROcodone/APAP 5-325MG [[place] 1 tab PO Q6HR PRN 07/05/20 07/05/20 History 5-325] Lactose-Reduced Food [Ensure Plus] 1 can PO TID 07/05/20 07/05/20 History Loperamide [Imodium] 2 mg PO DAILY PRN 07/05/20 07/05/20 History Mag Hydrox/Al Hydrox/Simeth 15 ml PO QID PRN 07/05/20 07/05/20 History [Maalox] Magnesium Hydroxide [Milk of 7,200 mg PO DAILY PRN 07/05/20 07/05/20 History Magnesia Concentrate] Menthol [Biofreeze] 1 applic TOPICAL TID PRN 07/05/20 07/05/20 History Polyethylene Glycol 3350 [Clearlax] 17 gm PO DAILY 07/05/20 07/05/20 History Simethicone 80 mg PO QID 07/05/20 07/05/20 History Allergies Allergy/AdvReac Type Severity Reaction Status Date / Time Penicillins Allergy Rash/Hives Verified 07/05/20 21:06 Physical Exam Vitals: Vital Signs Temp Pulse Pulse Resp BP BP Pulse Ox 07/06/20 07:49 98 07/06/20 06:58 97.7 F 79 17 115/70 99 07/05/20 23:36 97.8 F 81 16 115/70 98 07/05/20 23:11 97.8 F 74 16 102/62 100 07/05/20 22:17 97.6 F 75 17 95/63 100 07/05/20 22:00 75 07/05/20 21:00 72 19 111/72 99 07/05/20 19:50 87 18 124/91 98 07/05/20 17:52 62 18 110/66 95 07/05/20 16:25 67 112/76 07/05/20 16:13 97.7 F 80 18 81/53 96 Intake and Output 07/05/20 07/06/20 07/06/20 22:59 06:59 14:59 Output Total 400 Balance -400 Output: Urine 400 Other: Voiding Method Indwelling Catheter Indwelling Catheter Indwelling Catheter Weight 113.398 kg 113.398 kg Results CBC & Chem 7: 07/05/20 16:59 07/05/20 16:59 Labs: Abnormal Lab Results - Last 24 Hours (Table) 07/05/20 07/05/20 07/05/20 Range/Units 16:59 16:59 16:59 Hgb 11.9 L (13.0-17.5) gm/dL Hct 38.2 L (39.0-53.0) % RDW 16.2 H (11.5-15.5) % Sodium 135 L (137-145) mmol/L BUN 38 H (9-20) mg/dL Creatinine 1.31 H (0.66-1.25) mg/dL Glucose 107 H (74-99) mg/dL Calcium 12.2 H (8.4-10.2) mg/dL Alkaline Phosphatase 218 H (38-126) U/L Urine Protein 1+ H (Negative) Urine Ketones Trace H (Negative) Urine Blood Small H (Negative) Ur Leukocyte Esterase Large H (Negative) Urine RBC 19 H (0-5) /hpf Urine WBC >182 H (0-5) /hpf Urine WBC Clumps Rare H (None) /hpf Calcium Oxalate Crystal Few H (None) /hpf Amorphous Sediment Rare H (None) /hpf Urine Bacteria Occasional H (None) /hpf Hyaline Casts 17 H (0-2) /lpf Urine Mucus Many H (None) /hpf Microbiology - Last 24 Hours (Table) 07/05/20 16:59 Urine Culture - Preliminary Urine,Voided Thrombosis Risk Factor Assmnt - Choose All That Apply Any of the Below Risk Factors Present?: No Other Risk Factors: Yes Each Risk Factor Represents 3 Points: Age 75 years or older Thrombosis Risk Factor Assessment Total Risk Factor Score: 3 Thrombosis Risk Factor Assessment Level: Moderate Risk
[2020-07-06] MEDS: traZODone HCL 50 MG TAB PO SCH (21:32)
[2020-07-06] MEDS: PRAVASTATIN SODIUM 40 MG TAB PO SCH (21:32)
[2020-07-07] MEDS: SODIUM CHLORIDE 0.9% 1,000 ML IV SCH ×3 (04:35→19:08)
[2020-07-07] MEDS: ASPIRIN 81 MG PO SCH (08:25)
[2020-07-07] MEDS: CLOPIDOGREL 75 MG TAB PO SCH (08:25)
[2020-07-07] MEDS: ENOXAPARIN 40 MG/0.4 ML SYRINGE SQ SCH (08:25)
[2020-07-07] MEDS: polyethylene glycoL 3350 17 GM POWD.PACK PO SCH (08:25)
[2020-07-07] MEDS: allopurinoL 100 MG TAB PO SCH (08:26)
[2020-07-07] MEDS: TAMSULOSIN 0.4 MG CAP.ER.24H PO SCH ×2 (08:26→20:18)
[2020-07-07] MEDS: COLCHICINE 0.6 MG EACH PO SCH (08:26)
[2020-07-07] MEDS: SIMETHICONE 80 MG CHEWABLE PO SCH ×4 (08:27→20:18)
[2020-07-07] MEDS: OXYBUTYNIN 10 MG TAB.ER.24 PO SCH (08:27)
[2020-07-07] MEDS: VALSARTAN 160 MG TAB PO SCH (08:28)
[2020-07-07 11:17] LABS: Calcium 10.8 mg/dL (8.4-10.2); Potassium 4.1 mmol/L (3.5-5.1)
[2020-07-07 11:19] LABS: Anisocytosis Slight; Hypochromasia Marked; MCH 26.5 pg (25.0-35.0); MCHC 30.1 g/dL (31.0-37.0); Mean Platelet Volume 7.5; Platelet Count 265 k/uL (150-450); RBC 3.41 m/uL (4.30-5.90); RDW 16.2 % (11.5-15.5); WBC 9.3 k/uL (3.8-10.6)
--- NOTE | 2020-07-07 17:52 | P.PN ---
Progress Note - Text Progress Note Date: 07/07/20 Chief Complaint: altered mental status History of presenting complaint: This is a 80-year-old patient currently at [facility], Being followed by Dr. Callahan. Patient was receiving Ceftin for UTI. He was noted to be lethargic at the [facility] and reported blood pressure of 66/42. the ER the told the staff there that patient normally AO 3. Patient has an indwelling Flores catheter. oral intake decreased and rundown. Patient is not able to give me much of a history except that he is a bit tired but hungry and a bit thirsty. Denies any fever and chills no pain. Admitted with right-sided multilobe pneumonia, acute delirium, acute UTI with cystitis. Started IV ceftriaxone. Today-feeling better. is visiting. Eating about 25% of his meals. A bit more awake. Sitting up in a chair. Review of systems: Was done for constitutional, cardiovascular, GI, pulmonary. relevant finding as above Active Medications Acetaminophen (Tylenol Tab) 650 mg PO Q6HR PRN PRN Reason: Fever and/ or mild Pain Hydrocodone Bitart/Acetaminophen ([place] 5-325) 1 each PO Q6HR PRN PRN Reason: Pain Al Hydroxide/Mg Hydroxide (Maalox) 15 ml PO QID PRN PRN Reason: GI Upset Allopurinol (Zyloprim) 100 mg PO DAILY [facility] Last Admin: 07/07/20 08:26 Dose: 100 mg Documented by: Aspirin (Aspirin) 81 mg PO DAILY [facility] Last Admin: 07/07/20 08:25 Dose: 81 mg Documented by: Clopidogrel Bisulfate (Plavix) 75 mg PO DAILY [facility] Last Admin: 07/07/20 08:25 Dose: 75 mg Documented by: Colchicine (Colcrys) 0.6 mg PO DAILY [facility] Last Admin: 07/07/20 08:26 Dose: 0.6 mg Documented by: Enoxaparin Sodium (Lovenox) 40 mg SQ DAILY [facility] Last Admin: 07/07/20 08:25 Dose: 40 mg Documented by: Ceftriaxone Sodium 1 gm/ (Sodium Chloride) 50 mls @ 100 mls/hr IVPB Q24HR [facility] Last Admin: 07/07/20 08:25 Dose: 100 mls/hr Documented by: Sodium Chloride (Saline 0.9%) 1,000 mls @ 130 mls/hr IV .Q7H42M [facility] Last Admin: 07/07/20 10:53 Dose: Not Given Documented by: Loperamide HCl (Imodium) 2 mg PO DAILY PRN PRN Reason: Diarrhea Magnesium Hydroxide (Milk Of Magnesia) 2,400 mg PO DAILY PRN PRN Reason: Constipation Non-Formulary Medication (Menthol [Biofreeze]) 1 applic TOPICAL TID PRN PRN Reason: BACK PAIN Oxybutynin Chloride (Ditropan Xl) 10 mg PO DAILY [facility] Last Admin: 07/07/20 08:27 Dose: 10 mg Documented by: Polyethylene Glycol (Miralax) 17 gm PO DAILY [facility] Last Admin: 07/07/20 08:25 Dose: 17 gm Documented by: Pravastatin Sodium (Pravachol) 40 mg PO [facility] Last Admin: 07/06/20 21:32 Dose: 40 mg Documented by: Simethicone (Mylicon Chew) 80 mg PO QID [facility] Last Admin: 07/07/20 17:11 Dose: Not Given Documented by: Tamsulosin HCl (Flomax) 0.4 mg PO BID [facility] Last Admin: 07/07/20 08:26 Dose: 0.4 mg Documented by: Trazodone HCl (Desyrel) 50 mg PO [facility] Last Admin: 07/06/20 21:32 Dose: 50 mg Documented by: Valsartan (Diovan) 320 mg PO DAILY [facility] Last Admin: 07/07/20 08:28 Dose: 320 mg Documented by: Physical examination: VITAL SIGNS: 98.7, 58, 14, 146/73, 93% room air GENERAL: Sitting up in a chair, awake to tired EYES: Pupils equal. Conjunctiva normal. HEENT: External appearance of nose and ears normal, oral cavity dry mucous membranes. NECK: JVD not raised; masses not palpable. HEART: First and second heart sounds are normal; no edema. LUNGS: Respiratory rate normal; decreased breath sounds. ABDOMEN: Soft, nontender, liver spleen not palpable, no masses palpable. PSYCH: Able tonsil simple questions. INVESTIGATIONS, reviewed in the clinical context: White count 9.3 hemoglobin 9 potassium 4.1 creatinine 1.25 Previous testing White count 9.3 hemoglobin 11.9 platelets 258 potassium 5 bun 38 creatinine 1.31 UA positive for leukoesterase, WBC EKG tracing personally reviewed by me-sinus rhythm with poor R-wave progression Chest x-ray film personally reviewed by [id number] more than one lobe infiltrate Urine culture-group D enterococcus Patient's creatinine was 1.73 back on April 2020 Assessment: -Right-sided multilobe pneumonia suspected gram-negative organism -Acute delirium from pneumonia -Acute UTI secondary to Flores catheter, having failed outpatient treatment-from group D enterococcus -Acute delirium from above -Chronic kidney disease stage III possibly nephrosclerosis -Coronary artery disease -Chronic congestive heart failure EF not known -Essential hypertension -Hyperlipidemia -Primary osteoarthritis -Start his sleep apnea uses CPAP -Peripheral arterial disease Plan: Care was discussed with the patient and the at the bedside. Questions were answered. Continue current antibiotic. Await culture results.
[2020-07-07] MEDS: PRAVASTATIN SODIUM 40 MG TAB PO SCH (20:18)
[2020-07-07] MEDS: traZODone HCL 50 MG TAB PO SCH (20:18)
[2020-07-08] MEDS: SODIUM CHLORIDE 0.9% 1,000 ML IV SCH ×3 (01:32→19:16)
[2020-07-08] MEDS: TAMSULOSIN 0.4 MG CAP.ER.24H PO SCH ×2 (09:13→21:10)
[2020-07-08] MEDS: ENOXAPARIN 40 MG/0.4 ML SYRINGE SQ SCH (09:13)
[2020-07-08] MEDS: CLOPIDOGREL 75 MG TAB PO SCH (09:13)
[2020-07-08] MEDS: allopurinoL 100 MG TAB PO SCH (09:13)
[2020-07-08] MEDS: ASPIRIN 81 MG PO SCH (09:13)
[2020-07-08] MEDS: SIMETHICONE 80 MG CHEWABLE PO SCH ×4 (09:14→22:14)
[2020-07-08] MEDS: OXYBUTYNIN 10 MG TAB.ER.24 PO SCH (09:14)
[2020-07-08] MEDS: VALSARTAN 160 MG TAB PO SCH (09:14)
[2020-07-08] MEDS: COLCHICINE 0.6 MG EACH PO SCH (09:14)
[2020-07-08] MEDS: polyethylene glycoL 3350 17 GM POWD.PACK PO SCH (09:14)
--- NOTE | 2020-07-08 12:25 | CDI ---
Documentation Clarification Form Date: 07/08/2020 11:53:28 AM From: Kalyani Estes Admit Date: 07/07/2020 07:45:00 PM Patient Name: Rogers Santillan Visit Number: [id number] Discharge Date: ATTENTION: The Clinical Documentation Specialists (CDI) and [facility] Coding Staff appreciate your assistance in clarifying documentation. Please respond to the clarification below the line at the bottom and electronically sign. The CDI & [facility] Coding staff will review the response and follow-up if needed. Please note: Queries are made part of the Legal Health Record. If you have any questions, please contact the author of this message via ITS. Dr. Frederic Kessler Delirium and Altered Mental status are documented in the H & P 07/06 and PN 07/07 History/Risk Factors: 80-year-old male presents to the ED with altered mental status from ECF. Medical History: CAD, CHF, CVA/TIA, LEONARDO and HTN Clinical Indicators: 07/05 VSS: B/P 81/53; HR 80; T 97.7 F; RR 18; SpO2 96% room air 07/05 Labs: Wbc 9.3; Na 135; Bun 38; Cr 1.31; Calcium 12.2; Alk Phos 218, UA Culture Enterococcus faecalis 07/05 X Ray: Increasing infiltrate in the right upper lobe right midlung filed compared to recent exam. Treatment: 07/05 Ceftriaxone IV Daily In your professional opinion, please clarify if the above is clinically significant for: Metabolic Encephalopathy secondary to Pneumonia and UTI related to somers catheter Metabolic Encephalopathy ruled out Other condition (please specify) Unable to determine (Last Revision: February 2018) Acute metabolic encephalopathy secondary to pneumonia and UTI in addition to Somers catheter, POA MTDD
[2020-07-08] MEDS: PIPERACILLIN-TAZOBACTAM 3.375 GM in SODIUM CHLORIDE 0.9% 100 ML IVPB SCH ×2 (14:02→21:10)
--- NOTE | 2020-07-08 16:58 | P.PN ---
Progress Note - Text Progress Note Date: 07/08/20 Chief Complaint: altered mental status History of presenting complaint: This is a 80-year-old patient currently at [facility], Being followed by Dr. Callahan. Patient was receiving Ceftin for UTI. He was noted to be lethargic at the [facility] and reported blood pressure of 66/42. the ER the told the staff there that patient normally AO 3. Patient has an indwelling Flores catheter. oral intake decreased and rundown. Patient is not able to give me much of a history except that he is a bit tired but hungry and a bit thirsty. Denies any fever and chills no pain. Admitted with right-sided multilobe pneumonia, acute delirium, acute UTI with cystitis. Started IV ceftriaxone. Today-decrease appetite. Sitting up. daughter the bedside. Awake. Review of systems: Was done for constitutional, cardiovascular, GI, pulmonary. relevant finding as above Active Medications Acetaminophen (Tylenol Tab) 650 mg PO Q6HR PRN PRN Reason: Fever and/ or mild Pain Hydrocodone Bitart/Acetaminophen ([place] 5-325) 1 each PO Q6HR PRN PRN Reason: Pain Last Admin: 07/07/20 20:42 Dose: 1 each Documented by: Al Hydroxide/Mg Hydroxide (Maalox) 15 ml PO QID PRN PRN Reason: GI Upset Allopurinol (Zyloprim) 100 mg PO DAILY [facility] Last Admin: 07/08/20 09:13 Dose: 100 mg Documented by: Aspirin (Aspirin) 81 mg PO DAILY [facility] Last Admin: 07/08/20 09:13 Dose: 81 mg Documented by: Clopidogrel Bisulfate (Plavix) 75 mg PO DAILY [facility] Last Admin: 07/08/20 09:13 Dose: 75 mg Documented by: Colchicine (Colcrys) 0.6 mg PO DAILY [facility] Last Admin: 07/08/20 09:14 Dose: 0.6 mg Documented by: Enoxaparin Sodium (Lovenox) 40 mg SQ DAILY [facility] Last Admin: 07/08/20 09:13 Dose: 40 mg Documented by: Sodium Chloride (Saline 0.9%) 1,000 mls @ 130 mls/hr IV .Q7H42M [facility] Last Admin: 07/08/20 14:01 Dose: 130 mls/hr Documented by: Piperacillin Sod/Tazobactam (Sod 3.375 gm/ Sodium Chloride) 100 mls @ 25 mls/hr IVPB Q8H [facility] Last Admin: 07/08/20 14:02 Dose: 25 mls/hr Documented by: Loperamide HCl (Imodium) 2 mg PO DAILY PRN PRN Reason: Diarrhea Magnesium Hydroxide (Milk Of Magnesia) 2,400 mg PO DAILY PRN PRN Reason: Constipation Non-Formulary Medication (Menthol [Biofreeze]) 1 applic TOPICAL TID PRN PRN Reason: BACK PAIN Oxybutynin Chloride (Ditropan Xl) 10 mg PO DAILY [facility] Last Admin: 07/08/20 09:14 Dose: 10 mg Documented by: Polyethylene Glycol (Miralax) 17 gm PO DAILY [facility] Last Admin: 07/08/20 09:14 Dose: 17 gm Documented by: Pravastatin Sodium (Pravachol) 40 mg PO [facility] Last Admin: 07/07/20 20:18 Dose: 40 mg Documented by: Simethicone (Mylicon Chew) 80 mg PO QID [facility] Last Admin: 07/08/20 14:02 Dose: Not Given Documented by: Tamsulosin HCl (Flomax) 0.4 mg PO BID [facility] Last Admin: 07/08/20 09:13 Dose: 0.4 mg Documented by: Trazodone HCl (Desyrel) 50 mg PO [facility] Last Admin: 07/07/20 20:18 Dose: 50 mg Documented by: Valsartan (Diovan) 320 mg PO DAILY [facility] Last Admin: 07/08/20 09:14 Dose: 320 mg Documented by: Physical examination: VITAL SIGNS: 97.4, 54, 16, 148/68, 97% room air GENERAL: Sitting up in a chair, awake EYES: Pupils equal. Conjunctiva normal. HEENT: External appearance of nose and ears normal, oral cavity dry mucous membranes. NECK: JVD not raised; masses not palpable. HEART: First and second heart sounds are normal; no edema. LUNGS: Respiratory rate normal; decreased breath sounds. ABDOMEN: Soft, nontender, liver spleen not palpable, no masses palpable. PSYCH: Able tonsil simple questions. INVESTIGATIONS, reviewed in the clinical context: Urine culture-Enterococcus faecalis White count 9.3 hemoglobin 9 potassium 4.1 creatinine 1.25 Previous testing White count 9.3 hemoglobin 11.9 platelets 258 potassium 5 bun 38 creatinine 1.31 UA positive for leukoesterase, WBC EKG tracing personally reviewed by me-sinus rhythm with poor R-wave progression Chest x-ray film personally reviewed by [id number] more than one lobe infiltrate Urine culture-group D enterococcus Patient's creatinine was 1.73 back on April 2020 Assessment: -Right-sided multilobe pneumonia suspected gram-negative organism-improving -Acute delirium from pneumonia-improvement -Acute UTI secondary to Flores catheter, having failed outpatient treatment-Enterococcus faecalis. -Acute delirium from above -Chronic kidney disease stage III possibly nephrosclerosis -Coronary artery disease -Chronic congestive heart failure EF not known -Essential hypertension -Hyperlipidemia -Primary osteoarthritis -Start his sleep apnea uses CPAP -Peripheral arterial disease Plan: patient antibiotic will be switched over from ceftriaxone to IV Zosyn. Discussed with the daughter the bedside. Penicillin ALLERGIES ordered. If tolerated can DC to the ECF tomorrow..
[2020-07-08 19:32] LABS: HCT 30.3 % (39.0-53.0); HGB 9.4 gm/dL (13.0-17.5); Hypochromasia Marked; MCH 27.3 pg (25.0-35.0); MCV 88.1 fL (80.0-100.0); Platelet Count 249 k/uL (150-450); RBC 3.44 m/uL (4.30-5.90); RDW 15.7 % (11.5-15.5); WBC 7.3 k/uL (3.8-10.6)
[2020-07-08] MEDS: traZODone HCL 50 MG TAB PO SCH (21:10)
[2020-07-08] MEDS: PRAVASTATIN SODIUM 40 MG TAB PO SCH (21:10)
[2020-07-09] MEDS: SODIUM CHLORIDE 0.9% 1,000 ML IV SCH ×3 (01:39→17:21)
[2020-07-09 02:14] LABS: Anisocytosis Slight; HCT 26.6 % (39.0-53.0); HGB 8.5 gm/dL (13.0-17.5); Hypochromasia Marked; MCH 27.4 pg (25.0-35.0); MCHC 31.9 g/dL (31.0-37.0); MCV 85.9 fL (80.0-100.0); Mean Platelet Volume 7.8; Platelet Count 243 k/uL (150-450); RDW 16.2 % (11.5-15.5); WBC 8.3 k/uL (3.8-10.6)
[2020-07-09] MEDS: PIPERACILLIN-TAZOBACTAM 3.375 GM in SODIUM CHLORIDE 0.9% 100 ML IVPB SCH ×2 (05:36→12:51)
[2020-07-09] MEDS: allopurinoL 100 MG TAB PO SCH (07:20)
[2020-07-09] MEDS: OXYBUTYNIN 10 MG TAB.ER.24 PO SCH (07:20)
[2020-07-09] MEDS: COLCHICINE 0.6 MG EACH PO SCH (07:20)
[2020-07-09] MEDS: SIMETHICONE 80 MG CHEWABLE PO SCH ×2 (07:20→11:36)
[2020-07-09] MEDS: polyethylene glycoL 3350 17 GM POWD.PACK PO SCH (07:20)
[2020-07-09] MEDS: TAMSULOSIN 0.4 MG CAP.ER.24H PO SCH (07:21)
[2020-07-09] MEDS: VALSARTAN 160 MG TAB PO SCH (07:21)
[2020-07-09 07:32] VITALS: BP 158/73; PULSE 77; RESP 15; TEMP 98.4
[2020-07-09 08:06] LABS: Anisocytosis Slight; HCT 28.7 % (39.0-53.0); HGB 8.9 gm/dL (13.0-17.5); Hypochromasia Moderate; MCH 26.5 pg (25.0-35.0); MCV 85.5 fL (80.0-100.0); Mean Platelet Volume 7.7; Platelet Count 274 k/uL (150-450); RBC 3.36 m/uL (4.30-5.90); RDW 16.3 % (11.5-15.5); WBC 9.7 k/uL (3.8-10.6)
[2020-07-09 08:17] LABS: Calcium 10.2 mg/dL (8.4-10.2); Potassium 3.9 mmol/L (3.5-5.1)
[2020-07-09 11:38] LABS: HCT 27.8 % (39.0-53.0); HGB 8.6 gm/dL (13.0-17.5); Hypochromasia Marked; MCH 26.8 pg (25.0-35.0); MCHC 30.9 g/dL (31.0-37.0); MCV 86.7 fL (80.0-100.0); Mean Platelet Volume 7.8; Platelet Count 258 k/uL (150-450); RBC 3.21 m/uL (4.30-5.90); RDW 15.9 % (11.5-15.5); WBC 10.3 k/uL (3.8-10.6)
--- NOTE | 2020-07-09 12:36 | P.DS ---
Providers Date of admission: 07/07/20 19:45 Expected date of discharge: 07/09/20 Attending physician: Frederic Kessler Primary care physician: Damon Callahan [facility] Course: Chief Complaint: altered mental status History of presenting complaint: This is a 80-year-old patient currently at [facility], Being followed by Dr. Callahan. Patient was receiving Ceftin for UTI. He was noted to be lethargic at the [facility] and reported blood pressure of 66/42. the ER the told the staff there that patient normally AO 3. Patient has an indwelling Flores catheter. oral intake decreased and rundown. Patient is not able to give me much of a history except that he is a bit tired but hungry and a bit thirsty. Denies any fever and chills no pain. Admitted with right-sided multilobe pneumonia, acute delirium, acute UTI with cystitis. Started IV ceftriaxone. Urine culture came back showing Enterococcus faecalis. Patient tolerated IV Zosyn. Today-doing better. No new issues. No further fever. Breathing well. Care was discussed with the patient. Questions answered. Discussion and discharge planning more than 35 minutes Physical examination: VITAL SIGNS: 98.4, 77, 15, 158/73, 98% room air GENERAL: Propped in bed, awake, comfortable EYES: Pupils equal. Conjunctiva normal. HEENT: External appearance of nose and ears normal, oral cavity dry mucous membranes. NECK: JVD not raised; masses not palpable. HEART: First and second heart sounds are normal; no edema. LUNGS: Respiratory rate normal; decreased breath sounds. ABDOMEN: Soft, nontender, liver spleen not palpable, no masses palpable. PSYCH: Answering questions. INVESTIGATIONS, reviewed in the clinical context: Urine culture-Enterococcus faecalis White count 10.3 hemoglobin 8.6 Previous testing White count 9.3 hemoglobin 11.9 platelets 258 potassium 5 bun 38 creatinine 1.31 UA positive for leukoesterase, WBC EKG tracing personally reviewed by me-sinus rhythm with poor R-wave progression Chest x-ray film personally reviewed by [id number] more than one lobe infiltrate Urine culture-group D enterococcus Patient's creatinine was 1.73 back on April 2020 Assessment: -Right-sided multilobe pneumonia suspected gram-negative organism-improving, POA -Acute delirium from pneumonia-improvement, POA -Acute UTI secondary to Flores catheter, having failed outpatient treatment- Enterococcus faecalis., POA -Chronic kidney disease stage III possibly nephrosclerosis -Coronary artery disease -Chronic congestive heart failure EF not known -Essential hypertension -Hyperlipidemia -Primary osteoarthritis -Obstructive sleep apnea uses CPAP -Peripheral arterial disease Disposition: ECF/[place] Patient Condition at Discharge: Stable Plan - Discharge Summary Discharge Rx Participant: No New Discharge Prescriptions: New Amoxic-Pot Clav 875-125Mg [Augmentin 875-125] 1 tab PO Q12HR #14 tab Continue Clopidogrel [Plavix] 75 mg PO DAILY #30 tab Aspirin [[place] Aspirin EC] 81 mg PO DAILY Pravastatin Sodium [Pravachol] 40 mg PO HS Oxybutynin Chloride [Oxybutynin Chloride ER] 10 mg PO DAILY Valsartan 320 mg PO DAILY Tamsulosin [Flomax] 0.4 mg PO BID Acetaminophen Tab [Tylenol] 650 mg PO Q6HR PRN tab PRN Reason: Fever and/ or mild Pain Potassium Chloride [Klor-Con 20] 40 meq PO DAILY@1700 traZODone HCL [Desyrel] 50 mg PO HS #3 tab Mag Hydrox/Al Hydrox/Simeth [Maalox] 15 ml PO QID PRN PRN Reason: Gi Upset HYDROcodone/APAP 5-325MG [[place] 5-325] 1 tab PO Q6HR PRN PRN Reason: Pain Loperamide [Imodium] 2 mg PO DAILY PRN PRN Reason: Diarrhea Menthol [Biofreeze] 1 applic TOPICAL TID PRN PRN Reason: BACK PAIN Simethicone 80 mg PO QID Lactose-Reduced Food [Ensure Plus] 1 can PO TID Furosemide [Lasix] 20 mg PO DAILY Polyethylene Glycol 3350 [Clearlax] 17 gm PO DAILY Ferrous Sulfate [Iron] 325 mg PO DAILY Colchicine [Colcrys] 0.6 mg PO DAILY Docusate [Colace] 100 mg PO DAILY Allopurinol [Zyloprim] 100 mg PO DAILY Magnesium Hydroxide [Milk of Magnesia Concentrate] 7,200 mg PO DAILY PRN PRN Reason: Constipation Discontinued Cefuroxime [Ceftin] 250 mg PO BID Discharge Medication List Clopidogrel [Plavix] 75 mg PO DAILY #30 tab 04/27/15 [Rx] Aspirin [[place] Aspirin EC] 81 mg PO DAILY 12/30/18 [History] Oxybutynin Chloride [Oxybutynin Chloride ER] 10 mg PO DAILY 04/14/19 [History] Pravastatin Sodium [Pravachol] 40 mg PO HS 04/14/19 [History] Tamsulosin [Flomax] 0.4 mg PO BID 09/26/19 [History] Valsartan 320 mg PO DAILY 09/26/19 [History] Acetaminophen Tab [Tylenol] 650 mg PO Q6HR PRN tab 09/28/19 [Rx] Potassium Chloride [Klor-Con 20] 40 meq PO DAILY@1700 03/04/20 [History] traZODone HCL [Desyrel] 50 mg PO HS #3 tab 04/02/20 [Rx] Allopurinol [Zyloprim] 100 mg PO DAILY 07/05/20 [History] Colchicine [Colcrys] 0.6 mg PO DAILY 07/05/20 [History] Docusate [Colace] 100 mg PO DAILY 07/05/20 [History] Ferrous Sulfate [Iron] 325 mg PO DAILY 07/05/20 [History] Furosemide [Lasix] 20 mg PO DAILY 07/05/20 [History] HYDROcodone/APAP 5-325MG [[place] 5-325] 1 tab PO Q6HR PRN 07/05/20 [History] Lactose-Reduced Food [Ensure Plus] 1 can PO TID 07/05/20 [History] Loperamide [Imodium] 2 mg PO DAILY PRN 07/05/20 [History] Mag Hydrox/Al Hydrox/Simeth [Maalox] 15 ml PO QID PRN 07/05/20 [History] Magnesium Hydroxide [Milk of Magnesia Concentrate] 7,200 mg PO DAILY PRN 07/05/20 [History] Menthol [Biofreeze] 1 applic TOPICAL TID PRN 07/05/20 [History] Polyethylene Glycol 3350 [Clearlax] 17 gm PO DAILY 07/05/20 [History] Simethicone 80 mg PO QID 07/05/20 [History] Amoxic-Pot Clav 875-125Mg [Augmentin 875-125] 1 tab PO Q12HR #14 tab 07/09/20 [Rx] Follow up Appointment(s)/Referral(s): Damon Callahan DO [Primary Care Provider] - 1-2 days Activity/Diet/Wound Care/Special Instructions: cbc- 3 days
--- NOTE | 2020-07-10 14:25 | CONS ---
CONSULTATION DATE OF CONSULTATION: 07/09/2020 REASON FOR CONSULTATION: Black stools. HISTORY OF PRESENT ILLNESS: The patient is an 80-year-old pleasant white male who is a resident of [facility], was admitted to the hospital because of altered mental status and hypertension. He was subsequently diagnosed with urinary tract infection and has been on broad- spectrum antibiotics. While in the hospital he was having some black tarry stools and hence we are consulted in regards to this issue. However, this morning the patient states that he had regular bowel movements, they were brown in color. He denies any abdominal pain. No nausea, no vomiting. PAST MEDICAL HISTORY: Significant for coronary artery disease, congestive heart failure, hypertension, hyperlipidemia, prostate disorder, COPD, peripheral vascular disease. PAST SURGICAL HISTORY: Rotator cuff surgery, back surgery, appendectomy, laminectomy, bilateral knee replacement. MEDICATIONS AT HOME: Include oxybutynin, aspirin, Pravachol, Flomax, valsartan, Lasix, potassium chloride. ALLERGIES: PENICILLIN. SOCIAL HISTORY: No smoking, no alcohol use. FAMILY HISTORY: Mother had diabetes mellitus. REVIEW OF SYSTEMS: CARDIOPULMONARY: Denies any chest pain or shortness of breath. : No dysuria hematuria. MUSCULOSKELETAL: Unremarkable. SKIN: Unremarkable. ENDOCRINE: Unremarkable. PSYCHIATRIC: Unremarkable. NEUROLOGIC: Mild dementia. ENT/VISION: Unremarkable. CONSTITUTIONAL: No recent weight loss. No fever, chills, night sweats. PHYSICAL EXAMINATION: He appears comfortable, no apparent distress. Vital signs stable. Blood pressure was 158/73, pulse rate 77, temperature 98.4. HEENT examination unremarkable. Conjunctivae pink, sclerae anicteric. Oral cavity no lesions. NECK: No JVD or lymph node enlargement. CHEST was clear to auscultation. HEART: Regular rate and rhythm. ABDOMEN: Soft. Bowel sounds are positive. EXTREMITIES: No pedal edema. NEURO: He is alert and oriented x3. No focal deficits. LABS: WBC was 10.3, hemoglobin 8.6. At the time of admission to the hospital was 11.9 hemoglobin. PTT and INR is within normal limits. BUN 21, creatinine 1.01. IMPRESSION: 1. Anemia, normocytic anemia, but clinically no evidence of active bleeding. The patient had a questionable dark colored stool yesterday but none this morning. Hemoglobin is 8.6 g/dL which dropped by 2 g since hospitalization. 2. Urinary tract infection with sepsis on broad-spectrum antibiotics, doing well. 3. History of hypertension. 4. Altered mental status secondary to urinary tract infection, resolved. RECOMMENDATIONS: Since there is no evidence of active bleeding, no plans for any endoscopy intervention at the present time. He can be continued on current medications. [facility] He was advised to follow up in the office if he notices any change in his bowel habits or any bleeding again. Thank you for this consultation. CHANDLER / GINA: [phone] /
== END 2020-07-09 17:11 | DRG 698 ==
LOC: EC 16:10 → INTOOBSV 18:12 → 4SSUR 18:12 → OBSVTOIN 07-07 19:45
PROVIDERS: ADMIT Hospitalist; ATTEND Hospitalist
DX: T83.511A Infection and inflammatory reaction due to indwelling urethral catheter, initial encounter (principal); A41.81 Sepsis due to Enterococcus; G93.41 Metabolic encephalopathy; J15.6 Pneumonia due to other Gram-negative bacteria; N30.01 Acute cystitis with hematuria; I13.0 Hypertensive heart and chronic kidney disease with heart failure and stage 1 through stage 4 chronic kidney disease, or unspecified chronic kidney disease; J44.0 Chronic obstructive pulmonary disease with (acute) lower respiratory infection; N18.3 Chronic kidney disease, stage 3 (moderate); I50.9 Heart failure, unspecified; I73.9 Peripheral vascular disease, unspecified; Z20.828 Contact with and (suspected) exposure to other viral communicable diseases; R33.9 Retention of urine, unspecified; E78.5 Hyperlipidemia, unspecified; G47.33 Obstructive sleep apnea (adult) (pediatric); I25.10 Atherosclerotic heart disease of native coronary artery without angina pectoris; N42.9 Disorder of prostate, unspecified; R19.5 Other fecal abnormalities; D64.9 Anemia, unspecified; M75.101 Unspecified rotator cuff tear or rupture of right shoulder, not specified as traumatic; M19.91 Primary osteoarthritis, unspecified site; M21.42 Flat foot [pes planus] (acquired), left foot; Z79.82 Long term (current) use of aspirin; Z79.02 Long term (current) use of antithrombotics/antiplatelets; Z79.899 Other long term (current) drug therapy; Z87.891 Personal history of nicotine dependence; Z86.73 Personal history of transient ischemic attack (TIA), and cerebral infarction without residual deficits; Z91.81 History of falling; Z90.49 Acquired absence of other specified parts of digestive tract; Z87.19 Personal history of other diseases of the digestive system; Z87.39 Personal history of other diseases of the musculoskeletal system and connective tissue; Z96.653 Presence of artificial knee joint, bilateral; Z95.820 Peripheral vascular angioplasty status with implants and grafts; Z98.890 Other specified postprocedural states; Z88.0 Allergy status to penicillin; Y84.6 Urinary catheterization as the cause of abnormal reaction of the patient, or of later complication, without mention of misadventure at the time of the procedure; Y92.129 Unspecified place in nursing home as the place of occurrence of the external cause; Z83.3 Family history of diabetes mellitus
CPT/HCPCS: 36415; 71046; 80048; 80053; 81001; 83605; 85025; 85027; 85610; 85730; 87040; 87077; 87086; 87186; 93005; 94760; 96361; 96374; 99285

== ENCOUNTER 2020-07-17 00:42 | Emergency (ER) | payer MEDICARE, BC ==
--- NOTE | 2020-07-17 00:54 | ED ---
Chest Pain HPI - General Stated Complaint: Chest Pain Time Seen by Provider: 07/17/20 00:45 Source: patient, EMS, RN notes reviewed Mode of arrival: EMS Limitations: physical limitation - History of Present Illness MD Complaint: chest pain -: hour(s) Onset: during rest Pain Location: left chest Pain Radiation: none Severity: moderate Quality: other (Stinging) Consistency: intermittent Improves With: nothing Worsens With: nothing Treatments Prior to Arrival: none - Related Data Home Medications Medication Instructions Recorded Confirmed Aspirin [[place] Aspirin EC] 81 mg PO DAILY 12/30/18 07/05/20 Oxybutynin Chloride [Oxybutynin 10 mg PO DAILY 04/14/19 07/05/20 Chloride ER] Pravastatin Sodium [Pravachol] 40 mg PO HS 04/14/19 07/05/20 Tamsulosin [Flomax] 0.4 mg PO BID 09/26/19 07/05/20 Valsartan 320 mg PO DAILY 09/26/19 07/05/20 Potassium Chloride [Klor-Con 20] 40 meq PO DAILY@1700 03/04/20 07/05/20 Allopurinol [Zyloprim] 100 mg PO DAILY 07/05/20 07/05/20 Colchicine [Colcrys] 0.6 mg PO DAILY 07/05/20 07/05/20 Docusate [Colace] 100 mg PO DAILY 07/05/20 07/05/20 Ferrous Sulfate [Iron] 325 mg PO DAILY 07/05/20 07/05/20 Furosemide [Lasix] 20 mg PO DAILY 07/05/20 07/05/20 HYDROcodone/APAP 5-325MG [[place] 1 tab PO Q6HR PRN 07/05/20 07/05/20 5-325] Lactose-Reduced Food [Ensure Plus] 1 can PO TID 07/05/20 07/05/20 Loperamide [Imodium] 2 mg PO DAILY PRN 07/05/20 07/05/20 Mag Hydrox/Al Hydrox/Simeth 15 ml PO QID PRN 07/05/20 07/05/20 [Maalox] Magnesium Hydroxide [Milk of 7,200 mg PO DAILY PRN 07/05/20 07/05/20 Magnesia Concentrate] Menthol [Biofreeze] 1 applic TOPICAL TID PRN 07/05/20 07/05/20 Polyethylene Glycol 3350 [Clearlax] 17 gm PO DAILY 07/05/20 07/05/20 Simethicone 80 mg PO QID 07/05/20 07/05/20 Previous Rx's Medication Instructions Recorded Clopidogrel [Plavix] 75 mg PO DAILY #30 tab 04/27/15 Acetaminophen Tab [Tylenol] 650 mg PO Q6HR PRN tab 09/28/19 traZODone HCL [Desyrel] 50 mg PO HS #3 tab 04/02/20 Amoxic-Pot Clav 875-125Mg 1 tab PO Q12HR #14 tab 07/09/20 [Augmentin 875-125] Allergies Allergy/AdvReac Type Severity Reaction Status Date / Time Penicillins Allergy Rash/Hives Verified 07/17/20 00:52 Review of Systems ROS Statement: Those systems with pertinent positive or pertinent negative responses have been documented in the HPI. ROS Other: All systems not noted in ROS Statement are negative. Constitutional: Denies: fever, chills Respiratory: Denies: cough, dyspnea Cardiovascular: Reports: as per HPI, chest pain. Denies: palpitations, orthopnea, syncope Gastrointestinal: Denies: abdominal pain, vomiting, diarrhea Genitourinary: Denies: dysuria Musculoskeletal: Denies: back pain Skin: Denies: rash Neurological: Denies: headache, weakness EKG Findings - EKG Results: EKG: interpreted by OLEKSANDR, sinus rhythm (Rate 93 bpm), normal axis, normal QRS, normal ST/T - Blocks, [place], Hypertrophy, ST Abn: AV and intraventricular conduction: 1 AV block Past Medical History Past Medical History: Coronary Artery Disease (CAD), Heart Failure, CVA/TIA, Hyperlipidemia, Hypertension, Musculoskeletal Disorder, Prostate Disorder, Sleep Apnea/CPAP/BIPAP, Vascular Disorder Additional Past Medical History / Comment(s): Hx PAD, hx Rt rotator cuff tear, Mini stroke 2015, urinary retention. Painful to walk, N/T BLE, hx falls; fallen arch lt foot. N/T lt hand. Uses CPAP History of Any Multi-Drug Resistant Organisms: None Reported Past Surgical History: Appendectomy, Back Surgery, Joint Replacement Additional Past Surgical History / Comment(s): Laminectomy. JOSE KNEE REPLACEMENT. KIDNEY SX AT AGE 6. Lt leg PTBA 2014. Lt CTR. Past Anesthesia/Blood Transfusion Reactions: No Reported Reaction Past Psychological History: No Psychological Hx Reported Smoking Status: Former smoker Past Alcohol Use History: None Reported Past Drug Use History: None Reported - Past Family History Mother Family Medical History: No Reported History, Diabetes Mellitus General Exam Limitations: physical limitation General appearance: alert, in no apparent distress Head exam: Present: atraumatic, normocephalic Eye exam: Present: normal appearance. Absent: scleral icterus, conjunctival injection Neck exam: Present: normal inspection, full ROM. Absent: meningismus Respiratory exam: Present: normal lung sounds bilaterally. Absent: respiratory distress, wheezes, rales, rhonchi, stridor, chest wall tenderness Cardiovascular Exam: Present: regular rate, normal rhythm, normal heart sounds. Absent: systolic murmur, diastolic murmur, rubs, gallop GI/Abdominal exam: Present: soft. Absent: distended, tenderness, guarding, rebound, rigid Extremities exam: Present: normal inspection, normal capillary refill, pedal edema (mild ankle edema). Absent: calf tenderness Back exam: Present: normal inspection. Absent: vertebral tenderness Neurological exam: Present: alert Skin exam: Present: warm, dry, intact, normal color. Absent: rash Course Vital Signs 07/17/20 07/17/20 07/17/20 00:46 02:30 03:00 Temperature 96.6 F L Pulse Rate 96 81 78 Respiratory 18 16 16 Rate Blood Pressure 90/61 98/55 115/56 O2 Sat by Pulse 98 96 96 Oximetry 07/17/20 07/17/20 04:00 05:29 Temperature 97.6 F Pulse Rate 79 82 Respiratory 16 16 Rate Blood Pressure 91/57 92/58 O2 Sat by Pulse 97 96 Oximetry Chest Pain MDM - [facility] Patient is an 80-year-old man in with atypical chest pain. He is feeling better by the time of evaluation. The workup is unremarkable. Discussed with the patient and the findings, and he at this point would like to go back to the [facility]. Disposition Clinical Impression: Atypical chest pain Disposition: HOME SELF-CARE Condition: Fair Instructions (If sedation given, give patient instructions): Chest Pain (ED) Is patient prescribed a controlled substance at d/c from ED?: No Referrals: Damon Callahan DO [Primary Care Provider] - 1-2 days
[2020-07-17] MEDS ORDERED: SODIUM CHLORIDE 0.9% 500 ML 500 ML IV STA (01:34)
[2020-07-17 01:42] LABS: Anisocytosis Slight; Basophils # (A) 0.1 k/uL (0-0.2); Basophils % (A) 1 %; Eosinophils # (A) 0.3 k/uL (0-0.7); Eosinophils % (A) 2 %; HGB 10.2 gm/dL (13.0-17.5); Hypochromasia Moderate; Lymphocytes # (A) 1.1 k/uL (1.0-4.8); Lymphocytes % (A) 10 %; MCH 26.3 pg (25.0-35.0); MCHC 30.8 g/dL (31.0-37.0); MCV 85.4 fL (80.0-100.0); Mean Platelet Volume 7.3; Monocytes # (A) 0.5 k/uL (0-1.0); Monocytes % (A) 4 %; Neutrophils # (A) 9.8 k/uL (1.3-7.7); Neutrophils % (A) 82 %; Platelet Count 353 k/uL (150-450); RBC 3.86 m/uL (4.30-5.90); RDW 16.9 % (11.5-15.5)
[2020-07-17 01:51] LABS: Albumin 3.4 g/dL (3.5-5.0); Calcium 11.6 mg/dL (8.4-10.2); Magnesium 2.4 mg/dL (1.6-2.3); Potassium 4.8 mmol/L (3.5-5.1); Total Bilirubin 0.5 mg/dL (0.2-1.3); Total Protein 6.2 g/dL (6.3-8.2)
[2020-07-17 02:06] LABS: Partial Thromboplastin Time 22.1 sec (22.0-30.0); Prothrombin Time 10.6 sec (9.0-12.0)
--- NOTE | 2020-07-17 02:17 | XR ---
EXAMINATION TYPE: XR chest 2V DATE OF EXAM: 07/17/2020 COMPARISON: 07/05/2020 HISTORY: Chest pain TECHNIQUE: 2 views FINDINGS: There is a rounded 4 cm mass in the anterior right upper lobe. The other lung guzmán are cl ear. Thoracic aorta is atheromatous. There is no heart failure. There is no pleural effusion. Heart s ize is fairly normal. IMPRESSION: Right upper lobe mass unchanged compared to recent exam. No heart failure seen.
[2020-07-17 02:38] VITALS: RESP 16
[2020-07-17 05:32] VITALS: BP 92/58; PULSE 82; TEMP 97.6
== END 2020-07-17 05:37 | disposition home or self-care (01) ==
LOC: EC 00:42
DX: R07.89 Other chest pain (principal); I25.10 Atherosclerotic heart disease of native coronary artery without angina pectoris; I11.0 Hypertensive heart disease with heart failure; I50.9 Heart failure, unspecified; E78.5 Hyperlipidemia, unspecified; G47.30 Sleep apnea, unspecified; Z79.82 Long term (current) use of aspirin; Z79.899 Other long term (current) drug therapy; Z88.0 Allergy status to penicillin; Z96.653 Presence of artificial knee joint, bilateral; Z87.891 Personal history of nicotine dependence; Z86.73 Personal history of transient ischemic attack (TIA), and cerebral infarction without residual deficits; Z99.89 Dependence on other enabling machines and devices
CPT/HCPCS: 36415; 71046; 80053; 83735; 84484; 85025; 85610; 85730; 93005; 96360; 99285